=== PATIENT | female | born 1935 | race Caucasian/White ===

== ENCOUNTER → 2017-12-21 13:47 | Outpatient (CLI) | payer MEDICARE, OTHER, SELFPAY ==
--- NOTE | 2017-12-21 | DI.ECHO.S_ITS ---
[facility] +---------+ : : [address] : [place] [address] : : : : [id number] : : : : Phone: [phone] Echocardiogram Report + + :Name: CHRIS CRAWFORD Study Date: 12/21/2017 Height: 63 in : :[facility] Weight: 197 lb : : Gender: Female BSA: 1.9 m2 : :: 1935 Age: 82 yrs BP: 100/64 mmHg: :Reason For Study: SOB : :Ordering Physician: : :Dylan Loja Performed By: Symone Chambers : :Referring: GREGORY DIAZ : + + Interpretation Summary 1) Normal left ventricular thickness, size, and systolic function (EF 60-65%). 2) Flattened septum is consistent with RV pressure/volume overload. 3) Moderately enlarged right ventricle with mildly reduced function. 4) Severe biatrial enlargement. 5) There is severe tricuspid regurgitation. 6) The right ventricular systolic pressure is estimated at 68 mmHg assuming a right atrial pressure of 15 mm Hg. 7) The IVC is dilated (diameter is greater than 2.1 cm) and it collapses less than 50% with a sniff. This suggests a high right atrial pressure of 15 mm Hg. 8) No prior Echo available for comparison. I spoke with Dr. Dylan Loja on 12/21/2017 at 1550 to discuss the findings on this echo. Procedure: A two-dimensional transthoracic echocardiogram with color flow and Doppler was performed. The study quality was technically good. Comparison is made with the echocardiogram of 07-24-12. The patient was in atrial fibrillation with heart rates between 76-85 bpm during the exam. Left Ventricle: The left ventricle is normal in size. There is normal left ventricular wall thickness. The ejection fraction is estimated to be 60-65%. Left ventricular systolic function is normal. Flattened septum is consistent with RV pressure/volume overload. Right Ventricle: The right ventricle is moderately dilated. Right ventricular systolic function is mildly reduced. Atria: The left atrium is severely dilated. The right atrium is severely dilated. The interatrial septum is intact with no evidence for an atrial septal defect. Mitral Valve: There is moderate to severe mitral annular calcification. The mitral valve leaflets appear mildly thickened, but open well. There is mild mitral regurgitation. Aortic Valve: The aortic valve is trileaflet. The aortic valve opens well. No aortic regurgitation is present. Tricuspid Valve: The tricuspid valve leaflets are thin and pliable. There is severe tricuspid regurgitation. The right ventricular systolic pressure is estimated at 68 mmHg assuming a right atrial pressure of 15 mm Hg. Pulmonic Valve: The pulmonic valve is normal in structure and function. There is trace pulmonic regurgitation. Great Vessels: The aortic root is normal size. The dimensions of the ascending aorta are normal. The IVC is dilated (diameter is greater than 2.1 cm) and it collapses less than 50% with a sniff. This suggests a high right atrial pressure of 15 mm Hg. Pericardium/ Pleura There is no pericardial effusion. There is no pleural effusion. MMode/2D Measurements & Calculations LVIDd: 4.3 cm Ao root diam: 3.1 cm LVIDs: 2.8 cm Aortic Jxn: 2.6 cm FS: 34.3 % asc Aorta Diam: 3.2 cm EPSS: 0.57 cm Ao Arch Diam (Prox Trans): 3.0 cm IVSd: 1.0 cm LVPWd: 0.98 cm LV andres. diameter/BSA (cm/m^2): 2.2 LV sys. diameter/BSA (cm/m^2): 1.5 LA dimension: 5.3 cm RA long axis: 6.5 cm LA A2 area: 28.3 cm2 RA area: 28.6 cm2 LA A4 area: 32.8 cm2 RA vol: 107.4 ml LA length (vol): 7.5 cm RA : 55.9 ml/m2 LA vol: 105.1 ml IVC diam: 2.8 cm LA vol index: 54.7 ml/m2 RVDd major: 6.0 cm RVD1 (basal): 4.7 cm RVD2 (mid): 4.2 cm Doppler Measurements & Calculations Ao V2 max: 114.1 cm/sec Med Peak E' Tavo: 6.3 cm/sec Ao V2 mean: 72.6 cm/sec Lat Peak E' Tavo: 8.6 cm/sec Ao max P.2 mmHg MV P1/2t: 66.6 msec Ao mean P.6 mmHg MR ERO: 0.19 cm2 Ao V2 VTI: 20.5 cm TR max tavo: 364.1 cm/sec MV V2 mean: 42.5 cm/sec TR max P.0 mmHg MV mean P.1 mmHg PA Accel Time: 0.10 sec MV V2 VTI: 21.4 cm MV P1/2t max tavo: 99.6 cm/sec MR flow rate: 84.6 cm3/sec MVA(P1/2t): 3.3 cm2 MR PISA radius: 0.55 cm Reading Physician:03:55 PM
== END ==
PROVIDERS: PCP Internal Medicine; Visit Provider Physician Assistant
DX: R06.02 Shortness of breath (principal)
CPT/HCPCS: 93306

== ENCOUNTER 2018-01-17 15:19 | Observation (INO) | payer MEDICARE, OTHER, SELFPAY ==
[2018-01-17] VITALS (14 sets, daily range): BP systolic 99–128; BP diastolic 52–99; PULSE 75–101; RESP 12–20; TEMP 36.4–36.9; O2SAT 93–100; BMI 30.9
--- NOTE | 2018-01-17 15:32 | ED_ITS ---
HPI - General Adult General Chief complaint: Chest Pain Stated complaint: POSSIBLE PULM EMBOLISM Time Seen by Provider: 01/17/18 15:31 Source: patient Mode of arrival: ambulatory Limitations: no limitations History of Present Illness HPI narrative: 82-year-old female currently on Eliquis for atrial fibrillation also with a diagnosis of diastolic heart failure currently on Lasix here for evaluation of chest pain. Patient states that it started approximately 3 hr prior to arrival to the emergency department but has been consistent for the past 2 hr. States that it does radiate to the left side of her neck and also to her back. Has no history of coronary artery disease. Does get somewhat worse with taking a deep breath. Not worse with movement or palpation. Patient is not diabetic. Does have a history of hypertension. Patient's daughter is an orthopedic surgeon and told her to come to the emergency department for evaluation for possible pulmonary embolism. Related Data Home Medications Medication Instructions Recorded Confirmed atenolol 12.5 mg PO QDAY #0 07/22/12 01/17/18 furosemide 40 mg PO BID #0 07/22/12 01/17/18 magnesium oxide 500 mg PO DIRECTED #0 07/22/12 01/17/18 Probiotic 2 cap PO DAILY 01/17/18 01/17/18 apixaban [Eliquis] 5 mg PO BID 01/17/18 01/17/18 cholecalciferol (vitamin D3) 5,000 unit PO DAILY 01/17/18 01/17/18 [Vitamin D3] levothyroxine 100 mcg PO DAILY 01/17/18 01/17/18 potassium chloride [Klor-Con 10 meq PO BID 01/17/18 01/17/18 Sprinkle] Allergies Allergy/AdvReac Type Severity Reaction Status Date / Time No Known Allergies Allergy Uncoded 01/17/18 15:32 Review of Systems Constitutional Denies chills, Denies fever(s), Denies lethargy and Denies weakness ENT Ears, Nose, Mouth, and Throat: Denies vertigo and Denies dizziness Cardiovascular Reports chest pain, Denies diaphoresis, Denies syncope, Denies rapid heart rate , Reports irregular heart rhythm (Patient has known atrial fibrillation), Reports leg edema (Not new, not worse than baseline), Denies lightheadedness, Denies palpitations and Reports dyspnea (Secondary to the chest pain) Respiratory Denies chest congestion, Denies cough, Reports dyspnea (Secondary to the chest pain) and Denies wheezing Gastrointestinal Gastrointestinal: Denies diarrhea, Denies nausea and Denies vomiting Genitourinary Denies dysuria Musculoskeletal Denies abnormal gait, Denies myalgias and Denies arthralgias Integumentary/Breasts Denies lesions, Denies rash and Denies wounds Neurologic Denies abnormal gait, Denies behavioral changes, Denies confusion, Denies vertigo, Denies dizziness, Denies syncope and Denies weakness Psychiatric Denies behavioral changes and Denies confusion Endocrine Denies palpitations Hematologic/Lymphatic Denies easy bleeding and Denies easy bruising Comments: Currently anticoagulated on Eliquis has been on for 3 weeks Allergic/Immunologic Denies wheezing FOR[facility], [facility] Social History Smoking Status: Never smoker Exam Initial Vital Signs Initial Vital Signs: Vital Signs Temperature 97.5 F L 01/17/18 15:32 Pulse Rate 78 01/17/18 15:32 Respiratory Rate 18 01/17/18 15:32 Blood Pressure 128/64 H 01/17/18 15:32 Pulse Oximetry 97 01/17/18 15:32 Const General: cooperative, healthy appearing, comfortable and well developed Orientation: alert, awake and oriented x3 HENMT Head: normal to inspection, normocephalic and atraumatic Ears: hearing grossly normal bilaterally Nose: external nose normal Face and sinus: normal facial exam Mouth: oral mucosae normal Chest Chest: normal inspection of the chest and normal palpation of entire chest wall Resp Effort & Inspection: normal respiratory effort Auscultation: clear to auscultation bilaterally Cardio Rate: regular rate Rhythm: abnormal rhythm Heart Sounds: murmur systolic III/ GI Inspection: normal to inspection and non-distended Palpation: soft, No firm and No guarding Back/Spine/Pelvis Back: No CVA tenderness Skin Lesions: no lesions Rashes: no rashes Wounds: no wounds Neuro General: alert, awake and oriented x3 Cognition: normal cognition Speech: speech normal Motor: muscle tone normal throughout Sensory Exam: no sensory deficits noted Extrem Other: 2+ pitting edema bilateral lower extremities from the feet to the knees right greater than left Course Orders Ordered: ED Orders 01/17/18 15:33 EKG-12 Lead Stat 01/17/18 16:03 CT angio chest abdomen pelvis Stat 01/17/18 16:04 B Type Natriuretic Peptide Stat Basic Metabolic Panel Stat Complete Blood Count AUTO DIFF Stat Partial Thromboplastin Time Stat Prothrombin Time INR Stat Troponin I Stat Sodium Chloride (Normal Saline 0.9%) 1,000 mls @ 250 mls/hr IV BOLUS ONE Stop: 01/17/18 20:50 Last Admin: 01/17/18 17:13 Dose: 250 mls/hr Discontinued Medications Aspirin (Aspirin) 325 mg PO NOW ONE Stop: 01/17/18 18:04 Last Admin: 01/17/18 18:05 Dose: 325 mg Sodium Chloride (Normal Saline 0.9%) 1,000 mls @ 500 mls/hr IV BOLUS ONE Stop: 01/17/18 18:02 Last Admin: 01/17/18 16:26 Dose: Not Given Morphine Sulfate (Morphine) 4 mg IV NOW ONE Stop: 01/17/18 18:04 Last Admin: 01/17/18 18:05 Dose: 4 mg Vital Signs - 8 hr 01/17/18 15:32 01/17/18 16:04 01/17/18 16:30 Temperature 97.5 F L Pulse Rate 78 80 75 Respiratory Rate 18 17 12 Blood Pressure 128/64 H Blood Pressure [Left Arm] 106/66 101/63 Pulse Oximetry 97 97 100 01/17/18 17:05 01/17/18 17:30 01/17/18 18:06 Temperature Pulse Rate 86 82 81 Respiratory Rate 17 18 19 Blood Pressure Blood Pressure [Left Arm] 128/99 H 110/52 L 112/60 Pulse Oximetry 93 Medical Decision Making [facility] Narrative Medical decision making narrative: CT scan negative for pulmonary embolism and thoracic aortic dissection. Patient is in atrial fibrillation was currently on Eliquis. Her presenting symptoms have moved to her upper back and seem to be pleuritic in nature. Has nonspecific ST T wave changes on the EKG. Was given an aspirin and morphine here in the ER. Initial troponin negative this was drawn 3 hr after consistent pain had a long discussion with the patient and family regarding options to include going home now versus staying here in the emergency department for repeat troponin versus being admitted to the hospital for further provocative testing. I advised her that being admitted to the hospital is in her best interest given her risk factors and symptoms. We had discussion regarding her options of being admitted here to this hospital and I advised her that we were able to perform stress testing however we do not have a laboratory administrative director if that was needed verses being transferred to another hospital. Patient opted to be admitted here to this hospital. Discussed the case with Dr. Lucero with Internal Medicine who accepted admission. Patient and family expressed understanding and agreement with plan Lab Data Result diagrams: 01/17/18 16:04 01/17/18 16:04 Lab Results 01/17/18 01/17/18 01/17/18 Range/Units 16:04 16:04 16:04 WBC 10.3 (4.5-11.0) X10^3/uL RBC 5.34 H (4.0-5.2) X10^6/uL Hgb 15.3 (12.0-16.0) g/dL Hct 46.4 H (36-46) % MCV 87.0 (80-100) fL MCH 28.6 (26-34) PG MCHC 32.9 (30-36) % RDW 17.0 H (11.6-14.8) % Plt Count 209 (150-400) X10^3/uL Neut % (Auto) 83.2 H (50-75) % Lymph % (Auto) 6.7 L (25-40) % [place] % (Auto) 8.5 (3-14) % Eos % (Auto) 1.2 L (2-4) % Baso % (Auto) 0.4 (0-2) % Neut # (Auto) 8600 H (3812-5706) /uL PT 19.0 H (10.1-12.7) SECONDS INR 1.8 H (0.9-1.3) APTT 34 (26.4-36.2) SECONDS Sodium 142 (137-145) mmol/L Potassium 4.1 (3.4-5.1) mmol/L Chloride 97 L (98-107) mmol/L Carbon Dioxide 31 (22-32) mmol/L BUN 28 H (7-17) mg/dL Creatinine 1.00 (0.52-1.04) mg/dL Estimated GFR 53.1 L (>60) mL/min BUN/Creatinine Ratio 28.0 H (6-22) Glucose 99 (80-110) mg/dL Calcium 9.7 (8.4-10.2) mg/dL Troponin I < 0.012 (0.01-0.034) ng/mL B-Natriuretic Peptide 682.0 H (<100) Imaging Data CT chest abdomen pelvis: Radiologist's impression: PROCEDURE: CT ANGIO CHEST ABDOMEN PELVIS INDICATIONS: Chest and back pain concern for PE and aortic dissection TECHNIQUE: Precontrast 5 mm thick sections acquired from the lung apices to the iliac crests. After the administration of intravenous contrast, 2.5 mm thick sections again acquired from the lung apices to the iliac crests. Maximum intensity projection (MIP) oblique sagittal and coronal reformats were then acquired. For radiation dose reduction, the following was used: automated exposure control. COMPARISON: [facility], ECHO DOPPLER COMPLETE, 12/21/2017, 14:07. [facility], ECHOCARDIOGRAM COMPLETE, 07/24/2012, 11:59. FINDINGS: Image quality: Excellent. AORTA: Intramural hematoma: Absent Maximum hematoma thickness: Not applicable. Focal contrast enhancement: Intramural blood pool (< 2 mm neck or imperceptible communication with aortic lumen): Absent. Ulcer-like projection (broad communication with aortic lumen > 3 mm): Absent. Dissection: Not applicable [place] classification: Not applicable Maximum aortic diameter: 3.5 cm. [If [place] A dissection, > 5.0 cm has a poorer prognosis. If [place] B dissection, > 4.0 cm has a poorer prognosis.] Periaortic hematoma: Absent. CHEST: Lungs and pleura: No acute airspace opacities. Chronic interstitial changes noted in the lung bases bilaterally. No pleural effusions or pneumothorax. Central and peripheral airways are patent and normal in caliber. Mediastinum: Heart is enlarged. There is left atrial, right atrial and right ventricular dilatation. A left ventricular hypertrophy is noted. There is flattening of the interventricular septum and reflux of contrast material into the hepatic veins compatible with right heart strain. Atherosclerotic calcifications are noted in the aorta, great vessels and the coronary vasculature. No pericardial effusion. No mediastinal or hilar adenopathy by size criteria. Central pulmonary arteries are normal in size. No large central pulmonary embolus identified. Small pulmonary emboli involving the subsegmental pulmonary arteries cannot be excluded. Esophagus is normal in caliber. No hiatal hernias. Bones and chest wall: No axillary adenopathy by size criteria. Thyroid gland is within normal limits. No suspicious bony lesions. No vertebral body compression fractures. ABDOMEN: Vasculature: Celiac trunk and mesenteric arteries are patent. Renal arteries are also patent. Solid organs: Liver is normal in size and enhancement. Gallbladder is within normal limits. Biliary system is non dilated. Pancreas enhances normally. Spleen is normal in size and enhancement. No adrenal nodules. Both kidneys are normal in size and enhancement, without hydronephrosis. Peritoneum and bowel: No free fluid or air. Bowel loops are normal in caliber and wall thickness. Scattered colonic diverticuli without evidence of diverticulitis. Nodes and vessels: No retroperitoneal or mesenteric adenopathy by size criteria. Inferior vena cava is normal in morphology. Scattered atherosclerotic calcifications involving the abdominal and pelvic vasculature. Miscellaneous: No ventral hernias. PELVIS: Genitourinary: Bladder wall thickness is normal. Miscellaneous: No inguinal hernias or adenopathy. No ventral hernias. Bones: No suspicious bony lesions. No vertebral body compression fractures. Spine degenerative disc disease and facet arthropathy. Bilateral hip prostheses noted. IMPRESSION: 1. No evidence of aortic dissection. 2. No large central pulmonary embolus. Please note study was optimized for evaluation of the aorta and there is suboptimal contrast opacification of subsegmental pulmonary arteries. Small pulmonary emboli cannot be excluded by this study. 3. Cardiomegaly with right heart strain. Recommend cardiac echocardiogram for further evaluation. 4. Atherosclerosis including the coronary vasculature. Dictated by: Yumiko Wild MD, PhD on 01/17/2018 at 17:16 ECG Data Attestation: I personally reviewed and interpreted this ECG as follows: Prior ECG tracings: not available for review Interpretation: Atrial fibrillation Ventricular rate is 79 Incomplete right bundle branch block Normal QRS Nonspecific ST T wave changes Discharge Plan Departure Patient Disposition: Admitted as Observation Clinical Impression: Chest pain, A-fib
--- NOTE | 2018-01-17 16:03 | DI.CT.S_ITS ---
PROCEDURE: CT ANGIO CHEST ABDOMEN PELVIS INDICATIONS: Chest and back pain concern for PE and aortic dissection TECHNIQUE: Precontrast 5 mm thick sections acquired from the lung apices to the iliac crests. After the administration of intravenous contrast, 2.5 mm thick sections again acquired from the lung apices to the iliac crests. Maximum intensity projection (MIP) oblique sagittal and coronal reformats were then acquired. For radiation dose reduction, the following was used: automated exposure control. [facility], 12[facility]2017, 14[facility]07[facility]TE, 07/24/2012, 11:59. FINDINGS: Image quality: Excellent. AORTA: Intramural hematoma: Absent Maximum hematoma thickness: Not applicable. Focal contrast enhancement: Intramural blood pool (< 2 mm neck or imperceptible communication with aortic lumen): Absent. Ulcer-like projection (broad communication with aortic lumen > 3 mm): Absent. Dissection: Not applicable [place] classification: Not applicable Maximum aortic diameter: 3.5 cm. [If [place] A dissection, > 5.0 cm has a poorer prognosis. If [place] B dissection, > 4.0 cm has a poorer prognosis.] Periaortic hematoma: Absent. CHEST: Lungs and pleura: No acute airspace opacities. Chronic interstitial changes noted in the lung bases bilaterally. No pleural effusions or pneumothorax. Central and peripheral airways are patent and normal in caliber. Mediastinum: Heart is enlarged. There is left atrial, right atrial and right ventricular dilatation. A left ventricular hypertrophy is noted. There is flattening of the interventricular septum and reflux of contrast material into the hepatic veins compatible with right heart strain. Atherosclerotic calcifications are noted in the aorta, great vessels and the coronary vasculature. No pericardial effusion. No mediastinal or hilar adenopathy by size criteria. Central pulmonary arteries are normal in size. No large central pulmonary embolus identified. Small pulmonary emboli involving the subsegmental pulmonary arteries cannot be excluded. Esophagus is normal in caliber. No hiatal hernias. Bones and chest wall: No axillary adenopathy by size criteria. Thyroid gland is within normal limits. No suspicious bony lesions. No vertebral body compression fractures. ABDOMEN: Vasculature: Celiac trunk and mesenteric arteries are patent. Renal arteries are also patent. Solid organs: Liver is normal in size and enhancement. Gallbladder is within normal limits. Biliary system is non dilated. Pancreas enhances normally. Spleen is normal in size and enhancement. No adrenal nodules. Both kidneys are normal in size and enhancement, without hydronephrosis. Peritoneum and bowel: No free fluid or air. Bowel loops are normal in caliber and wall thickness. Scattered colonic diverticuli without evidence of diverticulitis. Nodes and vessels: No retroperitoneal or mesenteric adenopathy by size criteria. Inferior vena cava is normal in morphology. Scattered atherosclerotic calcifications involving the abdominal and pelvic vasculature. Miscellaneous: No ventral hernias. PELVIS: Genitourinary: Bladder wall thickness is normal. Miscellaneous: No inguinal hernias or adenopathy. No ventral hernias. Bones: No suspicious bony lesions. No vertebral body compression fractures. Spine degenerative disc disease and facet arthropathy. Bilateral hip prostheses noted. IMPRESSION: 1. No evidence of aortic dissection. 2. No large central pulmonary embolus. Please note study was optimized for evaluation of the aorta and there is suboptimal contrast opacification of subsegmental pulmonary arteries. Small pulmonary emboli cannot be excluded by this study. 3. Cardiomegaly with right heart strain. Recommend cardiac echocardiogram for further evaluation. 4. Atherosclerosis including the coronary vasculature. Dictated by: Yumiko Wild MD, PhD on 01/17/2018 at 17:16 Approved by: Yumiko Wild MD, PhD on 01/17/2018 at 17:36
[2018-01-17 16:10] LABS: Add Manual Diff / Slide Review NO; Basophils Percent Auto 0.4 % (0-2); Eosinophils Percent Auto 1.2 % (2-4); Hematocrit 46.4 % (36-46); Hemoglobin 15.3 g/dL (12.0-16.0); Lymphocytes Percent Auto 6.7 % (25-40); Mean Corpuscular HGB Conc 32.9 % (30-36); Mean Corpuscular Hemoglobin 28.6 PG (26-34); Monocytes Percent Auto 8.5 % (3-14); Neutrophils Absolute Auto 8600 /uL (3000-5900); Neutrophils Percent Auto 83.2 % (50-75); Platelet Count 209 X10^3/uL (150-400); Red Blood Cell Count 5.34 X10^6/uL (4.0-5.2); White Blood Cell Count 10.3 X10^3/uL (4.5-11.0)
[2018-01-17 16:17] LABS: INR 1.8 (0.9-1.3)
[2018-01-17 16:19] LABS: PTT Partial Thromboplastin Tim 34 SECONDS (26.4-36.2)
[2018-01-17 16:22] LABS: Blood Urea Nitrogen 28 mg/dL (7-17); Calcium 9.7 mg/dL (8.4-10.2); Carbon Dioxide 31 mmol/L (22-32); Chloride 97 mmol/L (98-107); Estimated Glomerular Filt Rate 53.1 mL/min (>60); Glucose 99 mg/dL (80-110); HEMOLYSIS < 15 (0-50); Potassium 4.1 mmol/L (3.4-5.1); Sodium 142 mmol/L (137-145)
--- NOTE | 2018-01-17 16:33 | PC.NURSE ---
Pt reports chest pain radating to back and bilateral shoulder blades which worse with breathing in. Pt has hx of afib, rate controlled in 70's and HF. Pt has been taking Eloquis for anticoagulant. Pt currently on cont cardiac/o2 monitor and declines IVF hydration at this time due to her hx of HF and aggressive diuretic therapy. Pt informed will wait for BNP results.
[2018-01-17 16:37] LABS: Troponin I < 0.012 ng/mL (0.01-0.034)
[2018-01-17] MEDS: SODIUM CHLORIDE 0.9% 1,000 ML 250 ML IV (17:13)
[2018-01-17] MEDS: MORPHINE 4 MG/ML INJ IV ×2 (18:05→21:31)
[2018-01-17] MEDS: ASPIRIN 325 MG TABLET PO (18:05)
--- NOTE | 2018-01-17 20:24 | PC.NURSE ---
patient up to room by 1945. patient is a&ox4 and has been oriented to room and call light. shun verbalizes understanding with use of call light and states she will not get up by herself. dr. lloyd in to see patient for assessment. patient describes pain in upper shoulders/upper back and states it radiates up both sides of neck. iv in lac is intact and patent. vss. 97% on ra. patient denies nausea, sob, or dizziness. patient successfully voided in br. patient has baseline edema 2+ non-pitting to ble. pain is rated 6/10. patient requests to have morphine ordered for pain management, dr. lloyd aware. skin is intact. patient denies tingling or numbness to ble. compression stockings are in place. bowel tones present, patient's last bm was this morning. lung sounds are clear throughout. heart rate is irregular at baseline, patient has chronic afib. telemetry unit is in place. ba is on. will continue to monitor.
--- NOTE | 2018-01-17 20:45 | P.HP_ITS ---
History of Present Illness Date Patient Seen: 01/17/18 Time Patient Seen: 20:00 Chief complaint: POSSIBLE PULM EMBOLISM Narrative: 82-year-old, patient of Dr. Dylan Loja'shelia who presented to the [facility] Emergency Room for chest pain. She has chronic atrial fibrillation. She was recently diagnosed with congestive heart failure with preserved ejection fraction. Her furosemide dose was increased to 40 mg twice a day. She has lost about 22 lb of body weight in the past 4 weeks. She just saw Dr. Loja yesterday at the clinic for follow-up visit. She was doing well until this morning when she started having pain on her anterior chest and radiating to her upper back. She described the pain as sharp in nature. Currently the anterior chest pain has resolved. She has mild sharp pain in upper back when she takes a breath. She has mild chronic cough. She has not noticed any worsening of cough. She denies fevers or chills. She received 4 mg of IV morphine at the emergency room which helped with alleviating the pain. Patient History Comment: Chronic atrial fibrillation Hypothyroidism Thyroid nodule, on suppressive levothyroxine since 1974 Chronic peripheral edema due to venous insufficiency Pulmonary hypertension Bladder cancer, status post BCG treatment [id number], followed by Dr. Swartz , negative cystoscopy and biopsy since then Perforated diverticulitis, status post partial colectomy in February of 2011 Obstructive sleep apnea, 2011 Appendectomy, 1951 Left total hip arthroplasty, December of 2009 Right total hip arthroplasty, November of 2016 Umbilical hernia repair, May of 2010 Incisional hernia repair, January 2013 Bilateral cataract surgeries, 2014 Hemorrhoid and fissure repair, 1970 Right hand lateral collateral ligament repair, 1974 Family & Social History Social History: household members children Prior Living Arrangements House Safety & Behavioral: Feels Safe in Current Yes Environment Been Physically Hurt or No Threatened By a Person Suicidal Ideation Description None Suicide Plan Description No Plan Tobacco & Substance use: Smoking Status Never smoker alcohol intake frequency 0-2 drinks per day Substance Use Type does not use Comment: She is . Her youngest daughter is living with care. She is independent with ADLs. She drinks alcohol occasionally. No cigarette smoking. Meds Home Medications Medication Instructions Recorded Confirmed Type atenolol 12.5 mg PO QDAY #0 07/22/12 01/17/18 History furosemide 40 mg PO BID #0 07/22/12 01/17/18 History magnesium oxide 500 mg PO DIRECTED #0 07/22/12 01/17/18 History Probiotic 2 cap PO DAILY 01/17/18 01/17/18 History apixaban [Eliquis] 5 mg PO BID 01/17/18 01/17/18 History cholecalciferol (vitamin D3) 5,000 unit PO DAILY 01/17/18 01/17/18 History [Vitamin D3] levothyroxine 100 mcg PO DAILY 01/17/18 01/17/18 History potassium chloride [Klor-Con 10 meq PO BID 01/17/18 01/17/18 History Sprinkle] Allergies Allergy/AdvReac Type Severity Reaction Status Date / Time No Known Allergies Allergy Uncoded 01/17/18 15:32 Review of Systems Constitutional Comments: No fever chills or sweats Cardiovascular Cardiovascular: Reports as per HPI Respiratory Comments: Mild chronic cough Gastrointestinal Comments: No abdominal pain Genitourinary Comments: No dysuria Neurologic Comments: No headache or confusion Exam Vital Signs (past 8 hours): Vital Signs - 8 hr 3 01/17/18 15:32 01/17/18 16:04 01/17/18 16:30 Temperature 97.5 F L Pulse Rate 78 80 75 Respiratory Rate 18 17 12 Blood Pressure 128/64 H Blood Pressure [Left Arm] 106/66 101/63 Pulse Oximetry 97 97 100 3 01/17/18 17:05 01/17/18 17:30 01/17/18 18:06 Temperature Pulse Rate 86 82 81 Respiratory Rate 17 18 19 Blood Pressure Blood Pressure [Left Arm] 128/99 H 110/52 L 112/60 Pulse Oximetry 93 3 01/17/18 18:30 01/17/18 19:00 01/17/18 19:32 Temperature Pulse Rate 81 82 86 Respiratory Rate 20 16 18 Blood Pressure Blood Pressure [Left Arm] 99/70 104/57 L 110/63 Pulse Oximetry 95 95 3 01/17/18 19:58 Temperature Pulse Rate 83 Respiratory Rate 20 Blood Pressure 110/63 Blood Pressure [Left Arm] Pulse Oximetry 95 Pulse Oximetry 95 Oxygen Delivery Method Room Air Narrative Exam Narrative: GENERAL: Well-appearing, well-nourished and in no acute distress. HEENT: Head normocephalic, atraumatic. Eyes pupils equal round NECK: Supple, no JVD, CHEST: Breath sounds equal bilaterally, no wheezes rales or rhonchi. CARDIAC: Irregularly irregular rhythm without murmurs, rubs or gallops. ABDOMEN: Soft, nontender. Normoactive bowel sounds all 4 quadrants. No guarding or rebound. EXTREMITIES: Normal range of motion, 2 to 3+ edema on bilateral lower leg and feet, bilateral lower leg and feet were in compression stockings NEUROLOGICAL: Alert and oriented; Normal muscle strength. SKIN: Warm, dry, no petechiae, no rashes or lesions. Objective Imaging CT scan - chest: Radiologist's impression: 1. No evidence of aortic dissection. 2. No large central pulmonary embolus. Please note study was optimized for evaluation of the aorta and there is suboptimal contrast opacification of subsegmental pulmonary arteries. Small pulmonary emboli cannot be excluded by this study. 3. Cardiomegaly with right heart strain. Recommend cardiac echocardiogram for further evaluation. 4. Atherosclerosis including the coronary vasculature. echocardiogram: Radiologist's impression: Interpretation Summary 1) Normal left ventricular thickness, size, and systolic function (EF 60-65%). 2) Flattened septum is consistent with RV pressure/volume overload. 3) Moderately enlarged right ventricle with mildly reduced function. 4) Severe biatrial enlargement. 5) There is severe tricuspid regurgitation. 6) The right ventricular systolic pressure is estimated at 68 mmHg assuming a right atrial pressure of 15 mm Hg. 7) The IVC is dilated (diameter is greater than 2.1 cm) and it collapses less than 50% with a sniff. This suggests a high right atrial pressure of 15 mm Hg. 8) No prior Echo available for comparison. Labs Result Diagrams: 01/17/18 16:04 01/17/18 16:04 Labs: Laboratory Results - last 24 hr 01/17/18 01/17/18 01/17/18 16:04 16:04 16:04 WBC 10.3 RBC 5.34 H Hgb 15.3 Hct 46.4 H MCV 87.0 MCH 28.6 MCHC 32.9 RDW 17.0 H Plt Count 209 Neut % (Auto) 83.2 H Lymph % (Auto) 6.7 L [place] % (Auto) 8.5 Eos % (Auto) 1.2 L Baso % (Auto) 0.4 Neut # (Auto) 8600 H PT 19.0 H INR 1.8 H APTT 34 Sodium 142 Potassium 4.1 Chloride 97 L Carbon Dioxide 31 BUN 28 H Creatinine 1.00 Estimated GFR 53.1 L BUN/Creatinine Ratio 28.0 H Glucose 99 Calcium 9.7 Troponin I < 0.012 B-Natriuretic Peptide 682.0 H Assessment & Plan Plan: Assessment/Plan Narrative: 1. Chest pain: Her chest pain seemed to be pleuritic in nature. CT pulmonary angiogram did not reveal large pulmonary embolism. She is on Eliquis for anticoagulation. We will check serial troponin to rule out myocardial infarction. We will schedule her for Lexiscan tomorrow to rule out coronary artery disease. 2. Chronic atrial fibrillation: Her ventricular rate is adequately controlled. We will continue telemetry monitoring. Continue Eliquis for anticoagulation 3. Congestive heart failure with preserved ejection fraction: She does not seem to have signs of acute exacerbation. We will continue outpatient medications including furosemide 40 mg twice a day and atenolol 4. Hypothyroidism: Recheck TSH. Continue levothyroxine 100 mcg daily. 5. Chronic bilateral lower extremity edema, secondary to venous insufficiency: Continue compression stockings during the day. Elevate her bilateral legs.
[2018-01-17] MEDS: POTASSIUM CHLORIDE 10 MEQ TAB PO (21:02)
[2018-01-17] MEDS: FUROSEMIDE 20 MG TABLET 40 MG PO (21:02)
[2018-01-17] MEDS: APIXABAN 5 MG TABLET PO (21:02)
[2018-01-17 21:50] LABS: TSH w/ Reflex to FT4 1.72 uIU/mL (0.47-4.68)
[2018-01-17] MEDS: ACETAMINOPHEN 325 MG TABLET 650 MG PO (23:47)
--- NOTE | 2018-01-18 | DI.NM.S_ITS ---
PROCEDURE: NM EMMANUEL PERF SPECT SINGLE STUDY Exercise myocardial perfusion SPECT with gated imaging and ejection fraction RADIOPHARMACEUTICAL: 20.7 mCi Tc-99m sestamibi IV with lexiscan stress. INDICATIONS: chest pain TECHNIQUE: Radiopharmaceutical was injected at peak stress test. SPECT images were obtained, with perfusion images in short axis, horizontal long axis, and vertical long axis views. Gated images were reviewed using Desti software. COMPARISON: None. CARDIAC STRESS: A lexiscan 0.4mg IV X1 was used to stress portion of the study. Rest images were not obtained. Hemodynamic data: There is normal blood pressure and heart response to exercise. Symptoms: Patient denied anginal chest pain during exercise. EKG: No diagnostic changes of ischemia; no ectopy. FINDINGS: Raw data: There is good labeling of myocardium by radiotracer. No significant motion artifacts. Left ventricular function: Gated images demonstrate normal left ventricle wall thickening. No segmental wall motion abnormalities. Left ventricle end diastolic volume is 52 mL. Left ventricle stress ejection fraction is 77%; normal values are above 45%. Myocardial perfusion: There is normal distribution of activity in the left and right ventricular myocardium, without focal perfusion defects. IMPRESSION: Low risk, normal pharmaceutical stress only study 1) Normal stress only perfusion images, consistent with no ischemia and no infarction. 2) Normal left ventricular size, wall motion, and systolic function (EF 77%). 3) No ECG evidence of ischemia on lexiscan. 4) No angina during the pharmaceutical stress test. 5) No prior nuclear stress test available for comparison. Dictated by: Roxanne Gonzalez MD on 01/18/2018 at 13:21 Approved by: Roxanne Gonzalez MD on 01/18/2018 at 13:25
[2018-01-18 00:11] LABS: Troponin I < 0.012 ng/mL (0.01-0.034)
--- NOTE | 2018-01-18 00:12 | PC.NURSE ---
Addendum entered by Monika Barrett R.N. 01/18/18 06:45: Provided Wowo printed information regarding chemical stress test. States chest pain has been relieved and upper back pain is still at 3/10 Original Note: Addendum entered by Monika Barrett R.N. 01/18/18 05:42: Medicated with Morphine for anterior chest pain and upper back pain. States pain with deeper breaths is 6/10 and 4/10 at rest but constant. Continues to express anxiety over upcoming stress test. Original Note: Addendum entered by Monika Barrett R.N. 01/18/18 04:30: Patient assisted out of bed and to bathroom. Having increased pain with any movement and is very slow in walking but seems steady on feet; is using walker. States she was able to sleep some. Made NPO at this time as patient is having cardiolite stress test today but uncertain as to time. Original Note: Addendum entered by Monika Barrett R.N. 01/18/18 01:35: Medicated as requested with Morphine 4mg; states pain is now down to 4/10 and much more tolerable. Original Note: Patient is alert and oriented but very anxious pending stress test in the morning. Breath sounds with inspiratory crackles in bilateral bases; RA sat 95%. Respirations are shallow because she has increased pain related to taking deep breaths; I.S. provided and instructed in use. HR irregular with hx of afib and telemetry is being monitored and was afib CVR at start of shift. Denies nausea. BT hypoactive but states she is passing flatus. Denies dysuria or urgency but has frequency related to diuretic use and some stress incontinence. Having upper back/neck pain with severity of 7-8/10 with deep breaths/movement. States pain is dull at rest, but knocks me for a loop with deep breaths. Assisted to bathroom with 1 assist and walker. Has 1+ edema in bilateral LE and is wearing compression stockings she came in with from home. Is [place] but did not bring her hearing aids with her to the hospital. Fall risk score is high and bed alarm is activated.
[2018-01-18] MEDS: MORPHINE 4 MG/ML INJ IV ×2 (01:32→05:28)
[2018-01-18] MEDS: SODIUM CHLORIDE 0.9% FLUSH 10 ML IV ×3 (01:32→09:02)
[2018-01-18 04:30] VITALS: BP 130/77; PULSE 82; RESP 18; TEMP 37.1; O2SAT 95
[2018-01-18] MEDS: ACETAMINOPHEN 325 MG TABLET 650 MG PO ×2 (06:38→12:56)
[2018-01-18] MEDS: LEVOTHYROXINE 100 MCG TABLET PO (06:38)
[2018-01-18 08:00] VITALS: BP 98/54; PULSE 90; RESP 16; TEMP 37.1; O2SAT 93
[2018-01-18] MEDS: APIXABAN 5 MG TABLET PO (09:01)
[2018-01-18] MEDS: MAGNESIUM OXIDE 400 MG TABLET PO (09:01)
[2018-01-18] MEDS: CHOLECALCIFEROL (VITAMIN D3) 5,000 UNIT TABLET 5000 UNIT PO (09:01)
[2018-01-18 09:31] VITALS: O2SAT 96
--- NOTE | 2018-01-18 09:38 | PC.NURSE ---
Addendum entered by Elo Omalley R.N. 01/18/18 14:39: dc - in and pt will dc home, discussed medications and aware held atenolol and lasix today, pt can resume regular schedule at home, given dc instructions, chf info, script for percocet, reviewed with pt and her dtr, belongings gathered, including bag, clothing, cell phone and print washer, tele dc'd, assisted to wc and escorted to dtr's car by clinical education specialist. Original Note: Addendum entered by Elo Omalley R.N. 01/18/18 13:09: VITALS/PAIN - returned from jayla test to chair, states chest discomfort is present but improved, would like to continue with the morphine and tylenol for pain management 3 on scale 0/10, worsens with deep breath, discussed bp 98/53 and hr 90 with and will hold for now. Original Note: Addendum entered by Elo Omalley R.N. 01/18/18 10:56: JAYLA - DI nurse arrived, pt moderately anxious, Keiry explained procedure process and pt taken via wc for test. Original Note: AM NOTE - pt has been npo throughout night and yesseniaiscan ordered this am, held atenolol and lasix for now and per [facility], test for later am, does continue to have the same chest discomfort 2 on scale 0/10, up to 5-6 when taking deep breathes, coarse crackles jim lower lobes, ra 96%, hr 90, states earlier tylenol and morphine providing adequate relief, 2+ pedal edema, wearing her own compression hose, standby assist to br and voided 250ml concentrated urine this am, using IS to 1200.
[2018-01-18 12:00] VITALS: BP 98/53; PULSE 93; RESP 18; TEMP 36.2; O2SAT 96
--- NOTE | 2018-01-18 13:46 | PM.DS.1 ---
History of Present Illness Chief complaint: POSSIBLE PULM EMBOLISM Narrative: 82-year-old, patient of Dr. Dylan Loja's who presented to the [facility] Emergency Room for chest pain. She has chronic atrial fibrillation. She was recently diagnosed with congestive heart failure with preserved ejection fraction. Her furosemide dose was increased to 40 mg twice a day. She has lost about 22 lb of body weight in the past 4 weeks. She just saw Dr. Loja yesterday at the clinic for follow-up visit. She was doing well until this morning when she started having pain on her anterior chest and radiating to her upper back. She described the pain as sharp in nature. Currently the anterior chest pain has resolved. She has mild sharp pain in upper back when she takes a breath. She has mild chronic cough. She has not noticed any worsening of cough. She denies fevers or chills. She received 4 mg of IV morphine at the emergency room which helped with alleviating the pain. Discharge Providers Date of admission: 01/17/18 18:47 Primary care physician: Dylan Loja MD Consults: 01/17/18 20:14 Consult to Dietitian, Adult Routine Comment: trying to lose weight in healthy ways. Reason For Exam: recent weight loss, patient trying to lose weight Consult to Pastoral Services Routine Comment: would not turn away visitors Discharge provider: Cherie Lucero MD Discharge Date: 01/18/18 Summary Discharge Diagnosis: 1. Chest pain 2. Chronic atrial fibrillation 3. Chronic congestive heart failure with preserved ejection fraction 4. Hypothyroidism Five. Chronic bilateral lower extremity edema secondary to venous insufficiency Hospital Course: Patient was ruled out for [place] with 2-troponins. CT pulmonary angiogram did not reveal large PE. There was no signs of pleural effusion or pneumothorax either. Lexiscan was done on January 18, 2018 which did not reveal perfusion defect. Patient's chest pain seemed to be pleuritic in nature. It is possible that she could have pleurisy. She is not able to take anti-inflammatories medication due to her being on anticoagulation with Eliquis. We will use Tylenol as needed for pain. She will also be given a prescription of Percocet for as needed pain control. Status at Discharge Cognitive/behavioral status at discharge: Alert and oriented x3 Functional status at discharge: independent ambulation Overall status at discharge: patient is progressing back to baseline Time Spent with Patient Greater than 30 minutes Exam Vital Signs (past 8 hours): Vital Signs - 8 hr 01/18/18 08:00 01/18/18 09:31 01/18/18 12:00 Temperature 98.8 F 97.2 F L Pulse Rate 90 93 H Respiratory Rate 16 18 Blood Pressure 98/54 L 98/53 L Pulse Oximetry 93 96 96 Pulse Oximetry 96 Oxygen Delivery Method Room Air Oxygen Flow Rate [address] scan - chest: Radiologist's impression: 1. No evidence of aortic dissection. 2. No large central pulmonary embolus. Please note study was optimized for evaluation of the aorta and there is suboptimal contrast opacification of subsegmental pulmonary arteries. Small pulmonary emboli cannot be excluded by this study. 3. Cardiomegaly with right heart strain. Recommend cardiac echocardiogram for further evaluation. 4. Atherosclerosis including the coronary vasculature. Vanita scan: Radiologist's impression: 1) Normal stress only perfusion images, consistent with no ischemia and no infarction. 2) Normal left ventricular size, wall motion, and systolic function (EF 77%). 3) No ECG evidence of ischemia on lexiscan. 4) No angina during the pharmaceutical stress test. 5) No prior nuclear stress test available for comparison. ECG: Atrial fibrillation Labs Result Diagrams: 01/17/18 16:04 01/17/18 16:04 Labs: Laboratory Results - last 24 hr 01/17/18 01/17/18 01/17/18 16:00 16:04 16:04 WBC 10.3 RBC 5.34 H Hgb 15.3 Hct 46.4 H MCV 87.0 MCH 28.6 MCHC 32.9 RDW 17.0 H Plt Count 209 Neut % (Auto) 83.2 H Lymph % (Auto) 6.7 L [place] % (Auto) 8.5 Eos % (Auto) 1.2 L Baso % (Auto) 0.4 Neut # (Auto) 8600 H PT 19.0 H INR 1.8 H APTT 34 Sodium Potassium Chloride Carbon Dioxide BUN Creatinine Estimated GFR BUN/Creatinine Ratio Glucose Calcium Troponin I B-Natriuretic Peptide 682.0 H TSH 1.72 01/17/18 01/17/18 16:04 23:39 WBC RBC Hgb Hct MCV MCH MCHC RDW Plt Count Neut % (Auto) Lymph % (Auto) [place] % (Auto) Eos % (Auto) Baso % (Auto) Neut # (Auto) PT INR APTT Sodium 142 Potassium 4.1 Chloride 97 L Carbon Dioxide 31 BUN 28 H Creatinine 1.00 Estimated GFR 53.1 L BUN/Creatinine Ratio 28.0 H Glucose 99 Calcium 9.7 Troponin I < 0.012 < 0.012 B-Natriuretic Peptide TSH Discharge Plan Discharge Plan Discharge Problem: Chest pain, A-fib Patient Disposition: Home, Self-Care Provider Discharge Instructions Diet: Low-cholesterol Activity: as tolerated Discharge Data Primary Care Provider: Dylan Loja V Attending Provider: Cherie Lucero Admit Date/Time: 01/17/18 18:47
--- NOTE | 2018-01-18 13:49 | P.DS_ITS ---
History of Present Illness Chief complaint: POSSIBLE PULM EMBOLISM Narrative: 82-year-old, patient of Dr. Dylan Loja's who presented to the [facility] Emergency Room for chest pain. She has chronic atrial fibrillation. She was recently diagnosed with congestive heart failure with preserved ejection fraction. Her furosemide dose was increased to 40 mg twice a day. She has lost about 22 lb of body weight in the past 4 weeks. She just saw Dr. Loja yesterday at the clinic for follow-up visit. She was doing well until this morning when she started having pain on her anterior chest and radiating to her upper back. She described the pain as sharp in nature. Currently the anterior chest pain has resolved. She has mild sharp pain in upper back when she takes a breath. She has mild chronic cough. She has not noticed any worsening of cough. She denies fevers or chills. She received 4 mg of IV morphine at the emergency room which helped with alleviating the pain. Discharge Providers Date of admission: 01/17/18 18:47 Primary care physician: Dylan Loja MD Consults: 01/17/18 20:14 Consult to Dietitian, Adult Routine Comment: trying to lose weight in healthy ways. Reason For Exam: recent weight loss, patient trying to lose weight Consult to Pastoral Services Routine Comment: would not turn away visitors Discharge provider: Cherie Lucero MD Discharge Date: 01/18/18 Summary Discharge Diagnosis: 1. Chest pain 2. Chronic atrial fibrillation 3. Chronic congestive heart failure with preserved ejection fraction 4. Hypothyroidism Five. Chronic bilateral lower extremity edema secondary to venous insufficiency Hospital Course: Patient was ruled out for [place] with 2-troponins. CT pulmonary angiogram did not reveal large PE. There was no signs of pleural effusion or pneumothorax either. Lexiscan was done on January 18, 2018 which did not reveal perfusion defect. Patient's chest pain seemed to be pleuritic in nature. It is possible that she could have pleurisy. She is not able to take anti- inflammatories medication due to her being on anticoagulation with Eliquis. We will use Tylenol as needed for pain. She will also be given a prescription of Percocet for as needed pain control. Status at Discharge Cognitive/behavioral status at discharge: Alert and oriented x3 Functional status at discharge: independent ambulation Overall status at discharge: patient is progressing back to baseline Time Spent with Patient Greater than 30 minutes Exam Vital Signs (past 8 hours): Vital Signs - 8 hr 3 01/18/18 08:00 01/18/18 09:31 01/18/18 12:00 Temperature 98.8 F 97.2 F L Pulse Rate 90 93 H Respiratory Rate 16 18 Blood Pressure 98/54 L 98/53 L Pulse Oximetry 93 96 96 Pulse Oximetry 96 Oxygen Delivery Method Room Air Oxygen Flow Rate [address] scan - chest: Radiologist's impression: 1. No evidence of aortic dissection. 2. No large central pulmonary embolus. Please note study was optimized for evaluation of the aorta and there is suboptimal contrast opacification of subsegmental pulmonary arteries. Small pulmonary emboli cannot be excluded by this study. 3. Cardiomegaly with right heart strain. Recommend cardiac echocardiogram for further evaluation. 4. Atherosclerosis including the coronary vasculature. Vanita scan: Radiologist's impression: 1) Normal stress only perfusion images, consistent with no ischemia and no infarction. 2) Normal left ventricular size, wall motion, and systolic function (EF 77%). 3) No ECG evidence of ischemia on lexiscan. 4) No angina during the pharmaceutical stress test. 5) No prior nuclear stress test available for comparison. ECG: Atrial fibrillation Labs Result Diagrams: 01/17/18 16:04 01/17/18 16:04 Labs: Laboratory Results - last 24 hr 01/17/18 01/17/18 01/17/18 16:00 16:04 16:04 WBC 10.3 RBC 5.34 H Hgb 15.3 Hct 46.4 H MCV 87.0 MCH 28.6 MCHC 32.9 RDW 17.0 H Plt Count 209 Neut % (Auto) 83.2 H Lymph % (Auto) 6.7 L [place] % (Auto) 8.5 Eos % (Auto) 1.2 L Baso % (Auto) 0.4 Neut # (Auto) 8600 H PT 19.0 H INR 1.8 H APTT 34 Sodium Potassium Chloride Carbon Dioxide BUN Creatinine Estimated GFR BUN/Creatinine Ratio Glucose Calcium Troponin I B-Natriuretic Peptide 682.0 H TSH 1.72 01/17/18 01/17/18 16:04 23:39 WBC RBC Hgb Hct MCV MCH MCHC RDW Plt Count Neut % (Auto) Lymph % (Auto) [place] % (Auto) Eos % (Auto) Baso % (Auto) Neut # (Auto) PT INR APTT Sodium 142 Potassium 4.1 Chloride 97 L Carbon Dioxide 31 BUN 28 H Creatinine 1.00 Estimated GFR 53.1 L BUN/Creatinine Ratio 28.0 H Glucose 99 Calcium 9.7 Troponin I < 0.012 < 0.012 B-Natriuretic Peptide TSH Discharge Plan Discharge Plan Discharge Problem: Chest pain, A-fib Patient Disposition: Home, Self-Care Provider Discharge Instructions Diet: Low-cholesterol Activity: as tolerated Discharge Data Primary Care Provider: Dylan Loja V Attending Provider: Cherie Lucero Admit Date/Time: 01/17/18 18:47
--- NOTE | 2018-01-18 14:57 | CM.DPNOTE ---
Discharge Planning: Patient came in as OBS patient on 01/17 and discharged prior to being interviewed by DCP on 01/18. According to nursing notes and Discharge Summary, patient was discharged home under self-care, and daughter was with her at d/c to hear all discharge instructions and to see patient safely home. Jami Freitas RN
== END 2018-01-18 14:45 | disposition home or self-care (01) ==
LOC: ED 18:12 → AC 18:48
PROVIDERS: Admitting Provider Internal Medicine; Emergency Provider Emergency Medicine; Family Provider Internal Medicine; PCP Internal Medicine; Visit Provider Internal Medicine
DX: R07.9 Chest pain, unspecified (principal); I51.7 Cardiomegaly; I48.2 Chronic atrial fibrillation; E03.9 Hypothyroidism, unspecified; R60.0 Localized edema; I50.30 Unspecified diastolic (congestive) heart failure; I10 Essential (primary) hypertension; I25.10 Atherosclerotic heart disease of native coronary artery without angina pectoris
CPT/HCPCS: 36415; 36591; 71275; 74174; 78451; 80048; 83880; 84443; 84484; 85025; 85610; 85730; 93005; 93010; 93016; 93017; 93018; 93041; 96361; 96374; 99285; G0378; A9502; J2270; J2785; Q9967

== ENCOUNTER → 2018-02-15 18:44 | Outpatient (REF) | payer MEDICARE, OTHER, SELFPAY ==
[2018-01-17 19:23] VITALS: BMI 30.9
[2018-02-15 19:20] LABS: Blood Urea Nitrogen 27 mg/dL (7-17); Calcium 9.5 mg/dL (8.4-10.2); Carbon Dioxide 39 mmol/L (22-32); Chloride 92 mmol/L (98-107); Estimated Glomerular Filt Rate 53.1 mL/min (>60); Glucose 108 mg/dL (80-110); HEMOLYSIS < 15 (0-50); Magnesium 2.2 mg/dL (1.6-2.3); Potassium 3.5 mmol/L (3.4-5.1); Sodium 139 mmol/L (137-145)
== END ==
LOC: LAB 18:44
PROVIDERS: Family Provider Internal Medicine; PCP Internal Medicine; Visit Provider Student in an Organized Health Care Education/Training Program
DX: E83.42 Hypomagnesemia (principal); I50.9 Heart failure, unspecified
CPT/HCPCS: 80048; 83735; 83880

== ENCOUNTER 2018-03-01 18:34 | Emergency (ER) | payer MEDICARE, OTHER, SELFPAY ==
[2018-01-17 19:23] VITALS: BMI 30.9
--- NOTE | 2018-03-01 18:44 | DI.CT.S_ITS ---
PROCEDURE: CT HEAD/BRAIN WO CON INDICATIONS: fall on eliquis TECHNIQUE: Noncontrast 4.5 mm thick angled axial sections acquired from the foramen magnum to the vertex, with coronal and sagittal reformats. For radiation dose reduction, the following was used: automated exposure control, adjustment of mA and/or kV according to patient size. COMPARISON: [facility], CT, BRAIN W/O CONTRAST, 01/06/2014, 13:59. FINDINGS: Image quality: Excellent. CSF spaces: Basal cisterns are patent. No extra-axial fluid collections. The ventricles are symmetric in size and shape. Brain: No intracranial bleeds or masses. There is cerebral volume loss for age, with resultant ventricular and sulcal prominence. There are periventricular and deep white matter chronic small vessel ischemic changes. There is intracranial internal carotid artery atherosclerosis. Skull and face: Calvarium and visualized facial bones appear intact, without suspicious lesions. Sinuses: Visualized sinuses and mastoids are clear. IMPRESSION: No trauma found. Moderate brain parenchymal atrophy. Dictated by: Timothy Zamarripa M.D. on 03/01/2018 at 19:31 Approved by: Timothy Zamarripa M.D. on 03/01/2018 at 19:31
--- NOTE | 2018-03-01 18:45 | DI.CT.S_ITS ---
PROCEDURE: CT CERVICAL SPINE WO CON INDICATIONS: fall backwards neck pain TECHNIQUE: Noncontrast 3 mm thick sections acquired from the skull base to the T4 level. Sagittal and coronal reformats were then constructed. For radiation dose reduction, the following was used: automated exposure control, adjustment of mA and/or kV according to patient size. COMPARISON: None. FINDINGS: Image quality: Excellent. Bones: No fractures or dislocations. Visualized superior ribs are intact. Chronic appearing moderately severe degenerative disc disease and facet osteoarthritis, with mild anterolisthesis of C4 on C5 and C5 on C6. Soft tissues: Prevertebral soft tissues are normal in thickness. No paravertebral hematomas. No apical pneumothoraces. IMPRESSION: No acute trauma found. Moderately severe degenerative disc disease and facet osteoarthritis with mild subluxation is noted. Dictated by: Timothy Zamarripa M.D. on 03/01/2018 at 19:29 Approved by: Timothy Zamarripa M.D. on 03/01/2018 at 19:30
--- NOTE | 2018-03-01 18:51 | DI.CT.S_ITS ---
PROCEDURE: CT THORACIC SPINE WO CON INDICATIONS: fall backwards TECHNIQUE: Noncontrast 3 mm thick sections acquired through the region of interest in the thoracic spine. Sagittal and coronal reformats were then constructed. For radiation dose reduction, the following was used: automated exposure control. COMPARISON: None. FINDINGS: Image quality: Excellent. Bones: There is normal overall bony alignment. No acute vertebral body compression fractures. No suspicious sclerotic or lytic bony lesions. Central spinal canal is of normal overall caliber. Soft tissues: No paravertebral masses or hematomas. Visualized posteromedial lungs appear clear. IMPRESSION: No trauma found. Moderate degenerative disc disease along the thoracic spine and at the cervical thoracic junction. Dictated by: Timothy Zamarripa M.D. on 03/01/2018 at 19:31 Approved by: Timothy Zamarripa M.D. on 03/01/2018 at 19:32
--- NOTE | 2018-03-01 18:58 | ED.FALL ---
HPI - Fall General Chief Complaint: Fall Stated Complaint: FALL HIT HEAD Time Seen by Provider: 03/01/18 18:43 Source: patient Mode of arrival: ambulatory Limitations: no limitations History of Present Illness HPI Narrative: Patient is a 82-year-old female who presents after ground level fall. She fell backwards hitting her head on the floor. She did not lose consciousness. She had difficulty getting up because she felt like her legs did not have strength. No nausea or vomiting. No hip pain. Has no numbness or tingling. She is on Eliquis for atrial fibrillation. He is having some mild neck pain as well but no arm weakness. MD complaint: fall Related Data Home Medications Medication Instructions Recorded Confirmed atenolol 12.5 mg PO QDAY #0 07/22/12 01/17/18 furosemide 40 mg PO BID #0 07/22/12 01/17/18 magnesium oxide 500 mg PO DIRECTED #0 07/22/12 01/17/18 Probiotic 2 cap PO DAILY 01/17/18 01/17/18 apixaban 5 mg PO BID 01/17/18 01/17/18 cholecalciferol (vitamin D3) 5,000 unit PO DAILY 01/17/18 01/17/18 [Vitamin D3] levothyroxine 100 mcg PO DAILY 01/17/18 01/17/18 potassium chloride 10 meq PO BID 01/17/18 01/17/18 Previous Rx's Medication Instructions Recorded acetaminophen 650 mg PO Q6HR #30 tab 01/18/18 oxycodone-acetaminophen [Percocet] 2 tab PO Q4-6H PRN #20 tab 01/18/18 Allergies Allergy/AdvReac Type Severity Reaction Status Date / Time No Known Allergies Allergy Uncoded 01/17/18 15:32 Review of Systems Review of Systems All systems reviewed & are unremarkable except as noted in HPI and below Constitutional Denies chills, Denies fever(s), Denies lethargy and Denies weakness Eyes Denies change in vision, Denies eye discharge, Denies irritation and Denies loss of vision ENT Ears, Nose, Mouth, and Throat: Denies change in voice, Denies vertigo, Denies dizziness, Denies neck pain and Denies sore throat Cardiovascular Denies chest pain, Denies syncope, Denies irregular heart rhythm, Denies lightheadedness, Denies palpitations and Denies orthopnea Gastrointestinal Gastrointestinal: Denies abdominal pain, Denies change in bowel habits, Denies diarrhea, Denies nausea and Denies vomiting Musculoskeletal Reports as per HPI and Denies neck pain Neurologic Denies confusion, Denies vertigo, Denies dizziness, Denies syncope, Denies loss of vision and Denies weakness Psychiatric Denies confusion Endocrine Denies palpitations Exam Initial Vital Signs Initial Vital Signs: Vital Signs Temperature 97.8 F 03/01/18 19:16 Pulse Rate 87 03/01/18 19:16 Respiratory Rate 16 03/01/18 19:16 Blood Pressure 111/57 L 03/01/18 19:16 Pulse Oximetry 93 03/01/18 19:16 Const General: cooperative and healthy appearing Nutritional Appearance: average body habitus Orientation: alert, awake and oriented x3 HENMT Head: normal to inspection, normocephalic and atraumatic Nose: external nose normal Face and sinus: normal facial exam Eyes Pupils: PERRL EOM: EOM intact bilaterally Neck Neck: normal visual inspection, full ROM, trachea midline and No midline deformity Chest Chest: normal inspection of the chest Resp Effort & Inspection: normal respiratory effort Auscultation: clear to auscultation bilaterally, no rales and no rhonchi Cardio Rate: regular rate Rhythm: abnormal rhythm irregularly irregular Heart Sounds: S1 normal and S2 normal GI Palpation: soft, No firm and No tender Back/Spine/Pelvis Cervical Spine: collar present and cervical spinal tenderness (C7-T1, no step-off deformities appreciated) Thoracic/Lumbar Spine: thoracic and lumbar spine normal to inspection and thoracic spinal tenderness (Upper thoracic tender no step-off deformities is) Skin General: no rashes or lesions noted, No ecchymosis and No erythema Neuro General: alert, awake and oriented x3 Cranial Nerves: CN's II-XI intact bilaterally Cognition: normal cognition Speech: speech normal Gait: normal gait Motor: muscle tone normal throughout Sensory Exam: no sensory deficits noted Extrem General: normal to inspection Right upper extremity: normal to inspection Left upper extremity: normal to inspection Right lower extremity: normal to inspection Left lower extremity: normal to inspection [facility] [place] Social History household members: children Smoking Status: Never smoker Scores [facility] [place] coma scale eye opening: Spontaneous Melanie coma scale verbal response: Orientated Melanie coma scale motor response: Obey commands Melanie coma scale total score: 15 Course Orders Ordered: ED Orders 03/01/18 19:57 CT head/brain wo con Stat Discontinued Medications Acetaminophen (Tylenol) 650 mg PO NOW ONE Stop: 03/01/18 19:58 Last Admin: 03/01/18 20:24 Dose: 650 mg Vital Signs - 8 hr 03/01/18 20:53 03/01/18 22:09 03/01/18 23:27 Temperature 98.0 F 98.0 F Pulse Rate 84 101 H 92 H Respiratory Rate 16 16 18 Blood Pressure [Left Arm] 97/62 100/60 104/59 L Pulse Oximetry 94 96 94 03/02/18 00:18 Temperature Pulse Rate 110 H Respiratory Rate 20 Blood Pressure [Left Arm] Pulse Oximetry 96 MDM - Fall Lab Data Attestation: I reviewed the patient's lab results. Imaging Data CT scan - head: Radiologist's impression: PROCEDURE: CT HEAD/BRAIN WO CON INDICATIONS: fall on eliquis TECHNIQUE: Noncontrast 4.5 mm thick angled axial sections acquired from the foramen magnum to the vertex, with coronal and sagittal reformats. For radiation dose reduction, the following was used: automated exposure control, adjustment of mA and/or kV according to patient size. COMPARISON: [facility], CT, BRAIN W/O CONTRAST, 01/06/2014, 13:59. FINDINGS: Image quality: Excellent. CSF spaces: Basal cisterns are patent. No extra-axial fluid collections. The ventricles are symmetric in size and shape. Brain: No intracranial bleeds or masses. There is cerebral volume loss for age, with resultant ventricular and sulcal prominence. There are periventricular and deep white matter chronic small vessel ischemic changes. There is intracranial internal carotid artery atherosclerosis. Skull and face: Calvarium and visualized facial bones appear intact, without suspicious lesions. Sinuses: Visualized sinuses and mastoids are clear. IMPRESSION: No trauma found. Moderate brain parenchymal atrophy. Dictated by: Timothy Zamarripa M.D. on 03/01/2018 at 19:31 ct c spine: Radiologist's impression: PROCEDURE: CT CERVICAL SPINE WO CON INDICATIONS: fall backwards neck pain TECHNIQUE: Noncontrast 3 mm thick sections acquired from the skull base to the T4 level. Sagittal and coronal reformats were then constructed. For radiation dose reduction, the following was used: automated exposure control, adjustment of mA and/or kV according to patient size. COMPARISON: None. FINDINGS: Image quality: Excellent. Bones: No fractures or dislocations. Visualized superior ribs are intact. Chronic appearing moderately severe degenerative disc disease and facet osteoarthritis, with mild anterolisthesis of C4 on C5 and C5 on C6. Soft tissues: Prevertebral soft tissues are normal in thickness. No paravertebral hematomas. No apical pneumothoraces. IMPRESSION: No acute trauma found. Moderately severe degenerative disc disease and facet osteoarthritis with mild subluxation is noted. Dictated by: Timothy Zamarripa M.D. on 03/01/2018 at 19:29 ct t spine: Radiologist's impression: PROCEDURE: CT THORACIC SPINE WO CON INDICATIONS: fall backwards TECHNIQUE: Noncontrast 3 mm thick sections acquired through the region of interest in the thoracic spine. Sagittal and coronal reformats were then constructed. For radiation dose reduction, the following was used: automated exposure control. COMPARISON: None. FINDINGS: Image quality: Excellent. Bones: There is normal overall bony alignment. No acute vertebral body compression fractures. No suspicious sclerotic or lytic bony lesions. Central spinal canal is of normal overall caliber. Soft tissues: No paravertebral masses or hematomas. Visualized posteromedial lungs appear clear. IMPRESSION: No trauma found. Moderate degenerative disc disease along the thoracic spine and at the cervical thoracic junction. Dictated by: Timothy Zamarripa M.D. 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 She is slightly tender at her cervical and thoracic spine. The CTs are negative. Patient is on Eliquis. Daughter and patient both concern for delayed bleeding. Repeat head CT done at 4hrs a.m. later is again negative. Patient remains hemodynamically stable and neurologically intact. At time of discharge patient was stating that she was short of breath. Ambulation trial tested. The heart rate did go up into the 110s but oxygen level was 95% or above. It is time for her to take her nightly medications. I discussed all findings with the patient and daughter, Education has been performed regarding treatment plan, diagnosis, warning signs and symptoms and all concerns have been addressed. Verbally agree with and understood all of the above. Discharge Plan Departure Patient Disposition: Home, Self-Care Clinical Impression: Closed head injury, Cervical muscle strain Discharge Date/Time: 03/02/18 00:45 Interventions: ED Discharge Assessment Last Done: 03/02/18 00:45 Instructions: Closed Head Injury Activity Restrictions/Additional Instructions: *You have been diagnosed with closed head injury, cervical strain *What to do: Increase activity as tolerated *Continue to take medications as directed *Follow up with your primary care provider in 2-3 days *Return to ER if you should have persistent vomiting, worsening headache, weakness, speech difficulty or any new, worsening or concerning symptoms Prescriptions: No Action magnesium oxide 400 mg Capsule 500 mg PO DIRECTED Qty: 0 RF: 0 atenolol 25 MG tablet 12.5 mg PO QDAY Qty: 0 RF: 0 furosemide 20 MG tablet 40 mg PO BID Qty: 0 RF: 0 potassium chloride 10 mEq capsule, extended release 10 meq PO BID RF: 0 cholecalciferol (vitamin D3) [Vitamin D3] 5,000 unit Tablet 5,000 unit PO DAILY RF: 0 apixaban 5 mg tablet 5 mg PO BID RF: 0 Probiotic 2 cap PO DAILY RF: 0 levothyroxine 100 mcg tablet 100 mcg PO DAILY RF: 0 acetaminophen 325 mg Tablet 650 mg PO Q6HR Qty: 30 RF: 0 oxycodone-acetaminophen [Percocet] 5-325 mg tablet 2 tab PO Q4-6H PRN (Reason: pain) Qty: 20 RF: 0 Referrals: Dylan Loja MD [Primary Care Provider] -
[2018-03-01 19:16] VITALS: BP 111/57; PULSE 87; RESP 16; TEMP 36.6; O2SAT 93
--- NOTE | 2018-03-01 19:57 | DI.CT.S_ITS ---
PROCEDURE: CT HEAD/BRAIN WO CON INDICATIONS: repeat head ct- fall on eliquis TECHNIQUE: Noncontrast 4.5 mm thick angled axial sections acquired from the foramen magnum to the vertex, with coronal and sagittal reformats. For radiation dose reduction, the following was used: automated exposure control, adjustment of mA and/or kV according to patient size. COMPARISON: [facility], CT, BRAIN W/O CONTRAST, 01/06/2014, 13:59. [facility], CT, CT HEAD/BRAIN WO CON, 03/01/2018, 18:43. FINDINGS: Image quality: Excellent. CSF spaces: Basal cisterns are patent. No extra-axial fluid collections. The ventricles are symmetric in size and shape. Brain: No intracranial bleeds or masses. There is mild cerebral volume loss for age, with resultant ventricular and sulcal prominence. There are mild periventricular and deep white matter chronic small vessel ischemic changes. There is intracranial internal carotid artery atherosclerosis. Skull and face: Calvarium and visualized facial bones appear intact, without suspicious lesions. Sinuses: Visualized sinuses and mastoids are clear. IMPRESSION: 1. No acute intracranial abnormalities. 2. Cerebral volume loss and chronic microvascular ischemic changes. 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 Dictated by: Luann Gonzales M.D. on 03/02/2018 at 7:20 Approved by: Luann Gonzales M.D. on 03/02/2018 at 7:22
[2018-03-01] MEDS: ACETAMINOPHEN 325 MG TABLET 650 MG PO (20:24)
[2018-03-01 20:53] VITALS: BP 97/62; PULSE 84; RESP 16; TEMP 36.7; O2SAT 94
[2018-03-01 22:09] VITALS: BP 100/60; PULSE 101; RESP 16; TEMP 36.7; O2SAT 96
[2018-03-01 23:27] VITALS: BP 104/59; PULSE 92; RESP 18; O2SAT 94
[2018-03-02 00:18] VITALS: PULSE 110; RESP 20; O2SAT 96
== END 2018-03-02 00:45 | disposition home or self-care (01) ==
PROVIDERS: Emergency Provider Emergency Medicine; Family Provider Internal Medicine; PCP Internal Medicine
DX: S09.90XA Unspecified injury of head, initial encounter (principal); S16.1XXA Strain of muscle, fascia and tendon at neck level, initial encounter; W19.XXXA Unspecified fall, initial encounter
CPT/HCPCS: 70450; 72125; 72128; 99283; 99284

== ENCOUNTER → 2019-07-11 13:53 | Outpatient (ROUT) | payer MEDICARE, OTHER, SELFPAY ==
[2018-01-17 19:23] VITALS: BMI 30.9
[2019-07-11 14:04] LABS: Add Manual Diff / Slide Review NO; Basophils Absolute Auto 100 /uL (0-100); Basophils Percent Auto 0.9 % (0-2); Eosinophils Absolute Auto 100 /uL (0-450); Eosinophils Percent Auto 1.6 % (2-4); Hematocrit 43.5 % (36-46); Hemoglobin 14.8 g/dL (12.0-16.0); Lymphocytes Absolute Auto 600 /uL (1100-4500); Lymphocytes Percent Auto 9.6 % (25-40); Mean Corpuscular HGB Conc 33.9 % (30-36); Mean Corpuscular Volume 91.3 fL (80-100); Monocytes Absolute Auto 600 /uL (0-900); Monocytes Percent Auto 10.3 % (3-14); Neutrophils Absolute Auto 4900 /uL (1500-7000); Neutrophils Percent Auto 77.6 % (50-75); Platelet Count 192 X10^3/uL (150-400); Red Blood Cell Count 4.77 X10^6/uL (4.0-5.2); Red Cell Distribution Width 16.1 % (11.6-14.8); White Blood Cell Count 6.3 X10^3/uL (4.5-11.0)
[2019-07-11 14:08] LABS: Alanine Aminotransferase 16 IU/L (<35); Albumin 4.5 g/dL (3.5-5.0); Albumin Globulin Ratio 1.7 (1.0-2.8); Alkaline Phosphatase 75 U/L (38-126); Aspartate Aminotransferase 30 IU/L (14-36); BUN Creatinine Ratio 37.5 (6-22); Bilirubin Total 0.8 mg/dL (0.2-1.3); Blood Urea Nitrogen 75 mg/dL (7-17); Calcium 10.3 mg/dL (8.4-10.2); Carbon Dioxide 29 mmol/L (22-32); Chloride 97 mmol/L (98-107); Estimated Glomerular Filt Rate 23.8 mL/min (>60); Globulin 2.7 g/dL (1.7-4.1); Glucose 105 mg/dL (80-110); HEMOLYSIS < 15 (0-50); Potassium 4.9 mmol/L (3.4-5.1); Sodium 139 mmol/L (137-145); Total Protein 7.2 g/dL (6.3-8.2)
[2019-07-11 17:29] LABS: INR 1.9 (0.9-1.3); Prothrombin Time 21.6 SECONDS (10.1-12.7)
[2019-07-11 17:31] LABS: PTT Partial Thromboplastin Tim 37 SECONDS (26.4-36.2)
== END ==
PROVIDERS: Family Provider Internal Medicine; PCP Internal Medicine; Visit Provider Internal Medicine
DX: Z01.818 Encounter for other preprocedural examination (principal)
CPT/HCPCS: 80053; 85025; 85610; 85730

== ENCOUNTER → 2019-10-03 12:41 | Outpatient (ROUT) | payer MEDICARE, OTHER, SELFPAY ==
[2018-01-17 19:23] VITALS: BMI 30.9
[2019-10-03 12:49] LABS: Basophils Absolute Auto 100 /uL (0-100); Basophils Percent Auto 0.8 % (0-2); Eosinophils Absolute Auto 100 /uL (0-450); Eosinophils Percent Auto 1.3 % (2-4); Hematocrit 29.6 % (36-46); Hemoglobin 9.6 g/dL (12.0-16.0); Lymphocytes Absolute Auto 500 /uL (1100-4500); Lymphocytes Percent Auto 5.4 % (25-40); Mean Corpuscular HGB Conc 32.5 % (30-36); Mean Corpuscular Hemoglobin 30.6 PG (26-34); Mean Corpuscular Volume 94.4 fL (80-100); Monocytes Absolute Auto 1000 /uL (0-900); Neutrophils Absolute Auto 7800 /uL (1500-7000); Neutrophils Percent Auto 82.5 % (50-75); Platelet Count 281 X10^3/uL (150-400); Red Blood Cell Count 3.14 X10^6/uL (4.0-5.2); Red Cell Distribution Width 18.7 % (11.6-14.8); White Blood Cell Count 9.5 X10^3/uL (4.5-11.0)
[2019-10-03 12:54] LABS: BUN Creatinine Ratio 42.9 (6-22); Blood Urea Nitrogen 60 mg/dL (7-17); Calcium 9.3 mg/dL (8.4-10.2); Carbon Dioxide 22 mmol/L (22-32); Chloride 107 mmol/L (98-107); Estimated Glomerular Filt Rate 35.9 mL/min (>60); Glucose 145 mg/dL (80-110); HEMOLYSIS < 15 (0-50); Potassium 5.1 mmol/L (3.4-5.1); Sodium 136 mmol/L (137-145)
[2019-10-03 12:59] LABS: Add Manual Diff / Slide Review SLIDE REVIEW
[2019-10-03 13:40] LABS: Neutrophils Absolute Manual 7885 /uL (3000-5900); Nucleated Red Blood Cells 4 #/Diff; Total Cells Counted 100
[2019-10-03 13:41] LABS: Anisocytosis 2+; Poikilocytosis 1+; Polychromasia 2+; Schistocytes 1+
== END ==
PROVIDERS: Family Provider Internal Medicine; PCP Internal Medicine; Visit Provider Internal Medicine
DX: D64.9 Anemia, unspecified (principal); I49.9 Cardiac arrhythmia, unspecified; K62.5 Hemorrhage of anus and rectum
CPT/HCPCS: 80048; 85025

== ENCOUNTER 2019-10-03 17:52 | Inpatient (IN) | payer MEDICARE, OTHER, SELFPAY ==
[2018-01-17 19:23] VITALS: BMI 30.9
[2019-10-03 18:38] VITALS: BP 92/51; PULSE 81; RESP 16; O2SAT 99; BMI 30.7
--- NOTE | 2019-10-03 19:25 | ED_ITS ---
HPI - SOB/Dyspnea General Chief Complaint: Shortness of Breath/Dyspnea Stated Complaint: states CHF and Anemia sent by her doctor Time Seen by Provider: 10/03/19 19:10 Source: patient and family Mode of arrival: Ambulatory Limitations: no limitations History of Present Illness HPI Narrative: 83-year-old female nonsmoker with history of AFib on Eliquis as well as breast cancer (on anti hormone therapy) presents because of profound weakness and shortness of breath with any exertion for the past 2 weeks. She states her symptoms started soon after starting her new medication. Additionally she states she has had dark and tarry stools which her doctors know about, have tested and confirmed blood, and started her on Protonix which seems to be helping. She claims to be profoundly short of breath with any exertion whatsoever. She denies any fever chills, runny nose, sore throat or cough. She was sent here by her PCP for admission (per patient and family) Related Data Home Medications Medication Instructions Recorded Confirmed atenolol 12.5 mg PO DAILY #0 07/22/12 10/04/19 magnesium oxide 400 mg PO DIRECTED #0 07/22/12 10/04/19 Probiotic 2 cap PO DAILY 01/17/18 10/04/19 apixaban 5 mg PO BID 01/17/18 10/04/19 cholecalciferol (vitamin D3) 5,000 unit PO DAILY 01/17/18 10/04/19 [Vitamin D3] levothyroxine 100 mcg PO DAILY 01/17/18 10/04/19 potassium chloride 10 meq PO BID 01/17/18 10/04/19 spironolactone 50 mg tablet 50 mg PO DAILY 05/30/19 10/04/19 torsemide 20 mg tablet 20 mg PO DAILY 05/30/19 10/04/19 letrozole 2.5 mg PO DAILY 10/03/19 10/04/19 omeprazole 20 mg PO BID 10/03/19 10/04/19 acetaminophen 1,350 mg PO BID 10/04/19 10/04/19 letrozole [Femara] 2.5 mg PO DAILY 10/04/19 10/04/19 Allergies Allergy/AdvReac Type Severity Reaction Status Date / Time amoxicillin [From Augmentin] Allergy Verified 10/03/19 20:57 clavulanic acid Allergy Verified 03/06/20 20:57 [From Augmentin] diltiazem Allergy Verified 10/03/19 20:57 Review of Systems Constitutional Constitutional: Denies chills, Reports fatigue, Denies fever(s), Denies frequent falls, Denies lethargy and Reports weakness Eyes Eyes: Denies change in vision, Denies eye discharge, Denies irritation and Denies loss of vision ENT Ears, Nose, Mouth, and Throat: Denies change in voice, Denies dizziness, Denies neck pain, Denies sore throat and Denies throat swelling Cardiovascular Cardiovascular: Denies chest pain, Denies irregular heart rhythm, Denies lightheadedness, Denies palpitations, Reports dyspnea, Reports dyspnea on exertion and Denies orthopnea Respiratory Respiratory: Denies cough, Reports dyspnea, Reports dyspnea on exertion and Denies wheezing Gastrointestinal Gastrointestinal: Denies abdominal pain, Reports melena, Denies change in bowel habits, Denies diarrhea, Denies nausea and Denies vomiting Genitourinary Genitourinary: Denies hematuria, Denies flank pain, Denies urinary incontinence and Denies urinary urgency Musculoskeletal Musculoskeletal: Denies back pain, Denies muscle weakness, Denies neck pain, Denies numbness and Denies tingling Integumentary/Breasts Skin/Breast: Denies pruritus, Denies erythema, Denies rash and Denies wounds Neurologic Neurologic: Denies behavioral changes, Denies confusion, Denies dizziness, Denies frequent falls, Denies loss of vision, Denies numbness, Denies tingling and Reports weakness Psychiatric Psychiatric: Denies anxiety, Denies behavioral changes, Denies confusion, Denies depression, Denies homicidal ideation and Denies suicidal ideation Endocrine Endocrine: Reports fatigue, Denies flushing and Denies palpitations Hematologic/Lymphatic Hematologic/Lymphatic: Denies easy bruising Allergic/Immunologic Allergic/Immunologic: Denies urticaria, Denies throat swelling and Denies wheezing Patient History Social History household members: children Smoking Status: Never smoker alcohol intake: current Smoking Status: Never smoker alcohol intake frequency: 0-2 drinks per day Substance Use Type: does not use Exam Narrative Exam Narrative: GENERAL: [83] year old patient appears stated age. Well- nourished, well-developed patient, in mild distress. ANxious, weak HEAD: Atraumatic. Normocephalic. EYES: Pupils equal round and reactive. Extraocular motions intact. No scleral icterus. No injection or drainage. ENT: Nose without bleeding, purulent drainage. Throat without erythema, tonsillar hypertrophy or exudate. Airway patent. NECK: Trachea midline. Non tender CARDIOVASCULAR: Regular rate and rhythm without murmurs, gallops, or rubs. RESPIRATORY: Clear to auscultation. Breath sounds equal bilaterally. No wheezes, rales, or rhonchi. GASTROINTESTINAL: Abdomen soft, non-tender, nondistended. EXTREMITIES: No edema or joint tenderness. BACK: Nontender without deformity or crepitance. No flank tenderness. NEURO: AOx3. SKIN: No rash or erythema of visible areas Initial Vital Signs Initial Vital Signs: Vital Signs Pulse Rate 81 10/03/19 18:38 Respiratory Rate 16 10/03/19 18:38 Blood Pressure 92/51 L 10/03/19 18:38 Pulse Oximetry 99 10/03/19 18:38 Course Orders Ordered: Acetaminophen (Tylenol) 650 mg PO Q6HR PRN PRN Reason: Fever/Mild Pain (1-3) Al Hydrox/Mg Hydrox/Simethicone (Maalox Plus) 30 ml PO Q6HR PRN PRN Reason: Dyspepsia Bisacodyl (Dulcolax) 10 mg [place] DAILY PRN PRN Reason: Constipation Calcium Carbonate (Tums) 1,000 mg PO Q4HR PRN PRN Reason: Dyspepsia Docusate Sodium (Colace) 100 mg PO BID PRN PRN Reason: Constipation Morphine Sulfate (Morphine) 2 mg IV Q4HR PRN PRN Reason: Pain, Moderate (4-6) Naloxone HCl (Narcan) 0.2 mg IV Q2MIN PRN PRN Reason: Opiate Reversal Ondansetron HCl (Zofran) 4 mg IV Q8HR PRN PRN Reason: Nausea And Vomiting Discontinued Medications Furosemide (Lasix) 40 mg IV NOW ONE Stop: 10/03/19 22:26 Last Admin: 10/04/19 03:35 Dose: Not Given Documented by: KATH Vital Signs Vital signs: Vital Signs - 8 hr 10/03/19 23:55 Pulse Rate [Orthostatic Lying] 78 Pulse Rate [Orthostatic Sitting] 81 Pulse Rate [Orthostatic Standing] 78 Blood Pressure [Orthostatic Lying] 91/50 L Blood Pressure [Orthostatic Sitting] 86/48 L Blood Pressure [Orthostatic Standing] 83/51 L MDM - SOB/Dyspnea Lab Data Result diagrams: 10/03/19 19:30 10/03/19 19:30 Labs: Lab Results 10/03/19 10/03/19 10/03/19 Range/Units 19:30 19:30 19:30 WBC 10.3 (4.5-11.0) X10^3/uL RBC 3.31 L (4.0-5.2) X10^6/uL Hgb 10.1 L (12.0-16.0) g/dL Hct 30.7 L (36-46) % MCV 92.9 (80-100) fL MCH 30.5 (26-34) PG MCHC 32.8 (30-36) % RDW 18.5 H (11.6-14.8) % Plt Count 310 (150-400) X10^3/uL Neut % (Auto) 78.0 H (50-75) % Lymph % (Auto) 8.1 L (25-40) % Bee % (Auto) 12.1 (3-14) % Eos % (Auto) 0.9 L (2-4) % Baso % (Auto) 0.9 (0-2) % Neut # (Auto) 8000 H (4083-9536) /uL Lymph # (Auto) 800 L (5314-5837) /uL Bee # (Auto) 1200 H (0-900) /uL Eos # (Auto) 100 (0-450) /uL Baso # (Auto) 100 (0-100) /uL PT 26.9 H (10.1-12.7) SECONDS INR 2.4 H (0.9-1.3) APTT 31 D (26.4-36.2) SECONDS D-Dimer 718 H (<230) ng/mL Sodium 137 (137-145) mmol/L Potassium 4.8 (3.4-5.1) mmol/L Chloride 105 (98-107) mmol/L Carbon Dioxide 21 L (22-32) mmol/L BUN 60 H (7-17) mg/dL Creatinine 1.50 H (0.52-1.04) mg/dL Estimated GFR 33.2 L (>60) mL/min BUN/Creatinine Ratio 40.0 H (6-22) Glucose 105 (80-110) mg/dL Lactate (0.7-2.1) mmol/L Calcium 9.6 (8.4-10.2) mg/dL Magnesium 2.3 (1.6-2.3) mg/dL Total Creatine Kinase 30 (30-135) U/L CK-MB (CK-2) TNP CK-MB (CK-2) Rel Index TNP Troponin I 0.020 (0.01-0.034) ng/mL NT-Pro-B Natriuret Pep 9040 H (<450) pg/mL Procalcitonin (<0.5) ng/mL Blood Type Antibody Screen 10/03/19 10/03/19 10/03/19 Range/Units 19:30 19:30 20:08 WBC (4.5-11.0) X10^3/uL RBC (4.0-5.2) X10^6/uL Hgb (12.0-16.0) g/dL Hct (36-46) % MCV (80-100) fL MCH (26-34) PG MCHC (30-36) % RDW (11.6-14.8) % Plt Count (150-400) X10^3/uL Neut % (Auto) (50-75) % Lymph % (Auto) (25-40) % Bee % (Auto) (3-14) % Eos % (Auto) (2-4) % Baso % (Auto) (0-2) % Neut # (Auto) (4694-6219) /uL Lymph # (Auto) (8783-7653) /uL Bee # (Auto) (0-900) /uL Eos # (Auto) (0-450) /uL Baso # (Auto) (0-100) /uL PT (10.1-12.7) SECONDS INR (0.9-1.3) APTT (26.4-36.2) SECONDS D-Dimer (<230) ng/mL Sodium (137-145) mmol/L Potassium (3.4-5.1) mmol/L Chloride (98-107) mmol/L Carbon Dioxide (22-32) mmol/L BUN (7-17) mg/dL Creatinine (0.52-1.04) mg/dL Estimated GFR (>60) mL/min BUN/Creatinine Ratio (6-22) Glucose (80-110) mg/dL Lactate 3.7 H (0.7-2.1) mmol/L Calcium (8.4-10.2) mg/dL Magnesium (1.6-2.3) mg/dL Total Creatine Kinase (30-135) U/L CK-MB (CK-2) CK-MB (CK-2) Rel Index Troponin I (0.01-0.034) ng/mL NT-Pro-B Natriuret Pep (<450) pg/mL Procalcitonin 0.05 (<0.5) ng/mL Blood Type A Positive Antibody Screen Negative 10/03/19 Range/Units 22:30 WBC (4.5-11.0) X10^3/uL RBC (4.0-5.2) X10^6/uL Hgb (12.0-16.0) g/dL Hct (36-46) % MCV (80-100) fL MCH (26-34) PG MCHC (30-36) % RDW (11.6-14.8) % Plt Count (150-400) X10^3/uL Neut % (Auto) (50-75) % Lymph % (Auto) (25-40) % Bee % (Auto) (3-14) % Eos % (Auto) (2-4) % Baso % (Auto) (0-2) % Neut # (Auto) (4743-3277) /uL Lymph # (Auto) (8224-5378) /uL Bee # (Auto) (0-900) /uL Eos # (Auto) (0-450) /uL Baso # (Auto) (0-100) /uL PT (10.1-12.7) SECONDS INR (0.9-1.3) APTT (26.4-36.2) SECONDS D-Dimer (<230) ng/mL Sodium (137-145) mmol/L Potassium (3.4-5.1) mmol/L Chloride (98-107) mmol/L Carbon Dioxide (22-32) mmol/L BUN (7-17) mg/dL Creatinine (0.52-1.04) mg/dL Estimated GFR (>60) mL/min BUN/Creatinine Ratio (6-22) Glucose (80-110) mg/dL Lactate 3.1 H (0.7-2.1) mmol/L Calcium (8.4-10.2) mg/dL Magnesium (1.6-2.3) mg/dL Total Creatine Kinase (30-135) U/L CK-MB (CK-2) CK-MB (CK-2) Rel Index Troponin I (0.01-0.034) ng/mL NT-Pro-B Natriuret Pep (<450) pg/mL Procalcitonin (<0.5) ng/mL Blood Type Antibody Screen Urine Dip Bedside Urine Glucose Negative Bedside Urine Bilirubin - Negative Bedside Urine Ketone - Negative Urine Specific [place] 1.015 Bedside Urine Occult Blood - Negative Bedside Urine pH 5.0 Bedside Urine Protein - Negative Bedside Urine Urobilinogen - Negative Bedside Urine Nitrite - Negative Bedside Urine Leukocytes - Negative Esterase Imaging Data Chest x-ray: Radiologist's Impression: Margie Walker 83 F 1935 [place] [address] XRay Report Signed Patient: Margie Walker MMR#: [id number] : [id number]:[id number] Age/Sex: 83 / FDate of Service: 10/03/19 Loc: ED Accession Number: [id number] Procedure: XR chest 2V Ordering Provider: Shawn Raines D.O. PROCEDURE: XR CHEST 2V INDICATIONS: SHORTNESS BREATH, CHF TECHNIQUE: 2 views of the chest were acquired. COMPARISON: [facility], , CHEST 2 VIEW, 08/05/2016, 16:42. FINDINGS: Surgical changes and devices: Right chest catheter is present, tip of which is in the mid SVC. Right chest wall surgical clips are present. Lungs and pleura: Lungs are clear. No pleural effusions or pneumothorax. Mediastinum: Mediastinal contours are normal. Heart size is normal. Bones and chest wall: No suspicious bony abnormalities. Soft tissues appear unremarkable. IMPRESSION: No acute process. Dictated by: Tammy Gonzalez M.D. on 10/03/2019 at 20:00 Approved by: Tammy Gonzalez M.D. on 10/03/2019 at 20:01 [facility] Narrative Medical decision making narrative: 83-year-old female with a complex medical history is had a few weeks of gradually worsening weakness to the point of requi ring significant assistance for any exertion including getting from her recliner to the toilet. Given her gradual decline she was encouraged to come to the emergency department by her PCP for evaluation and likely admission as she has become unsafe at home Discharge Plan Departure Admit Date/Time: 10/04/19 03:26 Admit Provider: Artemio Aguirre
[2019-10-03 19:54] LABS: INR 2.4 (0.9-1.3); Prothrombin Time 26.9 SECONDS (10.1-12.7)
[2019-10-03 19:57] LABS: D Dimer 718 ng/mL (<230); PTT Partial Thromboplastin Tim 31 SECONDS (26.4-36.2)
[2019-10-03 19:58] LABS: Blood Urea Nitrogen 60 mg/dL (7-17); Calcium 9.6 mg/dL (8.4-10.2); Carbon Dioxide 21 mmol/L (22-32); Chloride 105 mmol/L (98-107); Creatine Kinase 30 U/L (30-135); Estimated Glomerular Filt Rate 33.2 mL/min (>60); Glucose 105 mg/dL (80-110); HEMOLYSIS < 15 (0-50); Magnesium 2.3 mg/dL (1.6-2.3); Potassium 4.8 mmol/L (3.4-5.1); Sodium 137 mmol/L (137-145)
[2019-10-03 20:00] LABS: Add Manual Diff / Slide Review NO; Basophils Absolute Auto 100 /uL (0-100); Basophils Percent Auto 0.9 % (0-2); Eosinophils Absolute Auto 100 /uL (0-450); Eosinophils Percent Auto 0.9 % (2-4); Hematocrit 30.7 % (36-46); Hemoglobin 10.1 g/dL (12.0-16.0); Lymphocytes Absolute Auto 800 /uL (1100-4500); Lymphocytes Percent Auto 8.1 % (25-40); Mean Corpuscular HGB Conc 32.8 % (30-36); Mean Corpuscular Hemoglobin 30.5 PG (26-34); Mean Corpuscular Volume 92.9 fL (80-100); Monocytes Absolute Auto 1200 /uL (0-900); Monocytes Percent Auto 12.1 % (3-14); Neutrophils Absolute Auto 8000 /uL (1500-7000); Platelet Count 310 X10^3/uL (150-400); Red Blood Cell Count 3.31 X10^6/uL (4.0-5.2); Red Cell Distribution Width 18.5 % (11.6-14.8); White Blood Cell Count 10.3 X10^3/uL (4.5-11.0)
[2019-10-03 20:10] LABS: NT-proBNP (BNP-Adult 18+) 9040 pg/mL (<450)
[2019-10-03 20:15] VITALS: BP 98/57; PULSE 81; RESP 28; O2SAT 100
[2019-10-03 20:16] LABS: Procalcitonin 0.05 ng/mL (<0.5)
[2019-10-03 20:36] LABS: Lactate (Lactic Acid) 3.7 mmol/L (0.7-2.1)
[2019-10-03 21:11] VITALS: BP 94/50; PULSE 76; RESP 14; O2SAT 100
[2019-10-03 22:00] VITALS: BP 84/54; PULSE 82; RESP 23; O2SAT 100
[2019-10-03 22:12] LABS: Reflexed Lactate in 2 Hours Y
[2019-10-03 22:49] LABS: Lactate 2HR (Lactic Acid Rflx) 3.1 mmol/L (0.7-2.1)
[2019-10-03 23:55] VITALS: BP 83/51; BP 86/48; BP 91/50; PULSE 78; PULSE 81
[2019-10-04] VITALS (7 sets, daily range): BP systolic 90–116; BP diastolic 53–65; PULSE 78–87; RESP 17–26; TEMP 36.2–37.2; O2SAT 97–100; BMI 30.7
--- NOTE | 2019-10-04 04:41 | DI.ECHO.S_ITS ---
[facility] +---------+ : : [address] : : : : [id number] : : : : Phone: [phone] Echocardiogram Report + + :Name: CHRIS CRAWFORD Study Date: 10/04/2019 Height: 62 in : :[employer] [facility] Weight: 168 lb : : Gender: Female BSA: 1.8 m2 : :: 1935 Age: 83 yrs BP: 109/53 mmHg: :Reason For Study: CHF, Pulmonary Hypertension : :Ordering Physician: Luis : :Hospitalist Performed By: Claudia Ramsey : :Referring: MERCEDEZ NEVAREZ : + + Interpretation Summary The left ventricular cavity is small. The left ventricle is mildly hyperdynamic. The ejection fraction is estimated to be 70-75%. The interventricular septum is flattened, consistent with a right ventricular pressure/volume condition. There are no obvious focal wall motion abnormalities noted but poor endocardial definition reduces the sensitivity for the detection of such. The right ventricle is moderate to severely dilated. The right ventricular systolic function is normal. The right ventricular systolic pressure is estimated to be at least 67 mmHg based on an estimated right atrial pressure of 15 mm Hg. Both atria are severely dilated. There is mild mitral regurgitation. There is severe tricuspid regurgitation. The aortic root is normal size. No significant changes since prior study on 12/21/2017. Procedure: A two-dimensional transthoracic echocardiogram with color flow and Doppler was performed. The study quality was technically difficult. A contrast injection of Definity was performed to improve assessment of LV function. Comparison is made with the echocardiogram of 12/21/2017. Definity contrast was administered after patient education and consent. Patient stated they did not have any symptoms after administration of Definity. Left Ventricle: The left ventricular cavity is small. Left ventricular wall thickness is mild-moderately increased. The left ventricle is mildly hyperdynamic. The ejection fraction is estimated to be 70-75%. The interventricular septum is flattened, consistent with a right ventricular pressure/volume condition. There are no obvious focal wall motion abnormalities noted but poor endocardial definition reduces the sensitivity for the detection of such. Right Ventricle: The right ventricle is moderate to severely dilated. The right ventricular systolic function is normal. Atria: Both atria are severely dilated. There is no Doppler evidence for an interatrial shunt. Mitral Valve: There is moderate mitral annular calcification. The mitral valve leaflets are mildly calcified. There is mild mitral regurgitation. Aortic Valve: The aortic valve is trileaflet. The aortic valve opens well. There is no aortic valve stenosis. No aortic regurgitation is present. Tricuspid Valve: The tricuspid annulus is dilated. There is severe tricuspid regurgitation. The right ventricular systolic pressure is estimated to be at least 67 mmHg based on an estimated right atrial pressure of 15 mm Hg. Hepatic vein flow reversal. Pulmonic Valve: The pulmonic valve is not well visualized. There is trace pulmonic regurgitation. Great Vessels: The aortic root is normal size. The ascending aorta is normal in size. The IVC is dilated (diameter is greater than 2.1 cm) and it collapses less than 50% with a sniff. This suggests a high right atrial pressure of 15 mm Hg. Pericardium/ Pleura There is no pericardial effusion. There is no pleural effusion. MMode/2D Measurements & Calculations LVIDd: 3.2 cm LVOT diam: 1.8 cm LVIDs: 2.1 cm Ao root diam: 2.6 cm FS: 33.4 % asc Aorta Diam: 3.2 cm EPSS: 0.74 cm Ao Arch Diam (Prox Trans): 3.1 cm IVSd: 1.2 cm LVPWd: 1.3 cm LV andres. diameter/BSA (cm/m^2): 1.8 LV sys. diameter/BSA (cm/m^2): 1.2 LA A2 area: 37.1 cm2 RA long axis: 6.7 cm LA A4 area: 28.8 cm2 RA area: 29.3 cm2 LA length (vol): 7.2 cm RA vol: 108.7 ml LA vol: 125.2 ml RA : 61.2 ml/m2 LA vol index: 70.5 ml/m2 IVC diam: 2.5 cm RVD1 (basal): 4.8 cm TAPSE: 2.2 cm Doppler Measurements & Calculations Ao V2 max: 117.5 cm/sec LVOT Max Tavo: 81.8 cm/sec Ao V2 mean: 75.1 cm/sec LV V1 max P.7 mmHg Ao max P.5 mmHg LV V1 VTI: 12.5 cm Ao mean P.6 mmHg BEL(I,D): 1.8 cm2 Ao V2 VTI: 18.2 cm BEL(V,D): 1.8 cm2 sev ratio: 0.69 BEL indexed to BSA (cm^2/m^2): 0.99 Med Peak E' Tavo: 7.1 cm/sec TR max tavo: 359.3 cm/sec Lat Peak E' Tavo: 11.1 cm/sec TR max P.0 mmHg PA V2 max: 60.8 cm/sec PA V2 mean: 40.4 cm/sec PA mean P.74 mmHg PA pr(Accel): 56.1 mmHg SV(LVOT): 31.9 ml Reading Physician:03:33 PM
--- NOTE | 2019-10-04 05:19 | PC.ADMIT ---
[email or web address] [facility] Admission Note: The patient,Chris Walker,83 y/o, was given written information regarding hospital policies, unit procedures and contact persons. Patient's smoking status: Never smoker. Vital Signs - 8 hr 10/03/19 22:00 10/03/19 23:55 10/04/19 03:59 Temperature Pulse Rate 82 84 Pulse Rate [Orthostatic Lying] 78 Pulse Rate [Orthostatic Sitting] 81 Pulse Rate [Orthostatic Standing] 78 Respiratory Rate 23 20 Blood Pressure Blood Pressure [Left Arm] 84/54 L 91/54 L Blood Pressure [Orthostatic Lying] 91/50 L Blood Pressure [Orthostatic Sitting] 86/48 L Blood Pressure [Orthostatic Standing] 83/51 L Pulse Oximetry 100 99 10/04/19 04:49 Temperature 97.2 F L Pulse Rate 80 Pulse Rate [Orthostatic Lying] Pulse Rate [Orthostatic Sitting] Pulse Rate [Orthostatic Standing] Respiratory Rate 20 Blood Pressure 90/60 Blood Pressure [Left Arm] Blood Pressure [Orthostatic Lying] Blood Pressure [Orthostatic Sitting] Blood Pressure [Orthostatic Standing] Pulse Oximetry 99 Patient arrived from ED via stretcher. Transferred with 2PA from stretcher, to [facility] to bed. Patient visibly SOB with exertion with intermittent audible wheezing. Continues to refuse lasix. BP 90/60 MAP 70. Tele AFIB CVR, BBB. Denies CP. Sp02 95-99% RA. Anxiety about any and all patient care. Reassured frequently. Dressing to left [place]a upon arrival. Patient reports laceration from a fall with subsequent infection being treated by wound care at [place]. Refusing visualization reporting the dressing is to be changed Sunday and no sooner. Oriented to room, plan of care and call light.
--- NOTE | 2019-10-04 07:13 | P.HP_ITS ---
History of Present Illness History of Present Illness Date Patient Seen: 10/04/19 Time Patient Seen: 04:30 Chief complaint: states CHF and Anemia sent by her doctor Narrative: Ms. Margie Walker is an 83-year-old female with a history significant for chronic atrial fibrillation anticoagulated on Eliquis, congestive heart failure with preserved ejection fraction, hypothyroidism, breast cancer status post mastectomy 07/21/2019 who presents [facility] Loja with progressive weakness dizziness and shortness of breath consistent with side effects of anti hormonal neoplastic therapy for treatment breast cancer. She has been unable to start chemotherapy related to a chronic wound with cellulitis left leg for which she has completed antibiotic therapy. The patient is also complaining of shortness of breath and has a history of CHF and was recently taken off her torsemide due to raising creatinine and the patient restart the medication yesterday with the development of shortness of breath. She reports no complaints of symptoms of flu or illness and has no fevers or chills. She denies complaints of chest pain and has exertional dyspnea but denies shortness of breath at rest. She denies complaints of abdominal pain, nausea or vomiting. She does have a history of heartburn for which she takes omeprazole. She reports lack of appetite and has received a medical marijuana card from her primary care as an appetite stimulan t. She reports no complaints of diarrhea or constipation and denies urinary symptoms. Upon arrival to the ER the patient had heart rate of 81, blood pressure 92/51, respirations 16 saturating 99% on room air. Orthostatics were taken which were negative. A chest x-ray is obtained which finds no acute cardiopulmonary processes, notes presence of right chest catheter terminating in the superior v krystle cava. On laboratory analysis she has a white count of 10.3, hemoglobin of 10.1, hematocrit of 30.7 and platelets of 310. Her electrolytes are all within normal limits with potassium of 4.8 and magnesium 2.3. Her nonfasting glucose is 105. On coagulation she has a PT of 26.9, PTT of 2.4 and a PTT of 31. She has lactic acid 3.1 and procalcitonin of 0.05.. She has a total CK of 30, troponin of 0.030 and a pro BNP of 9040. The patient was to receive Lasix 40 mg in the emergency department however patient adamantly refuses change in her medications and is very concrete in following her current regimen. The patient failed ambulation trial in the emergency room related to dizziness and weakness. The patient is admitted to the medicine service for congestive heart failure and complications of antineoplastic therapy. Patient History Medical History (Updated 10/04/19 @ 08:01 by Keeley Yancey MD) (HFpEF) heart failure with preserved ejection fraction (Acute) Bilateral lower extremity edema (Inactive) Breast mass, right (Inactive) Chronic atrial fibrillation (Acute) Hypothyroidism (Acute) Osteoarthritis (Acute) Surgical History (Updated 10/04/19 @ 07:30 by WILL Lucas) History of appendectomy (Acute) History of tonsillectomy (Acute) Family & Social History Social History: household members children Prior Living Arrangements House Safety & Behavioral: Feels Safe in Current Yes Environment Been Physically Hurt or No Threatened By a Person Suicidal Ideation Description None Tobacco & Substance use: Smoking Status Never smoker alcohol intake current alcohol intake frequency a few times a month Substance Use Type does not use Comment: Advanced directive: The patient states her desire to be FULL CODE. She designates her daughter to be her surrogate decision maker. Meds Home Medications and Allergies Home Medications Medication Instructions Recorded Confirmed Type atenolol 12.5 mg PO DAILY #0 07/22/12 10/04/19 History magnesium oxide 400 mg PO DIRECTED #0 07/22/12 10/04/19 History Probiotic 2 cap PO DAILY 01/17/18 10/04/19 History apixaban 5 mg PO BID 01/17/18 10/04/19 History cholecalciferol (vitamin D3) 5,000 unit PO DAILY 01/17/18 10/04/19 History [Vitamin D3] levothyroxine 100 mcg PO DAILY 01/17/18 10/04/19 History potassium chloride 10 meq PO BID 01/17/18 10/04/19 History spironolactone 50 mg tablet 50 mg PO DAILY 05/30/19 10/04/19 History torsemide 20 mg tablet 20 mg PO DAILY 05/30/19 10/04/19 History letrozole 2.5 mg PO DAILY 10/03/19 10/04/19 History omeprazole 20 mg PO BID 10/03/19 10/04/19 History acetaminophen 1,350 mg PO BID 03/07/20 03/07/20 History letrozole [Femara] 2.5 mg PO DAILY 10/04/19 10/04/19 History Allergies Allergy/AdvReac Type Severity Reaction Status Date / Time amoxicillin [From Augmentin] Allergy Verified 10/03/19 20:57 clavulanic acid Allergy Verified 10/03/19 20:57 [From Augmentin] diltiazem Allergy Verified 10/03/19 20:57 Exam Vital Signs (past 8 hours): - 10/03/19 23:55 10/04/19 03:59 10/04/19 04:49 Temperature 97.2 F L Pulse Rate 84 80 Pulse Rate [Orthostatic Lying] 78 Pulse Rate [Orthostatic Sitting] 81 Pulse Rate [Orthostatic Standing] 78 Respiratory Rate 20 20 Blood Pressure 90/60 Blood Pressure [Left Arm] 91/54 L Blood Pressure [Orthostatic Lying] 91/50 L Blood Pressure [Orthostatic Sitting] 86/48 L Blood Pressure [Orthostatic Standing] 83/51 L Pulse Oximetry 99 99 Oxygen Delivery Method Room Air Oxygen Flow Rate 0 Narrative Exam Narrative: GENERAL APPEARANCE: well developed, well kempt, well nourished, laying semi recumbent in bed in no acute distress. HEENT: Normocephalic, PERRLA, conjunctiva clear, sclerae anicteric, EOMs intact without nystagmus, no rhinorrhea, mucous membranes are moist and pink without lesions or exudate. NECK/THYROID: neck supple, no JVD, no carotid bruit, no thyromegaly, trachea midline. LYMPH NODES: no cervical or supraclavicular lymphadenopathy. SKIN: [place], warm and dry, no visible lesions, rashes, ulcerations or petechiae. HEART: regular rhythm, S1-S2, 3/6 murmur, no rubs or gallops, brisk capillary refill, no edema LUNGS: Breath sounds diminished no coarseness or crackles are appreciated, wheezy cough present on deep inspiration. CHEST: Symmetrical movement, no accessory muscle use, good tidal volume, speaking in full sentences. ABDOMEN: Soft, no distention, no abdominal tenderness, no guarding or peritoneal signs, no organomegaly, active bowel tones. EXTREMITIES: Intact dressing left lower leg, nontender to palpation Intact Dorsi/plantar flexion, strength is 4/5 and symmetrical, no deformities or joint effusions. NEUROLOGIC: AAO x4, no focal neurologic deficits, cranial nerves II-XII grossly intact, decreased sensation bilateral feet. PSYCH: Anxious, concrete thought processes, stable behavior Objective Labs Result Diagrams: 10/03/19 19:30 10/03/19 19:30 Labs: Laboratory Results - last 24 hr 10/03/19 10/03/19 10/03/19 19:30 19:30 19:30 WBC 10.3 RBC 3.31 L Hgb 10.1 L Hct 30.7 L MCV 92.9 MCH 30.5 MCHC 32.8 RDW 18.5 H Plt Count 310 Neut % (Auto) 78.0 H Lymph % (Auto) 8.1 L [place] % (Auto) 12.1 Eos % (Auto) 0.9 L Baso % (Auto) 0.9 Neut # (Auto) 8000 H Lymph # (Auto) 800 L [place] # (Auto) 1200 H Eos # (Auto) 100 Baso # (Auto) 100 PT 26.9 H INR 2.4 H APTT 31 D D-Dimer 718 H Sodium 137 Potassium 4.8 Chloride 105 Carbon Dioxide 21 L BUN 60 H Creatinine 1.50 H Estimated GFR 33.2 L BUN/Creatinine Ratio 40.0 H Glucose 105 Lactate Calcium 9.6 Magnesium 2.3 Total Creatine Kinase 30 CK-MB (CK-2) TNP CK-MB (CK-2) Rel Index TNP Troponin I 0.020 NT-Pro-B Natriuret Pep 9040 H Procalcitonin Nasal Screen MRSA (PCR) Blood Type Antibody Screen 10/03/19 10/03/19 10/03/19 19:30 19:30 20:08 WBC RBC Hgb Hct MCV MCH MCHC RDW Plt Count Neut % (Auto) Lymph % (Auto) [place] % (Auto) Eos % (Auto) Baso % (Auto) Neut # (Auto) Lymph # (Auto) [place] # (Auto) Eos # (Auto) Baso # (Auto) PT INR APTT D-Dimer Sodium Potassium Chloride Carbon Dioxide BUN Creatinine Estimated GFR BUN/Creatinine Ratio Glucose Lactate 3.7 H Calcium Magnesium Total Creatine Kinase CK-MB (CK-2) CK-MB (CK-2) Rel Index Troponin I NT-Pro-B Natriuret Pep Procalcitonin 0.05 Nasal Screen MRSA (PCR) Blood Type A Positive Antibody Screen Negative 10/03/19 10/04/19 22:30 04:20 WBC RBC Hgb Hct MCV MCH MCHC RDW Plt Count Neut % (Auto) Lymph % (Auto) [place] % (Auto) Eos % (Auto) Baso % (Auto) Neut # (Auto) Lymph # (Auto) [place] # (Auto) Eos # (Auto) Baso # (Auto) PT INR APTT D-Dimer Sodium Potassium Chloride Carbon Dioxide BUN Creatinine Estimated GFR BUN/Creatinine Ratio Glucose Lactate 3.1 H Calcium Magnesium Total Creatine Kinase CK-MB (CK-2) CK-MB (CK-2) Rel Index Troponin I NT-Pro-B Natriuret Pep Procalcitonin Nasal Screen MRSA (PCR) Negative for mrsa Blood Type Antibody Screen Assessment & Plan Assessment & Plan narrative: This is an 83-year-old female patient who presents to the hospital at the request of her primary care with progressive weakness dizziness related to anti neoplastic treatment and shortness of breath. 1. Exacerbation of chronic heart failure with preserved EF, present on admission, active -Patient previously diagnosed with C CHF with preserved EF but no recent echocardiogram is available for review. -Patient was taken off torsemide due to increasing creatinine several days ago. She complains of exertional dyspnea but has no SOB at rest and speaks in full sentences on room air. -the patient's states her blood pressure always runs low and is 96/60. -Chest x-ray finds no acute cardiopulmonary processes, troponin is 0.030 and BNP is 9040. -Furosemide is ordered in the ER which the patient adamantly refused. -will proceed cautiously with diuresis reviewing plan changes in medications with the patient's for compliance. Ordered torsemide 10 mg daily and will hold spirolactone. -will follow renal function with chemistries. 2. Chronic kidney disease stage 3, present on admission, active -Patient had torsemide discontinued related to elevated creatinine Creatinine in June 2019 was 2.0. -Patient's creatinine on admission is 1.5. -Will restart torsemide at 10 mg daily and hold spirolactone to gently diurese. -Will monitor renal function. -Will avoid renal toxic agents and renally dose medications as needed. 3. Breast cancer, present on admission, active -patient is undergoing anti hormonal cancer treatment and has not started chemotherapy related to wound and treatment for cellulitis which is now completed left lower leg. -since starting anti anti hormonal therapy, the patient has had progressive weakness and dizziness and is now unable to care for self living alone. -the patient is adamant about not stopping current treatment. -consult with Oncology, will obtain patient's recent medical records from [facility]. -PT and OT to consult, evaluate and treat weakness. 4. Chronic atrial fibrillation, present on admission, active -12 lead EKG identifies atrial fibrillation with ventricular rate of 93, unchanged from previous tracing. -will continue patient's rate control medication with atenolol 12.5 mg daily. -will continue anticoagulation with apixaban 5 mg twice daily. 5. Acute anemia, present on admission, active -Hemoglobin in June of 2019 was 14.8. Hemoglobin on admission is 10.1. -Drop in hemoglobin may represent hemoconcentration while on torsemide therapy and following discontinuation hemodilution. -may also be related to breast cancer and antineoplastic treatment. -Will follow blood count. 6 left leg ulcer, present on admission, stable. -patient with intact pressure dressing left leg, nontender to palpation. -wound is just been re-dressed by wound care -will evaluate the need for wound care to follow pending patient's response to treatment in length of hospitalization. VTE prophylaxis: SCD right leg, patient anticoagulated on Eliquis IV fluid: Saline lock Diet: Heart healthy The patient is admitted to the hospital due to exacerbation of congestive heart failure and the severity of her weakness and inability to function independently living alone. The patient is admitted as an inpatient with expected length stay to be greater than 2 midnights. Scores GCS Melanie coma scale eye opening: Spontaneous Melanie coma scale verbal response: Orientated [place] coma scale motor response: Obey commands Melanie coma scale total score: 15 Quality VTE Deep Vein Thrombosis/Pulmonary Embolism Present on Admission: No
[2019-10-04] MEDS: atenoloL 25 MG TABLET 12.5 MG PO (08:09)
[2019-10-04] MEDS: LEVOTHYROXINE 100 MCG TABLET PO (08:09)
[2019-10-04] MEDS: PANTOPRAZOLE 20 MG TABLET PO ×2 (08:09→21:11)
[2019-10-04] MEDS: ACETAMINOPHEN 325 MG TABLET 650 MG PO ×3 (08:10→21:10)
[2019-10-04] MEDS: TORSEMIDE 10 MG TABLET PO (08:10)
[2019-10-04] MEDS: MAGNESIUM OXIDE 400 MG TABLET PO (10:27)
--- NOTE | 2019-10-04 11:10 | PT.IIE ---
Current Diagnoses Acute on chronic diastolic (congestive) heart failure (10/04/19) Surgical History (Last Updated 10/04/19 @ 07:30 by WILL Lucas) History of appendectomy (Acute) History of tonsillectomy (Acute) Medical History (Last Updated 10/04/19 @ 07:30 by WILL Lucas) (HFpEF) heart failure with preserved ejection fraction (Acute) Bilateral lower extremity edema (Inactive) Breast mass, right (Inactive) Chronic atrial fibrillation (Acute) Hypothyroidism (Acute) Osteoarthritis (Acute) Physical Therapy Inpatient Evaluation/Re-Eval M1 PT/OT-IP Prior Functional Status Start: 10/04/19 13:52 Freq: NEEDED Status: Active Protocol: Document 10/04/19 11:10 AB (Rec: 10/04/19 14:29 AB [id number]) Medical Review Prior Functional Status Medical History Reviewed Yes Communication able to make needs known Mobility and Gait pt stated that her daughter assists her with mbolity and ambulation without AD and uses manual w/c for outdoor mobility Social History Household Members children Living Arrangements House Number of Floors (Floors) One Floor Number of Stairs To Enter/Railing? 2 steps with L rail ascending Home Environment Standard Height Toilet,Walk in Shower Home Equipment Four Wheel Walker,Manual Wheelchair,Raised Toilet Seat Without Armrests,Shower Seat without Backrest,Hand Held Shower,Grab Bars Near Toilet, Grab Bars In Shower M2 PT-IP Current Condition Start: 10/04/19 13:52 Freq: NEEDED Status: Active Protocol: Document 10/04/19 11:10 AB (Rec: 10/04/19 14:29 AB [id number]) Physical Therapy Current Condition Current Condition Evaluation Date 10/04/19 Treatment Diagnosis CHF exacerbation; difficulty in walking Onset Date 10/04/2019 M3 PT-IP Subjective Start: 10/04/19 13:52 Freq: NEEDED Status: Active Protocol: Document 10/04/19 11:10 AB (Rec: 10/04/19 14:29 AB [id number]) Subjective Physical Therapy Visit Type Type Initial Evaluation Visit Start Time 11:10 Visit Stop Time 11:44 Total Visit Minutes 34 Number of DISTRICT ATTORNEY Visits 0 Physical Therapy Visit Comments Patient Comments pt agreeable to do PT; requesting to have a shower. M4 PT-IP Mobility and Gait Start: 10/04/19 13:52 Freq: NEEDED Status: Active Protocol: Document 10/04/19 11:10 AB (Rec: 10/04/19 14:29 AB [id number]) PT-Bed Mobility Assessment Supine to Sit Supine to Sit Maximum Assistance,1 Person Assistance Scooting Scooting to Edge of Bed Maximum Assistance PT-Transfer Assessment Sit to and From Stand Sit to and from Stand Minimal Assistance,Moderate Assistance,1 Person Assistance ,Use of Upper Extremities Equipment Transfer Assistive Device Gait Belt,Front Wheeled Walker Orthotic/Prosthetic Devices or Brace: No Transfers Transfer Destination Toilet Transfer Technique ambulated using FWW Transfer Ability Level of Assist Minimal Assistance,Moderate Assistance,1 Person Assistance ,Use of Upper Extremities Comments Mobility Comments pt completed supine to sit with HOB elevated max A and max cues. pt required max A for scooting to the EOB. completed sit to stand min to mod A and cues and pt was able to ambulated using FWW to the toilet ~ 12 ft min to mod A and cues. required increase time to complete task. pt required mod A for controlled descent to the toilet. pt wants to sit on the the for awhile. call light placed within reach and instructed pt to ask for assistance when ready. informed nurse that pt is using the toilet. Gait Assessment Gait Gait Assistance Required: Minimum Assistance,Moderate Assistance Distance (Feet) 12 Able to Maintain Weight Bearing Status Yes During Gait Assistive Devices Assistive Device Gait Belt,Front Wheeled Walker Orthotic/Prosthetic Devices or Brace: No Gait Deviations General Gait Pattern Antalgic,Decreased Stride Length,Decreased Feet Clearance,Narrow Based Gait, Step-to Gait Factors Limiting Gait Function Factors Limiting Gait Function Decreased Activity Tolerance, Decreased Strength,Difficulty Following Directions,Pain,Poor Balance,Poor Safety Awareness ,Respiratory Distress Comments Gait Comments ambulated ~ 12 ft using FWW miin to mod A and cues. presents with slow stephen and decrease LE elevation during ambulation. PT-Balance Assessment Sitting Balance and Reactions Static Sitting Balance Ability Good Dynamic Sitting Balance Ability Fair Standing Balance and Reactions Static Standing Balance Ability Fair Dynamic Standing Balance Ability Poor Device Used FWW M5 PT-IP Objective Assessments Start: 10/04/19 13:52 Freq: NEEDED Status: Active Protocol: Document 10/04/19 11:10 AB (Rec: 10/04/19 14:29 AB [id number]) Orientation Orientation/Cognition Level of Alertness Alert Orientation Name Language Function Ability Hard of Hearing Safety Awareness Decreased Safety Awareness Gross Range of Motion Lower Extremity ROM Assessment Within Functional Limits Strength Lower Extremity Strength Hip 3+/5 Knee 3+/5 Coordination Assessment Gross Coordination Gross Coordination WNL Sensation Assessment Sensation Gross Sensation WNL Muscle Tone Muscle Tone WNL Yes M6 PT-IP Treatment Start: 10/04/19 13:52 Freq: NEEDED Status: Active Protocol: Document 10/04/19 11:10 AB (Rec: 10/04/19 14:29 AB [id number]) Physical Therapy Treatment Education Education Provided Safety M7 PT-IP Assessment and Plan Start: 10/04/19 13:52 Freq: NEEDED Status: Active Protocol: Document 10/04/19 11:10 AB (Rec: 10/04/19 14:29 AB [id number]) PT Summary Assessment and Plan Potential Rehabilitation Potential Good Summary Impairments Pain,ROM,Strength,Balance,Bed Mobility,Transfers,Gait, Activity Tolerance Assessment Summary pt requiring min to mod A with ambulation using FWW. pt stated that her daughter can assist her. d/c plan depending if daughter will be able to provide necessary assistance and caregiver training will be conducted as well as stair climbing training. will continue to assess progress. Goals Bed Mobility Goal Standby Assistance Transfer Goal Standby Assistance,Front Wheeled Walker Gait Goal Standby Assistance,Front Wheel Walker Gait Distance 50 Other Goals up/down 2 steps L rail ascending CGA Days to Meet Goals 10 Frequency of Treatment Frequency Of Treatment Once a Day Treatment Plan Physical Therapy Treatment Plan Bed Mobility Training,Transfer Training,Gait Training, Therapeutic Exercise,Balance Retraining,Discharge Planning, Hot or Cold Pack,Neuromuscular Re-ed,Coordination Retraining ,Manual Therapy Recommendations To Nursing Amount of Assist Needed 1 Person Assist Discharge Recommendations PT Discharge Recommendations Home with 24/7 Assist,Home Health,SNF Rehab Other Discharge Recommendations home with 24/7 and HHPT vs SNF rehab Transportation Needs at Discharge Private Vehicle,Wheelchair/ Cabulance
--- NOTE | 2019-10-04 12:28 | PM.EVENT ---
Event Note Date Patient Seen: 10/04/19 Event Note: Patient seen and examined, chart reviewed, she continues to be markedly short of breath. Patient does not want to take Lasix. However she is agreeable to Bumex. Given her markedly elevated BNP in known history of heart failure with preserved ejection fraction the patient will be diuresed, will continue to monitor her closely.
--- NOTE | 2019-10-04 12:29 | CM.DANOTE ---
Addendum entered by Althea Yan LPN 10/04/19 12:51: YUE Farrell confirms: admission status: INPT: 10/04/19 Addendum entered by Althea Yan LPN 10/04/19 12:48: P: follow up tomorrow as more is known to assist with d/c issues and options. Will confirm admission status Look to OT/PT for their recommendations. Consider HH Services if appropriate SNF discussion may be appropriate but will await more info re above issues. Addendum entered by Althea Yan LPN 10/04/19 12:35: Will check on location of these clinics when pt is available. Currently getting ECHO. Pt is currently admitted s/s likely related to her current breast cancer treatment and exacerbation of CHF. She has chronic LL ulcer which has impeded some of her cancer treatment options. Pt says since use of the new chemo medications he has been unable to safely mobilize of do for herself. She had her daughters, Enedina (who lives with her. See Template below.) and Naveen Walker, an orthopedic physician have an appt new Sunday with [facility] to look at some options including JARRET with Enedina as JARRET caregiver. P: Dr. Carlin noted to pt that she would come back later today to see her for a more indepth discussion of her case and POC. OT and PT are ordered. Admission status: currently in review: per YUE Farrell. Original Note: Discharge Planning/Care Management DCP: assessment: case received, EMR reviewed and met with pt during and after Bedside Team Rounds. Introduced self and role. Pt is an 83 year old female who admitted early this morning to care of hospitalist team. PCP: Dr. Loja Payer: Medicare and [facility] Pt is also under oncology care as well as wound clinic. Advanced directive, confirm from FAMILY Start: 10/04/19 04:43 Freq: Q24H Status: Active Protocol: Document 10/04/19 04:43 HNB (Rec: 10/04/19 05:11 HNB [id number]) Advance Directive, confirm on record Time 05:10 Person contacted Enedina (daughter) Copy received No CM Discharge Assessment Start: 10/04/19 12:27 Freq: Status: Active Protocol: Document 10/04/19 12:27 ITV (Rec: 10/04/19 12:29 ITV [id number]) Discharge Planning Assessment Advance Directives? Yes Advance Directives on File No History Provided By Patient,Medical Record Has Patient been admitted in last 30 No days? Prior Living Arrangements House Household Members children Comment daughter Enedina Walker: cell: [phone] is currently living with her. Independent with ADL's No Is patient alert and oriented? Yes Whiteboard Updated in Patient Room with Yes name and ext. # of Irrigationist Review Status In Process
[2019-10-04] MEDS: BUMETANIDE 1 MG/4 ML VIAL IV (13:33)
[2019-10-04] MEDS: LETROZOLE 2.5 MG TABLET PO (13:33)
--- NOTE | 2019-10-04 16:33 | OT.IP.EVAL ---
Current Diagnoses Acute on chronic diastolic (congestive) heart failure (10/04/19) Past Medical History (Last Updated 10/04/19 @ 07:30 by WILL Lucas) (HFpEF) heart failure with preserved ejection fraction (Acute) Bilateral lower extremity edema (Inactive) Breast mass, right (Inactive) Chronic atrial fibrillation (Acute) Hypothyroidism (Acute) Osteoarthritis (Acute) Surgical History (Last Updated 10/04/19 @ 07:30 by WILL Lucas) History of appendectomy (Acute) History of tonsillectomy (Acute) Occupational Therapy Inpatient Evaluation/Re-Eval M1 PT/OT-IP Prior Functional Status Start: 10/04/19 13:52 Freq: NEEDED Status: Active Protocol: Document 10/04/19 16:36 CGR (Rec: 10/04/19 16:51 CGR [email or web address]) Medical Review Prior Functional Status Medical History Reviewed Yes Communication able to make needs known Mobility and Gait pt stated that her daughter assists her with mbolity and ambulation without AD and uses manual w/c for outdoor mobility Activities of Daily Living and IADL's Pt states that prior to the last 3 weeks, she was IND in all ADLs. She currently needs assist with all ADLs and IADLs . Social History Household Members children,none Living Arrangements House Number of Floors (Floors) One Floor Number of Stairs To Enter/Railing? 2 steps with L rail Home Environment High Toilet,Walk in Shower Home Equipment Four Wheel Walker,Straight Cane,Manual Wheelchair,Raised Toilet Seat w/Armrests,Hand Held Shower,Grab Bars Near Toilet,Grab Bars In Shower Employment Status Retired Additional Social History Comment Pt states that her daughter has been staying with her for the last few days and can continue to stay with her but she is a recovering alcoholic and needs to attend her AA meetings and is looking for a job. Pt's sister and brother in law are able to stay and assist for the next week. M2 OT-IP Current Condition Start: 10/04/19 16:36 Freq: Status: Active Protocol: Document 10/04/19 16:36 CGR (Rec: 10/04/19 16:51 CGR [email or web address]) Occupational Therapy Current Condition Current Condition Evaluation Date 10/04/19 Treatment Diagnosis CHF, Anemia, Current creastca, LLE wound/cellulitis Diagnosis Onset Date 10/03/19 M3 OT- IP Subjective and Pain Start: 10/04/19 16:36 Freq: Status: Active Protocol: Document 10/04/19 16:36 CGR (Rec: 10/04/19 16:51 CGR [email or web address]) OT- Subjective Occupational Therapy Visit Type Type Initial Evaluation Visit Start Time 15:23 Visit Stop Time 16:33 Total Visit Minutes 70 Notes Pt requesting shower. Occupational Therapy Visit Comments Patient Comments Oh, I would love to take a shower OT Pain Assessment Pain When Pain Assessed At Rest Pain Present Pain Present Denied Pain M4 OT- IP ADL's Start: 10/04/19 16:36 Freq: Status: Active Protocol: Document 10/04/19 16:36 CGR (Rec: 10/04/19 16:51 CGR [email or web address]) OT [id number] Comments OT Self-Feeding Comments Not meal time OT ADL-Grooming General Evaluation Grooming Ability Standby Assistance Areas Needing Assistance Retrieving/Set-up of Grooming Items,Combing/Brushing Hair, Face Washing Comments OT Grooming Comments seated OT ADL-Oral Care Comments Oral Care Comments Not performed in this session. OT ADL-Dressing General Eval Upper Body Dressing Ability Minimal Assistance Lower Body Dressing Ability Total Assistance Areas Needing Assistance Retrieving/Set-up of Clothing, Button-Up Shirt/Blouse,Socks OT ADL-Toileting General Evaluation Toileting Ability Standby Assistance Comments OT Toileting Comments Pt able to perform toileting without assist with extra time in hospital gown without brief. OT ADL-Bathing Bathing Type Bathing Type Shower General Evaluation Bathing Ability Moderate Assistance Areas Needing Assistance Retrieving/Setting Up Items, Wash/Dry Upper Body,Wash/Dry Back,Wash/Dry Lower Extremities Devices Bathing Equipment Hand Held Shower Sprayer, Shower Chair with Arms,Grab Bars Comments OT Bathing Comments Pt needed significant assist with bathing throughout shower . M5 OT- IP IADL's Start: 10/04/19 16:36 Freq: Status: Active Protocol: Document 10/04/19 16:36 CGR (Rec: 10/04/19 16:51 CGR [email or web address]) OT-Instrumental Activities of Daily Living Deficits IADL Deficits Identified Deficits Home Safety Awareness Awareness of Need for Assistance at Home Decreased Awareness Ability to Problem Solve Emergency Able to Problem Solve Situations M6 OT- IP Functional Cognition Start: 10/04/19 16:36 Freq: Status: Active Protocol: Document 10/04/19 16:36 CGR (Rec: 10/04/19 16:51 CGR [email or web address]) Cognitive Factors Limiting Selfcare Function Cognitive Ability Level of Alertness Alert Patient Orientation Name,Age,Birthday,Month,Date, Year,Day of Week,Place, Situation Attention Span Ability Capable of Focused Attention Ability to Follow Commands Able to Follow One Step Commands with Increased Time, Able to Follow One Step Commands with Repetition Cognitive Comments Cognitive Assessment Comments Pt would benefit from a formal cog assessment. OT- Vision and Hearing OT- Hearing Assessment OT- Hearing Assessment Use of Hearing Aids OT- Vision Assessment Visual Acuity Glasses All The Time Visual Attentiveness WFL Occular Pursuits WFL Visual Convergence WFL Visual Rodriguez WFL Vision Assessment Comments Pt wears prism glasses to assist with double vision. M7 OT- IP Mobility and Balance Start: 10/04/19 16:36 Freq: Status: Active Protocol: Document 10/04/19 16:36 CGR (Rec: 10/04/19 16:51 CGR [email or web address]) OT- Bed Mobility Assessment Sit to Supine Sit to Supine Assist Moderate Assistance Scooting Scooting to Edge of Bed Maximum Assistance OT-Transfer Assessment Sit to and From Stand Sit to and from Stand Minimal Assistance Transfers Transfer Ability Minimal Assistance Technique Transfer Destination Bed,Chair,Shower Stall,Toilet Transfer Technique Stand Step Pivot Devices Transfer Assistive Devices Gait Belt,Front Wheeled Walker Comments Mobility Comments Mobility is slow but appears steady. Pt needs VC for use of GB when appropriate. OT- Balance Assessment Sitting Balance and Reactions Static Sitting Balance Ability Good Dynamic Sitting Balance Ability Fair M8 OT- IP Objective Assessments Start: 10/04/19 16:36 Freq: Status: Active Protocol: Document 10/04/19 16:36 CGR (Rec: 10/04/19 16:51 CGR [email or web address]) OT Gross Range of Motion Upper Extremity Range of Motion Assessment Within Functional Limits OT Strength Upper Extremity Strength Assessment Within Functional Limits Comments Strength Comments Grossly 4/5 OT- Coordination Assessment Upper Extremity Finger to Nose Test Within Functional Limits Finger Tapping Test Within Functional Limits OT-Muscle Tone Assessment Muscle Tone WNL Yes OT Sensation Assessment Edema Edema Absent M9 OT- IP Assessment and Plan Start: 10/04/19 16:36 Freq: Status: Active Protocol: Document 10/04/19 16:36 CGR (Rec: 10/04/19 16:51 CGR [email or web address]) OT Summary Assessment and Plan Potential Rehabilitation Potential Good Analytic Complexity at Evaluation Low Summary OT Impairments Balance,Functional Cognition, Functional Mobility,Grooming, Dressing,Toileting,Bathing, Toilet Transfers,Shower Transfers,Activity Tolerance Progress Towards Goals Slow Progress due to Activity Tolerance Assessment Summary Pt presents as a low complexity evaluation after admission for CHF exacerbation and anemia. Pt is currently battling breast CA and being treated with anti hormonal treatment which appears to be impacting her endurance and strength. Pt is hoping to discharge home with assist from her daughter. Given daughters current situation of looking for a job, this may not be a safe discharge plan. Pt will likely benefit from SNF upon discharge. Goals Self-Feeding Goal Independent Grooming Goal Independent Dressing Goal Independent Toileting Goal Independent Bathing Goal Independent Toilet Transfer Goal Independent Shower Transfer Goal Independent Days to Meet Goals 5 Frequency of Treatment Frequency Of Treatment Once a Day Treatment Plan OT Treatment Plan ADL Training,Functional Cognition Training,Functional Mobility,Patient/Family Education,Discharge Planning Other Treatment Recommendations and Next Cog assessment and LB dressing Treatment Focus Discharge Recommendations OT Discharge Recommendations SNF Rehab Other Discharge Recommendations If daughter can be home 19/02 and physically assist pt, a home discharge may be possible . D/C recommendations may change depending on pt's choice for her CA treatment options. Home Equipment Needs TBD Transportation Needs at Discharge Private Vehicle
[2019-10-04 17:49] LABS: Alanine Aminotransferase 24 IU/L (<35); Albumin 4.8 g/dL (3.5-5.0); Albumin Globulin Ratio 1.5 (1.0-2.8); Alkaline Phosphatase 112 U/L (38-126); Aspartate Aminotransferase 41 IU/L (14-36); Bilirubin Total 0.7 mg/dL (0.2-1.3); Blood Urea Nitrogen 63 mg/dL (7-17); Calcium 9.7 mg/dL (8.4-10.2); Carbon Dioxide 23 mmol/L (22-32); Chloride 103 mmol/L (98-107); Estimated Glomerular Filt Rate 35.9 mL/min (>60); Globulin 3.1 g/dL (1.7-4.1); Glucose 92 mg/dL (80-110); HEMOLYSIS < 15 (0-50); Potassium 4.4 mmol/L (3.4-5.1); Sodium 139 mmol/L (137-145); Total Protein 7.9 g/dL (6.3-8.2)
[2019-10-04 18:16] LABS: Add Manual Diff / Slide Review SLIDE REVIEW; Basophils Absolute Auto 100 /uL (0-100); Basophils Percent Auto 0.9 % (0-2); Eosinophils Absolute Auto 200 /uL (0-450); Eosinophils Percent Auto 1.4 % (2-4); Hematocrit 35.9 % (36-46); Hemoglobin 11.3 g/dL (12.0-16.0); Lymphocytes Absolute Auto 500 /uL (1100-4500); Lymphocytes Percent Auto 4.2 % (25-40); Mean Corpuscular HGB Conc 31.6 % (30-36); Mean Corpuscular Hemoglobin 29.9 PG (26-34); Mean Corpuscular Volume 94.8 fL (80-100); Monocytes Absolute Auto 1300 /uL (0-900); Monocytes Percent Auto 11.3 % (3-14); Neutrophils Absolute Auto 9400 /uL (1500-7000); Neutrophils Percent Auto 82.2 % (50-75); Platelet Count 273 X10^3/uL (150-400); Red Blood Cell Count 3.79 X10^6/uL (4.0-5.2); Red Cell Distribution Width 19.2 % (11.6-14.8); White Blood Cell Count 11.4 X10^3/uL (4.5-11.0)
[2019-10-04 18:42] LABS: Polychromasia 2+
[2019-10-04 18:43] LABS: Anisocytosis 1+
[2019-10-04 18:44] LABS: Schistocytes 1+
[2019-10-05] VITALS (9 sets, daily range): BP systolic 78–99; BP diastolic 48–65; PULSE 69–91; RESP 16–26; TEMP 36.1–37.2; O2SAT 94–99
[2019-10-05] MEDS: LEVOTHYROXINE 100 MCG TABLET PO (05:41)
[2019-10-05 06:11] LABS: BUN Creatinine Ratio 41.4 (6-22); Blood Urea Nitrogen 58 mg/dL (7-17); Calcium 9.4 mg/dL (8.4-10.2); Carbon Dioxide 21 mmol/L (22-32); Chloride 105 mmol/L (98-107); Estimated Glomerular Filt Rate 35.9 mL/min (>60); Glucose 115 mg/dL (80-110); HEMOLYSIS < 15 (0-50); Potassium 4.6 mmol/L (3.4-5.1); Sodium 136 mmol/L (137-145)
[2019-10-05 06:29] LABS: Hematocrit 31.3 % (36-46); Hemoglobin 10.1 g/dL (12.0-16.0); Mean Corpuscular HGB Conc 32.3 % (30-36); Mean Corpuscular Hemoglobin 30.1 PG (26-34); Platelet Count 280 X10^3/uL (150-400); Red Blood Cell Count 3.36 X10^6/uL (4.0-5.2); White Blood Cell Count 14.9 X10^3/uL (4.5-11.0)
[2019-10-05 06:48] LABS: Add Manual Diff / Slide Review YES
[2019-10-05 06:52] LABS: Neutrophils Absolute Manual 11622 /uL (3000-5900); Nucleated Red Blood Cells 1 #/Diff; Total Cells Counted 100
[2019-10-05 06:53] LABS: Anisocytosis 2+; Polychromasia 2+
[2019-10-05 06:54] LABS: Schistocytes 1+
[2019-10-05 06:55] LABS: Poikilocytosis 1+
[2019-10-05] MEDS: ACETAMINOPHEN 325 MG TABLET 650 MG PO ×2 (08:28→21:02)
[2019-10-05] MEDS: PANTOPRAZOLE 20 MG TABLET PO ×2 (08:28→20:58)
[2019-10-05] MEDS: atenoloL 25 MG TABLET 12.5 MG PO (08:28)
[2019-10-05] MEDS: MAGNESIUM OXIDE 400 MG TABLET PO (08:28)
[2019-10-05 09:16] LABS: NT-proBNP (BNP-Adult 18+) 9610 pg/mL (<450)
[2019-10-05] MEDS: BUMETANIDE 1 MG/4 ML VIAL 0.5 MG IV (10:46)
--- NOTE | 2019-10-05 10:56 | PT.IPTN ---
Current Diagnoses Acute on chronic diastolic (congestive) heart failure (10/04/19) Physical Therapy Treatment Note M2 PT-IP Current Condition Start: 10/04/19 13:52 Freq: NEEDED Status: Active Protocol: Document 10/04/19 11:10 AB (Rec: 10/04/19 14:29 AB [id number]) Physical Therapy Current Condition Current Condition Evaluation Date 10/04/19 Treatment Diagnosis CHF exacerbation; difficulty in walking Onset Date 10/04/2019 M3 PT-IP Subjective Start: 10/04/19 13:52 Freq: NEEDED Status: Active Protocol: Document 10/05/19 10:38 AW (Rec: 10/05/19 10:56 AW [id number]) Subjective Physical Therapy Visit Type Type Treatment Note Visit Start Time 10:15 Visit Stop Time 10:33 Total Visit Minutes 18 Number of EMERGENCY SERVICE WORKER Visits 0 Physical Therapy Visit Comments Patient Comments Pt willing to participate with PT Patient Goals Pt hopes to discharge home with her daughter's assistance . M4 PT-IP Mobility and Gait Start: 10/04/19 13:52 Freq: NEEDED Status: Active Protocol: Document 10/05/19 10:38 AW (Rec: 10/05/19 10:56 AW [id number]) PT-Transfer Assessment Sit to and From Stand Sit to and from Stand Contact Guard Assistance,1 Person Assistance,Use of Upper Extremities Equipment Transfer Assistive Device Gait Belt,Front Wheeled Walker Orthotic/Prosthetic Devices or Brace: No Transfers Transfer Destination Chair Transfer Technique Stand Step Pivot Transfer Ability Level of Assist Contact Guard Assistance,1 Person Assistance,Use of Upper Extremities Comments Mobility Comments Pt sitting up in chair upon PT arrival. She reports she sleeps in a recliner at home. She stood using a FWW CGA and ambulated around the room with FWW CGA, requiring min verbal cues and assist for line management. Pt demonstrated safety with FWW including in tight turns. She did report increased SOB with ambulation and was observed to have increased labor of breathing. SpO2 remained 99% throughout. BP was 101/52 before activity and 102/55 after activity. HR could not be assessed due to artifact. Gait Assessment Gait Gait Assistance Required: Contact Guard Assist,1 Person Assist Distance (Feet) 20 Able to Maintain Weight Bearing Status Yes During Gait Assistive Devices Assistive Device Gait Belt,Front Wheeled Walker Orthotic/Prosthetic Devices or Brace: No Gait Deviations General Gait Pattern Decreased Stride Length, Decreased Feet Clearance, Narrow Based Gait,Step-to Gait Factors Limiting Gait Function Factors Limiting Gait Function Decreased Activity Tolerance, Decreased Strength,Difficulty Following Directions,Pain,Poor Balance,Poor Safety Awareness ,Respiratory Distress Comments Gait Comments See mobility comments. Pt walked slowly with FWW but managed with decreased level of assist this session. Stair Climbing Assessment Comments Stair Climbing Comments Pt refused stair training at this time. M5 PT-IP Objective Assessments Start: 10/04/19 13:52 Freq: NEEDED Status: Active Protocol: Document 10/04/19 11:10 AB (Rec: 10/04/19 14:29 AB [id number]) Orientation Orientation/Cognition Level of Alertness Alert Orientation Name Language Function Ability Hard of Hearing Safety Awareness Decreased Safety Awareness Gross Range of Motion Lower Extremity ROM Assessment Within Functional Limits Strength Lower Extremity Strength Hip 3+/5 Knee 3+/5 Coordination Assessment Gross Coordination Gross Coordination WNL Sensation Assessment Sensation Gross Sensation WNL Muscle Tone Muscle Tone WNL Yes M6 PT-IP Treatment Start: 10/04/19 13:52 Freq: NEEDED Status: Active Protocol: Document 10/05/19 10:38 AW (Rec: 10/05/19 10:56 AW [id number]) Physical Therapy Treatment Education Education Provided Safety M7 PT-IP Assessment and Plan Start: 10/04/19 13:52 Freq: NEEDED Status: Active Protocol: Document 10/05/19 10:38 AW (Rec: 10/05/19 10:56 AW [id number]) PT Summary Assessment and Plan Summary Progress Towards Goals Progressing Toward Goals,Slow Progress due to Activity Tolerance Assessment Summary Pt required decreased level of assist overall today. She states she sleeps in a recliner at home and struggles with bed mobility due to lack of practice but does not need to get in/out of bed at home. Will need to set up time for caregiver training including stairs on Thursday 10/05. Discharge recommendation pending family's ability to provide assist at home. Goals Bed Mobility Goal Standby Assistance Transfer Goal Standby Assistance,Front Wheeled Walker Gait Goal Standby Assistance,Front Wheel Walker Gait Distance 50 Other Goals up/down 2 steps L rail ascending CGA Days to Meet Goals 9 Frequency of Treatment Frequency Of Treatment Once a Day Treatment Plan Physical Therapy Treatment Plan Bed Mobility Training,Transfer Training,Gait Training, Therapeutic Exercise,Balance Retraining,Discharge Planning, Hot or Cold Pack,Neuromuscular Re-ed,Coordination Retraining ,Manual Therapy Other Recommendations and Next Treatment caregiver training, stairs Focus Recommendations To Nursing Amount of Assist Needed Standby Assistance Discharge Recommendations PT Discharge Recommendations Home with 24/7 Assist,Home Health,SNF Rehab Other Discharge Recommendations home with 24/7 and HHPT vs SNF rehab Transportation Needs at Discharge Private Vehicle,Wheelchair/ Cabulance
[2019-10-05] MEDS: LETROZOLE 2.5 MG TABLET PO (12:40)
--- NOTE | 2019-10-05 15:45 | P.PN_ITS ---
Subjective Subjective Date Patient Seen: 10/05/19 Interval history: Patient continues to report shortness of breath. Patient feels like her symptoms are little bit better. She has had excellent response with diuresis. Patient has had no bright red blood per rectum or dark stool. Her stool was guaiac negative yesterday. Exam Vital Signs (past 8 hours): - 10/05/19 08:29 10/05/19 09:42 10/05/19 11:56 Temperature 98.0 F 98.9 F Pulse Rate 86 91 H 82 Respiratory Rate 16 16 Blood Pressure 96/53 L 93/58 L Pulse Oximetry 97 97 99 10/05/19 15:21 Temperature 97.7 F Pulse Rate 80 Respiratory Rate 18 Blood Pressure 90/54 L Pulse Oximetry 99 Oxygen Delivery Method Room Air Oxygen Flow Rate 0 Narrative Exam Narrative: Pleasant elderly female in no obvious distress Lungs: Decreased breath sounds with end-expiratory wheezing bilaterally Cardiac exam: Irregularly irregular normal S1-S2 with a 3/6 systolic ejection murmur Abdomen: Soft nontender nondistended Extremities: 1+ edema bilateral Objective Labs Result Diagrams: 10/05/19 05:30 10/05/19 05:30 Labs: Laboratory Results - last 24 hr 10/04/19 10/04/19 10/05/19 17:30 17:30 05:30 WBC 11.4 H 14.9 H RBC 3.79 L 3.36 L Hgb 11.3 L 10.1 L Hct 35.9 L 31.3 L MCV 94.8 93.0 MCH 29.9 30.1 MCHC 31.6 32.3 RDW 19.2 H 19.0 H Plt Count 273 280 Neut % (Auto) 82.2 H Not Reportable Lymph % (Auto) 4.2 L Not Reportable [place] % (Auto) 11.3 Not Reportable Eos % (Auto) 1.4 L Not Reportable Baso % (Auto) 0.9 Not Reportable Neut # (Auto) 9400 H Lymph # (Auto) 500 L Not Reportable [place] # (Auto) 1300 H Not Reportable Eos # (Auto) 200 Baso # (Auto) 100 Not Reportable Total Counted 100 Seg Neutrophils % 78.0 H Lymphocytes % (Manual) 6.0 L D Monocytes % (Manual) 16.0 H Neutrophils # (Manual) 40998 H Nucleated RBCs 1 H RBC Morphology See below See below Polychromasia 2+ H 2+ H Poikilocytosis 1+ H Anisocytosis 1+ H 2+ H Schistocytes 1+ H 1+ H Sodium 139 Potassium 4.4 Chloride 103 Carbon Dioxide 23 BUN 63 H Creatinine 1.40 H Estimated GFR 35.9 L BUN/Creatinine Ratio 45.0 H Glucose 92 Calcium 9.7 Total Bilirubin 0.7 AST 41 H ALT 24 Alkaline Phosphatase 112 NT-Pro-B Natriuret Pep Total Protein 7.9 Albumin 4.8 Globulin 3.1 Albumin/Globulin Ratio 1.5 10/05/19 10/05/19 05:30 05:30 WBC RBC Hgb Hct MCV MCH MCHC RDW Plt Count Neut % (Auto) Lymph % (Auto) [place] % (Auto) Eos % (Auto) Baso % (Auto) Neut # (Auto) Lymph # (Auto) [place] # (Auto) Eos # (Auto) Baso # (Auto) Total Counted Seg Neutrophils % Lymphocytes % (Manual) Monocytes % (Manual) Neutrophils # (Manual) Nucleated RBCs RBC Morphology Polychromasia Poikilocytosis Anisocytosis Schistocytes Sodium 136 L Potassium 4.6 Chloride 105 Carbon Dioxide 21 L BUN 58 H Creatinine 1.40 H Estimated GFR 35.9 L BUN/Creatinine Ratio 41.4 H Glucose 115 H Calcium 9.4 Total Bilirubin AST ALT Alkaline Phosphatase NT-Pro-B Natriuret Pep 9610 H Total Protein Albumin Globulin Albumin/Globulin Ratio Assessment & Plan Assessment & Plan narrative: Assessment & Plan narrative: This is an 83-year-old female patient who presents to the hospital at the request of her primary care with progressive weakness dizziness related to anti neoplastic treatment and shortness of breath. 1. Exacerbation of chronic heart failure with preserved EF, present on admissi on, active -echo reveals LV function of 70-75%, no wall motion abnormalities, left ventricular cavity small, severely dilated bilateral atria, right ventricular enlargement, mild mitral regurgitation, severe tricuspid regurgitation -patient to continue on Bumex 0.5 mg daily 2. Chronic kidney disease stage 3, present on admission, active -Patient had torsemide discontinued related to elevated creatinine Creatinine in June 2019 was 2.0. -Patient's creatinine on admission is 1.5. -will continue Bumex and resume torsemide at discharge 3. Breast cancer, present on admission, active -patient is undergoing anti hormonal cancer treatment and has not started chemotherapy related to wound and treatment for cellulitis which is now completed left lower leg. -since starting anti anti hormonal therapy, the patient has had progressive weakness and dizziness and is now unable to care for self living alone. -the patient is adamant about not stopping current treatment. -consult with Oncology, will obtain patient's recent medical records from [facility]. -PT and OT to consult, evaluate and treat weakness. 4. Chronic atrial fibrillation, present on admission, active -12 lead EKG identifies atrial fibrillation with ventricular rate of 93, unchanged from previous tracing. -will continue patient's rate control medication with atenolol 12.5 mg daily. -will continue anticoagulation with apixaban 5 mg twice daily. 5. Acute anemia, present on admission, active -Hemoglobin in June of 2019 was 14.8. Hemoglobin on admission is 10.1. -despite dark stool, patient is guaiac negative here. Will continue apixaban at this time. No indication or need for transfusion 6 left leg ulcer, present on admission, stable. -patient with intact pressure dressing left leg, nontender to palpation. -will resume usual outpatient wound care regimen Anticipate discharge home with the patient's own longer short of breath. Quality VTE Deep Vein Thrombosis/Pulmonary Embolism Present on Admission: No
[2019-10-05] MEDS: APIXABAN 5 MG TABLET PO (20:58)
[2019-10-05] MEDS: SODIUM CHLORIDE 0.9% FLUSH 10 ML IV (20:59)
--- NOTE | 2019-10-05 22:33 | PC.NURSE ---
Assumed care of pt at 1500. Pt sitting up in chair during bedside hand-off. BP running low but denies dizziness, sob or chest pain. Ambulating to bathroom 1 pa, w/o fww this shift. Tolerating meal. At approx 2100 requests tylenol for pain to left [place]. Reports tylenol effective. Calling appropriately for needs.
[2019-10-06] VITALS (8 sets, daily range): BP systolic 85–106; BP diastolic 49–69; PULSE 74–82; RESP 15–18; TEMP 36.1–37.1; O2SAT 97–100
[2019-10-06 05:18] LABS: BUN Creatinine Ratio 47.3 (6-22); Blood Urea Nitrogen 52 mg/dL (7-17); Calcium 8.9 mg/dL (8.4-10.2); Carbon Dioxide 23 mmol/L (22-32); Chloride 106 mmol/L (98-107); Estimated Glomerular Filt Rate 47.4 mL/min (>60); Glucose 109 mg/dL (80-110); HEMOLYSIS < 15 (0-50); Potassium 4.2 mmol/L (3.4-5.1); Sodium 136 mmol/L (137-145)
[2019-10-06 05:23] LABS: Hematocrit 29.2 % (36-46); Hemoglobin 9.5 g/dL (12.0-16.0); Mean Corpuscular HGB Conc 32.7 % (30-36); Mean Corpuscular Hemoglobin 30.2 PG (26-34); Mean Corpuscular Volume 92.4 fL (80-100); Platelet Count 247 X10^3/uL (150-400); Red Blood Cell Count 3.16 X10^6/uL (4.0-5.2); Red Cell Distribution Width 19.4 % (11.6-14.8); White Blood Cell Count 9.1 X10^3/uL (4.5-11.0)
[2019-10-06 05:24] LABS: Add Manual Diff / Slide Review YES
[2019-10-06] MEDS: LEVOTHYROXINE 100 MCG TABLET PO (05:36)
[2019-10-06] MEDS: ACETAMINOPHEN 325 MG TABLET 650 MG PO (05:39)
[2019-10-06 05:48] LABS: Neutrophils Absolute Manual 7553 /uL (3000-5900); Nucleated Red Blood Cells 1 #/Diff; Total Cells Counted 100
[2019-10-06 05:49] LABS: Anisocytosis 2+; Poikilocytosis 1+; Polychromasia 2+
[2019-10-06] MEDS: atenoloL 25 MG TABLET 12.5 MG PO (08:45)
[2019-10-06] MEDS: APIXABAN 5 MG TABLET PO ×2 (08:45→20:26)
[2019-10-06] MEDS: PANTOPRAZOLE 20 MG TABLET PO ×2 (08:46→20:26)
[2019-10-06] MEDS: SODIUM CHLORIDE 0.9% FLUSH 10 ML IV ×2 (08:46→20:26)
[2019-10-06] MEDS: MAGNESIUM OXIDE 400 MG TABLET PO (09:33)
--- NOTE | 2019-10-06 13:14 | CM.DPC ---
DCP Cont: Met briefly with patient during team rounds, and introduced self. Patient continues to complain about some pounding of her heart beat in her ear. Patient had not yet worked with P.T/O.T, but does have orders. Confirmed with patient that she does have supportive daughter at home. Can also discuss home health if needed, as was recommended by P.T. P: DCP to continue to follow closely, and will be available for any resources that may be needed. Irene Cordoba RN/Landscape Architect
[2019-10-06] MEDS: LETROZOLE 2.5 MG TABLET PO (13:39)
--- NOTE | 2019-10-06 14:17 | PT.IPTN ---
Current Diagnoses Acute on chronic diastolic (congestive) heart failure (10/04/19) Physical Therapy Treatment Note M2 PT-IP Current Condition Start: 10/04/19 13:52 Freq: NEEDED Status: Active Protocol: Document 10/04/19 11:10 AB (Rec: 10/04/19 14:29 AB [id number]) Physical Therapy Current Condition Current Condition Evaluation Date 10/04/19 Treatment Diagnosis CHF exacerbation; difficulty in walking Onset Date 10/04/2019 M3 PT-IP Subjective Start: 10/04/19 13:52 Freq: NEEDED Status: Active Protocol: Document 10/06/19 14:06 AW (Rec: 10/06/19 14:17 AW [id number]) Subjective Physical Therapy Visit Type Type Treatment Note Visit Start Time 12:50 Visit Stop Time 13:16 Total Visit Minutes 26 Notes Daughter, Enedina, present and participating in caregiver training Number of PADDED PRODUCTS FINISHER Visits 0 Physical Therapy Visit Comments Patient Comments Pt willing to participate with PT M4 PT-IP Mobility and Gait Start: 10/04/19 13:52 Freq: NEEDED Status: Active Protocol: Document 10/06/19 14:06 AW (Rec: 10/06/19 14:17 AW [id number]) PT-Bed Mobility Assessment Supine to Sit Supine to Sit Moderate Assistance,1 Person Assistance Scooting Scooting to Edge of Bed Moderate Assistance PT-Transfer Assessment Sit to and From Stand Sit to and from Stand Contact Guard Assistance,1 Person Assistance,Use of Upper Extremities Equipment Transfer Assistive Device Gait Belt,Front Wheeled Walker Orthotic/Prosthetic Devices or Brace: No Transfers Transfer Destination Chair Transfer Technique Stand Step Pivot Transfer Ability Level of Assist Contact Guard Assistance,1 Person Assistance,Use of Upper Extremities Comments Mobility Comments Pt sitting up in bed upon PT arrival. Her daughter assisted her with bed mobility, demonstrating good body mechanics and appropriate level of assist. Pt then stood with FWW CGA but complained of dizziness and shortness of breath. She sat EOB for a resting break and then stood again CGA. She ambulated ~20 feet into the hallway before needing to sit due to weakness and dizziness. Pt transferred to a wheelchair and was pushed down to the stairs. She was able to stand from the w/ c CGA and her daughter assisted her on the stairs using gait belt and bilateral rails. Enedina provided appropriate cues and guarding. Pt then transferred back to the wheelchair to return to her room where she step pivot transferred w/c to [facility]. Gait Assessment Gait Gait Assistance Required: Contact Guard Assist,1 Person Assist Distance (Feet) 20 Able to Maintain Weight Bearing Status Yes During Gait Assistive Devices Assistive Device Gait Belt,Front Wheeled Walker Orthotic/Prosthetic Devices or Brace: No Gait Deviations General Gait Pattern Decreased Stride Length, Decreased Feet Clearance, Narrow Based Gait,Step-to Gait Factors Limiting Gait Function Factors Limiting Gait Function Decreased Activity Tolerance, Decreased Strength,Difficulty Following Directions,Pain,Poor Balance,Poor Safety Awareness ,Respiratory Distress Comments Gait Comments See mobility comments. Pt has severely limited activity tolerance Stair Climbing Assessment Evaluation Level of Assist On Stairs Standby Assistance,1 Person Assistance Devices Stair Climbing Assistive Devices Left Railing,Right Railing Technique/Endurance Stair Climbing Direction Ascend and Descend Stair Climbing Technique Step to Step Number of Steps Climbed 3 Stair Climbing Set # Repetitions (reps) 1 Comments Stair Climbing Comments Pt's daughter provided appropriate cues and guarding. M5 PT-IP Objective Assessments Start: 10/04/19 13:52 Freq: NEEDED Status: Active Protocol: Document 10/04/19 11:10 AB (Rec: 10/04/19 14:29 AB [id number]) Orientation Orientation/Cognition Level of Alertness Alert Orientation Name Language Function Ability Hard of Hearing Safety Awareness Decreased Safety Awareness Gross Range of Motion Lower Extremity ROM Assessment Within Functional Limits Strength Lower Extremity Strength Hip 3+/5 Knee 3+/5 Coordination Assessment Gross Coordination Gross Coordination WNL Sensation Assessment Sensation Gross Sensation WNL Muscle Tone Muscle Tone WNL Yes M6 PT-IP Treatment Start: 10/04/19 13:52 Freq: NEEDED Status: Active Protocol: Document 10/06/19 14:06 AW (Rec: 10/06/19 14:17 AW [id number]) Physical Therapy Treatment Education Education Provided Safety M7 PT-IP Assessment and Plan Start: 10/04/19 13:52 Freq: NEEDED Status: Active Protocol: Document 10/06/19 14:06 AW (Rec: 10/06/19 14:17 AW [id number]) PT Summary Assessment and Plan Summary Impairments Pain,ROM,Strength,Balance,Bed Mobility,Transfers,Gait, Activity Tolerance Progress Towards Goals Progressing Toward Goals,Slow Progress due to Activity Tolerance Assessment Summary Pt's daughter demonstrated ability to provide quality assist with good attention to her own body mechanics as well as appropriately asking pt to complete specific tasks and/ or to participate as much as she was able. Daughter Enedina states she and her sister Nichol are meeting with [place] tomorrow to discuss potential [facility] caregiving which Enedina would provide as well as other available resources. Enedina states she has concern that the pt may be experiencing TIA-like episodes with periods of speech and memory disturbance. No focal deficits have been noted on exam. Pt continues to be limited by dizziness and shortness of breath, but family is able to provide appropriate support at home. Goals Bed Mobility Goal Standby Assistance Transfer Goal Standby Assistance,Front Wheeled Walker Gait Goal Standby Assistance,Front Wheel Walker Gait Distance 50 Other Goals up/down 2 steps L rail ascending CGA Days to Meet Goals 5 Frequency of Treatment Frequency Of Treatment Once a Day Treatment Plan Physical Therapy Treatment Plan Bed Mobility Training,Transfer Training,Gait Training, Therapeutic Exercise,Balance Retraining,Discharge Planning, Hot or Cold Pack,Neuromuscular Re-ed,Coordination Retraining ,Manual Therapy Other Recommendations and Next Treatment progress mobility as tolerated Focus Recommendations To Nursing Amount of Assist Needed 1 Person Assist Discharge Recommendations PT Discharge Recommendations Home with 24/7 Assist,Home Health,SNF Rehab Other Discharge Recommendations home with 24/7 and HHPT vs SNF rehab Transportation Needs at Discharge Private Vehicle
--- NOTE | 2019-10-06 15:25 | DIET.PN ---
Dietary Progress Note Assessment: Ms. Margie Walker is an 83-year-old female with a history of chronic atrial fibrillation anticoagulated on Eliquis, congestive heart failure, hypothyroidism, breast cancer status post mastectomy 07/21/2019 who presents to the ER with progressive weakness dizziness and shortness of breath consistent with side effects of anti hormonal neoplastic therapy for treatment breast cancer. She has been unable to start chemotherapy related to a chronic wound with cellulitis left leg. She reports decreased PO intake and appetite. She report drinking boost daily for high protein/iron supplementation. She reports difficulty tasting food and asks if she can have salt since her BP is low. HT: 157.48cm WT: 76.2kg IBW: 50.1kg BMI: 30.7 Labs: INR: 2.4 D-Dimer: 718 BUN: 63, 52 Cr: 1.4, 1.0 eGFR: 35.9, 47.4 AST: 41 MNA: 10 Robert: 19 Nutrition Diagnosis: Inadequate oral intake r/t physiological causes increasing nutrient needs due to prolonged illness aeb reported weight loss, changes in appetite and taste, reports substituting nutrition supplements for whole food. Interventions: 1. Discussed iron deficiency anemia. Provided handouts on iron and vitamin C rich foods. 2. Recommended Bartolome BID for wound healing. Pt agreeable to trying. Diet Order: heart healthy/cardiac EER: 1600 kcal; 60g pro @ 1g/kg adj weight Monitoring/Evaluations: weight, PO's, ONS acceptance, associated labs
--- NOTE | 2019-10-06 16:09 | OT.IPNOTE ---
Pt just finished using the toilet with nursing aid and states too tired to participate in OT treatment at this time. Therefore check on pt tomorrow for OT therapy.
[2019-10-06] MEDS: BUMETANIDE IV (20:26)
[2019-10-06] MEDS: SODIUM CHLORIDE 0.9% IV (20:26)
--- NOTE | 2019-10-06 21:06 | PC.NURSE ---
Patient resting in chair part of the shift. SOB w/activity, patients been on RA w/sats high 90s. Bumex infusion started. Patient concerned about a change in routine. Spoke w/ Gunnar SOLIS about patients concern, no new orders and wants the infusion to start this evening. Patient has been A&O, and cooperative.
[2019-10-07] VITALS (8 sets, daily range): BP systolic 73–111; BP diastolic 40–66; PULSE 76–80; RESP 15–20; TEMP 36.1–36.6; O2SAT 96–99
--- NOTE | 2019-10-07 04:10 | PC.NURSE ---
Shift note: Patient AxOx3, can make needs known via call light, is quite anxious and is convinced that diuretic isn't working because she has no urgency to urinate. Attempted to educate patient to no avail. Patient does not seem to realize that the same people are entering her room to perform cares and education. Lung sounds with fine crackles in LRL, diminished throughout, on RA. C/o SOB with exertion and dizziness with ambulation, reports recent fall. Vital signs stable for patient. +BT +flatus, having BMs LLE wrapped with compression dressing, RLL with SCD, 1+ pitting edema and positive pedal pulse. High fall risk, bed alarm on and functioning, call light in reach.
[2019-10-07 05:30] LABS: Mean Corpuscular HGB Conc 32.3 % (30-36); Mean Corpuscular Hemoglobin 30.2 PG (26-34); Mean Corpuscular Volume 93.5 fL (80-100); Platelet Count 275 X10^3/uL (150-400); Red Blood Cell Count 3.32 X10^6/uL (4.0-5.2); Red Cell Distribution Width 19.4 % (11.6-14.8); White Blood Cell Count 8.2 X10^3/uL (4.5-11.0)
[2019-10-07 05:33] LABS: Add Manual Diff / Slide Review YES; BUN Creatinine Ratio 37.6 (6-22); Blood Urea Nitrogen 44 mg/dL (7-17); Calcium 8.9 mg/dL (8.4-10.2); Carbon Dioxide 24 mmol/L (22-32); Chloride 104 mmol/L (98-107); Estimated Glomerular Filt Rate 44.2 mL/min (>60); Glucose 109 mg/dL (80-110); HEMOLYSIS < 15 (0-50); Potassium 4.3 mmol/L (3.4-5.1); Sodium 135 mmol/L (137-145)
[2019-10-07 05:43] LABS: NT-proBNP (BNP-Adult 18+) 6900 pg/mL (<450)
[2019-10-07 05:46] LABS: Neutrophils Absolute Manual 6314 /uL (3000-5900); Total Cells Counted 100
[2019-10-07 05:47] LABS: Anisocytosis 2+; Nucleated Red Blood Cells 1 #/Diff; Polychromasia 2+
[2019-10-07 05:48] LABS: Poikilocytosis 1+; Schistocytes 1+
[2019-10-07] MEDS: LEVOTHYROXINE 100 MCG TABLET PO (05:55)
[2019-10-07] MEDS: ACETAMINOPHEN 325 MG TABLET 650 MG PO ×2 (05:57→16:10)
[2019-10-07] MEDS: PANTOPRAZOLE 20 MG TABLET PO ×2 (08:40→20:52)
[2019-10-07] MEDS: APIXABAN 5 MG TABLET PO ×2 (08:40→20:52)
[2019-10-07] MEDS: atenoloL 25 MG TABLET 12.5 MG PO (08:40)
[2019-10-07] MEDS: SODIUM CHLORIDE 0.9% FLUSH 10 ML IV ×2 (08:42→20:52)
[2019-10-07] MEDS: MAGNESIUM OXIDE 400 MG TABLET PO (08:44)
[2019-10-07] MEDS: BUMETANIDE 1 MG/4 ML VIAL IV (09:23)
--- NOTE | 2019-10-07 09:45 | PT.IPTN ---
Current Diagnoses Acute on chronic diastolic (congestive) heart failure (10/04/19) Physical Therapy Treatment Note M2 PT-IP Current Condition Start: 10/04/19 13:52 Freq: NEEDED Status: Active Protocol: Document 10/04/19 11:10 AB (Rec: 10/04/19 14:29 AB [id number]) Physical Therapy Current Condition Current Condition Evaluation Date 10/04/19 Treatment Diagnosis CHF exacerbation; difficulty in walking Onset Date 10/04/2019 M3 PT-IP Subjective Start: 10/04/19 13:52 Freq: NEEDED Status: Active Protocol: Document 10/07/19 09:45 AB (Rec: 10/07/19 11:58 AB [id number]) Subjective Physical Therapy Visit Type Type Treatment Note Visit Start Time 09:45 Visit Stop Time 09:58 Total Visit Minutes 13 Number of DIRECTOR PRODUCT Visits 0 Physical Therapy Visit Comments Patient Comments pt agreeable to do PT M4 PT-IP Mobility and Gait Start: 10/04/19 13:52 Freq: NEEDED Status: Active Protocol: Document 10/07/19 09:45 AB (Rec: 10/07/19 11:58 AB [id number]) PT-Bed Mobility Assessment Supine to Sit Supine to Sit Moderate Assistance,1 Person Assistance,Head of Bed Elevated,Bedrails Scooting Scooting to Edge of Bed Minimal Assistance PT-Transfer Assessment Sit to and From Stand Sit to and from Stand Minimal Assistance,1 Person Assistance Equipment Transfer Assistive Device Gait Belt,Front Wheeled Walker Orthotic/Prosthetic Devices or Brace: No Transfers Transfer Destination Toilet Transfer Technique ambulated using FWW Transfer Ability Level of Assist Minimal Assistance,1 Person Assistance,Use of Upper Extremities Comments Mobility Comments pt stated that she will take a shower but agreed to do some PT first. completed supine to sit mod A and cues with HOB elevated and pt used bed rail. requires increase and frequest rest breaks. pt completed sit to stand min A and cues and ambulated in room ~ 25 ft min A using FWW and requested to use the toilet and ambulated towards the toilet using FWW min A and cues. pt wanted to sit on the toilet for awhile, call light within reach. Gait Assessment Gait Gait Assistance Required: Minimum Assistance,1 Person Assist Distance (Feet) 25 Able to Maintain Weight Bearing Status Yes During Gait Assistive Devices Assistive Device Gait Belt,Front Wheeled Walker Orthotic/Prosthetic Devices or Brace: No Gait Deviations General Gait Pattern Decreased Stride Length, Decreased Feet Clearance Factors Limiting Gait Function Factors Limiting Gait Function Decreased Activity Tolerance, Decreased Strength,Poor Safety Awareness,Respiratory Distress Comments Gait Comments pls refer to mobility section for details M5 PT-IP Objective Assessments Start: 10/04/19 13:52 Freq: NEEDED Status: Active Protocol: Document 10/04/19 11:10 AB (Rec: 10/04/19 14:29 AB [id number]) Orientation Orientation/Cognition Level of Alertness Alert Orientation Name Language Function Ability Hard of Hearing Safety Awareness Decreased Safety Awareness Gross Range of Motion Lower Extremity ROM Assessment Within Functional Limits Strength Lower Extremity Strength Hip 3+/5 Knee 3+/5 Coordination Assessment Gross Coordination Gross Coordination WNL Sensation Assessment Sensation Gross Sensation WNL Muscle Tone Muscle Tone WNL Yes M6 PT-IP Treatment Start: 10/04/19 13:52 Freq: NEEDED Status: Active Protocol: Document 10/07/19 09:45 AB (Rec: 10/07/19 11:58 AB [id number]) Physical Therapy Treatment Education Education Provided Safety M7 PT-IP Assessment and Plan Start: 10/04/19 13:52 Freq: NEEDED Status: Active Protocol: Document 10/07/19 09:45 AB (Rec: 10/07/19 11:58 AB [id number]) PT Summary Assessment and Plan Potential Rehabilitation Potential Good Summary Impairments Pain,ROM,Strength,Balance,Bed Mobility,Transfers,Gait, Activity Tolerance Progress Towards Goals Slow Progress due to Activity Tolerance Assessment Summary pt requiring min A with mobility. caregiver training was conducted yesterday and daughter is able to assist pt safely. pt plans to go home and daughter to assist her. Goals Bed Mobility Goal Standby Assistance Transfer Goal Standby Assistance,Front Wheeled Walker Gait Goal Standby Assistance,Front Wheel Walker Gait Distance 50 Other Goals up/down 2 steps L rail ascending CGA Days to Meet Goals 5 Frequency of Treatment Frequency Of Treatment Once a Day Treatment Plan Physical Therapy Treatment Plan Bed Mobility Training,Transfer Training,Gait Training, Therapeutic Exercise,Balance Retraining,Discharge Planning, Hot or Cold Pack,Neuromuscular Re-ed,Coordination Retraining ,Manual Therapy Recommendations To Nursing Amount of Assist Needed 1 Person Assist Discharge Recommendations PT Discharge Recommendations Home with 19/02 Assist,Home Health Transportation Needs at Discharge Private Vehicle
--- NOTE | 2019-10-07 11:20 | OT.IP.TRT ---
Current Diagnoses Acute on chronic diastolic (congestive) heart failure (10/04/19) Occupational Therapy Treatment Note M2 OT-IP Current Condition Start: 10/04/19 16:36 Freq: Status: Active Protocol: Document 10/04/19 16:36 CGR (Rec: 10/04/19 16:51 CGR [id number]) Occupational Therapy Current Condition Current Condition Evaluation Date 10/04/19 Treatment Diagnosis CHF, Anemia, Current breast ca, LLE wound/cellulitis Diagnosis Onset Date 10/03/19 M3 OT- IP Subjective and Pain Start: 10/04/19 16:36 Freq: Status: Active Protocol: Document 10/07/19 11:20 PJM (Rec: 10/07/19 11:44 PJM [id number]) OT- Subjective Occupational Therapy Visit Type Type Treatment Note Visit Start Time 10:34 Visit Stop Time 11:20 Total Visit Minutes 26 Notes Pt just finishing shower with PAPER FEEDER when therapist arrived Occupational Therapy Visit Comments Patient Comments I want to get my hair dry before we do anything else. Patient/Caregiver Goals to go home later today as she has an appointment with oncologist in [place] in tomorrow OT Pain Assessment Pain When Pain Assessed After Treatment Pain Present Pain Present Denied Pain M4 OT- IP ADL's Start: 10/04/19 16:36 Freq: Status: Active Protocol: Document 10/07/19 11:20 PJM (Rec: 10/07/19 11:44 PJM [id number]) OT ADL-Grooming General Evaluation Grooming Ability Independent Areas Needing Assistance Retrieving/Set-up of Grooming Items,Combing/Brushing Hair Comments OT Grooming Comments seated in chair, pt putting making up on OT ADL-Dressing General Eval Lower Body Dressing Ability Minimal Assistance,Total Assistance Areas Needing Assistance Underpants/Brief,Socks Comments OT Dressing Comments min assist to don brief with clothing supervisor and total assist with socks; pt resistant to using equipment. She states she has a clothing supervisor at home but does not like it. She states she uses 2 dowels at home to assist with dressing giving confused description about how she does this. OT ADL-Bathing General Evaluation Bathing Ability Moderate Assistance Areas Needing Assistance Wash/Dry Upper Body,Wash/Dry Back,Wash/Dry Lower Extremities Devices Bathing Equipment Hand Held Shower Sprayer, Shower Chair with Arms Comments OT Bathing Comments per PAPER FEEDER M5 OT- IP IADL's Start: 10/04/19 16:36 Freq: Status: Active Protocol: Document 10/04/19 16:36 CGR (Rec: 10/04/19 16:51 CGR [id number]) OT-Instrumental Activities of Daily Living Deficits IADL Deficits Identified Deficits Home Safety Awareness Awareness of Need for Assistance at Home Decreased Awareness Ability to Problem Solve Emergency Able to Problem Solve Situations M6 OT- IP Functional Cognition Start: 10/04/19 16:36 Freq: Status: Active Protocol: Document 10/07/19 11:20 PJM (Rec: 10/07/19 11:44 PJ [id number]) Cognitive Factors Limiting Selfcare Function Cognitive Ability Level of Alertness Alert Patient Orientation Name,Age,Birthday,Month,Year, Day of Week,Place,Situation Attention Span Ability Capable of Focused Attention, Capable of Sustained Attention Ability to Follow Commands Able to Follow One Step Commands Memory Description Working Impaired Problem Solving Ability Needs Assist to Identify Solutions Executive Function Ability Unable to Integrate Past Experience With Present Action Abstract Thinking Ability Unable to Draw Logical Conclusions Cognitive Tests SLUMS Pt's score 24/30 indicating mild neurocognitive deficit. Norm is 27/30. Pt has difficulty with working memory, mildly slowed word generation in a category, inability to place hands and mild difficulty spacing numbers on clock drawing. Pt recalls 3/4 facts about short paragraph read to her Cognitive Comments Cognitive Assessment Comments pt's conversation mildly confused/illogical at times M7 OT- IP Mobility and Balance Start: 10/04/19 16:36 Freq: Status: Active Protocol: Document 10/07/19 11:20 PJM (Rec: 10/07/19 11:44 [facility] [id number]) OT-Transfer Assessment Sit to and From Stand Sit to and from Stand Contact Guard Assistance Transfers Transfer Ability Contact Guard Assistance Technique Transfer Destination Chair,Shower Stall Transfer Technique Stand Step Pivot Devices Transfer Assistive Devices Gait Belt,Front Wheeled Walker OT- Gait Assessment Gait Distance (Feet) 10 Assistive Devices Assistive Device Gait Belt,Front Wheeled Walker Comments Gait Ability Comments pt walked out of bathroom after shower on shower seat OT- Balance Assessment Sitting Balance and Reactions Static Sitting Balance Ability Good Standing Balance and Reactions Static Standing Balance Ability Good Dynamic Standing Balance Ability Fair Comments Other Balance Tests/Deviations/Treatment with FWW during lower body : clothing management; pt reports dizziness when attempting to bend over to reach feet. M8 OT- IP Objective Assessments Start: 10/04/19 16:36 Freq: Status: Active Protocol: Document 10/04/19 16:36 CGR (Rec: 10/04/19 16:51 CGR [id number]) OT Gross Range of Motion Upper Extremity Range of Motion Assessment Within Functional Limits OT Strength Upper Extremity Strength Assessment Within Functional Limits Comments Strength Comments Grossly 4/5 OT- Coordination Assessment Upper Extremity Finger to Nose Test Within Functional Limits Finger Tapping Test Within Functional Limits OT-Muscle Tone Assessment Muscle Tone WNL Yes OT Sensation Assessment Edema Edema Absent M9 OT- IP Assessment and Plan Start: 10/04/19 16:36 Freq: Status: Active Protocol: Document 10/07/19 11:20 PJM (Rec: 10/07/19 11:44 PJM [id number]) OT Summary Assessment and Plan Potential Rehabilitation Potential Good Summary OT Impairments Balance Assessment Summary Pt participating in shower with assist by PAPER FEEDER , but reluctant to try lower body dressing equipment which could increase independence in this area. Pt does not appear to understand how equipment would be beneficial to her with concrete thinking noted. Pt scored 24/30 on SLUMS, with details described above, indicating mild neurocognitive deficit. Pt has discharge orders and will d/c home today with 24 hr assist from her daughter. Recommend OT services to increase pt's independence, endurance and safety in ADLS at home with progression to light IADLS as medical status permits. Frequency of Treatment Frequency Of Treatment Discharge Discharge Recommendations OT Discharge Recommendations Home with 24/7 Assist,Home Health Transportation Needs at Discharge Private Vehicle
[2019-10-07] MEDS: LETROZOLE 2.5 MG TABLET PO (12:01)
--- NOTE | 2019-10-07 12:39 | PC.NURSE ---
Addendum entered by Vijaya Yousif R.N. 10/07/19 15:33: Patient assisted to BR gait steady, upon return to chair patient reports dizziness. BP while sitting 86/40 HR92. Original Note: Patient SBA to bathroom, while walking back to chair, patient c/o dizziness, once back to chair BP 73/58 HR 79, reclined patient in chair, BP recheck 100/[address] Carlin aware, will hold discharge and monitor blood pressure.
--- NOTE | 2019-10-07 13:16 | CM.DPC ---
DCP Cont: P.T. is recommending home health P.T, O.T. Spoke to patient, and let her know that this is covered under her insurance. She is ok with this. Had Dr. Carlin sign face to face. Patient has no preference of agencies. Went ahead and faxed referral to [facility], jennifer Posada. Sent H&P, face sheet, P.t. notes, face to face, and orders. Pending discharge summary, will have Massiel fax when complete. P: Patient is being discharged home today with [facility]. Irene Cordoba RN/Jack Machine Operator
--- NOTE | 2019-10-07 17:54 | PM.PN.1 ---
Subjective Subjective Date Patient Seen: 10/06/19 Interval history: Late entry for progress note from yesterday Patient reports she continues to feel short of breath with activity. She also feels that her heart races when moving. She is convinced that her chemotherapeutic agent is causing her shortness of breath as well as palpitations. She is concerned about discontinuation of her hormonal treatment but feels that she does not tolerated. Patient also reports being short of breath with eating. Exam Vital Signs (past 8 hours): - 10/07/19 12:25 10/07/19 12:35 10/07/19 13:59 Temperature Pulse Rate 79 76 80 Respiratory Rate Blood Pressure 73/58 L 100/63 95/56 L Pulse Oximetry 10/07/19 15:33 10/07/19 16:52 Temperature 96.9 F L Pulse Rate 79 Respiratory Rate 19 Blood Pressure 86/40 L 100/60 Pulse Oximetry 99 96 Oxygen Delivery Method Room Air Oxygen Flow Rate 0 Narrative Exam Narrative: Elderly female lying in bed in no acute distress Lungs: Decreased breath sounds with scattered rhonchi and crackles bilaterally Cardiac exam: Irregularly irregular normal S1-S2 with a 3/6 systolic ejection murmur Abdomen: Soft nontender nondistended Extremities: Left leg with dressing in place Right leg with 1+ edema Objective Labs Result Diagrams: 10/07/19 05:02 10/07/19 05:02 Labs: Laboratory Results - last 24 hr 10/07/19 10/07/19 05:02 05:02 WBC 8.2 RBC 3.32 L Hgb 10.0 L Hct 31.0 L MCV 93.5 MCH 30.2 MCHC 32.3 RDW 19.4 H Plt Count 275 Neut % (Auto) Not Reportable Lymph % (Auto) Not Reportable Grayson % (Auto) Not Reportable Eos % (Auto) Not Reportable Baso % (Auto) Not Reportable Lymph # (Auto) Not Reportable Grayson # (Auto) Not Reportable Baso # (Auto) Not Reportable Total Counted 100 Seg Neutrophils % 77.0 H Lymphocytes % (Manual) 10.0 L Monocytes % (Manual) 11.0 Eosinophils % (Manual) 1.0 L Basophils % (Manual) 1.0 Neutrophils # (Manual) 6314 H Nucleated RBCs 1 H RBC Morphology See below Polychromasia 2+ H Poikilocytosis 1+ H Anisocytosis 2+ H Schistocytes 1+ H Sodium 135 L Potassium 4.3 Chloride 104 Carbon Dioxide 24 BUN 44 H Creatinine 1.17 H Estimated GFR 44.2 L BUN/Creatinine Ratio 37.6 H Glucose 109 Calcium 8.9 NT-Pro-B Natriuret Pep 6900 H Assessment & Plan Assessment & Plan narrative: This is an 83-year-old female patient who presents to the hospital at the request of her primary care with progressive weakness dizziness related to anti neoplastic treatment and shortness of breath. 1. Exacerbation of chronic heart failure with preserved EF, present on admission, active -echo reveals LV function of 70-75%, no wall motion abnormalities, left ventricular cavity small, severely dilated bilateral atria, right ventricular enlargement, mild mitral regurgitation, severe tricuspid regurgitation -patient to continue on Bumex 0.5 mg increased to twice daily 2. Chronic kidney disease stage 3, present on admission, active -Patient had torsemide discontinued related to elevated creatinine Creatinine in June 2019 was 2.0. -Patient's creatinine on admission is 1.5. -will continue Bumex and resume torsemide at discharge 3. Breast cancer, present on admission, active -patient is undergoing anti hormonal cancer treatment and has not started chemotherapy related to wound and treatment for cellulitis which is now completed left lower leg. -since starting anti anti hormonal therapy, the patient has had progressive weakness and dizziness and is now unable to care for self living alone. -the patient is adamant about not stopping current treatment. -consult with Oncology, will obtain patient's recent medical records from [facility]. -PT and OT to consult, evaluate and treat weakness. 4. Chronic atrial fibrillation, present on admission, active -12 lead EKG identifies atrial fibrillation with ventricular rate of 93, unchanged from previous tracing. -will continue patient's rate control medication with atenolol 12.5 mg daily. -will continue anticoagulation with apixaban 5 mg twice daily. 5. Acute anemia, present on admission, active -Hemoglobin in June of 2019 was 14.8. Hemoglobin on admission is 10.1. -despite dark stool, patient is guaiac negative here. Will continue apixaban at this time. No indication or need for transfusion 6 left leg ulcer, present on admission, stable. -patient with intact pressure dressing left leg, nontender to palpation. -will resume usual outpatient wound care regimen The patient be discharged home when she is no longer short of breath Quality VTE Deep Vein Thrombosis/Pulmonary Embolism Present on Admission: No
--- NOTE | 2019-10-07 17:57 | PM.PN.1 ---
Subjective Subjective Date Patient Seen: 10/07/19 Interval history: Patient is an 83-year-old female who is currently undergoing hormonal treatment for breast cancer. She reports she continues to be short of breath both at rest and with activity. She feels that this is related to her chemotherapeutic agent. She describes fatigue. And is somewhat anxious regarding discontinuation of her hormonal treatment. The patient is anxious to return home. She was able to ambulate with improved oxygenation. The patient received 2 doses of Bumex today. When she attempted to get up her blood pressure dropped to 73 systolic. The patient's discharge was canceled in Bumex was discontinued. The patient reports she often gets dizzy at home. She typically will to stand still and wait for to past. Exam Vital Signs (past 8 hours): - 10/07/19 12:25 10/07/19 12:35 10/07/19 13:59 Temperature Pulse Rate 79 76 80 Respiratory Rate Blood Pressure 73/58 L 100/63 95/56 L Pulse Oximetry 10/07/19 15:33 10/07/19 16:52 Temperature 96.9 F L Pulse Rate 79 Respiratory Rate 19 Blood Pressure 86/40 L 100/60 Pulse Oximetry 99 96 Oxygen Delivery Method Room Air Oxygen Flow Rate 0 Narrative Exam Narrative: Pleasant female resting comfortably in no obvious distress Lungs: Decreased breath sounds bilaterally Cardiac exam: Irregularly irregular normal S1-S2 with a 3/6 systolic ejection murmur Abdomen: Soft nontender nondistended Extremities: Left lower extremity with dressing in place, Objective Labs Result Diagrams: 10/07/19 05:02 10/07/19 05:02 Labs: Laboratory Results - last 24 hr 10/07/19 10/07/19 05:02 05:02 WBC 8.2 RBC 3.32 L Hgb 10.0 L Hct 31.0 L MCV 93.5 MCH 30.2 MCHC 32.3 RDW 19.4 H Plt Count 275 Neut % (Auto) Not Reportable Lymph % (Auto) Not Reportable Stevens % (Auto) Not Reportable Eos % (Auto) Not Reportable Baso % (Auto) Not Reportable Lymph # (Auto) Not Reportable Stevens # (Auto) Not Reportable Baso # (Auto) Not Reportable Total Counted 100 Seg Neutrophils % 77.0 H Lymphocytes % (Manual) 10.0 L Monocytes % (Manual) 11.0 Eosinophils % (Manual) 1.0 L Basophils % (Manual) 1.0 Neutrophils # (Manual) 6314 H Nucleated RBCs 1 H RBC Morphology See below Polychromasia 2+ H Poikilocytosis 1+ H Anisocytosis 2+ H Schistocytes 1+ H Sodium 135 L Potassium 4.3 Chloride 104 Carbon Dioxide 24 BUN 44 H Creatinine 1.17 H Estimated GFR 44.2 L BUN/Creatinine Ratio 37.6 H Glucose 109 Calcium 8.9 NT-Pro-B Natriuret Pep 6900 H Assessment & Plan Assessment & Plan narrative: This is an 83-year-old female patient who presents to the hospital at the request of her primary care with progressive weakness dizziness related to anti neoplastic treatment and shortness of breath. 1. Exacerbation of chronic heart failure with preserved EF, present on admission, active -echo reveals LV function of 70-75%, no wall motion abnormalities, left ventricular cavity small, severely dilated bilateral atria, right ventricular enlargement, mild mitral regurgitation, severe tricuspid regurgitation -patient became markedly hypotensive today, Bumex will be discontinued, will allow her to rest and have her blood pressure rise independently. Will give IV fluids if needed but will attempt to avoid. -patient will be discharged home once her blood pressure stabilizes. 2. Chronic kidney disease stage 3, present on admission, active -Patient had torsemide discontinued related to elevated creatinine Creatinine in June 2019 was 2.0. -Patient's creatinine on admission is 1.5., creatinine improved to 1.1 today -Bumex discontinued given hypotension, will hold furosemide at discharge in asked the patient to follow-up with Dr. Parker to resume subsequently 3. Breast cancer, present on admission, active -patient is undergoing anti hormonal cancer treatment and has not started chemotherapy related to wound and treatment for cellulitis which is now completed left lower leg. -since starting anti anti hormonal therapy, the patient has had progressive weakness and dizziness and is now unable to care for self living alone. -the patient is adamant about not stopping current treatment. -patient will follow-up with oncology as an outpatient regarding her hormonal treatment 4. Chronic atrial fibrillation, present on admission, active -12 lead EKG identifies atrial fibrillation with ventricular rate of 93, unchanged from previous tracing. -will hold atenolol given hypotension, resume at discharge -will continue anticoagulation with apixaban 5 mg twice daily. 5. Acute anemia, present on admission, active -Hemoglobin in June of 2019 was 14.8. Hemoglobin on admission is 10.1. -despite dark stool, patient is guaiac negative here. Will continue apixaban at this time. No indication or need for transfusion 6 left leg ulcer, present on admission, stable. -patient with intact pressure dressing left leg, nontender to palpation. -patient will follow-up as an outpatient with the wound care center for dressing change on Will observe the patient overnight, once her blood pressure stabilizes anticipate discharge home tomorrow. Quality VTE Deep Vein Thrombosis/Pulmonary Embolism Present on Admission: No
[2019-10-08 00:20] VITALS: BP 101/64; PULSE 76; RESP 18; TEMP 36.5; O2SAT 98
[2019-10-08 03:50] VITALS: BP 106/67; PULSE 84; RESP 14; TEMP 36.1; O2SAT 98
[2019-10-08 05:46] LABS: Add Manual Diff / Slide Review YES; Hemoglobin 9.8 g/dL (12.0-16.0); Mean Corpuscular HGB Conc 32.7 % (30-36); Mean Corpuscular Volume 91.7 fL (80-100); Platelet Count 320 X10^3/uL (150-400); Red Blood Cell Count 3.28 X10^6/uL (4.0-5.2); Red Cell Distribution Width 19.7 % (11.6-14.8); White Blood Cell Count 7.8 X10^3/uL (4.5-11.0)
[2019-10-08 05:49] LABS: Neutrophils Absolute Manual 6006 /uL (3000-5900); Nucleated Red Blood Cells 1 #/Diff; Polychromasia 2+; Total Cells Counted 100
[2019-10-08 05:50] LABS: Anisocytosis 2+; Poikilocytosis 1+
[2019-10-08] MEDS: LEVOTHYROXINE 100 MCG TABLET PO (05:57)
[2019-10-08] MEDS: ACETAMINOPHEN 325 MG TABLET 650 MG PO (05:57)
[2019-10-08 08:10] VITALS: BP 89/62; PULSE 82; RESP 17; TEMP 36.2; O2SAT 96
[2019-10-08] MEDS: MAGNESIUM OXIDE 400 MG TABLET PO (08:38)
[2019-10-08] MEDS: PANTOPRAZOLE 20 MG TABLET PO (08:38)
[2019-10-08] MEDS: SODIUM CHLORIDE 0.9% FLUSH 10 ML IV (08:38)
[2019-10-08] MEDS: APIXABAN 5 MG TABLET PO (08:38)
[2019-10-08 09:09] VITALS: BP 103/65; BP 114/60; BP 95/62; PULSE 80; PULSE 83; PULSE 87
--- NOTE | 2019-10-08 10:07 | PC.NURSE ---
Addendum entered by Vijaya Yousif R.N. 10/08/19 14:29: Went over dc meds and instructions with patient, questions answered. Patient will call pcp tomorrow and schedule follow up appt. Patient taken via wc to vehicle driven by family. Patient had all her belongings. Original Note: Patient alert, oriented denies pain at this time, orthostatic BP's done, results given to Dr Carlin. Pt denied dizziness with ambulation, a little short of breath after transfer. LS CTA sats 99% RA. Patient planning to discharge later this afternoon.
--- NOTE | 2019-10-08 10:18 | PT-IP ANOTE ---
Pt refused PT. stated that she is going home later today and does not want to do any PT. stated that she feels comfortable with her mobility and the assistance she is going to get at home. pt refused PT for today and does not want PT to check on her later today.
--- NOTE | 2019-10-08 10:50 | OT.IP.TRT ---
Current Diagnoses Acute on chronic diastolic (congestive) heart failure (10/04/19) Occupational Therapy Treatment Note M2 OT-IP Current Condition Start: 10/04/19 16:36 Freq: Status: Active Protocol: Document 10/04/19 16:36 CGR (Rec: 10/04/19 16:51 CGR [id number]) Occupational Therapy Current Condition Current Condition Evaluation Date 10/04/19 Treatment Diagnosis CHF, Anemia, Current creastca, LLE wound/cellulitis Diagnosis Onset Date 10/03/19 M3 OT- IP Subjective and Pain Start: 10/04/19 16:36 Freq: Status: Active Protocol: Document 10/08/19 10:50 PJM (Rec: 10/08/19 11:12 PJM [id number]) OT- Subjective Occupational Therapy Visit Type Type Patient Refusal Visit Start Time 10:50 Notes Pt refused as she has d/c orders and working on discharge plan with case management for possible d/c to SNF as pt's daughter Enedina is no longer available to assist her at home. Adrián
--- NOTE | 2019-10-08 11:49 | CM.DPC ---
Addendum entered by SHERRIE Moscoso 10/08/19 14:22: ADD: Per [place] at [facility], they can accept the pt today but have a couple questions about her hormone therapy meds. [facility]I met bedside with pt and updated on [facility] acceptance and pt states that she recently got off the phone with her son and Dtr and has decided that it would be best to go home with family support and Sig HH and now declines SNF. Pt states her family is helping to set up caregivers in the home after her family leaves in a few days to go back to work. PT working with pt on discussing 2 steps to enter the home safely. Pt confirms that she has family to come provide transport home for her today. SW updated RN and called [facility] to cancel pt acceptance today. SHERRIE Moscoso Original Note: DCP Discharge Per MD, pt's d/c was cancelled yesterday due to bp issues and pt now medically stable to discharge. Pt initially was agreeable with plan of home with Dtr 19/02 and new Sig HH. Per RN, pt now inquiring about SNF. SW met bedside with pt and provided the [facility] Choice List and pt states that her Dtr has relapsed on alcohol and at [facility] and not available for assist like planned. SW discussed the Medicare coverage of SNF and that [facility] is currently full and pt reviewed list and states preference at this time would be for SW to make referral to [facility] and [facility] to determine if they can accept today. Pt aware that a plan need to be developed for discharge today as she is medically stable. Pt states she does have supportive family/friends that can stay with her for at least a couple days if she ends up going home and she has considered Private Pay caregiver if needed beyond that in combination with HH. NHI faxed clinicals to [facility] and [facility] and called both admissions with update on pt d/c today and they will both review. Plan: SW to follow closely for [facility] and [facility] review to see if either can accept today. SHERRIE Moscoso
--- NOTE | 2019-10-08 13:07 | PT.IPTN ---
Current Diagnoses Acute on chronic diastolic (congestive) heart failure (10/04/19) Physical Therapy Treatment Note M2 PT-IP Current Condition Start: 10/04/19 13:52 Freq: NEEDED Status: Active Protocol: Document 10/04/19 11:10 AB (Rec: 10/04/19 14:29 AB [id number]) Physical Therapy Current Condition Current Condition Evaluation Date 10/04/19 Treatment Diagnosis CHF exacerbation; difficulty in walking Onset Date 10/04/2019 M3 PT-IP Subjective Start: 10/04/19 13:52 Freq: NEEDED Status: Active Protocol: Document 10/08/19 13:06 LJ (Rec: 10/08/19 13:07 LJ [id number]) Subjective Physical Therapy Visit Type Notes pt has decided to go home. She refused PT and/or caregiver training M4 PT-IP Mobility and Gait Start: 10/04/19 13:52 Freq: NEEDED Status: Active Protocol: Document 10/07/19 09:45 AB (Rec: 10/07/19 11:58 AB [id number]) PT-Bed Mobility Assessment Supine to Sit Supine to Sit Moderate Assistance,1 Person Assistance,Head of Bed Elevated,Bedrails Scooting Scooting to Edge of Bed Minimal Assistance PT-Transfer Assessment Sit to and From Stand Sit to and from Stand Minimal Assistance,1 Person Assistance Equipment Transfer Assistive Device Gait Belt,Front Wheeled Walker Orthotic/Prosthetic Devices or Brace: No Transfers Transfer Destination Toilet Transfer Technique ambulated using FWW Transfer Ability Level of Assist Minimal Assistance,1 Person Assistance,Use of Upper Extremities Comments Mobility Comments pt stated that she will take a shower but agreed to do some PT first. completed supine to sit mod A and cues with HOB elevated and pt used bed rail. requires increase and frequest rest breaks. pt completed sit to stand min A and cues and ambulated in room ~ 25 ft min A using FWW and requested to use the toilet and ambulated towards the toilet using FWW min A and cues. pt wanted to sit on the toilet for awhile, call light within reach. Gait Assessment Gait Gait Assistance Required: Minimum Assistance,1 Person Assist Distance (Feet) 25 Able to Maintain Weight Bearing Status Yes During Gait Assistive Devices Assistive Device Gait Belt,Front Wheeled Walker Orthotic/Prosthetic Devices or Brace: No Gait Deviations General Gait Pattern Decreased Stride Length, Decreased Feet Clearance Factors Limiting Gait Function Factors Limiting Gait Function Decreased Activity Tolerance, Decreased Strength,Poor Safety Awareness,Respiratory Distress Comments Gait Comments pls refer to mobility section for details M5 PT-IP Objective Assessments Start: 10/04/19 13:52 Freq: NEEDED Status: Active Protocol: Document 10/04/19 11:10 AB (Rec: 10/04/19 14:29 AB [id number]) Orientation Orientation/Cognition Level of Alertness Alert Orientation Name Language Function Ability Hard of Hearing Safety Awareness Decreased Safety Awareness Gross Range of Motion Lower Extremity ROM Assessment Within Functional Limits Strength Lower Extremity Strength Hip 3+/5 Knee 3+/5 Coordination Assessment Gross Coordination Gross Coordination WNL Sensation Assessment Sensation Gross Sensation WNL Muscle Tone Muscle Tone WNL Yes M6 PT-IP Treatment Start: 10/04/19 13:52 Freq: NEEDED Status: Active Protocol: Document 10/07/19 09:45 AB (Rec: 10/07/19 11:58 AB [id number]) Physical Therapy Treatment Education Education Provided Safety M7 PT-IP Assessment and Plan Start: 10/04/19 13:52 Freq: NEEDED Status: Active Protocol: Document 10/07/19 09:45 AB (Rec: 10/07/19 11:58 AB [id number]) PT Summary Assessment and Plan Potential Rehabilitation Potential Good Summary Impairments Pain,ROM,Strength,Balance,Bed Mobility,Transfers,Gait, Activity Tolerance Progress Towards Goals Slow Progress due to Activity Tolerance Assessment Summary pt requiring min A with mobility. caregiver training was conducted yesterday and daughter is able to assist pt safely. pt plans to go home and daughter to assist her. Goals Bed Mobility Goal Standby Assistance Transfer Goal Standby Assistance,Front Wheeled Walker Gait Goal Standby Assistance,Front Wheel Walker Gait Distance 50 Other Goals up/down 2 steps L rail ascending CGA Days to Meet Goals 5 Frequency of Treatment Frequency Of Treatment Once a Day Treatment Plan Physical Therapy Treatment Plan Bed Mobility Training,Transfer Training,Gait Training, Therapeutic Exercise,Balance Retraining,Discharge Planning, Hot or Cold Pack,Neuromuscular Re-ed,Coordination Retraining ,Manual Therapy Recommendations To Nursing Amount of Assist Needed 1 Person Assist Discharge Recommendations PT Discharge Recommendations Home with 24/ Assist,Home Health Transportation Needs at Discharge Private Vehicle
[2019-10-08] MEDS: LETROZOLE 2.5 MG TABLET PO (13:11)
--- NOTE | 2019-10-08 16:44 | P.DS_ITS ---
History of Present Illness History of Present Illness Date Patient Seen: 10/08/19 Chief complaint: states CHF and Anemia sent by her doctor Narrative: Ms. Margie Walker is an 83-year-old female with a history significant for chronic atrial fibrillation anticoagulated on Eliquis, con gestive heart failure with preserved ejection fraction, hypothyroidism, breast cancer status post mastectomy 07/21/2019 who presents to the ER at the direction of Dr. Loja with progressive weakness dizziness and shortness of breath consistent with side effects of anti hormonal neoplastic therapy for treatment breast cancer. She has been unable to start chemotherapy related to a chronic wound with cellulitis left leg for which she has completed antibiotic therapy. The patient is also complaining of shortness of breath and has a history of CHF and was recently taken off her torsemide due to raising creatinine and the patient restart the medication yesterday with the development of shortness of breath. She reports no complaints of symptoms of flu or illness and has no fevers or chills. She denies complaints of chest pain and has exertional dyspnea but denies shortness of breath at rest. She denies complaints of abdominal pain, nausea or vomiting. She does have a history of heartburn for which she takes omeprazole. She reports lack of appetite and has received a medical marijuana card from her primary care as an appetite stimulant. She reports no complaints of diarrhea or constipation and denies urinary symptoms. Upon arrival to the ER the patient had heart rate of 81, blood pressure 92/51, respirations 16 saturating 99% on room air. Orthostatics were taken which were negative. A chest x-ray is obtained which finds no acute cardiopulmonary processes, notes presence of right chest catheter terminating in the superior vena cava. On laboratory analysis she has a white count of 10.3, hemoglobin of 10.1, hematocrit of 30.7 and platelets of 310. Her electrolytes are all within normal limits with potassium of 4.8 and magnesium 2.3. Her nonfasting glucose is 105. On coagulation she has a PT of 26.9, PTT of 2.4 and a PTT of 31. She has lactic acid 3.1 and procalcitonin of 0.05.. She has a total CK of 30, troponin of 0.030 and a pro BNP of 9040. The patient was to receive Lasix 40 mg in the emergency department however patient adamantly refuses change in her me dications and is very concrete in following her current regimen. The patient failed ambulation trial in the emergency room related to dizziness and weakness. The patient is admitted to the medicine service for congestive heart failure and complications of antineoplastic therapy. Discharge Providers Provider Date of admission: 10/04/19 03:26 Discharge Date: 10/08/19 Primary care physician: Dylan Loja MD Consults: 10/04/19 04:39 Consult to Dietitian, Adult Routine Comment: Reason For Exam: CHF, cellulitis, anemia, breast cancer 10/04/19 04:40 Consult to Discharge Planning Routine Comment: Consult to Occupational Therapy Evaluate & Treat Comment: Progressive weakness, breast cancer Physician Instructions: Evaluate and treat Consult to Physical Therapy Evaluate & Treat Comment: Progressive weakness, breast cancer Physician Instructions: Evaluate and Treat 10/07/19 12:56 Consult to Home Health Routine Comment: Reason For Exam: Home Health P.T, O.T. Discharge provider: Sherri Carlin MD Summary Hospital Course Discharge Diagnosis: 1. Congestive heart failure preserved ejection fraction 2. Chronic atrial fibrillation 3. Breast cancer currently under treatment with hormonal therapy 4. Hypothyroidism 5. Left lower extremity ulcer 6. Weakness/dizziness 7. Normocytic anemia 8. Chronic kidney disease stage III Hospital Course: Patient was admitted to the hospital for treatment of congestive heart failure. She received IV Bumex with excellent response. Echocardiogram showed preserved LV function. The patient did have a drop in her blood pressure such that when she stood up she became somewhat dizzy and dropped her systolic blood pressure to 73. Her diuretics were held. The patient slowly improved in terms of her blood pressure the following day. She continues to feel somewhat weak and dizzy which she related to her hormonal therapy for breast cancer. The patient was advised to continue her hormonal treatment until she follows up with her oncologist. She made gradual and steady improvement. She diuresed quite nicely. Patient was deemed appropriate for discharge and arrangements were made for her to discharge home. She will follow-up with home health in her home regarding her mobility. Patient is followed by Dr. christianson tell will follow-up in clinic with him. Her toresemide has been held until her outpatient appointment. Exam Vital Signs (past 8 hours): - 10/08/19 09:09 Pulse Rate [Orthostatic Lying] 80 Pulse Rate [Orthostatic Sitting] 83 Pulse Rate [Orthostatic Standing] 87 Blood Pressure [Orthostatic Lying] 114/60 Blood Pressure [Orthostatic Sitting] 95/62 Blood Pressure [Orthostatic Standing] 103/65 Oxygen Delivery Method Room Air Oxygen Flow Rate 0 Narrative Exam Narrative: Pleasant female resting comfortably Lungs: Clear to auscultation Cardiac exam: Irregularly irregular normal S1-S2 with a 3/6 systolic ejection murmur Abdomen: Soft nontender nondistended Extremities: Left lower extremity with dressing in place right lower extremity with trace edema Objective Labs Result Diagrams: 10/08/19 05:22 10/07/19 05:02 Labs: Laboratory Results - last 24 hr 10/08/19 05:22 WBC 7.8 RBC 3.28 L Hgb 9.8 L Hct 30.0 L MCV 91.7 MCH 30.0 MCHC 32.7 RDW 19.7 H Plt Count 320 Neut % (Auto) Not Reportable Lymph % (Auto) Not Reportable Fallon % (Auto) Not Reportable Eos % (Auto) Not Reportable Baso % (Auto) Not Reportable Lymph # (Auto) Not Reportable Fallon # (Auto) Not Reportable Baso # (Auto) Not Reportable Total Counted 100 Seg Neutrophils % 77.0 H Lymphocytes % (Manual) 7.0 L Monocytes % (Manual) 12.0 H Eosinophils % (Manual) 2.0 Basophils % (Manual) 2.0 H Neutrophils # (Manual) 6006 H Nucleated RBCs 1 H RBC Morphology See below Polychromasia 2+ H Poikilocytosis 1+ H Anisocytosis 2+ H Discharge Plan Discharge Plan Patient Disposition: Home Discharge orders & Medications Prescriptions: Continued magnesium oxide 400 mg Capsule 400 mg PO DIRECTED Qty: 0 RF: 0 atenolol 25 MG tablet 12.5 mg PO DAILY Qty: 0 RF: 0 spironolactone 50 mg tablet 50 mg PO DAILY RF: 0 potassium chloride 10 mEq capsule, extended release 10 meq PO BID RF: 0 cholecalciferol (vitamin D3) [Vitamin D3] 5,000 unit Tablet 5,000 unit PO DAILY RF: 0 apixaban 5 mg tablet 5 mg PO BID RF: 0 Probiotic 2 cap PO DAILY RF: 0 levothyroxine 100 mcg tablet 100 mcg PO DAILY RF: 0 omeprazole 20 mg capsule,delayed release(DR/EC) 20 mg PO BID RF: 0 letrozole 2.5 mg tablet 2.5 mg PO DAILY RF: 0 letrozole [Femara] 2.5 mg Tablet 2.5 mg PO DAILY RF: 0 acetaminophen 325 mg tablet 1,350 mg PO BID RF: 0 Discontinued torsemide 20 mg tablet 20 mg PO DAILY RF: 0 Follow up/Referrals: Dylan Loja MD [Primary Care Provider] - Diet/Activity/Treatments Diet: Low-sodium and Low-cholesterol Activity: as tolerated Skin/Wound/Dressing Care Skin care: per wound care Visit Report/Discharge Packet Instructions: DI for Heart Failure Visit Report Forms: Patient Portal/API, Stroke Signs & Symptoms Discharge Data Primary Care Provider: Dylan Loja V Discharges patient from system. Discharge Date/Time: 10/08/19 14:30 Quality VTE Deep Vein Thrombosis/Pulmonary Embolism Present on Admission: No
--- NOTE | 2019-10-09 10:24 | CM.DPC ---
DCP Cont: Faxed discharge summary to [facility] at fax # [phone]. Fax confirmation scanned in. Massiel Moncada, Care Crew Car Driver
== END 2019-10-08 14:30 | disposition home health service (06) | DRG 292 ==
LOC: ED 19:21 → ICU 10-04 08:01 → AC 10-05 07:58
PROVIDERS: Internal Medicine; Admitting Provider Nurse Practitioner Adult Health; Emergency Provider Emergency Medicine; Family Provider Internal Medicine; PCP Internal Medicine; Visit Provider Nurse Practitioner Adult Health
DX: I50.33 Acute on chronic diastolic (congestive) heart failure (principal); I48.20 Chronic atrial fibrillation, unspecified; L97.929 Non-pressure chronic ulcer of unspecified part of left lower leg with unspecified severity; K62.5 Hemorrhage of anus and rectum; N18.3 Chronic kidney disease, stage 3 (moderate); R42 Dizziness and giddiness; R53.1 Weakness; T45.1X5A Adverse effect of antineoplastic and immunosuppressive drugs, initial encounter; C50.911 Malignant neoplasm of unspecified site of right female breast; Z79.01 Long term (current) use of anticoagulants; I95.9 Hypotension, unspecified; E03.9 Hypothyroidism, unspecified; D64.9 Anemia, unspecified; I49.9 Cardiac arrhythmia, unspecified
CPT/HCPCS: 36415; 71046; 80048; 80053; 81003; 82550; 83605; 83735; 83880; 84145; 84484; 85025; 85379; 85610; 85730; 86850; 86900; 86901; 87040; 87797; 93005; 93010; 93306; 94760; 94762; 97116; 97129; 97130; 97162; 97165; 97530; 97535; 99284; Q9957

== ENCOUNTER → 2020-02-24 14:50 | Oncology outpatient (ONC) | payer MEDICARE, OTHER, SELFPAY ==
[2019-10-04 03:29] VITALS: BMI 30.7
--- NOTE | 2020-02-24 16:13 | ONC.CONS ---
History of Present Illness - Data of Consult Primary Care Provider: Dylan Loja MD - Consult Narrative Narrative: Margie Walker is a 84 year old female with a history of breast cancer who presents today for oncology consultation. She originally noted thickening of the right breast in 2018. By March of 2019 this had developed mass like quality and seemed to grow quickly. 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 She was seen at the [facility] July 04, 2019. Staging PET CT scan July 09 showed increased uptake in the skin, breast and lymph nodes but no evidence of distant metastatic disease. Skin biopsy was negative. On July 21, 2019 she had a right mastectomy that showed extensive involvement of the right breast with all 4 quadrants involved. There was extensive lymphovascular invasion. The largest contiguous mass measured 6 cm. It proved to be a grade 3 invasive carcinoma, no special type, not otherwise specified. There was invasion of the dermal lymphatics, a 6.4 cm focus of ductal carcinoma in Situ with clear margins. The 19 of 19 lymph nodes were involved. She was seen for follow-up at the [facility] and counseled about chemotherapy. At the time of her presentation locally in July of 2019 she had an at risk geriatric status due to poor mobility. She was trying to exercise to improve her functional situation but had a fall off a treadmill leading to skin ulcers and cellulitis. She was deemed not to be a chemotherapy candidate and started on letrozole which she tolerated very poorly and discontinued after about a month of treatment. She was hospitalized with cellulitis in August of 2019. She had multiple subsequent hospitalizations including 1 from December 12 to December 18 at [facility] with altered mental status. Extensive workup with a spinal tap, EEG, extensive laboratory testing, neurology and psychiatry led to a diagnosis of moderate dementia. She was transferred to [facility] where she was given steroids for possible neoplastic syndrome without improvement. She had AA 21 hour EEG monitor and additional brain imaging. She was transferred back to [facility] where she was hospitalized from January 01 to January 25 for continued acute encephalopathy of unclear etiology. She was discharged to home place and is looking forward to transferring to [facility]. She comes today for oncology consultation. She has not noticed any new lumps or bumps, pain at her mastectomy site, change in her breathing, nausea or vomiting. She denies any recent bleeding, pain, localized weakness, fever, chills, or cough. She remains generally weak and can walk a few steps with a walker. It any longer distance requires a wheelchair. She still has her Port-A-Cath in place and is worried about this and would like to have it removed. She has ongoing pedal edema. All other systems are negative. Past medical history 1. Atrial fibrillation for which she has been on anticoagulation in the past 2. DJD 3. Pneumonia in the past 4. She had radiation therapy to her feet as a child 5. History of urinary tract infections 6. Hypothyroidism, on replacement 7. Diverticulitis which she has had partial colon resection in the past 8. 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 History of gout 10. Chronic renal insufficiency 11. Hyperlipidemia 12. Previous surgeries include tonsillectomy, appendectomy, cataract extractions, hemorrhoidectomy, partial colectomy for perforated diverticulitis, bilateral total hip replacements, herniorrhaphy, trigger finger release, her bladder cystoscopies and 2 D&Cs. 13. History of muscle contracture complicating hip replacement surgery with consequent significant limitation of mobility 14. Maternal grandmother had stomach cancer. Paternal grandfather had bone cancer. Her daughter had uterine cancer at age 45, lung cancer at age 49 with no known recurrence and negative testing for Abbasi syndrome 15. 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 She is accompanied in the office today by her daughter who is an orthopedic surgeon. She is single. She is in an occasional drinker but not recently. She is a never smoker. 16. History of diastolic congestive heart failure for which she has been treated with diuretics 17. History of chronic venous insufficiency 18. History of gastrointestinal hemorrhage for which she was hospitalized in October of 2019 19. Current medications include memantine 5 mg twice a day, as needed Imodium, Synthroid 0.1 mg daily, as needed Dulcolax, as needed antacids, as needed Tylenol, pantoprazole 40 mg daily, torsemide 10 mg daily, vitamin D and as needed milk of magnesia. 20. She does not tolerate amoxicillin/clavulanic acid, letrozole or diltiazem. CC: Cj Brower MD Home Medications and Allergies Home Medications Medication Instructions Recorded Confirmed Type atenolol 12.5 mg PO DAILY #0 07/22/12 10/04/19 History magnesium oxide 400 mg PO DIRECTED #0 07/22/12 02/24/20 History Probiotic 2 cap PO DAILY 01/17/18 10/04/19 History apixaban 5 mg PO BID 01/17/18 10/04/19 History cholecalciferol (vitamin D3) 5,000 unit PO DAILY 01/17/18 02/24/20 History [Vitamin D3] levothyroxine 100 mcg PO DAILY 01/17/18 02/24/20 History potassium chloride 10 meq PO BID 01/17/18 10/04/19 History spironolactone 50 mg tablet 50 mg PO DAILY 05/30/19 02/24/20 History letrozole 2.5 mg PO DAILY 10/03/19 10/04/19 History omeprazole 20 mg PO BID 10/03/19 02/24/20 History acetaminophen 1,350 mg PO BID 10/04/19 10/04/19 History letrozole [Femara] 2.5 mg PO DAILY 10/04/19 10/04/19 History loperamide 2 mg PO QID 02/24/20 02/24/20 History memantine [Namenda] 5 mg PO BID 02/24/20 02/24/20 History torsemide 10 mg PO DAILY 02/24/20 02/24/20 History Allergies Allergy/AdvReac Type Severity Reaction Status Date / Time amoxicillin [From Augmentin] Allergy Verified 10/03/19 20:57 clavulanic acid Allergy Verified 10/03/19 20:57 [From Augmentin] diltiazem Allergy Verified 10/03/19 20:57 Medical History - Medical, Surgical, Family History Medical History: Medical History (Last Updated 10/04/19 @ 07:30 by WILL Lucas) (HFpEF) heart failure with preserved ejection fraction Bilateral lower extremity edema Breast mass, right Chronic atrial fibrillation Hypothyroidism Osteoarthritis Surgical History: Surgical History (Last Updated 10/04/19 @ 07:30 by WILL Lucas) History of appendectomy History of tonsillectomy - Social History Smoking Status: Never smoker Exam Narrative: She was in no acute distress. She perseverated on her Port-A-Cath and its possible removal but otherwise answered questions appropriately. She was in no acute distress. She was in a wheelchair. There was no lymphadenopathy in the cervical, supraclavicular or axillary regions. Lungs were clear with breath sounds equal throughout both lung valverde. Heart showed 2/6 systolic ejection murmur with an irregularly irregular rhythm. Abdomen was soft and nontender with normal bowel tones. The left breast was without masses. The right chest wall and axilla showed her incisions to be intact with no evidence of local recurrence on examination. Results - Imaging Additional studies: Procedures Other electric countershock of heart (12/22/11) Other nonoperative respiratory measurements (07/16/12) Assessment and Plan (1) Breast cancer metastasized to axillary lymph node Status: Acute Ms. Walker does not have any findings on her assessment today that would indicate local recurrence of her breast cancer. She also does not have any findings that would clinically suggest metastatic disease distantly. In addition, she has had extensive evaluation at multiple hospital admissions that have not shown any evidence of metastatic disease. Accordingly, I do not think there her current problems are related to her breast cancer history. We discussed the fact that we could consider resumption of adjuvant therapy for breast cancer. She has a high risk of disease recurrence with 19 positive lymph nodes. However, I do not think it would make her feel better right now since I do not think she is sick from breast cancer. She previously took letrozole. This agent is generally well tolerated but she did quite poorly with it. My concern if we were to put her back on adjuvant endocrine therapy is that we would run a potentially significant risk of hurting her with no expectation we would help her feel better in the short run since she is not symptomatic from breast cancer. She and her daughter understood this option but the patient was very clear that she does not want to initiate any additional anticancer therapy at any time. Her main focus is on her quality of life and good symptom control. She had a relative who had significant bed dyspnea and I reassured Ms. Walker that we would be as aggressive as necessary to control her symptoms. She also initially stated that she wanted to get her Port-A-Cath out. She was worried that it has not been flushed for several months. She also was very clear that she does not intend to take any intravenous treatment for cancer or any other condition. Accordingly, we have no plans to use the catheter. I reassured her that since we are not going to use the catheter, we do not need to worry about flushing it. Removing it would be an outpatient surgical procedure that could be done with a local anesthetic. However, there is still be some risk of a surgical procedure in her situation and her family is not in a position where they can realistically bring her back and forth for this in near future. I think it would be fine to leave the catheter for the time being and we can come back to this later if she wishes to do so. We also discussed follow-up in this office. I would be happy to see her again at any time in the future. However, we will not schedule a specific appointment unless an oncologic issue arises with which we could be of assistance. The patient and her daughter had multiple questions that were answered in detail and I personally spent 46 minutes in today's [id number] visit with greater than 50% of the time spent in counseling regarding the issues outlined above. Impression: 1. Right mastectomy July 21, 2019 for a multicentric grade 3 invasive carcinoma involving the entire right breast metastatic to 19 axillary lymph nodes, hormone receptor positive HER2 negative 2. Patient was not a chemotherapy candidate due to her geriatric status 3. She took letrozole for about a month but tolerated it very poorly and has been off systemic therapy since 4. No clinical findings to suggest local recurrence, and no clinical, laboratory, or radiographic findings to suggest systemic recurrence 5. Multiple other medical issues including cognitive problems for which she has had an extensive workup as outlined above 6. Her Port-A-Cath is still in place Recommendations: 1. Patient made clear that she does not desire any additional anticancer therapy. Her family including her physician daughter who is accompanying her in the office today support this. 2. We will defer Port-A-Cath removal for the time being given the challenging logistics and the patient was reassured that not flushing a catheter that we do not intend to use would be okay. 3. Although no specific return appointment has been scheduled to this office, I would be happy to see her again any time in the future if I could be of assistance in her care
== END ==
PROVIDERS: Family Provider Internal Medicine; PCP Internal Medicine; Referring Provider Internal Medicine; Visit Provider Internal Medicine
DX: C50.811 Malignant neoplasm of overlapping sites of right female breast (principal); C77.3 Secondary and unspecified malignant neoplasm of axilla and upper limb lymph nodes; Z17.0 Estrogen receptor positive status [ER+]; E03.9 Hypothyroidism, unspecified; E78.5 Hyperlipidemia, unspecified; N18.9 Chronic kidney disease, unspecified; Z90.11 Acquired absence of right breast and nipple; Z95.828 Presence of other vascular implants and grafts
CPT/HCPCS: 99204; 99214

== ENCOUNTER 2020-04-23 12:45 | Inpatient (IN) | payer MEDICARE, OTHER, SELFPAY ==
[2019-10-04 03:29] VITALS: BMI 30.7
[2020-04-23] VITALS (25 sets, daily range): BP systolic 85–120; BP diastolic 51–73; PULSE 72–82; RESP 13–20; TEMP 36.5–37; O2SAT 92–100; BMI 34.7
[2020-04-23 13:41] LABS: COVID19 -Nasal RAPID Negative (Negative)
[2020-04-23] MEDS: FUROSEMIDE 100 MG/10 ML VIAL 60 MG IV (13:56)
[2020-04-23 13:59] LABS: Add Manual Diff / Slide Review YES; Hematocrit 29.3 % (36-46); Mean Corpuscular HGB Conc 30.8 % (30-36); Mean Corpuscular Hemoglobin 21.2 PG (26-34); Mean Corpuscular Volume 68.8 fL (80-100); Platelet Count 227 X10^3/uL (150-400); Red Blood Cell Count 4.25 X10^6/uL (4.0-5.2); Red Cell Distribution Width 22.3 % (11.6-14.8); White Blood Cell Count 4.8 X10^3/uL (4.5-11.0)
--- NOTE | 2020-04-23 14:07 | ED.SOB ---
HPI - SOB/Dyspnea General Chief Complaint: Shortness of Breath/Dyspnea Stated Complaint: weakness, swelling in extremities Time Seen by Provider: 04/23/20 12:55 Source: patient and family Mode of arrival: Wheelchair History of Present Illness HPI Narrative: 84-year-old woman with a history of congestive heart failure, breast cancer, atrial fibrillation (not anticoagulated due to fall risk), chronic renal disease and hypothyroidism currently living in an assisted living facility was seen by her primary care physician today with concerns for worsening congestive heart failure. There is a note that she has gained 50 lb over the last 3 months. Patient is currently a resident at [facility] and due to Covid restrictions has not had physical visitors for an extended period of time. She is noted to have significant anasarca, increased dyspnea, orthopnea,. Additional history is significant for a right mastectomy last May. She had a subsequent fall with the tibial fracture and decision was made to not proceed with chemotherapy for her breast cancer. She was placed on a hormone rose and symptoms worsened. 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 Over the last 6 weeks she has had notably more swelling and is currently on 20 mg of torsemide daily. She notes an intertriginous rash developing under her left breast and over her labia as her swelling has gotten more pronounced. She is currently DNR, near not treating her breast cancer and if symptoms continue to dramatically worsen, then a discussion of hospice may be appropriate Related Data Home Medications Medication Instructions Recorded Confirmed atenolol 12.5 mg PO DAILY #0 07/22/12 10/04/19 magnesium oxide 400 mg PO DIRECTED #0 07/22/12 02/24/20 Probiotic 2 cap PO DAILY 01/17/18 10/04/19 apixaban 5 mg PO BID 01/17/18 10/04/19 cholecalciferol (vitamin D3) 5,000 unit PO DAILY 01/17/18 02/24/20 [Vitamin D3] levothyroxine 100 mcg PO DAILY 01/17/18 02/24/20 potassium chloride 10 meq PO BID 01/17/18 10/04/19 spironolactone 50 mg tablet 50 mg PO DAILY 05/30/19 02/24/20 letrozole 2.5 mg PO DAILY 10/03/19 10/04/19 omeprazole 20 mg PO BID 10/03/19 02/24/20 acetaminophen 1,350 mg PO BID 10/04/19 10/04/19 letrozole [Femara] 2.5 mg PO DAILY 10/04/19 10/04/19 loperamide 2 mg PO QID 02/24/20 02/24/20 memantine [Namenda] 5 mg PO BID 02/24/20 02/24/20 torsemide 10 mg PO DAILY 02/24/20 02/24/20 Allergies Allergy/AdvReac Type Severity Reaction Status Date / Time amoxicillin [From Augmentin] Allergy Verified 04/23/20 13:01 clavulanic acid Allergy Verified 04/23/20 13:01 [From Augmentin] diltiazem Allergy Verified 04/23/20 13:01 Review of Systems Review of Systems Narrative: Pertinent positive and negative findings as per HPI Remainder of review of systems is otherwise unremarkable for Constitutional: Fevers, chills, ENT: No sore throat, neck pain, ear pain CV: Chest pain, palpitations, Respiratory: Cough, GI: Nausea, vomiting, diarrhea, change in bowel habits, black or bloody stools : Dysuria, hematuria, flank pain Patient History Medical History (HFpEF) heart failure with preserved ejection fraction (Acute) Bilateral lower extremity edema (Inactive) Breast cancer metastasized to axillary lymph node (Acute) Chronic atrial fibrillation (Acute) Hypothyroidism (Acute) Osteoarthritis (Acute) Surgical History History of appendectomy (Acute) History of tonsillectomy (Acute) Social History household members: children and none Smoking Status: Never smoker alcohol intake: current Smoking Status: Never smoker alcohol intake frequency: a few times a month Substance Use Type: does not use Exam Narrative Exam Narrative: General: Healthy appearing, in no acute distress. Hard of hearing but able to speak in full sentences HEENT: Moist mucous membranes, normal sclera with reactive pupils, Neck: Dramatic JVD, supple, no cervical adenopathy Respiratory: Lungs with crackles to mid lung vavlerde, no rhonchi. Full and symmetrical air movement Chest: Status post right mastectomy surgical site is nicely healed. Moist erythematous rash under the full dip her left breast Cardiac: iregular rate and rhythm, 3/6 murmur, positive S3, no bruits Abdomen: Soft nontender good bowel tones, no flank pain Skin: draumatic anasarca to almost the nipple line. Minor skin breakdown under her left breast and a long outer labia. Neurologic: Grossly neurologically intact with no obvious asymmetries or abnormalities Extremities: No trauma, well perfused, significant edema both legs both arms Psych: Cooperative, no evidence of hallucination Initial Vital Signs Initial Vital Signs: Vital Signs Temperature 98.6 F 04/23/20 13:01 Pulse Rate 79 04/23/20 13:01 Respiratory Rate 20 04/23/20 13:01 Blood Pressure 105/59 L 04/23/20 13:01 Pulse Oximetry 94 04/23/20 13:01 Course Orders Ordered: ED Orders 04/23/20 12:56 EKG-12 Lead Stat 04/23/20 13:05 COVID19 -ED/INPAT/OR/L&D Stat 04/23/20 13:40 Complete Blood Count AUTO DIFF Stat Comprehensive Metabolic Panel Stat NT-proBNP (BNP-Adult 18+) Stat Troponin I Stat Type and Screen Stat 04/23/20 14:08 XR chest 1V Stat 04/23/20 15:05 Urinalysis and Microscopic Stat Urine Culture Stat Discontinued Medications Furosemide (Lasix) 60 mg IV NOW ONE Stop: 04/23/20 12:56 Last Admin: 04/23/20 13:56 Dose: 60 mg Documented by: PAULETTE Vital Signs Vital signs: Vital Signs - 8 hr 04/23/20 13:01 04/23/20 13:09 04/23/20 13:30 Temperature 98.6 F Pulse Rate 79 81 82 Respiratory Rate 20 19 18 Blood Pressure 105/59 L Pulse Oximetry 94 04/23/20 13:46 04/23/20 13:47 04/23/20 14:00 Temperature Pulse Rate 80 81 80 Respiratory Rate 18 18 19 Blood Pressure 85/59 L 97/54 L 106/53 L Pulse Oximetry 04/23/20 14:30 04/23/20 15:02 04/23/20 15:03 Temperature Pulse Rate 79 81 81 Respiratory Rate 16 18 Blood Pressure 99/55 L 102/59 L Pulse Oximetry MDM - SOB/Dyspnea Medical Records Attestation: I reviewed the patient's medical records. Lab Data Attestation: I reviewed the patient's lab results. Result diagrams: 04/23/20 13:40 04/23/20 13:40 Labs: Lab Results 04/23/20 04/23/20 04/23/20 Range/Units 13:05 13:40 13:40 WBC 4.8 (4.5-11.0) X10^3/uL RBC 4.25 (4.0-5.2) X10^6/uL Hgb 9.0 L (12.0-16.0) g/dL Hct 29.3 L (36-46) % MCV 68.8 L (80-100) fL MCH 21.2 L (26-34) PG MCHC 30.8 (30-36) % RDW 22.3 H (11.6-14.8) % Plt Count 227 (150-400) X10^3/uL Neut % (Auto) Not Reportable Lymph % (Auto) Not Reportable Crenshaw % (Auto) Not Reportable Eos % (Auto) Not Reportable Baso % (Auto) Not Reportable Lymph # (Auto) Not Reportable Crenshaw # (Auto) Not Reportable Baso # (Auto) Not Reportable Total Counted 100 Seg Neutrophils % 78.0 H (38-70) % Lymphocytes % (Manual) 8.0 L (25-45) % Monocytes % (Manual) 14.0 H (2-11) % Neutrophils # (Manual) 3744 (8040-9720) /uL RBC Morphology Not Reportable Hypochromasia 2+ H Poikilocytosis 2+ H Anisocytosis 2+ H Target Cells 2+ H Sodium 136 L (137-145) mmol/L Potassium 3.8 (3.4-5.1) mmol/L Chloride 98 (98-107) mmol/L Carbon Dioxide 27 (22-32) mmol/L BUN 41 H (7-17) mg/dL Creatinine 2.01 H (0.52-1.04) mg/dL Estimated GFR 23.6 L (>60) mL/min BUN/Creatinine Ratio 20.4 (6-22) Glucose 143 H (80-110) mg/dL Calcium 9.9 (8.4-10.2) mg/dL Total Bilirubin 1.0 (0.2-1.3) mg/dL AST 20 (14-36) IU/L ALT 11 (<35) IU/L Alkaline Phosphatase 80 (38-126) U/L Troponin I 0.041 H (0.01-0.034) ng/mL NT-Pro-B Natriuret Pep (<450) pg/mL Total Protein 6.1 L (6.3-8.2) g/dL Albumin 3.5 (3.5-5.0) g/dL Globulin 2.6 (1.7-4.1) g/dL Albumin/Globulin Ratio 1.3 (1.0-2.8) Urine Color Urine Appearance Urine pH (4.5-8.0) Ur Specific Keeling (1.000-1.035) Urine Protein (Negative) Urine Glucose (UA) (Negative) g/dL Urine Ketones (NEGATIVE) Urine Occult Blood (Negative) Urine Nitrate (Negative) Urine Bilirubin (NEGATIVE) Urine Urobilinogen (0.2) E.U./dL Ur Leukocyte Esterase (NEGATIVE) Urine RBC (0-5/HPF) Urine WBC (0-5/HPF) Ur Squamous Epith Cells (0-5/HPF) Ur Renal Epithelial Cell (0-1/HPF) Amorphous Sediment Urine Bacteria (None) Urine Mucus (Negative) Ur Culture Indicated? COVID-19 PCR Negative (Negative) Blood Type Antibody Screen 04/23/20 04/23/20 04/23/20 Range/Units 13:40 13:40 15:05 WBC (4.5-11.0) X10^3/uL RBC (4.0-5.2) X10^6/uL Hgb (12.0-16.0) g/dL Hct (36-46) % MCV (80-100) fL MCH (26-34) PG MCHC (30-36) % RDW (11.6-14.8) % Plt Count (150-400) X10^3/uL Neut % (Auto) Lymph % (Auto) Crenshaw % (Auto) Eos % (Auto) Baso % (Auto) Lymph # (Auto) Crenshaw # (Auto) Baso # (Auto) Total Counted Seg Neutrophils % (38-70) % Lymphocytes % (Manual) (25-45) % Monocytes % (Manual) (2-11) % Neutrophils # (Manual) (9069-5245) /uL RBC Morphology Hypochromasia Poikilocytosis Anisocytosis Target Cells Sodium (137-145) mmol/L Potassium (3.4-5.1) mmol/L Chloride (98-107) mmol/L Carbon Dioxide (22-32) mmol/L BUN (7-17) mg/dL Creatinine (0.52-1.04) mg/dL Estimated GFR (>60) mL/min BUN/Creatinine Ratio (6-22) Glucose (80-110) mg/dL Calcium (8.4-10.2) mg/dL Total Bilirubin (0.2-1.3) mg/dL AST (14-36) IU/L ALT (<35) IU/L Alkaline Phosphatase (38-126) U/L Troponin I (0.01-0.034) ng/mL NT-Pro-B Natriuret Pep 97412 H (<450) pg/mL Total Protein (6.3-8.2) g/dL Albumin (3.5-5.0) g/dL Globulin (1.7-4.1) g/dL Albumin/Globulin Ratio (1.0-2.8) Urine Color Yellow Urine Appearance Clear Urine pH 5.0 (4.5-8.0) Ur Specific Keeling 1.015 (1.000-1.035) Urine Protein Negative (Negative) Urine Glucose (UA) Negative (Negative) g/dL Urine Ketones Negative (NEGATIVE) Urine Occult Blood Negative (Negative) Urine Nitrate Negative (Negative) Urine Bilirubin Negative (NEGATIVE) Urine Urobilinogen 0.2 (0.2) E.U./dL Ur Leukocyte Esterase 1+ H (NEGATIVE) Urine RBC None seen (0-5/HPF) Urine WBC 10-30/hpf H (0-5/HPF) Ur Squamous Epith Cells 1-5 /hpf (0-5/HPF) Ur Renal Epithelial Cell 1-5/hpf H (0-1/HPF) Amorphous Sediment 1+ Urine Bacteria Occasional (0-1) (None) Urine Mucus 1+ H (Negative) Ur Culture Indicated? Specimen cultured COVID-19 PCR (Negative) Blood Type A Positive Antibody Screen Negative ECG Data Attestation: I personally reviewed and interpreted this ECG as follows: Interpretation: Atrial fibrillation at a rate of 79 Her overall low voltage Right bundle branch block No ST T wave changes MDM Narrative Medical decision making narrative: Woman with anasarca secondary to decompensated congestive heart failure, renal insufficiency with slight elevation in troponin. Does have a relatively low H&H at 9.0 and 29.3 however, given her significant volume overload this likely is her baseline Findings are shared with patient and her daughter. Congestive heart failure with increased creatinine and slightly elevated troponin. No evidence of STEMI. Initial 60 mg of IV Lasix has just been given. She is feeling subjectively more dyspneic despite normal saturations, oxygen placed for comfort. Care is reviewed with hospitalist service and she will be admitted as an inpatient for continued treatment of her congestive heart failure Discharge Plan Departure Patient Disposition: Admitted As Inpatient Clinical Impression: Elevated troponin, Acute kidney injury Congestive heart failure Qualifiers: Heart failure type: diastolic Heart failure chronicity: acute on chronic Qualified Code(s): I50.33 - Acute on chronic diastolic (congestive) heart failure Referrals: Dylan Loja MD [Primary Care Provider] -
[2020-04-23 14:08] LABS: Alanine Aminotransferase 11 IU/L (<35); Albumin 3.5 g/dL (3.5-5.0); Albumin Globulin Ratio 1.3 (1.0-2.8); Alkaline Phosphatase 80 U/L (38-126); Aspartate Aminotransferase 20 IU/L (14-36); BUN Creatinine Ratio 20.4 (6-22); Blood Urea Nitrogen 41 mg/dL (7-17); Calcium 9.9 mg/dL (8.4-10.2); Carbon Dioxide 27 mmol/L (22-32); Chloride 98 mmol/L (98-107); Estimated Glomerular Filt Rate 23.6 mL/min (>60); Globulin 2.6 g/dL (1.7-4.1); Glucose 143 mg/dL (80-110); HEMOLYSIS < 15 (0-50); Potassium 3.8 mmol/L (3.4-5.1); Sodium 136 mmol/L (137-145); Total Protein 6.1 g/dL (6.3-8.2)
--- NOTE | 2020-04-23 14:08 | DI.RAD.S_ITS ---
PROCEDURE: XR CHEST 1V INDICATIONS: CHF TECHNIQUE: One view of the chest was acquired. COMPARISON: [facility], CR, XR CHEST 2V, 10/03/2019, 19:31. [facility], CR, XR CHEST 1 VIEW, 12/13/2019, 1:22. FINDINGS: Surgical changes and devices: Left chest wall Port-A-Cath is stable. Right axillary surgical clips are stable. Lungs and pleura: Lungs are clear. Trace left-sided pleural effusion. No pneumothorax. Mediastinum: Mediastinal contours appear normal. Heart is enlarged Bones and chest wall: No suspicious bony lesions. Overlying soft tissues appear unremarkable. IMPRESSION: Trace right-sided pleural effusion. Dictated by: Yumiko Wild MD, PhD on 04/23/2020 at 14:30 Approved by: Yumiko Wild MD, PhD on 04/23/2020 at 14:32
[2020-04-23 14:19] LABS: Troponin I 0.041 ng/mL (0.01-0.034)
[2020-04-23 14:23] LABS: Anisocytosis 2+; Neutrophils Absolute Manual 3744 /uL (3000-5900); Total Cells Counted 100
[2020-04-23 14:24] LABS: Hypochromasia 2+; Poikilocytosis 2+; Target Cells 2+
[2020-04-23 14:29] LABS: NT-proBNP (BNP-Adult 18+) 16000 pg/mL (<450)
[2020-04-23 15:14] LABS: RBC Urine None Seen (0-5/HPF)
[2020-04-23 15:15] LABS: Appearance Urine UA CLEAR; Bilirubin Urine UA NEGATIVE (NEGATIVE); Color Urine UA YELLOW; Glucose Urine UA NEGATIVE (Negative); Ketones Urine UA NEGATIVE (NEGATIVE); Leukocyte Esterase Urine UA 1+ (NEGATIVE); Nitrite Urine UA NEGATIVE (Negative); Occult Blood Urine UA NEGATIVE (Negative); Protein Urine UA NEGATIVE (Negative); Specific Gravity Urine UA 1.015 (1.000-1.035); Urobilinogen Urine UA 0.2 E.U./dL (0.2)
[2020-04-23 15:25] LABS: Amorphous Sediment Urine 1+; Bacteria Urine Occasional (0-1); Culture Indicated Urine Specimen Cultured; Mucus Urine 1+ (Negative); Renal Epithelial Cells Urine 1-5/HPF (0-1/HPF); Squamous Epithelial Cell Urine 1-5 /HPF (0-5/HPF); WBC Urine 10-30/HPF (0-5/HPF)
--- NOTE | 2020-04-23 21:37 | PC.NURSE ---
Pt arrived on unit from ER at 1855. She is A and O x 4, but SYCUAN without STANFORD and dtr present to answer most questions. She is +4 pitting generalized edema, with difficulty walking. She is afebrile but very cold. Hypotensive at high 90's over 50's. RR = 18 at rest and 24 with movement. HR WNL. LS are course with exp wheezes in R LL.
[2020-04-23 22:05] LABS: Magnesium 2.1 mg/dL (1.6-2.3)
--- NOTE | 2020-04-23 22:23 | P.HP_ITS ---
History of Present Illness History of Present Illness Date Patient Seen: 04/23/20 Time Patient Seen: 20:15 Chief complaint: weakness, swelling in extremities Narrative: Ms. Margie Walker is an 84-year-old female a history significant for heart failure with preserved ejection fraction and diastolic dysfunction, bilateral lower extremity edema, right breast cancer with metastases into the right axilla (s/p mastectomy 05/2019), chronic atrial fibrillation (not anticoagulated due to multiple falls), hypothyroidism, osteoarthritis and acute onset dementia who presents to the emergency room sent in by her primary care physician Dr. Loja related to worsening congestive heart failure. The patient resides at [facility] since . Due to COVID-19 restrictions family has not been able to visit and on 2 days appointment the patient was found to have marked anasarca with associated shortness of breath and weakness. The patient has sustained a 50 lb weight gain over the last 3 months and per family 30 lb in the last month. The patient has had a difficult medical course since her mastectomy. She had multiple falls sustaining a a left lower leg wound and could not progress to chemotherapy. Estrogen inhibitor therapy was not tolerated by the patient. Patient developed acute altered mental status initially believed to be metabolic encephalopathy secondary to UTI however patient underwent extensive evaluation with 2 weeks at [facility], 2 weeks [facility] in 2 weeks back at [facility] with final diagnosis of acute onset of dementia. Patient has baseline disorientation, short-term memory loss and perseveration per the patient's daughter Dr. Walker at bedside. The patient has not reported any complaints of fevers or chills. Headaches or visual changes. She denies chest pain or palpitations and appears unaware of her chronic atrial fibrillation. She she endorses shortness of breath and feels difficulty taking a deep breath. Patient complains of an intertriginous rash under left breast which is painful. She denies heartburn and describes abdominal wall tenderness she relates to her fluid retention. Patient has marked edema the perineum as well as perineal rash including the labia. The patient describes progressive weakness and has been unable to get up out of the chair or off the commode without assistance due to fluid weight gain. Patient has anasarca of onto the left breast and right chest wall. The patient can weakly lift her heels off the foot of the bed but cannot raise her leg. Previously the patient has been able ambulate with a walker. The patient is under further reports that the patient has a chronic low blood pressure between 70s and 90 systolic which is her norm. Upon arrival to the ER the patient is afebrile with temperature 97.9?, heart rate of 72, blood pressure 94/58, respirations of 18, saturation 98% on room air. A chest x-ray is obtained which finds trace right pleural effusion. On laboratory analysis the patient has white count of 4.8, hemoglobin 9.0, hematocrit of 29.3 and platelets of 227. She has an MCV of 60.8 and MCH of 21.2. Her RDW is 22.3. On 10 for chills she has elevated segs at 78% and monocytes at 14.0%. She has a slightly low sodium of 136, potassium is 3.8, magnesium is added on and found to be 2.1. Her BUN is 41 and creatinine is 2.01 her estimated GFR is 23.6 her nonfasting glucose is 143. Her liver functions are all within normal limits. She has some mildly elevated troponin at 0.041 with a troponin of 160,000. Her albumin is 3.5. On urinalysis is specific gravity of 1.015, pH 5.0 with 1+ leukocyte esterase, urine wbc's of 10-30 and renal epithelials cells 1-5 and 1+ mucus the samples reflex to culture. Per the patient's daughter who holds POA indicates the patient is DNR but still would like treatment but no aggressive interventions. The patient is given 60 mg of Lasix IV in the emergency department with modest diuresis. The patient is admitted to the hospital service for treatment of decompensated heart failure, anemia, acute on chronic renal failure and anasarca. PCP: Dr. Loja Patient History Medical History (Updated 04/23/20 @ 15:32 by Keeley Yancey MD) (HFpEF) heart failure with preserved ejection fraction (Acute) Bilateral lower extremity edema (Inactive) Breast cancer metastasized to axillary lymph node (Acute) Chronic atrial fibrillation (Acute) Hypothyroidism (Acute) Osteoarthritis (Acute) Surgical History (Updated 04/24/20 @ 03:22 by WILL Lucas) History of appendectomy (Acute) History of right mastectomy (Acute) History of tonsillectomy (Acute) History of vascular access device (Acute) Family & Social History Family History (Updated 04/24/20 @ 02:30 by WILL Lucas) Father Trauma due to motor vehicle collision Mother Dementia Hyperlipidemia Sister Alcoholic Social History: household members children,none Prior Living Arrangements Snf Facility Safety & Behavioral: Feels Safe in Current Yes Environment Been Physically Hurt or No Threatened By a Person Suicidal Ideation Description None Suicide Plan Description No Plan Tobacco & Substance use: Smoking Status Never smoker alcohol intake current alcohol intake frequency holiday/special occasion Substance Use Type does not use Meds Home Medications and Allergies Home Medications Medication Instructions Recorded Confirmed Type magnesium oxide 400 mg PO DIRECTED #0 07/22/12 04/23/20 History cholecalciferol (vitamin D3) 10,000 unit PO DAILY 01/17/18 04/23/20 History [Vitamin D3] levothyroxine 100 mcg PO DAILY 01/17/18 04/23/20 History acetaminophen 1,350 mg PO BID 10/04/19 04/23/20 History memantine [Namenda] 5 mg PO BID 02/24/20 04/23/20 History docusate sodium 100 mg PO DAILY 04/23/20 04/23/20 History nystatin 1 applic TOPICAL QID 04/23/20 04/23/20 History pantoprazole 40 mg PO DAILY 04/23/20 04/23/20 History torsemide 20 mg PO DAILY 04/23/20 04/23/20 History Allergies Allergy/AdvReac Type Severity Reaction Status Date / Time amoxicillin [From Augmentin] Allergy Verified 04/23/20 13:01 clavulanic acid Allergy Verified 04/23/20 13:01 [From Augmentin] diltiazem Allergy Verified 04/23/20 13:01 Review of Systems Review of Systems ROS: Yes All systems reviewed with the patient and are negative except as otherwise documented (Obtained from pt & daughter) Exam Vital Signs (past 8 hours): - 04/23/20 18:00 04/23/20 18:01 04/23/20 18:30 Temperature Pulse Rate 80 80 80 Respiratory Rate 16 15 13 Blood Pressure 103/51 L 97/52 L Pulse Oximetry 04/23/20 18:55 04/23/20 20:20 04/23/20 21:55 Temperature 97.9 F 98.5 F Pulse Rate 80 72 80 Respiratory Rate 18 18 Blood Pressure 106/69 94/58 L 120/59 L Pulse Oximetry 100 04/23/20 23:15 04/24/20 00:00 04/24/20 00:30 Temperature 97.7 F Pulse Rate 80 78 80 Respiratory Rate 18 18 18 Blood Pressure 85/59 L 82/58 L 70/51 L Pulse Oximetry 98 96 93 04/24/20 01:00 04/24/20 01:30 Temperature Pulse Rate 86 80 Respiratory Rate 18 18 Blood Pressure 97/59 L 108/67 Pulse Oximetry 93 94 Oxygen Delivery Method Room Air Oxygen Flow Rate 0 Narrative Exam Narrative: GENERAL APPEARANCE: well developed, well nourished, uncomfortable appearing and anxious. HEENT: Atraumatic, Normocephalic, PERRLA, conjunctiva clear, EOMs intact withou t nystagmus, no rhinorrhea, mucous membranes are moist and pink without lesions or exudate. NECK/THYROID: neck supple, marked JVD, no carotid bruit, no thyromegaly, trachea midline. LYMPH NODES: no cervical or supraclavicular or axillary lymphadenopathy. SKIN: [place], warm and dry, anasarca from mid arm distal and breast fold distal, intertriginous rash under left breast with mild excoriation and perineum, large healed scar left anterior tibia HEART: Irregularly irregular rhythm, S1-S2, 2/6 systolic murmur, no rubs or gallops, brisk capillary refill, generalized anasarca up to nipple line and upper extremities. LUNGS: Diminished breath sounds bibasilar with bibasilar fine crackles without coarseness, slight upper airway wheezing, weak nonproductive cough present CHEST: Symmetrical movement, no accessory muscle use, fair tidal volume, infusion port left upper chest. ABDOMEN: Soft, mildly protuberant, tympanitic to percussion, abdominal wall tenderness on palpation, no guarding or peritoneal signs, no flank or suprapubic tenderness, active bowel tones. BACK: Stage II pressure sacral pressure ulcer, spine is nontender to palpation. EXTREMITIES: moves all extremities, able left heel off bed not the leg against gravity, no deformities. NEUROLOGIC: AAO to person and place, short-term memory deficits, cranial nerves II-XII grossly intact, sensation intact to light touch, impaired hearing. PSYCH: Anxious, hyper alert, cooperative, stable behavior. Objective Labs Result Diagrams: 04/23/20 13:40 04/23/20 13:40 Labs: Laboratory Results - last 24 hr 04/23/20 04/23/20 04/23/20 13:05 13:40 13:40 WBC 4.8 RBC 4.25 Hgb 9.0 L Hct 29.3 L MCV 68.8 L MCH 21.2 L MCHC 30.8 RDW 22.3 H Plt Count 227 Neut % (Auto) Not Reportable Lymph % (Auto) Not Reportable [place] % (Auto) Not Reportable Eos % (Auto) Not Reportable Baso % (Auto) Not Reportable Lymph # (Auto) Not Reportable [place] # (Auto) Not Reportable Baso # (Auto) Not Reportable Total Counted 100 Seg Neutrophils % 78.0 H Lymphocytes % (Manual) 8.0 L Monocytes % (Manual) 14.0 H Neutrophils # (Manual) 3744 RBC Morphology Not Reportable Hypochromasia 2+ H Poikilocytosis 2+ H Anisocytosis 2+ H Target Cells 2+ H Sodium 136 L Potassium 3.8 Chloride 98 Carbon Dioxide 27 BUN 41 H Creatinine 2.01 H Estimated GFR 23.6 L BUN/Creatinine Ratio 20.4 Glucose 143 H Calcium 9.9 Magnesium Total Bilirubin 1.0 AST 20 ALT 11 Alkaline Phosphatase 80 Troponin I 0.041 H NT-Pro-B Natriuret Pep Total Protein 6.1 L Albumin 3.5 Globulin 2.6 Albumin/Globulin Ratio 1.3 Urine Color Urine Appearance Urine pH Ur Specific [place] Urine Protein Urine Glucose (UA) Urine Ketones Urine Occult Blood Urine Nitrate Urine Bilirubin Urine Urobilinogen Ur Leukocyte Esterase Urine RBC Urine WBC Ur Squamous Epith Cells Ur Renal Epithelial Cell Amorphous Sediment Urine Bacteria Urine Mucus Ur Culture Indicated? COVID-19 PCR Negative Blood Type Antibody Screen 04/23/20 04/23/20 04/23/20 13:40 13:40 13:40 WBC RBC Hgb Hct MCV MCH MCHC RDW Plt Count Neut % (Auto) Lymph % (Auto) Murray % (Auto) Eos % (Auto) Baso % (Auto) Lymph # (Auto) Murray # (Auto) Baso # (Auto) Total Counted Seg Neutrophils % Lymphocytes % (Manual) Monocytes % (Manual) Neutrophils # (Manual) RBC Morphology Hypochromasia Poikilocytosis Anisocytosis Target Cells Sodium Potassium Chloride Carbon Dioxide BUN Creatinine Estimated GFR BUN/Creatinine Ratio Glucose Calcium Magnesium 2.1 Total Bilirubin AST ALT Alkaline Phosphatase Troponin I NT-Pro-B Natriuret Pep 60678 H Total Protein Albumin Globulin Albumin/Globulin Ratio Urine Color Urine Appearance Urine pH Ur Specific [place] Urine Protein Urine Glucose (UA) Urine Ketones Urine Occult Blood Urine Nitrate Urine Bilirubin Urine Urobilinogen Ur Leukocyte Esterase Urine RBC Urine WBC Ur Squamous Epith Cells Ur Renal Epithelial Cell Amorphous Sediment Urine Bacteria Urine Mucus Ur Culture Indicated? COVID-19 PCR Blood Type A Positive Antibody Screen Negative 04/23/20 15:05 WBC RBC Hgb Hct MCV MCH MCHC RDW Plt Count Neut % (Auto) Lymph % (Auto) Murray % (Auto) Eos % (Auto) Baso % (Auto) Lymph # (Auto) Murray # (Auto) Baso # (Auto) Total Counted Seg Neutrophils % Lymphocytes % (Manual) Monocytes % (Manual) Neutrophils # (Manual) RBC Morphology Hypochromasia Poikilocytosis Anisocytosis Target Cells Sodium Potassium Chloride Carbon Dioxide BUN Creatinine Estimated GFR BUN/Creatinine Ratio Glucose Calcium Magnesium Total Bilirubin AST ALT Alkaline Phosphatase Troponin I NT-Pro-B Natriuret Pep Total Protein Albumin Globulin Albumin/Globulin Ratio Urine Color Yellow Urine Appearance Clear Urine pH 5.0 Ur Specific [place] 1.015 Urine Protein Negative Urine Glucose (UA) Negative Urine Ketones Negative Urine Occult Blood Negative Urine Nitrate Negative Urine Bilirubin Negative Urine Urobilinogen 0.2 Ur Leukocyte Esterase 1+ H Urine RBC None seen Urine WBC 10-30/hpf H Ur Squamous Epith Cells 1-5 /hpf Ur Renal Epithelial Cell 1-5/hpf H Amorphous Sediment 1+ Urine Bacteria Occasional (0-1) Urine Mucus 1+ H Ur Culture Indicated? Specimen cultured COVID-19 PCR Blood Type Antibody Screen Assessment & Plan Assessment & Plan narrative: This is an 84-year-old female patient who presents to the ER sent in by Dr. Loja, her PCP for worsening heart failure with severe weight gain of 50 lb of water weight with the anasarca up to the chest with associated dyspnea and orthopnea. 1. Chronic diastolic heart failure with cor pulmonale, present on admission, active -patient with history heart failure with preserved ejection fraction identified on echocardiogram dated 11/24/2019. EF at that time was 60-65% with severely dilated right ventricle with normal right ventricular systolic function. Moder ately dilated left atrium severely dilated right atrium with mild mitral regurgitation and severe tricuspid regurgitation. Right ventricular systolic pressure is estimated be 56 mm of mercury based on estimated right atrial pressure of 15 mm of mercury. -patient has been on torsemide 20 mg daily but has sustained progressive weight gain, 50 lb in the last 6 months of which 30 within the last 1 month. Patient with associated symptoms of dyspnea and orthopnea. -patient received Lasix 60 mg IV in the emergency department with modest diuresis with no significant change in subjective complaints of dyspnea. -spoke with Dr. Cook, cardiology regarding management of anasarca in the setting of the above mentioned echocardiogram reflective of cor pulmonale. Noted the patient has chronically low blood pressures and wish to avoid intermittent bolusing, suggested Lasix infusion with which he concurred with the addition of low-dose dopamine or dobutamine if diuresis is ineffective. -ordered Lasix infusion at 8 mg per hour continuous dose. Closer follow-up put 4-5 hours and and assess need for at on infusion. 2. Anasarca, acute, present on admission, active. -patient has previous the had bilateral lower extremity edema secondary to heart failure. Today she presents stents with anasarca to mid chest. -patient has been taking torsemide 20 mg daily and received 60 mg of Lasix IV in the emergency department with modest results. -initiate Lasix infusion 8 milligrams/hour continuous dose, may add on dopamine or dobutamine if diuresis is insufficient. 3. Acute kidney injury superimposed on chronic kidney disease stage 3, present on admission, active -patient has a creatinine 2.01 on admission labs. Most recent previous creatinine was 1.17 on 10/07/2019 with an EGFR of 44.2. -the patient has been taking torsemide 20 mg daily -will follow renal function as the patient has diuresed on Lasix infusion. If kidney function should further deteriorate will need to re-evaluate plan of care versus consult Nephrology. -avoid renal toxic agents and renally dose medications as indicated. 4. Microcytic hypochromic anemia, probable acute, present on admission, active. -hemoglobin on admission is 9.0 with hematocrit of 29.3. Patient with chronic anemia since June of 2019. Likely multifactorial related to diagnosis of cancer and chronic renal disease. -MCV is 68.8 and MCH is 21.2. MCV was 91.7 and MCH was 30 on 10/08/2019. -due to significance of drop will obtain iron panel. 5. Elevated troponin, present on admission, active -no complaints of chest pain or nausea -troponin is found to be elevated at 0.041 which may be related to impaired renal clearance in the setting of NADINE and likely related to exacerbation of CHF. -previous EKG in September finds atrial fibrillation ventricular rate of 93, without ectopy, incomplete right bundle branch block, inverted T-waves in lead II, V5 and V6. -patient presently on telemetry without evidence of ischemia, will obtain 12 lead EKG. -will recheck cardiac panel in the morning. 6. Chronic atrial fibrillation, present on admission, stable. -patient was stable heart rate in the 70s to 80s. -telemetry reveals atrial fibrillation without ectopy. -patient was previously on Eliquis which was discontinued due to frequency of falls. -will obtain 12 lead EKG. 7. Right breast cancer with metastases to the right axillary lymph nodes, c hronic, stable -patient underwent mastectomy in May of 2019. -the patient sustained injury with cellulitis to her left lower limb preventing initiation of chemotherapy. -since starting anti anti hormonal therapy, the patient has had progressive weakness and dizziness and treatment discontinue. -the patient was under the care of in [place] and transitioned to [facility]. 8. Dementia, chronic, stable. -patient is undergone extensive evaluation and found to have acute onset dementia. The patient is oriented to person and place with impaired short-term memory and perseveration. -the patient has been residing at [facility] since . -continue home regimen of Namenda 5 mg twice daily 9. Acquired hypothyroidism, chronic, stable -continue the patient's home regimen of levothyroxine 100 mcg daily. -will obtain a TSH with reflex to T4. VTE prophylaxis: Heparin IV fluid: Saline lock, Lasix infusion Diet: Heart healthy, low-sodium, fluid restriction Code status: DNR, patient's daughter Dr. Enedina Walker is her POA and surrogate decision maker. Pending response to above therapies a goals of care review would be in order in regards to breast cancer prognosis, renal failure congestive heart failure and tolerance diuresis, a discussion regarding hospice care may be warranted. The patient is admitted to the hospital due to the severity of her symptoms and the need for ongoing treatment and evaluation and risk for complications and adverse events. The patient is admitted as an inpatient with expected length of stay to be greater than 2 midnights. Scores GCS Melanie coma scale eye opening: Spontaneous Melanie coma scale verbal response: Confused Melanie coma scale motor response: Obey commands Melanie coma scale total score: 14
--- NOTE | 2020-04-23 22:38 | PC.NURSE ---
Pt is A and O x 4, VSS. Pt has + BT, passing gas and had a large formed BM this shift. Denies pain and N. Midline incision is c/d/i and drsg on R flank is c/d/i. Small change in H/H this shift to 9.3/26.9. Pt eating drinking and able to sleep.
[2020-04-24] VITALS (16 sets, daily range): BP systolic 70–112; BP diastolic 50–67; PULSE 78–91; RESP 16–24; TEMP 36.4–37.1; O2SAT 88–98
[2020-04-24] MEDS: FUROSEMIDE 100 MG in SODIUM CHLORIDE 0.9% 50 ML IV ×2 (00:06→10:26)
[2020-04-24] MEDS: NYSTATIN POWDER 15GM 1 APPLIC TOP (02:32)
[2020-04-24 05:20] LABS: BUN Creatinine Ratio 21.9 (6-22); Blood Urea Nitrogen 41 mg/dL (7-17); Calcium 9.7 mg/dL (8.4-10.2); Carbon Dioxide 29 mmol/L (22-32); Chloride 98 mmol/L (98-107); Creatine Kinase < 20 U/L (30-135); Estimated Glomerular Filt Rate 25.7 mL/min (>60); Glucose 87 mg/dL (80-110); HEMOLYSIS < 15 (0-50); Potassium 3.8 mmol/L (3.4-5.1); Sodium 136 mmol/L (137-145)
[2020-04-24 05:32] LABS: Troponin I 0.034 ng/mL (0.01-0.034)
[2020-04-24 05:33] LABS: Hematocrit 27.7 % (36-46); Hemoglobin 8.6 g/dL (12.0-16.0); Mean Corpuscular HGB Conc 30.9 % (30-36); Mean Corpuscular Hemoglobin 21.1 PG (26-34); Mean Corpuscular Volume 68.4 fL (80-100); Platelet Count 207 X10^3/uL (150-400); Red Blood Cell Count 4.05 X10^6/uL (4.0-5.2); Red Cell Distribution Width 22.4 % (11.6-14.8); White Blood Cell Count 4.2 X10^3/uL (4.5-11.0)
[2020-04-24 05:36] LABS: Add Manual Diff / Slide Review YES
[2020-04-24 05:47] LABS: HEMOLYSIS 18 (0-50); Iron 31 ug/dL (37-170)
[2020-04-24 05:58] LABS: Percent Iron Saturation 8 % (15-50); Total Iron Binding Capacity 381 ug/dL (265-497); Transferrin 288 mg/dL (206-381)
--- NOTE | 2020-04-24 06:15 | PC.NURSE ---
Quality Supervisor Note-Patient is alert and oriented x3, mildly anxious at times, asks appropriate questions and needs frequent reassurance. Lasix infusion of 4ml/hr started at midnight, total UOP in Bui 400ml for shift, Lasix rate increased to 5ml/hr at 0600, BP remains low but stable, see vital trends, patient denies lightheadedness. C/O irritation and burning to perinium, nystatin powder applied, turned Q2h.
[2020-04-24 06:22] LABS: TSH w/ Reflex to FT4 7.46 uIU/mL (0.47-4.68)
[2020-04-24 06:51] LABS: Free T4, Direct Thyroxine 1.53 ng/dL (0.78-2.19)
[2020-04-24 07:00] LABS: Neutrophils Absolute Manual 3318 /uL (3000-5900); Total Cells Counted 100
[2020-04-24 07:01] LABS: Hypochromasia 2+; Nucleated Red Blood Cells 3 #/Diff
[2020-04-24 07:02] LABS: Anisocytosis 3+; Microcytosis 1+
--- NOTE | 2020-04-24 09:24 | P.PN_ITS ---
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 Patient is on furosemide drip at 10 milligram/hour. She had 400 cc negative fluid balance overnight and cumulative 800 cc negative fluid balance. She is on 1200 cc fluid restriction. Her blood pressures run chronically low and remained stable. She endorses mild shortness of breath. Exam Vital Signs (past 8 hours): - 04/24/20 01:30 04/24/20 02:00 04/24/20 03:00 Temperature Pulse Rate 80 84 81 Respiratory Rate 18 18 18 Blood Pressure 108/67 97/59 L 105/59 L Pulse Oximetry 94 93 94 04/24/20 04:00 04/24/20 05:00 04/24/20 06:00 Temperature 97.6 F Pulse Rate 80 91 H 81 Respiratory Rate 18 18 18 Blood Pressure 94/58 L 89/54 L 82/53 L Pulse Oximetry 88 L 95 94 04/24/20 07:00 04/24/20 08:00 04/24/20 09:10 Temperature 98.7 F Pulse Rate 81 84 84 Respiratory Rate 18 20 16 Blood Pressure 81/50 L 112/65 Pulse Oximetry 93 95 95 Oxygen Delivery Method Room Air Oxygen Flow Rate 0 Narrative Exam Narrative: General: Alert, inquisitive and pleasant female with a slight cough Lungs: Mild expiratory wheeze Heart: Irregularly irregular Abdomen: Soft Extremities: Severe edema extending up to the chest and also involving the arms Neurological: Alert, speech unimpaired, oriented to person and place Objective Labs Result Diagrams: 04/24/20 04:45 04/24/20 04:45 Labs: Laboratory Results - last 24 hr 04/23/20 04/23/20 04/23/20 13:05 13:40 13:40 WBC 4.8 RBC 4.25 Hgb 9.0 L Hct 29.3 L MCV 68.8 L MCH 21.2 L MCHC 30.8 RDW 22.3 H Plt Count 227 Neut % (Auto) Not Reportable Lymph % (Auto) Not Reportable [place] % (Auto) Not Reportable Eos % (Auto) Not Reportable Baso % (Auto) Not Reportable Lymph # (Auto) Not Reportable [place] # (Auto) Not Reportable Baso # (Auto) Not Reportable Total Counted 100 Seg Neutrophils % 78.0 H Lymphocytes % (Manual) 8.0 L Monocytes % (Manual) 14.0 H Eosinophils % (Manual) Basophils % (Manual) Neutrophils # (Manual) 3744 Nucleated RBCs RBC Morphology Not Reportable Hypochromasia 2+ H Poikilocytosis 2+ H Anisocytosis 2+ H Microcytosis Target Cells 2+ H Sodium 136 L Potassium 3.8 Chloride 98 Carbon Dioxide 27 BUN 41 H Creatinine 2.01 H Estimated GFR 23.6 L BUN/Creatinine Ratio 20.4 Glucose 143 H Calcium 9.9 Magnesium Iron TIBC % Saturation Transferrin Total Bilirubin 1.0 AST 20 ALT 11 Alkaline Phosphatase 80 Total Creatine Kinase CK-MB (CK-2) CK-MB (CK-2) Rel Index Troponin I 0.041 H NT-Pro-B Natriuret Pep Total Protein 6.1 L Albumin 3.5 Globulin 2.6 Albumin/Globulin Ratio 1.3 TSH Free T4 Urine Color Urine Appearance Urine pH Ur Specific [place] Urine Protein Urine Glucose (UA) Urine Ketones Urine Occult Blood Urine Nitrate Urine Bilirubin Urine Urobilinogen Ur Leukocyte Esterase Urine RBC Urine WBC Ur Squamous Epith Cells Ur Renal Epithelial Cell Amorphous Sediment Urine Bacteria Urine Mucus Ur Culture Indicated? Nasal Screen MRSA (PCR) COVID-19 PCR Negative Blood Type Antibody Screen 04/23/20 04/23/20 04/23/20 13:40 13:40 13:40 WBC RBC Hgb Hct MCV MCH MCHC RDW Plt Count Neut % (Auto) Lymph % (Auto) [place] % (Auto) Eos % (Auto) Baso % (Auto) Lymph # (Auto) [place] # (Auto) Baso # (Auto) Total Counted Seg Neutrophils % Lymphocytes % (Manual) Monocytes % (Manual) Eosinophils % (Manual) Basophils % (Manual) Neutrophils # (Manual) Nucleated RBCs RBC Morphology Hypochromasia Poikilocytosis Anisocytosis Microcytosis Target Cells Sodium Potassium Chloride Carbon Dioxide BUN Creatinine Estimated GFR BUN/Creatinine Ratio Glucose Calcium Magnesium 2.1 Iron TIBC % Saturation Transferrin Total Bilirubin AST ALT Alkaline Phosphatase Total Creatine Kinase CK-MB (CK-2) CK-MB (CK-2) Rel Index Troponin I NT-Pro-B Natriuret Pep 46276 H Total Protein Albumin Globulin Albumin/Globulin Ratio TSH Free T4 Urine Color Urine Appearance Urine pH Ur Specific [place] Urine Protein Urine Glucose (UA) Urine Ketones Urine Occult Blood Urine Nitrate Urine Bilirubin Urine Urobilinogen Ur Leukocyte Esterase Urine RBC Urine WBC Ur Squamous Epith Cells Ur Renal Epithelial Cell Amorphous Sediment Urine Bacteria Urine Mucus Ur Culture Indicated? Nasal Screen MRSA (PCR) COVID-19 PCR Blood Type A Positive Antibody Screen Negative 04/23/20 04/24/20 04/24/20 15:05 04:45 04:45 WBC 4.2 L RBC 4.05 Hgb 8.6 L Hct 27.7 L MCV 68.4 L MCH 21.1 L MCHC 30.9 RDW 22.4 H Plt Count 207 Neut % (Auto) Not Reportable Lymph % (Auto) Not Reportable [place] % (Auto) Not Reportable Eos % (Auto) Not Reportable Baso % (Auto) Not Reportable Lymph # (Auto) Not Reportable [place] # (Auto) Not Reportable Baso # (Auto) Not Reportable Total Counted 100 Seg Neutrophils % 79.0 H Lymphocytes % (Manual) 9.0 L Monocytes % (Manual) 5.0 Eosinophils % (Manual) 5.0 H Basophils % (Manual) 2.0 H Neutrophils # (Manual) 3318 Nucleated RBCs 3 H RBC Morphology See below Hypochromasia 2+ H Poikilocytosis Anisocytosis 3+ H Microcytosis 1+ H Target Cells Sodium 136 L Potassium 3.8 Chloride 98 Carbon Dioxide 29 BUN 41 H Creatinine 1.87 H Estimated GFR 25.7 L BUN/Creatinine Ratio 21.9 Glucose 87 Calcium 9.7 Magnesium Iron TIBC % Saturation Transferrin Total Bilirubin AST ALT Alkaline Phosphatase Total Creatine Kinase CK-MB (CK-2) CK-MB (CK-2) Rel Index Troponin I NT-Pro-B Natriuret Pep Total Protein Albumin Globulin Albumin/Globulin Ratio TSH Free T4 Urine Color Yellow Urine Appearance Clear Urine pH 5.0 Ur Specific [place] 1.015 Urine Protein Negative Urine Glucose (UA) Negative Urine Ketones Negative Urine Occult Blood Negative Urine Nitrate Negative Urine Bilirubin Negative Urine Urobilinogen 0.2 Ur Leukocyte Esterase 1+ H Urine RBC None seen Urine WBC 10-30/hpf H Ur Squamous Epith Cells 1-5 /hpf Ur Renal Epithelial Cell 1-5/hpf H Amorphous Sediment 1+ Urine Bacteria Occasional (0-1) Urine Mucus 1+ H Ur Culture Indicated? Specimen cultured Nasal Screen MRSA (PCR) COVID-19 PCR Blood Type Antibody Screen 04/24/20 04/24/20 04/24/20 04:45 04:45 04:45 WBC RBC Hgb Hct MCV MCH MCHC RDW Plt Count Neut % (Auto) Lymph % (Auto) [place] % (Auto) Eos % (Auto) Baso % (Auto) Lymph # (Auto) [place] # (Auto) Baso # (Auto) Total Counted Seg Neutrophils % Lymphocytes % (Manual) Monocytes % (Manual) Eosinophils % (Manual) Basophils % (Manual) Neutrophils # (Manual) Nucleated RBCs RBC Morphology Hypochromasia Poikilocytosis Anisocytosis Microcytosis Target Cells Sodium Potassium Chloride Carbon Dioxide BUN Creatinine Estimated GFR BUN/Creatinine Ratio Glucose Calcium Magnesium Iron 31 L TIBC 381 % Saturation 8 L Transferrin 288 Total Bilirubin AST ALT Alkaline Phosphatase Total Creatine Kinase < 20 L CK-MB (CK-2) TNP CK-MB (CK-2) Rel Index TNP Troponin I 0.034 NT-Pro-B Natriuret Pep Total Protein Albumin Globulin Albumin/Globulin Ratio TSH 7.46 H Free T4 1.53 Urine Color Urine Appearance Urine pH Ur Specific [place] Urine Protein Urine Glucose (UA) Urine Ketones Urine Occult Blood Urine Nitrate Urine Bilirubin Urine Urobilinogen Ur Leukocyte Esterase Urine RBC Urine WBC Ur Squamous Epith Cells Ur Renal Epithelial Cell Amorphous Sediment Urine Bacteria Urine Mucus Ur Culture Indicated? Nasal Screen MRSA (PCR) COVID-19 PCR Blood Type Antibody Screen 04/24/20 06:17 WBC RBC Hgb Hct MCV MCH MCHC RDW Plt Count Neut % (Auto) Lymph % (Auto) [place] % (Auto) Eos % (Auto) Baso % (Auto) Lymph # (Auto) [place] # (Auto) Baso # (Auto) Total Counted Seg Neutrophils % Lymphocytes % (Manual) Monocytes % (Manual) Eosinophils % (Manual) Basophils % (Manual) Neutrophils # (Manual) Nucleated RBCs RBC Morphology Hypochromasia Poikilocytosis Anisocytosis Microcytosis Target Cells Sodium Potassium Chloride Carbon Dioxide BUN Creatinine Estimated GFR BUN/Creatinine Ratio Glucose Calcium Magnesium Iron TIBC % Saturation Transferrin Total Bilirubin AST ALT Alkaline Phosphatase Total Creatine Kinase CK-MB (CK-2) CK-MB (CK-2) Rel Index Troponin I NT-Pro-B Natriuret Pep Total Protein Albumin Globulin Albumin/Globulin Ratio TSH Free T4 Urine Color Urine Appearance Urine pH Ur Specific [place] Urine Protein Urine Glucose (UA) Urine Ketones Urine Occult Blood Urine Nitrate Urine Bilirubin Urine Urobilinogen Ur Leukocyte Esterase Urine RBC Urine WBC Ur Squamous Epith Cells Ur Renal Epithelial Cell Amorphous Sediment Urine Bacteria Urine Mucus Ur Culture Indicated? 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 1. Chronic heart failure with preserved EF, with cor pulmonale, present on admission, active -patient presents with anasarca -patient with history heart failure with preserved ejection fraction identified on echocardiogram dated 11/24/2019. EF at that time was 60-65% with severely dilated right ventricle with normal right ventricular systolic function. Moderately dilated left atrium severely dilated right atrium with mild mitral regurgitation and severe tricuspid regurgitation. Right ventricular systolic pressure is estimated be 56 mm of mercury based on estimated right atrial pressure of 15 mm of mercury. -patient has been on torsemide 20 mg daily but has sustained progressive weight gain, 50 lb in the last 6 months of which 30 within the last 1 month. Patient with associated symptoms of dyspnea and orthopnea. -patient received Lasix 60 mg IV in the emergency department with modest diuresis with no significant change in subjective complaints of dyspnea. -case discussed with Dr. Cook, cardiology regarding management of anasarca in the setting of the above mentioned echocardiogram reflective of cor pulmonale. Noted the patient has chronically low blood pressures and wish to avoid int ermittent bolusing, suggested Lasix infusion with which he concurred with the addition of low-dose dopamine or dobutamine if diuresis is ineffective. -continue Lasix 10 mg per hour continuous infusion. Consider increase dose if needed. -ordered repeat echo 2. Acute kidney injury superimposed on chronic kidney disease stage 3, present on admission, active -patient has a creatinine 2.01 on admission labs. Most recent previous creatinine was 1.17 on 10/07/2019 with an EGFR of 44.2. -the patient has been taking torsemide 20 mg daily -renal function improving with diuresis -avoid renal toxic agents and renally dose medications as indicated. 3. Chronic iron deficiency anemia, present on admission, active. -hemoglobin on admission is 9.0 with hematocrit of 29.3. Patient with chronic anemia since June of 2019. -MCV is 68.8 and MCH is 21.2. MCV was 91.7 and MCH was 30 on 10/08/2019. -iron profile consistent with iron deficiency with transferrin saturation 8% -patient is not on any blood thinners -continue monitoring as needed -continue patient's pantoprazole 40 mg daily 4. Troponin leak, present on admission, resolved -no complaints of chest pain or nausea -initial troponin 0.041, repeat troponin 0.034 -elevated troponin does not represent acute ischemia 5. Chronic atrial fibrillation, present on admission, stable. -patient with stable heart rate in the 70s to 80s. -telemetry reveals atrial fibrillation without ectopy. -patient was previously on Eliquis which was discontinued due to frequency of falls. 6. Right breast cancer with metastases to the right axillary lymph nodes, chronic, stable -patient underwent mastectomy in May of 2019. -the patient sustained injury with cellulitis to her left lower limb preventing initiation of chemotherapy. -since starting anti anti hormonal therapy, the patient has had progressive weakness and dizziness and treatment discontinued. -the patient was under the care of in [place] and transitioned to [facility]. 7. Dementia, chronic, stable. -patient has undergone extensive evaluation and found to have acute onset dementia. The patient is oriented to person and place with impaired short-term memory and perseveration. -the patient has been residing at [facility] since . -continue home regimen of Namenda 5 mg twice daily 8. Acquired hypothyroidism, chronic, stable -continue the patient's home regimen of levothyroxine 100 mcg daily. -TSH 7.46 with free T4 1.53, mildly elevated TSH likely due to poor absorption secondary to bowel wall edema, no change in dose indicated VTE prophylaxis: Heparin SQ IV fluid: Saline lock, Lasix infusion Diet: Heart healthy, low-sodium, fluid restriction Code status: DNR, patient's daughter Dr. Nichol Walker is her POA and surrogate decision maker.
[2020-04-24] MEDS: LEVOTHYROXINE 100 MCG TABLET PO (09:26)
[2020-04-24] MEDS: HEPARIN 5,000 UNIT/ML VIAL 5000 UNIT SUBCUT ×2 (09:26→20:41)
[2020-04-24] MEDS: DOCUSATE 100 MG CAPSULE PO (09:26)
[2020-04-24] MEDS: MEMANTINE HCL 5 MG TABLET PO ×2 (09:27→20:42)
[2020-04-24] MEDS: PANTOPRAZOLE 40 MG TABLET PO (09:27)
--- NOTE | 2020-04-24 10:22 | OT.IP.EVAL ---
Past Medical History (Last Reviewed 04/23/20 @ 14:15 by Keeley Yancey MD) (HFpEF) heart failure with preserved ejection fraction (Acute) Bilateral lower extremity edema (Inactive) Breast cancer metastasized to axillary lymph node (Acute) Chronic atrial fibrillation (Acute) Hypothyroidism (Acute) Osteoarthritis (Acute) Surgical History (Last Updated 04/24/20 @ 03:22 by WILL Lucas) History of appendectomy (Acute) History of right mastectomy (Acute) History of tonsillectomy (Acute) History of vascular access device (Acute) Occupational Therapy Inpatient Evaluation/Re-Eval M1 PT/OT-IP Prior Functional Status Start: 04/24/20 12:39 Freq: NEEDED Status: Active Protocol: Document 04/24/20 16:22 CGR (Rec: 04/24/20 16:37 CGR [email or web address]) Medical Review Prior Functional Status Medical History Reviewed Yes Communication able to make needs known but with is JENA Mobility and Gait pt stated that she is modified independent with all mobilities and ambualtion using 4WW Activities of Daily Living and IADL's needs assistance with medication management Social History Household Members none Living Arrangements Jail Facility Number of Floors (Floors) One Floor Number of Stairs To Enter/Railing? Lives at [facility] Home Environment Standard Height Toilet,Walk in Shower,Built-In Shower Seat Home Equipment Four Wheel Walker,Hand Held Shower,Lift Recliner,Hospital Bed,Grab Bars Near Toilet,Grab Bars In Shower Additional Social History Comment has a hospital bed with bilateral rails but stated that she has been sleeping on her lift recliner M2 OT-IP Current Condition Start: 04/24/20 16:22 Freq: Status: Active Protocol: Document 04/24/20 16:22 CGR (Rec: 04/24/20 16:37 CGR [email or web address]) Occupational Therapy Current Condition Current Condition Evaluation Date 04/24/20 Treatment Diagnosis CHF exacerbation Diagnosis Onset Date 04/23/20 M3 OT- IP Subjective and Pain Start: 04/24/20 16:22 Freq: Status: Active Protocol: Document 04/24/20 16:22 CGR (Rec: 04/24/20 16:37 CGR [email or web address]) OT- Subjective Occupational Therapy Visit Type Type Initial Evaluation Visit Start Time 09:56 Visit Stop Time 10:22 Total Visit Minutes 26 Notes BP: Supine 99/58 Sitting 57/28 return to supine 103/64 Occupational Therapy Visit Comments Patient Comments I think I can't do anything. OT Pain Assessment Pain When Pain Assessed At Rest Pain Present Pain Present Denied Pain M4 OT- IP ADL's Start: 04/24/20 16:22 Freq: Status: Active Protocol: Document 04/24/20 16:22 CGR (Rec: 04/24/20 16:37 CGR [email or web address]) OT [id number] Comments OT Self-Feeding Comments not meal time OT ADL-Grooming Comments OT Grooming Comments not performed OT ADL-Oral Care Comments Oral Care Comments not performed OT ADL-Dressing Comments OT Dressing Comments not performed OT ADL-Toileting General Evaluation Toileting Ability Total Assistance Comments OT Toileting Comments pt with pulido OT ADL-Bathing Comments OT Bathing Comments not performed M5 OT- IP IADL's Start: 04/24/20 16:22 Freq: Status: Active Protocol: Document 04/24/20 16:22 CGR (Rec: 04/24/20 16:37 CGR [email or web address]) OT-Instrumental Activities of Daily Living Deficits IADL Deficits Identified Deficits Home Safety Awareness Awareness of Need for Assistance at Home Decreased Awareness Ability to Problem Solve Emergency Unable to Problem Solve Situations Medication Management Medication Management Caregiver Administers Money Management Money Management Caregiver Provides Assistance Meal Preparation Meal Preparation Caregiver Provides Assist Airline Pilot/First Officer Airline Pilot/First Officer Caregiver Provides Assist Driving Driving Comments pt does not drive M6 OT- IP Functional Cognition Start: 04/24/20 16:22 Freq: Status: Active Protocol: Document 04/24/20 16:22 CGR (Rec: 04/24/20 16:37 CGR [email or web address]) Cognitive Factors Limiting Selfcare Function Cognitive Ability Level of Alertness Alert,Confusional State Patient Orientation Name,Year,Place,Situation Attention Span Ability Capable of Focused Attention, Unable to Sustain Attention Ability to Follow Commands Able to Follow One Step Commands with Increased Time, Able to Follow One Step Commands with Repetition Memory Description Immediate Impaired,Short Term Impaired,Weight Tester Intact, Working Impaired Cognitive Comments Cognitive Assessment Comments Pt appears slightly more confused than at last session with this life insurance underwriter. OT- Vision and Hearing OT- Hearing Assessment OT- Hearing Assessment Hearing Impaired OT- Vision Assessment Visual Acuity Glasses All The Time Visual Attentiveness WFL Occular Pursuits WFL Visual Convergence WFL M7 OT- IP Mobility and Balance Start: 04/24/20 16:22 Freq: Status: Active Protocol: Document 04/24/20 16:22 CGR (Rec: 04/24/20 16:37 CGR [email or web address]) OT- Bed Mobility Assessment Rolling Type of Rolling Roll to Left Level of Assistance Maximum Assistance,1 Person Assistance Supine to Sit Supine to Sit Assist Maximum Assistance,1 Person Assistance,Head of Bed Elevated,Bedrails Sit to Supine Sit to Supine Assist Maximum Assistance,2 Person Assistance Scooting Scooting to Edge of Bed Maximum Assistance,1 Person Assistance Scooting Up and Down in Bed Maximum Assistance,2 Person Assistance OT-Transfer Assessment Comments Mobility Comments Unable to attempt mobility d/t low bp OT- Balance Assessment Sitting Balance and Reactions Static Sitting Balance Ability Fair Dynamic Sitting Balance Ability Poor M8 OT- IP Objective Assessments Start: 04/24/20 16:22 Freq: Status: Active Protocol: Document 04/24/20 16:22 CGR (Rec: 04/24/20 16:37 CGR [email or web address]) OT Gross Range of Motion Upper Extremity Range of Motion ROM Impairments Pt with significant swelling and discomfort OT Strength Comments Strength Comments Not tested at eval d/t fatigue and pt's low bp OT- Coordination Assessment Upper Extremity Finger to Nose Test Within Functional Limits Finger Tapping Test Within Functional Limits OT Sensation Assessment Edema Edema Present Edema Comments BUE are signifcantly swollen with 4+ pitting edema M9 OT- IP Assessment and Plan Start: 04/24/20 16:22 Freq: Status: Active Protocol: Document 04/24/20 16:22 CGR (Rec: 04/24/20 16:37 CGR [email or web address]) OT Summary Assessment and Plan Potential Rehabilitation Potential Fair Analytic Complexity at Evaluation Moderate Summary OT Impairments Range of Motion,Strength, Balance,Functional Cognition, Functional Mobility,Grooming, Dressing,Toileting,Bathing, Toilet Transfers,Shower Transfers,Activity Tolerance Progress Towards Goals Slow Progress due to Medical Issues Assessment Summary Pt presents as a moderate complexity evaluation s/p admission with CHF exacerbation. Pt is significantly debilitated at this time and limited by her blood pressure. Pt will benefit from further OT services. Recommend d/c to SNF at this time. Goals Grooming Goal Independent Dressing Goal Independent Toileting Goal Independent Bathing Goal Independent Toilet Transfer Goal Independent Shower Transfer Goal Independent Days to Meet Goals 5 Frequency of Treatment Frequency Of Treatment Once a Day Treatment Plan OT Treatment Plan ADL Training,Functional Cognition Training,Functional Mobility,Patient/Family Education,Discharge Planning Other Treatment Recommendations and Next if pt is able to tolerate Treatment Focus sitting then ADLs seated. Discharge Recommendations OT Discharge Recommendations SNF Rehab Transportation Needs at Discharge Wheelchair/Cabulance
--- NOTE | 2020-04-24 11:05 | PT.IPTN ---
Physical Therapy Treatment Note M3 PT-IP Subjective Start: 04/24/20 12:39 Freq: NEEDED Status: Active Protocol: Document 04/24/20 11:05 AB (Rec: 04/24/20 12:43 AB [id number]) Subjective Physical Therapy Visit Type Type Administrative Note Notes Nurse stated that they sat the pt on EOB and BP decreased to 50s systolic. nurse checked pt's BP again prior to PT and is 82/55. hold PT this morning. Obtained PLOF and home set up from pt and daughter. will f/u later this afternoon.
--- NOTE | 2020-04-24 11:07 | CM.DANOTE ---
Addendum entered by SHERRIE Moscoso 04/24/20 15:06: ADD: SW missed Dtr who was bedside earlier. Per PT, attempted to eval pt twice today but due to pt's bp and then refusal due to feeling too fatigued, PT was unable to eval pt today. OT was able to get pt up to bedside to get bp reading. Per PT, pt resides at [facility] in [place]. SW called [facility] ([phone]) and confirmed pt is a resident on their Assisted side but confirmed pt only gets med assist and is otherwise independent. No RN available on the weekends to assess if pt can return or SNF needed and SW updated pt likely not ready for d/c for a few days. [facility] declines any clinicals faxed yet at this time until closer to d/c. Plan: SW to follow Sunday with RN from [facility] after pt able to work with PT/OT towards determining returning to [facility] vs SNF at d/c. SHERRIE Moscoso Original Note: Patient is an 84 year old female who was admitted on 04/23/20 for Weakness and Swelling. Pt has M[place] and [place] for insurance and her PCP is Dr. Dylan Loja. EMR was reviewed. Per MD, pt with hx of dementia, breast cancer, mastectomy, CHF and here for dieuresis and likely here a few days. Echo ordered and pending. PT/OT ordered and pending. SW met bedside with pt briefly and pt somewhat [place] and explained role and pt aware that she will likely be in the hospital for a few days before being stable for discharge. Pt was last admitted to [facility] in September 2019 and was living at home with adult Dtr who relapsed and almost went to SNF at d/c but was able to safely d/c home with family assist and [facility]. Pt's other adult Dtr is an Ortho MD locally and has been involved in pt's care. Pt confirms that she has become increasingly weak and needing more assistance with ambulation and ADL's due to her heart failure and fluid weight gain. Per MD, pt may now reside at [facility] but unclear at this time. SW to contact family and speak further with pt regarding living situation and possible need for increased care/SNF at d/c pending PT/OT eval. Plan: SW to follow closely after PT/OT eval and further discussion with pt and family regarding d/c planning needs. SHERRIE Moscoso Discharge Planning/Care Management CM Discharge Assessment Start: 04/24/20 11:03 Freq: Status: Active Protocol: Document 04/24/20 11:03 BF (Rec: 04/24/20 11:07 BF [id number]) Discharge Planning Assessment Assigned Portable Irrigation Operator SHERRIE Johnson Advance Directives? Yes Advance Directives on File No History Provided By Patient,Medical Record Has Patient been admitted in last 30 No days? Prior Living Arrangements Alf Facility Household Members none Type of transporation used prior to Relies on Others admit Willing to Return to Facility? Yes Independent with ADL's No Is patient alert and oriented? Yes: somewhat Needs Assistance With Meal Prep,Managing Medications ,Home Chores / Shopping Caregiver for Another No Patient/Family Preference [facility] Facility Comment Pending PT/OT eval and recommendations Discharge Plan [facility] Facility Transportation Arrangement If SNF, then facility van Additional Comment Waiting for PT/OT eval and recommendations Whiteboard Updated in Patient Room with Yes name and ext. # of Portable Irrigation Operator Review Status In Process Please Provide Date Initial DC 04/24/20 Assessment Was Performed Next Review Type Continued Stay Review
--- NOTE | 2020-04-24 12:08 | PC.NURSE ---
Dayshift Note: Pt remains on lasix gtts, running at 10 mg/hr. Pt with pulido in place, urine clear and yellow, moderate volume. Pt remains on RA, SPO2 97%. Intermittent wheezing with exertion, pt is unable to lay flat comfortably, complains of SOB. SOB with exertion. Pt remains with SBP high 70s-110. One episode of SBP 50s after sitting on edge of bed with OT, resolved to SBP 100s after laying flat for less than a minute. Pt tolerating heart healthy diet, on po fluid restriction. Will continue to monitor, notify MD with changes.
[2020-04-24] MEDS: DEXTROSE 5% WATER 500 ML 21 ML IV (12:37)
--- NOTE | 2020-04-24 13:04 | DI.ECHO.S_ITS ---
Echocardiogram Report + + :Name: CHRIS CRAWFORD Study Date: 04/24/2020 Height: 62 in : :[facility] Exam Location: [facility] Weight: 190 lb: : Gender: Female BSA: 1.9 m2 : :: 1935 Age: 84 yrs BP: 93/64 mmHg: :Reason For Study: Chronic heart failure/ Cor pulmonale/ : :isis : :Ordering Physician: Luis : :Hospitalist Performed By: Kayce Page : :Referring: MERCEDEZ NEVAREZ : + + Interpretation Summary 1. Normal LV systolic function and wall motion. The LV cavity is small. (LVEF 60%) 2. RV is severely dilated with bowing of the interventricular septum to the left consistent with right ventricular pressure/volume overload. 3. Severe biatrial enlargement. 4. Moderate to severe mitral annular calcification with associated trivial regurgitation. 5. The aortic valve is trileaflet and mildly sclerotic. No evidence of significant regurgitation/stenosis. 6. Severe tricuspid regurgitation due to tricuspid annular dilated Tatian and mall coaptation. 7. Elevated right heart pressures with an estimated right atrial pressure of 15 mmHg (IVC is dilated and does not collapse with sniff. 8. No evidence of a pericardial effusion. 9. Evidence of small to moderate bilateral pleural effusions Procedure: A two-dimensional transthoracic echocardiogram with color flow and Doppler was performed. The study quality was technically adequate. Comparison is made with the echocardiogram of 11/24/2019. The heart rate ranged between 77-90 bpm during the study. Left Ventricle: The left ventricular cavity is small. There is normal left ventricular wall thickness. The ejection fraction is estimated to be 60-65%. The interventricular septum is flattened, consistent with a right ventricular pressure/volume condition. There are no focal wall motion abnormalities. Right Ventricle: The right ventricle is severely dilated. Atria: Both atria are severely dilated. The left atrium has significantly increased in size since the prior echo exam. The right atrium has markedly increased in size since the prior echo exam. There is no Doppler evidence for an interatrial shunt. Mitral Valve: The mitral valve leaflets appear mildly thickened, but open well. There is moderate to severe mitral annular calcification. There is trace mitral regurgitation. Aortic Valve: The aortic valve is trileaflet. The aortic valve opens well. The aortic valve is slightly calcified. No aortic regurgitation is present. Tricuspid Valve: The tricuspid valve leaflets are thin and pliable. Severe tricuspid regurgitation, due to dilate tricuspid annulas and malcoaptation of tricuspid valve leaflets. The right ventricular systolic pressure is estimated to be at least 46 mmHg based on an estimated right atrial pressure of 15 mm Hg. The RVSP can not be accurately assessed do to the severely of the TR. Pulmonic Valve: The pulmonic valve is not well visualized. There is trace pulmonic regurgitation. Great Vessels: The aortic root is normal size. The ascending aorta is normal in size. The pulmonary artery is not well visualized, but is probably normal size. The IVC is dilated (diameter is greater than 2.1 cm) and it collapses less than 50% with a sniff. This suggests a high right atrial pressure of 15 mm Hg. Pericardium/ Pleura There is no pericardial effusion. There is a moderate left-sided pleural effusion. There is a small right-sided pleural effusion. MMode/2D Measurements & Calculations LVIDd: 3.2 cm LVOT diam: 1.8 cm LVIDs: 2.1 cm Ao root diam: 3.1 cm FS: 34.1 % asc Aorta Diam: 3.3 cm IVSd: 0.78 cm LVPWd: 0.65 cm LV andres. diameter/BSA (cm/m^2): 1.7 LV sys. diameter/BSA (cm/m^2): 1.1 LA A2 area: 35.7 cm2 RA long axis: 7.2 cm LA A4 area: 30.1 cm2 RA area: 42.6 cm2 LA length (vol): 7.3 cm RA vol: 214.3 ml LA vol: 124.5 ml RA : 114.6 ml/m2 LA vol index: 66.6 ml/m2 IVC diam: 2.6 cm RVD1 (basal): 5.4 cm TAPSE: 1.0 cm Doppler Measurements & Calculations Ao V2 max: 86.4 cm/sec LVOT Max Tavo: 60.9 cm/sec Ao V2 mean: 58.9 cm/sec LV V1 max P.5 mmHg Ao max P.0 mmHg LV V1 VTI: 9.8 cm Ao mean P.6 mmHg BEL(I,D): 1.9 cm2 Ao V2 VTI: 12.7 cm BEL(V,D): 1.7 cm2 sev ratio: 0.78 BEL indexed to BSA (cm^2/m^2): 1.0 MV E max tavo: 96.7 cm/sec TR max tavo: 278.3 cm/sec MV A max tavo: 27.1 cm/sec TR max P.0 mmHg MV E/A: 3.6 PA V2 max: 56.7 cm/sec Med Peak E' Tavo: 6.2 cm/sec PA V2 mean: 33.9 cm/sec E/E' med: 15.6 PA mean P.55 mmHg Lat Peak E' Tvao: 8.4 cm/sec PA Accel Time: 0.07 sec E/E' lat: 11.5 E/e' average: 13.5 MV P1/2t: 47.5 msec MV P1/2t max tavo: 96.7 cm/sec SV(LVOT): 23.8 ml MVA(P1/2t): 4.6 cm2 Reading Physician:03:44 PM
--- NOTE | 2020-04-24 14:29 | PT-IP ANOTE ---
checked on pt and pt refused PT. stated that she is just tired but will do PT tomorrow. attempted to get BP reading but nurse has to get another BP cuff. last BP reading on monitor: 93/64.
[2020-04-24] MEDS: SODIUM CHLORIDE 0.9% IV ×2 (14:45→19:48)
[2020-04-24] MEDS: FUROSEMIDE IV ×2 (14:45→19:48)
[2020-04-24 22:48] LABS: BUN Creatinine Ratio 23.7 (6-22); Blood Urea Nitrogen 41 mg/dL (7-17); Calcium 9.5 mg/dL (8.4-10.2); Carbon Dioxide 30 mmol/L (22-32); Chloride 97 mmol/L (98-107); Estimated Glomerular Filt Rate 28.1 mL/min (>60); Glucose 128 mg/dL (80-110); HEMOLYSIS < 15 (0-50); Potassium 3.6 mmol/L (3.4-5.1); Sodium 135 mmol/L (137-145)
[2020-04-25] VITALS (8 sets, daily range): BP systolic 83–107; BP diastolic 53–80; PULSE 81–89; RESP 14–20; TEMP 36.4–37.5; O2SAT 95–98
[2020-04-25] MEDS: SODIUM CHLORIDE 0.9% IV ×5 (01:05→21:52)
[2020-04-25] MEDS: FUROSEMIDE IV ×5 (01:05→21:52)
[2020-04-25 04:46] LABS: BUN Creatinine Ratio 21.5 (6-22); Blood Urea Nitrogen 38 mg/dL (7-17); Calcium 9.5 mg/dL (8.4-10.2); Carbon Dioxide 33 mmol/L (22-32); Chloride 96 mmol/L (98-107); Estimated Glomerular Filt Rate 27.3 mL/min (>60); Glucose 109 mg/dL (80-110); HEMOLYSIS < 15 (0-50); Potassium 3.4 mmol/L (3.4-5.1); Sodium 135 mmol/L (137-145)
[2020-04-25] MEDS: NYSTATIN POWDER 15GM 1 APPLIC TOP (05:10)
[2020-04-25] MEDS: LEVOTHYROXINE 100 MCG TABLET PO (08:00)
[2020-04-25] MEDS: MEMANTINE HCL 5 MG TABLET PO ×2 (08:00→20:49)
[2020-04-25] MEDS: HEPARIN 5,000 UNIT/ML VIAL 5000 UNIT SUBCUT ×2 (08:40→20:49)
[2020-04-25] MEDS: PANTOPRAZOLE 40 MG TABLET PO (08:41)
[2020-04-25] MEDS: DOCUSATE 100 MG CAPSULE PO (08:41)
[2020-04-25] MEDS: POTASSIUM CHLORIDE 20 MEQ TAB 40 MEQ PO (08:43)
[2020-04-25] MEDS: BENZOCAINE/MENTHOL 1 LOZ PKT 1 EACH PO (08:52)
--- NOTE | 2020-04-25 10:33 | CM.DPC ---
DCP Cont: Per MD, pt continues to have some fluid off-loading and will likely take many days due to pt's Heart Failure and BP. Per PT, will attempt again today to complete initial eval and recommendations. SW met bedside with pt and adult Dtr Dr. Nichol Walker and explained role and discussed the process that ALFs typically follow when a patient has been admitted to the hospital and is close to discharge to confirm that they can meet pt's needs for pt to safely return to [facility] vs possible need for SNF before return. Pt and Dtr confirm that pt has only resided at [facility] for about 6 weeks and therefore are new to the process of discharging from the hospital back to an POP. Dtr strongly encouraged pt to work with PT/OT even if you don't feel like you want to otherwise she may need SNF at d/c. Pt is agreeable to work with PT/OT during the course of her admission. Dtr has secured a bedside commode for the pt in her [facility] apt now and has ordered a lightweight w/c to use after discharge. Dtr Dr. Walker is headed out on a prescheduled fishing trip starting tomorrow 04/26/20-Sun04/30/20 but can receive phone messages if needed and her sister/pt's other adult Dtr Calvinjulio ([phone]) will be local and able to be available for coordination if needed (although Tolu has long ETOH hx with relapses as well). Plan: SW to follow closely for pt's progress with PT/OT this week towards coordination with [facility] to determine if pt can return at d/c vs SNF. [facility] will need to do assessment prior to pt return. SHERRIE Moscoso
--- NOTE | 2020-04-25 10:46 | PT.IIE ---
Current Diagnoses Chronic diastolic (congestive) heart failure (04/23/20) Surgical History (Last Updated 04/24/20 @ 03:22 by WILL Lucas) History of appendectomy (Acute) History of right mastectomy (Acute) History of tonsillectomy (Acute) History of vascular access device (Acute) Medical History (Last Reviewed 04/23/20 @ 14:15 by Keeley Yancey MD) (HFpEF) heart failure with preserved ejection fraction (Acute) Bilateral lower extremity edema (Inactive) Breast cancer metastasized to axillary lymph node (Acute) Chronic atrial fibrillation (Acute) Hypothyroidism (Acute) Osteoarthritis (Acute) Physical Therapy Inpatient Evaluation/Re-Eval M1 PT/OT-IP Prior Functional Status Start: 04/24/20 12:39 Freq: NEEDED Status: Active Protocol: Document 04/25/20 10:46 AW (Rec: 04/25/20 13:04 AW [id number]) Medical Review Prior Functional Status Medical History Reviewed Yes Communication Able to make needs known but with is [place]. EMR mentions history of acute onset dementia. Mobility and Gait Pt stated that she is modified independent with all mobilities and ambulation using 4WW Activities of Daily Living and IADL's Needs assistance with medication management Social History Household Members none Living Arrangements Assisted Living Number of Floors (Floors) One Floor Number of Stairs To Enter/Railing? Lives in the memory care unit at [facility] Home Environment Standard Height Toilet,Walk in Shower,Built-In Shower Seat Home Equipment Four Wheel Walker,Hand Held Shower,Lift Recliner,Hospital Bed,Grab Bars Near Toilet,Grab Bars In Shower Additional Social History Comment Pt has two supportive daughters, Enedina and Nichol. She has a hospital bed with bilateral rails but stated that she has been sleeping on her lift recliner. M2 PT-IP Current Condition Start: 04/24/20 12:39 Freq: NEEDED Status: Active Protocol: Document 04/25/20 10:46 AW (Rec: 04/25/20 13:04 AW [id number]) Physical Therapy Current Condition Current Condition Evaluation Date 04/25/20 Treatment Diagnosis decompensated HF, anasarca, difficulty in walking Onset Date 04/23/20 Precautions Other Precautions R BRCA with mets to axilla; No BP right side M3 PT-IP Subjective Start: 04/24/20 12:39 Freq: NEEDED Status: Active Protocol: Document 04/25/20 10:46 AW (Rec: 04/25/20 13:04 AW [id number]) Subjective Physical Therapy Visit Type Type Initial Evaluation Visit Start Time 10:24 Visit Stop Time 10:46 Total Visit Minutes 22 Physical Therapy Visit Comments Patient Comments Pt is willing to participate with PT Patient Goals To return to POP Therapy Pain Assessment Pain When Pain Assessed During Mobility Pain Present Pain Present Denied Pain M4 PT-IP Mobility and Gait Start: 04/24/20 12:39 Freq: NEEDED Status: Active Protocol: Document 04/25/20 10:46 AW (Rec: 04/25/20 13:04 AW [id number]) PT-Bed Mobility Assessment Supine to Sit Supine to Sit Maximum Assistance,1 Person Assistance,Head of Bed Elevated,Bedrails Scooting Scooting to Edge of Bed Dependent Scooting Up and Down in Bed Dependent PT-Transfer Assessment Sit to and From Stand Sit to and from Stand Minimal Assistance,1 Person Assistance,Use of Upper Extremities Equipment Transfer Assistive Device Gait Belt,Front Wheeled Walker Transfers Transfer Destination Chair Transfer Technique pt ambulated with FWW Transfer Ability Level of Assist Minimal Assistance,1 Person Assistance,Use of Upper Extremities Comments Mobility Comments Pt agreed to mobilize with PT. She notes she sleeps in a lift recliner at home so has not needed to perform bed mobility in a long time. With HOB elevated ~75 degrees, pt required max A x 1 to move her legs toward the left side of the bed and and to turn her hips toward EOB using draw sheet. Sitting balance was poor with pt requiring use of bed rail on her left and bed cane on her right to maintain upright position. DESULPHURIZER OPERATOR arrived to assist with OOB mobility but pt required only min A x 1 to stand from the bed and to ambulate 10 feet to the chair with FWW. Gait was slow but steady with bilateral feet barely passing one another. Pt sat on the chair with poor control of descent requiring min A x 1. She was dependent for positioning and required assist to scoot herself back in the chair. Pt was happy to be up in the chair and asked Can I stay here until lunch time? She was positioned with legs elevated, heels floated, and warm blanket provided. BP was low but consistent with pt baseline SBP 90's/DBP high 50's. Pt was left with DESULPHURIZER OPERATOR attending. Gait Assessment Gait Gait Assistance Required: Minimum Assistance,1 Person Assist Distance (Feet) 10 Assistive Devices Assistive Device Gait Belt,Front Wheeled Walker Gait Deviations General Gait Pattern Decreased Stride Length, Decreased Feet Clearance, Flexed Trunk Factors Limiting Gait Function Factors Limiting Gait Function Decreased Activity Tolerance, Decreased Sensation,Decreased Strength,Difficulty Following Directions,Poor Balance,Poor Safety Awareness,Respiratory Distress Comments Gait Comments Transfer only. See mobility comments for details. Stair Climbing Assessment Comments Stair Climbing Comments Not assessed. No stairs at [facility] . PT-Balance Assessment Sitting Balance and Reactions Static Sitting Balance Ability Fair Dynamic Sitting Balance Ability Fair Standing Balance and Reactions Static Standing Balance Ability Fair Dynamic Standing Balance Ability Fair Device Used FWW M5 PT-IP Objective Assessments Start: 04/24/20 12:39 Freq: NEEDED Status: Active Protocol: Document 04/25/20 10:46 AW (Rec: 04/25/20 13:04 AW [id number]) Orientation Orientation/Cognition Level of Alertness Confusional State Orientation Name,Situation Safety Awareness Decreased Safety Awareness Memory Description Short Term Impaired Comments Pt has acute onset dementia and tends to repeat herself. She is aware of her situation and is able to participate in her care. Gross Range of Motion Lower Extremity ROM Impairments Limited ankle AROM due to BLE swelling Strength Lower Extremity Strength Assessment Bilaterally Impaired Hip 4-/5 Knee 4/5 Ankle 4-/5 Sensation Assessment Sensation Gross Sensation Right LE Impaired,Left LE Impaired Light Touch Impaired Proprioception (Position) Impaired Muscle Tone Muscle Tone WNL Yes M6 PT-IP Treatment Start: 04/24/20 12:39 Freq: NEEDED Status: Active Protocol: Document 04/25/20 10:46 AW (Rec: 04/25/20 13:04 AW [id number]) Physical Therapy Treatment Education Education Provided Precautions,Safety Other Treatments Other Treatment Performed Provided education on role of PT, plan of care, importance of continued mobility, and energy conservation techniques . M7 PT-IP Assessment and Plan Start: 04/24/20 12:39 Freq: NEEDED Status: Active Protocol: Document 04/25/20 10:46 AW (Rec: 04/25/20 13:04 AW [id number]) PT Summary Assessment and Plan Potential Rehabilitation Potential Fair Status of Condition at Evaluation Stable Summary Impairments ROM,Strength,Balance,Sensation ,Cognition,Bed Mobility, Transfers,Gait,Activity Tolerance Assessment Summary Margie is an 84 yo woman seen for PT evaluation after being admitted with decompensated heart failure, NADINE, and anasarca. She has complicated history including chronic low BP, right breast cancer ( surgery 05/2019) with metastases to right axilla, and acute onset dementia. Pt moved to a memory care unit at [facility] at the end of December 2019 where she has been modified independent with use of 4WW. On evaluation , pt required max assist for bed mobility but she sleeps in a lift recliner at baseline. Ambulation with FWW and transfers required min assist x 1. BP was low but stable. Pt was dyspneic with 10 feet ambulation with FWW. She will benefit from continued acute care PT to safely progress her mobility. PT anticipates she will be safe to return to her POP at discharge and may benefit from HH PT in that setting. If pt does not progress as anticipated, she will require SNF rehab before return to [facility] Goals Transfer Goal Standby Assistance,Four Wheeled Walker Gait Goal Standby Assistance,Four Wheel Walker Gait Distance 75 Days to Meet Goals 5 Frequency of Treatment Frequency Of Treatment Once a Day Treatment Plan Physical Therapy Treatment Plan Bed Mobility Training,Transfer Training,Gait Training, Therapeutic Exercise,Balance Retraining,Discharge Planning, Neuromuscular Re-ed Other Recommendations and Next Treatment transfers; progress gait as Focus tolerated; assess safety with 4WW as appropriate Recommendations To Nursing Amount of Assist Needed 1 Person Assist Discharge Recommendations PT Discharge Recommendations Home with Assistance,Home with 24/7 Assist,Home Health,SNF Rehab Other Discharge Recommendations POP with possible HH PT vs SNF depending on progress Transportation Needs at Discharge Wheelchair/Cabulance
--- NOTE | 2020-04-25 10:46 | PT.IIE ---
Current Diagnoses Chronic diastolic (congestive) heart failure (04/23/20) Surgical History (Last Updated 04/24/20 @ 03:22 by WILL Lucas) History of appendectomy (Acute) History of right mastectomy (Acute) History of tonsillectomy (Acute) History of vascular access device (Acute) Medical History (Last Reviewed 04/23/20 @ 14:15 by Keeley Yancey MD) (HFpEF) heart failure with preserved ejection fraction (Acute) Bilateral lower extremity edema (Inactive) Breast cancer metastasized to axillary lymph node (Acute) Chronic atrial fibrillation (Acute) Hypothyroidism (Acute) Osteoarthritis (Acute) Physical Therapy Inpatient Evaluation/Re-Eval M1 PT/OT-IP Prior Functional Status Start: 04/24/20 12:39 Freq: NEEDED Status: Active Protocol: Document 04/25/20 10:46 AW (Rec: 04/25/20 13:04 AW [id number]) Medical Review Prior Functional Status Medical History Reviewed Yes Communication Able to make needs known but with is [facility]. EMR mentions history of acute onset dementia. Mobility and Gait Pt stated that she is modified independent with all mobilities and ambulation using 4WW Activities of Daily Living and IADL's Needs assistance with medication management Social History Household Members none Living Arrangements Assisted Living Number of Floors (Floors) One Floor Number of Stairs To Enter/Railing? Lives in the memory care unit at [facility] Home Environment Standard Height Toilet,Walk in Shower,Built-In Shower Seat Home Equipment Four Wheel Walker,Hand Held Shower,Lift Recliner,Hospital Bed,Grab Bars Near Toilet,Grab Bars In Shower Additional Social History Comment Pt has two supportive daughters, Enedina and Nichol. She has a hospital bed with bilateral rails but stated that she has been sleeping on her lift recliner. M2 PT-IP Current Condition Start: 04/24/20 12:39 Freq: NEEDED Status: Active Protocol: Document 04/25/20 10:46 AW (Rec: 04/25/20 13:04 AW [id number]) Physical Therapy Current Condition Current Condition Evaluation Date 04/25/20 Treatment Diagnosis decompensated HF, anasarca, difficulty in walking Onset Date 04/23/20 Precautions Other Precautions R BRCA with mets to axilla; No BP right side M3 PT-IP Subjective Start: 04/24/20 12:39 Freq: NEEDED Status: Active Protocol: Document 04/25/20 10:46 AW (Rec: 04/25/20 13:04 AW [id number]) Subjective Physical Therapy Visit Type Type Initial Evaluation Visit Start Time 10:24 Visit Stop Time 10:46 Total Visit Minutes 22 Physical Therapy Visit Comments Patient Comments Pt is willing to participate with PT Patient Goals To return to POP Therapy Pain Assessment Pain When Pain Assessed During Mobility Pain Present Pain Present Denied Pain M4 PT-IP Mobility and Gait Start: 04/24/20 12:39 Freq: NEEDED Status: Active Protocol: Document 04/25/20 10:46 AW (Rec: 04/25/20 13:04 AW [id number]) PT-Bed Mobility Assessment Supine to Sit Supine to Sit Maximum Assistance,1 Person Assistance,Head of Bed Elevated,Bedrails Scooting Scooting to Edge of Bed Dependent Scooting Up and Down in Bed Dependent PT-Transfer Assessment Sit to and From Stand Sit to and from Stand Minimal Assistance,1 Person Assistance,Use of Upper Extremities Equipment Transfer Assistive Device Gait Belt,Front Wheeled Walker Transfers Transfer Destination Chair Transfer Technique pt ambulated with FWW Transfer Ability Level of Assist Minimal Assistance,1 Person Assistance,Use of Upper Extremities Comments Mobility Comments Pt agreed to mobilize with PT. She notes she sleeps in a lift recliner at home so has not needed to perform bed mobility in a long time. With HOB elevated ~75 degrees, pt required max A x 1 to move her legs toward the left side of the bed and and to turn her hips toward EOB using draw sheet. Sitting balance was poor with pt requiring use of bed rail on her left and bed cane on her right to maintain upright position. PROBATION MANAGER arrived to assist with OOB mobility but pt required only min A x 1 to stand from the bed and to ambulate 10 feet to the chair with FWW. Gait was slow but steady with bilateral feet barely passing one another. Pt sat on the chair with poor control of descent requiring min A x 1. She was dependent for positioning and required assist to scoot herself back in the chair. Pt was happy to be up in the chair and asked Can I stay here until lunch time? She was positioned with legs elevated, heels floated, and warm blanket provided. BP was low but consistent with pt baseline SBP 90's/DBP high 50's. Pt was left with PROBATION MANAGER attending. Gait Assessment Gait Gait Assistance Required: Minimum Assistance,1 Person Assist Distance (Feet) 10 Assistive Devices Assistive Device Gait Belt,Front Wheeled Walker Gait Deviations General Gait Pattern Decreased Stride Length, Decreased Feet Clearance, Flexed Trunk Factors Limiting Gait Function Factors Limiting Gait Function Decreased Activity Tolerance, Decreased Sensation,Decreased Strength,Difficulty Following Directions,Poor Balance,Poor Safety Awareness,Respiratory Distress Comments Gait Comments Transfer only. See mobility comments for details. Stair Climbing Assessment Comments Stair Climbing Comments Not assessed. No stairs at [facility] . PT-Balance Assessment Sitting Balance and Reactions Static Sitting Balance Ability Fair Dynamic Sitting Balance Ability Fair Standing Balance and Reactions Static Standing Balance Ability Fair Dynamic Standing Balance Ability Fair Device Used FWW M5 PT-IP Objective Assessments Start: 04/24/20 12:39 Freq: NEEDED Status: Active Protocol: Document 04/25/20 10:46 AW (Rec: 04/25/20 13:04 AW [id number]) Orientation Orientation/Cognition Level of Alertness Confusional State Orientation Name,Situation Safety Awareness Decreased Safety Awareness Memory Description Short Term Impaired Comments Pt has acute onset dementia and tends to repeat herself. She is aware of her situation and is able to participate in her care. Gross Range of Motion Lower Extremity ROM Impairments Limited ankle AROM due to BLE swelling Strength Lower Extremity Strength Assessment Bilaterally Impaired Hip 4-/5 Knee 4/5 Ankle 4-/5 Sensation Assessment Sensation Gross Sensation Right LE Impaired,Left LE Impaired Light Touch Impaired Proprioception (Position) Impaired Muscle Tone Muscle Tone WNL Yes M6 PT-IP Treatment Start: 04/24/20 12:39 Freq: NEEDED Status: Active Protocol: Document 04/25/20 10:46 AW (Rec: 04/25/20 13:04 AW [id number]) Physical Therapy Treatment Education Education Provided Precautions,Safety Other Treatments Other Treatment Performed Provided education on role of PT, plan of care, importance of continued mobility, and energy conservation techniques . M7 PT-IP Assessment and Plan Start: 04/24/20 12:39 Freq: NEEDED Status: Active Protocol: Document 04/25/20 10:46 AW (Rec: 04/25/20 13:04 AW [id number]) PT Summary Assessment and Plan Potential Rehabilitation Potential Fair Status of Condition at Evaluation Stable Summary Impairments ROM,Strength,Balance,Sensation ,Cognition,Bed Mobility, Transfers,Gait,Activity Tolerance Assessment Summary Margie is an 84 yo woman seen for PT evaluation after being admitted with decompensated heart failure, NADINE, and anasarca. She has complicated history including chronic low BP, right breast cancer ( surgery 05/2019) with metastases to right axilla, and acute onset dementia. Pt moved to a memory care unit at [facility] at the end of December 2019 where she has been modified independent with use of 4WW. On evaluation , pt required max assist for bed mobility but she sleeps in a lift recliner at baseline. Ambulation with FWW and transfers required min assist x 1. BP was low but stable. Pt was dyspneic with 10 feet ambulation with FWW. She will benefit from continued acute care PT to safely progress her mobility. PT anticipates she will be safe to return to her POP at discharge and may benefit from HH PT in that setting. Goals Transfer Goal Standby Assistance,Four Wheeled Walker Gait Goal Standby Assistance,Four Wheel Walker Gait Distance 75 Days to Meet Goals 5 Frequency of Treatment Frequency Of Treatment Once a Day Treatment Plan Physical Therapy Treatment Plan Bed Mobility Training,Transfer Training,Gait Training, Therapeutic Exercise,Balance Retraining,Discharge Planning, Neuromuscular Re-ed Other Recommendations and Next Treatment transfers; progress gait as Focus tolerated; assess safety with 4WW as appropriate Recommendations To Nursing Amount of Assist Needed 1 Person Assist Discharge Recommendations PT Discharge Recommendations Home with Assistance,Home with 24/7 Assist,Home Health Other Discharge Recommendations [facility] with possible HH PT Transportation Needs at Discharge Wheelchair/Cabulance
--- NOTE | 2020-04-25 12:09 | PM.PN.1 ---
Subjective Subjective Date Patient Seen: 04/25/20 Interval history: Patient is 84-year-old female with history of heart failure with preserved EF, right breast cancer with metastases to the axilla, chronic atrial fibrillation (not anticoagulated due to multiple falls), hypothyroidism and acute onset dementia was admitted for worsening fluid retention. Patient is now on furosemide drip at 20 milligram/hour. She had > 700 cc negative fluid balance overnight and cumulative 1400 cc negative fluid balance. She was complaining about 1200 cc fluid restriction and this was increased to 1500 cc. Her blood pressures run chronically low and remain stable. She endorses mild shortness of breath. Exam Vital Signs (past 8 hours): - 04/25/20 04:30 04/25/20 08:26 04/25/20 09:00 Temperature 97.8 F 98.5 F Pulse Rate 88 83 Respiratory Rate 18 14 Blood Pressure 99/55 L 83/54 L Pulse Oximetry 96 96 98 Oxygen Delivery Method Room Air Oxygen Flow Rate 0 Narrative Exam Narrative: General: Alert, cooperative and pleasant female in no acute distress Lungs: Mild expiratory wheeze Heart: Irregularly irregular Abdomen: Soft Extremities: Severe but improved edema extending up to the chest and also involving the arms Neurological: Alert, speech unimpaired, oriented to person and place Objective Labs Result Diagrams: 04/24/20 04:45 04/25/20 04:20 Labs: Laboratory Results - last 24 hr 04/24/20 04/25/20 22:33 04:20 Sodium 135 L 135 L Potassium 3.6 3.4 Chloride 97 L 96 L Carbon Dioxide 30 33 H BUN 41 H 38 H Creatinine 1.73 H 1.77 H Estimated GFR 28.1 L 27.3 L BUN/Creatinine Ratio 23.7 H 21.5 Glucose 128 H 109 Calcium 9.5 9.5 Assessment & Plan Assessment & Plan narrative: Patient is 84-year-old female with history of heart failure with preserved EF, right breast cancer with metastases to the axilla, chronic atrial fibrillation (not anticoagulated due to multiple falls), hypothyroidism and acute onset dementia was admitted for worsening fluid retention. 1. Chronic heart failure with preserved EF, with cor pulmonale, present on admission, active -patient presents with anasarca -echo 04/24/2020 unchanged from previous echo in October of this year. Left ventricle cavity is small with EF 60-65%. Right ventricle is severely dilated with bowing of interventricular septum consistent with volume overload. Patient has severe TR and there is small to moderate pleural effusions. -patient has been on torsemide 20 mg daily but has sustained progressive weight gain, 50 lb in the last 6 months of which 30 within the last 1 month. Patient with associated symptoms of dyspnea and orthopnea. -case discussed with Dr. Cook, cardiology regarding management of anasarca in the setting of the above mentioned echocardiogram reflective of cor pulmonale. Noted the patient has chronically low blood pressures and wish to avoid intermittent bolusing, suggested Lasix infusion with which he concurred with the addition of low-dose dopamine or dobutamine if diuresis is ineffective. -continue Lasix 20 mg per hour continuous infusion. -KCL 20 mEq b.i.d. -monitor lytes, renal function 2. Acute kidney injury superimposed on chronic kidney disease stage 3, present on admission, active -patient has a creatinine 2.01 on admission labs. Most recent previous creatinine was 1.17 on 10/07/2019 with an EGFR of 44.2. -renal function improving with diuresis -avoid renal toxic agents and renally dose medications as indicated. 3. Chronic iron deficiency anemia, present on admission, active. -hemoglobin on admission is 9.0 with hematocrit of 29.3. Patient with chronic anemia since June of 2019. -MCV is 68.8 and MCH is 21.2. MCV was 91.7 and MCH was 30 on 10/08/2019. -iron profile consistent with iron deficiency with transferrin saturation 8% -patient is not on any blood thinners -continue monitoring as needed -continue patient's pantoprazole 40 mg daily 4. Troponin leak, present on admission, resolved -no complaints of chest pain or nausea -initial troponin 0.041, repeat troponin 0.034 -elevated troponin does not represent acute ischemia 5. Chronic atrial fibrillation, present on admission, stable. -patient with stable heart rate in the 70s to 80s. -telemetry reveals atrial fibrillation without ectopy. -patient was previously on Eliquis which was discontinued due to frequency of falls. 6. Right breast cancer with metastases to the right axillary lymph nodes, chronic, stable -patient underwent mastectomy in May of 2019. -the patient sustained injury with cellulitis to her left lower limb preventing initiation of chemotherapy. -since starting anti anti hormonal therapy, the patient has had progressive weakness and dizziness and treatment discontinued. -the patient was under the care of in [place] and transitioned to [facility]. 7. Dementia, chronic, stable. -patient has undergone recent extensive evaluation and found to have acute onset dementia. The patient is oriented to person and place with impaired short-term memory and perseveration. -the patient has been residing at [facility] since . -continue home regimen of Namenda 5 mg twice daily 8. Acquired hypothyroidism, chronic, stable -continue the patient's home regimen of levothyroxine 100 mcg daily. -TSH 7.46 with free T4 1.53, mildly elevated TSH likely due to poor absorption secondary to bowel wall edema, no change in dose indicated VTE prophylaxis: Heparin SQ IV fluid: Saline lock, Lasix infusion Diet: Heart healthy, low-sodium, fluid restriction Code status: DNR, patient's daughter Dr. Nichol Walker is her POA and surrogate decision maker.
--- NOTE | 2020-04-25 13:07 | PM.CHAP ---
Staff referral. Delightful visit with Pt. who is encouraged by her progress and pleased with care here at . Pt. confirmed that daughter and son are involved in her care in [place]. Pt. requested visit from [employer]. Will pass that request on to Darin Hatfield and to her congregation. Chad Lala, [facility] [phone]
[2020-04-25] MEDS: DEXTROSE 5% WATER 500 ML 21 ML IV (13:56)
--- NOTE | 2020-04-25 14:38 | PC.NURSE ---
Pt expressing her concerns about her fluid restiction this am, reported all the staff had been giving her as much milk as she wants. Her throat bothers her and she has a tight esoph. Got order for cough drops and hard candy obtained and at bedside. Pt called her dtr to tell her about her fluid restriction and dtr came in shortly later and dtr, pt, md made a decision for her fluids, all were in agreement. Pt did get up to the chair for 3 hours, ate lunch and then back to bed. Skin was examined for potential stage 2 pressure wound. Skin is intact at this time. However pt complains of rt hip being sore even with turns so a waffle cushion was placed on the bed for comfort. Pt reported the cushion was helpful.
[2020-04-25] MEDS: POTASSIUM CHLORIDE 20 MEQ/15 ML UDC PO (18:00)
[2020-04-26] VITALS (10 sets, daily range): BP systolic 95–104; BP diastolic 55–64; PULSE 78–90; RESP 17–21; TEMP 36.1–36.7; O2SAT 2–100
[2020-04-26] MEDS: FUROSEMIDE IV ×4 (03:12→22:26)
[2020-04-26] MEDS: SODIUM CHLORIDE 0.9% IV ×4 (03:12→22:26)
[2020-04-26 05:09] LABS: BUN Creatinine Ratio 26.5 (6-22); Blood Urea Nitrogen 39 mg/dL (7-17); Calcium 9.4 mg/dL (8.4-10.2); Carbon Dioxide 35 mmol/L (22-32); Chloride 95 mmol/L (98-107); Estimated Glomerular Filt Rate 33.9 mL/min (>60); Glucose 110 mg/dL (80-110); HEMOLYSIS < 15 (0-50); Potassium 3.3 mmol/L (3.4-5.1); Sodium 136 mmol/L (137-145)
[2020-04-26] MEDS: LEVOTHYROXINE 100 MCG TABLET PO (06:22)
[2020-04-26] MEDS: DOCUSATE 100 MG CAPSULE PO ×2 (08:51→21:04)
[2020-04-26] MEDS: POTASSIUM CHLORIDE 20 MEQ TAB 40 MEQ PO ×2 (08:51→17:40)
[2020-04-26] MEDS: MEMANTINE HCL 5 MG TABLET PO ×2 (08:51→20:53)
[2020-04-26] MEDS: PANTOPRAZOLE 40 MG TABLET PO (08:51)
[2020-04-26] MEDS: HEPARIN 5,000 UNIT/ML VIAL 5000 UNIT SUBCUT ×2 (08:52→20:53)
[2020-04-26] MEDS: NYSTATIN POWDER 15GM 1 APPLIC TOP ×2 (08:58→14:42)
--- NOTE | 2020-04-26 10:02 | PC.NURSE ---
Addendum entered by Cindy Serrano R.N. 04/26/20 15:01: For lunch pt had additional 300mls of milk for a total intake of 900mls this day shift. Urinary catheter emptied for a total of 1250mls this day shift. Addendum entered by Cindy Serrano R.N. 04/26/20 12:22: At 1220. Abd U/S completed in room, U/S tech called back and stated there was a small amount of fluid in LLQ abd, no further procedure indicated, pt may eat. This information was updated to Dr. Carlin at 1222. No new orders. Addendum entered by Cindy Serrano R.N. 04/26/20 10:50: Pt aware of Fluid Restriction for 1500mls/24 hours. Pt states she has only milk with breakfast, lunch, and dinner. 600 mls for breakfast, states she vaughn not drink at night. Pt has audible expiratory wheeze and Diminished, tight AE throughout lung [place]de with inspiratory and expiratory wheezes. Weaned off 2.5L NC to RA this AM, upon recheck pt is 93% and 96% on RA. Pt has intermittent slightly moist cough with no sputum production. Pt has cough lozenges and hard candy at bedside. Pt OOB with PT and OT to BSC, no BM, (Will give additional bowel medications) then to recliner chair. Pt is 2PA OOB movement and once walking in room with PT/OT, pt is SBA/1PA using walker and gait belt. Original Note: Day Shift- At 0940, pt moved from room 226 to room 217 with all personal belongings.
--- NOTE | 2020-04-26 10:40 | PT.IPTN ---
Current Diagnoses Chronic diastolic (congestive) heart failure (04/23/20) Physical Therapy Treatment Note M2 PT-IP Current Condition Start: 04/24/20 12:39 Freq: NEEDED Status: Active Protocol: Document 04/25/20 10:46 AW (Rec: 04/25/20 13:04 AW [id number]) Physical Therapy Current Condition Current Condition Evaluation Date 04/25/20 Treatment Diagnosis decompensated HF, anasarca, difficulty in walking Onset Date 04/23/20 Precautions Other Precautions R BRCA with mets to axilla; No BP right side M3 PT-IP Subjective Start: 04/24/20 12:39 Freq: NEEDED Status: Active Protocol: Document 04/26/20 10:04 CLB (Rec: 04/26/20 13:09 CLB [id number]) Subjective Physical Therapy Visit Type Type Treatment Note Visit Start Time 10:04 Visit Stop Time 10:40 Total Visit Minutes 36 Notes Co-treat with OT Number of BASE FILLER OPERATOR Visits 1 Physical Therapy Visit Comments Patient Comments Pt is willing to participate with PT M4 PT-IP Mobility and Gait Start: 04/24/20 12:39 Freq: NEEDED Status: Active Protocol: Document 04/26/20 10:04 CLB (Rec: 04/26/20 13:09 CLB [id number]) PT-Bed Mobility Assessment Supine to Sit Supine to Sit Maximum Assistance,2 Person Assistance,Head of Bed Elevated,Bedrails Scooting Scooting to Edge of Bed Dependent PT-Transfer Assessment Sit to and From Stand Sit to and from Stand Contact Guard Assistance,1 Person Assistance,Use of Upper Extremities Equipment Transfer Assistive Device Gait Belt,Front Wheeled Walker Transfers Transfer Destination Chair,Bedside Commode Transfer Technique pt ambulated with FWW Transfer Ability Level of Assist Contact Guard Assistance,1 Person Assistance,Use of Upper Extremities Comments Mobility Comments Pt needing to use BSC and wanting to sit in chair. Pt required Max A x2 for bed mobility, pt was able to sit on EOB requiring CGA of OT, pt stood CGA and transferred to BSC CGA with increased time, assist with IV lines. Pt sat on BSC requiring tactile cues for hand placement. OT assisted pt with doffing/ donning clean brief and with pericare as BASE FILLER OPERATOR provided CGA with sit<>stand and standing balance. Pt ambulated ~10ft w/ FWW around bed requiring CGA, assist with lines and cues to stay inside walker frame. Pt required CGA and cues for hand placement before sitting in chair. Pt was left in chair with alarm on, legs elevated and pillow under legs to float heels. Call light and all other needs within reach. OT present. Gait Assessment Gait Gait Assistance Required: Contact Guard Assist,1 Person Assist Distance (Feet) 10 Assistive Devices Assistive Device Gait Belt,Front Wheeled Walker Gait Deviations General Gait Pattern Decreased Stride Length, Decreased Feet Clearance, Flexed Trunk Factors Limiting Gait Function Factors Limiting Gait Function Decreased Activity Tolerance, Decreased Sensation,Decreased Strength,Difficulty Following Directions,Poor Balance,Poor Safety Awareness,Respiratory Distress Comments Gait Comments See mobility comments for details. Stair Climbing Assessment Comments Stair Climbing Comments Not assessed. No stairs at POP . PT-Balance Assessment Sitting Balance and Reactions Static Sitting Balance Ability Fair Dynamic Sitting Balance Ability Fair Standing Balance and Reactions Static Standing Balance Ability Fair Dynamic Standing Balance Ability Fair Device Used FWW M5 PT-IP Objective Assessments Start: 04/24/20 12:39 Freq: NEEDED Status: Active Protocol: Document 04/25/20 10:46 AW (Rec: 04/25/20 13:04 AW [id number]) Orientation Orientation/Cognition Level of Alertness Confusional State Orientation Name,Situation Safety Awareness Decreased Safety Awareness Memory Description Short Term Impaired Comments Pt has acute onset dementia and tends to repeat herself. She is aware of her situation and is able to participate in her care. Gross Range of Motion Lower Extremity ROM Impairments Limited ankle AROM due to BLE swelling Strength Lower Extremity Strength Assessment Bilaterally Impaired Hip 4-/5 Knee 4/5 Ankle 4-/5 Sensation Assessment Sensation Gross Sensation Right LE Impaired,Left LE Impaired Light Touch Impaired Proprioception (Position) Impaired Muscle Tone Muscle Tone WNL Yes M6 PT-IP Treatment Start: 04/24/20 12:39 Freq: NEEDED Status: Active Protocol: Document 04/25/20 10:46 AW (Rec: 04/25/20 13:04 AW [id number]) Physical Therapy Treatment Education Education Provided Precautions,Safety Other Treatments Other Treatment Performed Provided education on role of PT, plan of care, importance of continued mobility, and energy conservation techniques . M7 PT-IP Assessment and Plan Start: 04/24/20 12:39 Freq: NEEDED Status: Active Protocol: Document 04/26/20 10:04 CLB (Rec: 04/26/20 13:09 CLB [email or web address]) PT Summary Assessment and Plan Potential Rehabilitation Potential Fair Status of Condition at Evaluation Stable Summary Impairments ROM,Strength,Balance,Sensation ,Cognition,Bed Mobility, Transfers,Gait,Activity Tolerance Assessment Summary Pt is requiring Max A x2 for bed mobility and scooting to EOB, pt requires CGA for sit<> stand and ambulation with cues to stay inside walker and hand placement for safety. Pt may require SNF rehab before returning to [facility] depending on progress to improve activity tolerance. Goals Transfer Goal Standby Assistance,Four Wheeled Walker Gait Goal Standby Assistance,Four Wheel Walker Gait Distance 75 Days to Meet Goals 5 Frequency of Treatment Frequency Of Treatment Once a Day Treatment Plan Physical Therapy Treatment Plan Bed Mobility Training,Transfer Training,Gait Training, Therapeutic Exercise,Balance Retraining,Discharge Planning, Neuromuscular Re-ed Other Recommendations and Next Treatment transfers; progress gait as Focus tolerated; assess safety with 4WW as appropriate Recommendations To Nursing Amount of Assist Needed 1 Person Assist Discharge Recommendations PT Discharge Recommendations Home with Assistance,Home with / Assist,Home Health,SNF Rehab Other Discharge Recommendations POP with possible HH PT vs SNF depending on progress Transportation Needs at Discharge Wheelchair/Cabulance
--- NOTE | 2020-04-26 10:58 | OT.IP.TRT ---
Current Diagnoses Chronic diastolic (congestive) heart failure (04/23/20) Occupational Therapy Treatment Note M2 OT-IP Current Condition Start: 04/24/20 16:22 Freq: Status: Active Protocol: Document 04/24/20 16:22 CGR (Rec: 04/24/20 16:37 CGR [id number]) Occupational Therapy Current Condition Current Condition Evaluation Date 04/24/20 Treatment Diagnosis CHF exacerbation Diagnosis Onset Date 04/23/20 M3 OT- IP Subjective and Pain Start: 04/24/20 16:22 Freq: Status: Active Protocol: Document 04/26/20 10:49 [facility] (Rec: 04/26/20 10:58 [facility] [id number]) OT- Subjective Occupational Therapy Visit Type Type Treatment Note Visit Start Time 10:04 Visit Stop Time 10:40 Total Visit Minutes 36 Occupational Therapy Visit Comments Patient Comments Pt wanting to use the BSC. OT Pain Assessment Pain When Pain Assessed At Rest Pain Present Pain Present Denied Pain M4 OT- IP ADL's Start: 04/24/20 16:22 Freq: Status: Active Protocol: Document 04/26/20 10:49 [facility] (Rec: 04/26/20 10:58 [facility] [id number]) OT ADL-Dressing General Eval Lower Body Dressing Ability Maximum Assistance Comments OT Dressing Comments MAX a to thread catheter through the brief and assist to get up over her feet and then over her hips. OT ADL-Toileting General Evaluation Toileting Ability Maximum Assistance Comments OT Toileting Comments Pt still had pulido in place. Pt attempted to have a bowel movement and then able to assist to wipe her pericare needs, pt needing completeness to wipe and place cream on her. Nursing aid came to assist to put powder on for her. OT ADL-Bathing Comments OT Bathing Comments Pt not wanting to do at this time. Pt states may try a shower tomorrow. M5 OT- IP IADL's Start: 04/24/20 16:22 Freq: Status: Active Protocol: Document 04/24/20 16:22 CGR (Rec: 04/24/20 16:37 CGR [id number]) OT-Instrumental Activities of Daily Living Deficits IADL Deficits Identified Deficits Home Safety Awareness Awareness of Need for Assistance at Home Decreased Awareness Ability to Problem Solve Emergency Unable to Problem Solve Situations Medication Management Medication Management Caregiver Administers Money Management Money Management Caregiver Provides Assistance Meal Preparation Meal Preparation Caregiver Provides Assist Pourer Off Pourer Off Caregiver Provides Assist Driving Driving Comments pt does not drive M6 OT- IP Functional Cognition Start: 04/24/20 16:22 Freq: Status: Active Protocol: Document 04/26/20 10:49 [facility] (Rec: 04/26/20 10:58 [facility] [id number]) Cognitive Factors Limiting Selfcare Function Cognitive Ability Level of Alertness Alert,Confusional State Patient Orientation Name,Year,Place,Situation Attention Span Ability Capable of Focused Attention, Unable to Sustain Attention Ability to Follow Commands Able to Follow One Step Commands with Increased Time, Able to Follow One Step Commands with Repetition Memory Description Short Term Impaired Cognitive Comments Cognitive Assessment Comments Pt able to states her needs and wants today. Pt still needing safety cues for FWW use and cues to reach back when sitting down to the recliner. M7 OT- IP Mobility and Balance Start: 04/24/20 16:22 Freq: Status: Active Protocol: Document 04/26/20 10:49 [facility] (Rec: 04/26/20 10:58 [facility] [id number]) OT- Bed Mobility Assessment Rolling Type of Rolling Roll to Left Level of Assistance Maximum Assistance,1 Person Assistance Supine to Sit Supine to Sit Assist Maximum Assistance,2 Person Assistance,Bedrails Scooting Scooting to Edge of Bed Maximum Assistance,1 Person Assistance OT-Transfer Assessment Sit to and From Stand Sit to and from Stand Minimal Assistance,1 Person Assistance Transfers Transfer Ability Contact Guard Assistance, Minimal Assistance,1 Person Assistance Technique Transfer Destination Bedside Commode,Chair Comments Mobility Comments Pending on surface standing up form needing from CGA to more assist. When up on her feet, mainly CGA and cues to keep the FWW close to her. Pt still needign MAX A X2 from sidelying to sitting upright. OT- Gait Assessment Comments Gait Ability Comments CGA to walk around the bed with FWW to the recliner. OT- Balance Assessment Sitting Balance and Reactions Static Sitting Balance Ability Normal Dynamic Sitting Balance Ability Good Standing Balance and Reactions Static Standing Balance Ability Good M8 OT- IP Objective Assessments Start: 04/24/20 16:22 Freq: Status: Active Protocol: Document 04/24/20 16:22 CGR (Rec: 04/24/20 16:37 CGR [id number]) OT Gross Range of Motion Upper Extremity Range of Motion ROM Impairments Pt with significant swelling and discomfort OT Strength Comments Strength Comments Not tested at eval d/t fatigue and pt's low bp OT- Coordination Assessment Upper Extremity Finger to Nose Test Within Functional Limits Finger Tapping Test Within Functional Limits OT Sensation Assessment Edema Edema Present Edema Comments BUE are signifcantly swollen with 4+ pitting edema M9 OT- IP Assessment and Plan Start: 04/24/20 16:22 Freq: Status: Active Protocol: Document 04/26/20 10:49 [facility] (Rec: 04/26/20 10:58 [facility] [id number]) OT Summary Assessment and Plan Potential Rehabilitation Potential Good Analytic Complexity at Evaluation Moderate Summary OT Impairments Range of Motion,Strength, Balance,Functional Cognition, Functional Mobility,Grooming, Dressing,Toileting,Bathing, Toilet Transfers,Shower Transfers,Activity Tolerance Progress Towards Goals Progressing Toward Goals Assessment Summary Pt much improved today and able to assist more for mobility and toileting needs. Pt however still needing two person asisst to help for bed mobility needs and having decreased activity tolerance and would benefit from skilled rehab prior to going home. Goals Grooming Goal Independent Dressing Goal Independent Toileting Goal Independent Bathing Goal Independent Toilet Transfer Goal Independent Shower Transfer Goal Independent Days to Meet Goals 5 Frequency of Treatment Frequency Of Treatment Once a Day Treatment Plan OT Treatment Plan ADL Training,Functional Cognition Training,Functional Mobility,Patient/Family Education,Discharge Planning Other Treatment Recommendations and Next shower Treatment Focus Discharge Recommendations OT Discharge Recommendations SNF Rehab Transportation Needs at Discharge Wheelchair/Cabulance
--- NOTE | 2020-04-26 11:09 | DI.US.S_ITS ---
PROCEDURE: US ABDOMEN LIMITED INDICATIONS: POSSIBLE ASCITES TECHNIQUE: Real-time scanning was performed of the abdominal and retroperitoneal organs, with image documentation. COMPARISON: None. FINDINGS: * Limited examination of abdomen shows trace amount of ascites fluid in left lower quadrant abdomen with the largest pocket measures 2.7 x 2.3 cm in size. IMPRESSION: Trace amount of ascites fluid noted in left lower quadrant abdomen. Dictated by: Audie Hu M.D. on 04/26/2020 at 12:41 Approved by: Audie Hu M.D. on 04/26/2020 at 12:42
--- NOTE | 2020-04-26 11:25 | CM.DPC ---
DCP Cont: Per MD, pt continues to be in need of diuresis but has been able to lose some fluid weight already but remains swollen with some pitting. Ultrasound ordered for pt's ascities from breast CA and Surgeon to likely drain the fluid to help reduce some of the abdomen swelling today. Per PT, pt has started to participate in some therapy and recommending return to [facility] with HH vs SNF pending her progress during her admission. SW met bedside with pt and MD during rounding and pt was updated on above and pt very thankful for update. Plan: SW to follow closely after further PT towards determining return to [facility] with HH vs SNF and coordination with [facility] and Dtrs Nichol and Tolu. SHERRIE Moscoso
--- NOTE | 2020-04-26 11:55 | DIET.PN ---
Dietary Progress Note Assessment: Ms. 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 Loja related to worsening congestive heart failure. The patient resides at [facility] since . The patient was found to have marked anasarca with associated shortness of breath and weakness. The patient has sustained a 50 lb weight gain over the last 3 months and per family 30 lb in the last month. She reports decreased appetite with diet primarily consisting of oral nutrition supplements. HT: 157.48 cm WT: 86.2 kg UBW: 76 kg (10/26/19) IBW:50 kg BMI: 33.1 Labs: Na: 136 L K: 33 L BUN: 39 H Cr: 1.47 H eGFR: 33.9 L MNA: 13 Robert: 19 Nutrition Diagnosis: Altered nutrition-related laboratory values r/t kidney and cardiac dysfunction aeb elevated BUN, Cr, low eGFR, edema, shortness of breath, pt report estimated intake of food high in protein. Interventions: 1. Provided information on hearth healthy, reduced-sodium nutrition therapy. Recommended pt increase intake of whole grains, fruits, and vegetables. 2. Discussed importance of limiting processed foods and pre-packaged deli meats or cheeses. 3. Recommended limiting refined carbohydrates and sugar sweetened beverages. 4. Discussed importance of whole foods for nutrition support over relying on nutritional beverages. Diet Order: HH, Low Na, Fluid Restriction (1500 ml) EER: 1500cal (30cal/kg IBW) Pro: 70g pro (0.8g/kg) Monitoring/Evaluations: weight, PO's, associated labs
[2020-04-26] MEDS: MAGNESIUM HYDROXIDE 30 ML UDC PO (12:46)
[2020-04-26] MEDS: polyethylene glycoL 3350 17 GM POWD.PACK PO (12:49)
[2020-04-26] MEDS: DEXTROSE 5% WATER 500 ML 21 ML IV (14:27)
--- NOTE | 2020-04-26 17:42 | P.PN_ITS ---
Subjective Subjective Date Patient Seen: 04/26/20 Interval history: The patient is 84-year-old female who was admitted to the hospital for decompensated congestive heart failure. She has been on a Lasix infusion. Overnight she had 900 cc of urine out. Despite that she continues to be short of breath, and noted end-expiratory wheezing. The patient has abdominal distension. She reports this is not improved since admission. However she has no BM and appears to be constipated. The patient did have an abdominal ultrasound to evaluate ascites. She had a very small pocket of fluid and was found to have distended colon filled with gas. Exam Vital Signs (past 8 hours): - 04/26/20 11:25 04/26/20 15:15 Temperature 98.0 F 97.6 F Pulse Rate 87 84 Respiratory Rate 18 17 Blood Pressure 104/64 95/56 L Pulse Oximetry 98 98 Oxygen Delivery Method Room Air Oxygen Flow Rate 0 Narrative Exam Narrative: Ill-appearing elderly female delightful somewhat short of breath Lungs: Decreased breath sounds, end-expiratory wheezing bilaterally Cardiac exam irregular rate and rhythm normal S1-S2 with a 2/6 systolic ejection murmur Abdomen: Abdomen distended mildly tense, tympanitic, no rebound tenderness no fluid wave appreciated. Mild tenderness to palpation Extremities pitting edema bilateral Objective Labs Result Diagrams: 04/24/20 04:45 04/26/20 04:56 Labs: Laboratory Results - last 24 hr 04/26/20 04:56 Sodium 136 L Potassium 3.3 L Chloride 95 L Carbon Dioxide 35 H BUN 39 H Creatinine 1.47 H Estimated GFR 33.9 L BUN/Creatinine Ratio 26.5 H Glucose 110 Calcium 9.4 Assessment & Plan Assessment & Plan narrative: Assessment & Plan narrative: Patient is 84-year-old female with history of heart failure with preserved EF, right breast cancer with metastases to the axilla, chronic atrial fibrillation (not anticoagulated due to multiple falls), hypothyroidism and acute onset dementia was admitted for worsening fluid retention. 1. Chronic heart failure with preserved EF, with cor pulmonale, present on admission, active -patient presents with anasarca -echo 04/24/2020 unchanged from previous echo in October of this year. Left ventricle cavity is small with EF 60-65%. Right ventricle is severely dilated with bowing of interventricular septum consistent with volume overload. Patient has severe TR and there is small to moderate pleural effusions. -patient has been on torsemide 20 mg daily but has sustained progressive weight gain, 50 lb in the last 6 months of which 30 within the last 1 month. Patient with associated symptoms of dyspnea and orthopnea. -case discussed with Dr. Cook, cardiology regarding management of anasarca in the setting of the above mentioned echocardiogram reflective of cor pulmonale. Noted the patient has chronically low blood pressures and wish to avoid intermittent bolusing, suggested Lasix infusion with which he concurred with the addition of low-dose dopamine or dobutamine if diuresis is ineffective. -continue Lasix 20 mg per hour continuous infusion. -KCL 20 mEq b.i.d. -monitor lytes, renal function -add metolazone 5 mg daily continue to monitor urine output and daily electrolyte 2. Acute kidney injury superimposed on chronic kidney disease stage 3, present on admission, active -patient has a creatinine 2.01 on admission labs. Most recent previous creatinine was 1.17 on 10/07/2019 with an EGFR of 44.2. -renal function improving with diuresis -avoid renal toxic agents and renally dose medications as indicated. -renal function improved, creatinine today 1.47 3. Chronic iron deficiency anemia, present on admission, active. -hemoglobin on admission is 9.0 with hematocrit of 29.3. Patient with chronic anemia since June of 2019. -MCV is 68.8 and MCH is 21.2. MCV was 91.7 and MCH was 30 on 10/08/2019. -iron profile consistent with iron deficiency with transferrin saturation 8% -patient is not on any blood thinners -continue monitoring as needed -continue patient's pantoprazole 40 mg daily -IV iron will 4. Troponin leak, present on admission, resolved -no complaints of chest pain or nausea -initial troponin 0.041, repeat troponin 0.034 -elevated troponin does not represent acute ischemia 5. Chronic atrial fibrillation, present on admission, stable. -patient with stable heart rate in the 70s to 80s. -telemetry reveals atrial fibrillation without ectopy. -patient was previously on Eliquis which was discontinued due to frequency of falls. 6. Right breast cancer with metastases to the right axillary lymph nodes, chronic, stable -patient underwent mastectomy in May of 2019. -the patient sustained injury with cellulitis to her left lower limb preventing initiation of chemotherapy. -since starting anti anti hormonal therapy, the patient has had progressive weakness and dizziness and treatment discontinued. -the patient was under the care of in [place] and transitioned to [facility]. 7. Dementia, chronic, stable. -patient has undergone recent extensive evaluation and found to have acute onset dementia. The patient is oriented to person and place with impaired short-term memory and perseveration. -the patient has been residing at [facility] since . -continue home regimen of Namenda 5 mg twice daily 8. Acquired hypothyroidism, chronic, stable -continue the patient's home regimen of levothyroxine 100 mcg daily. -TSH 7.46 with free T4 1.53, mildly elevated TSH likely due to poor absorption secondary to bowel wall edema, no change in dose indicated VTE prophylaxis: Heparin SQ IV fluid: Saline lock, Lasix infusion Diet: Heart healthy, low-sodium, fluid restriction Code status: DNR, patient's daughter Dr. Nichol Walker is her POA and surrogate decision maker.
[2020-04-26] MEDS: IRON SUCROSE 200 MG in SODIUM CHLORIDE 0.9% 100 ML 220 ML IV (18:29)
[2020-04-27] VITALS (12 sets, daily range): BP systolic 89–108; BP diastolic 50–65; PULSE 84–100; RESP 15–18; TEMP 36.4–37; O2SAT 93–100
--- NOTE | 2020-04-27 00:02 | PC.NURSE ---
Addendum entered by Monika Barrett R.N. 04/27/20 00:27: When asleep sats dropping down into mid 80's so is now on oxygen at 4L/min Original Note: Patient is alert and oriented. Breath sounds tight with expiratory wheezing throughout. Oxygen at 2L/min per NC with sat of 94%; on continuous oximeter. HR irregular; has hx of afib. Is on telemetry with last recorded reading being afib CVR. Denies nausea. BT present but abdomen is firm with fluid; has not had a BM since 04/23 but states she is passing flatus. Indwelling catheter is patent; urine is clear mckenzie. Needing assistance to reposition q2h as too weak to do on her own. Denies pain. Generalized edema; continues on Lasix drip. Maintained on 1500cc/24h fluid restriction. Wearing bilateral calf SCD's. Fall risk score is high and bed alarm is activated.
[2020-04-27] MEDS: SODIUM CHLORIDE 0.9% IV ×4 (04:02→23:45)
[2020-04-27] MEDS: FUROSEMIDE IV ×4 (04:02→23:45)
[2020-04-27 05:43] LABS: BUN Creatinine Ratio 28.8 (6-22); Blood Urea Nitrogen 38 mg/dL (7-17); Calcium 9.7 mg/dL (8.4-10.2); Chloride 94 mmol/L (98-107); Estimated Glomerular Filt Rate 38.3 mL/min (>60); Glucose 100 mg/dL (80-110); HEMOLYSIS < 15 (0-50); Potassium 3.6 mmol/L (3.4-5.1); Sodium 136 mmol/L (137-145)
[2020-04-27 05:52] LABS: NT-proBNP (BNP-Adult 18+) 13300 pg/mL (<450)
[2020-04-27 06:02] LABS: Carbon Dioxide 35 mmol/L (22-32)
[2020-04-27] MEDS: LEVOTHYROXINE 100 MCG TABLET PO (06:28)
[2020-04-27] MEDS: PANTOPRAZOLE 40 MG TABLET PO (09:13)
[2020-04-27] MEDS: polyethylene glycoL 3350 17 GM POWD.PACK PO (09:13)
[2020-04-27] MEDS: POTASSIUM CHLORIDE 20 MEQ TAB 40 MEQ PO ×2 (09:13→16:07)
[2020-04-27] MEDS: DOCUSATE 100 MG CAPSULE PO ×2 (09:13→20:31)
[2020-04-27] MEDS: metOLazone 2.5 MG TABLET 5 MG PO (09:14)
[2020-04-27] MEDS: MEMANTINE HCL 5 MG TABLET PO ×2 (09:14→21:20)
[2020-04-27] MEDS: HEPARIN 5,000 UNIT/ML VIAL 5000 UNIT SUBCUT ×2 (09:15→20:31)
--- NOTE | 2020-04-27 10:27 | PT.IPTN ---
Current Diagnoses Chronic diastolic (congestive) heart failure (04/23/20) Physical Therapy Treatment Note M2 PT-IP Current Condition Start: 04/24/20 12:39 Freq: NEEDED Status: Active Protocol: Document 04/25/20 10:46 AW (Rec: 04/25/20 13:04 AW [id number]) Physical Therapy Current Condition Current Condition Evaluation Date 04/25/20 Treatment Diagnosis decompensated HF, anasarca, difficulty in walking Onset Date 04/23/20 Precautions Other Precautions R BRCA with mets to axilla; No BP right side M3 PT-IP Subjective Start: 04/24/20 12:39 Freq: NEEDED Status: Active Protocol: Document 04/27/20 10:02 CLB (Rec: 04/27/20 13:56 [facility] [id number]) Subjective Physical Therapy Visit Type Type Treatment Note Visit Start Time 10:04 Visit Stop Time 10:27 Total Visit Minutes 23 Notes FUNERAL CAR DRIVER present during tx to assist with lines. Number of MASKING MACHINE OPERATOR Visits 2 Physical Therapy Visit Comments Patient Comments Pt is eager to participate with PT as she does not want to go to SNF rehab. Patient Goals To return to [facility] Therapy Pain Assessment Pain When Pain Assessed During Mobility Pain Present Pain Present Denied Pain M4 PT-IP Mobility and Gait Start: 04/24/20 12:39 Freq: NEEDED Status: Active Protocol: Document 04/27/20 10:02 CLB (Rec: 04/27/20 13:56 CLB [id number]) PT-Bed Mobility Assessment Supine to Sit Supine to Sit Maximum Assistance,1 Person Assistance,Head of Bed Elevated,Bedrails Scooting Scooting to Edge of Bed Dependent PT-Transfer Assessment Sit to and From Stand Sit to and from Stand Contact Guard Assistance,1 Person Assistance,Use of Upper Extremities Equipment Transfer Assistive Device Gait Belt,Front Wheeled Walker Transfers Transfer Destination Chair Transfer Technique pt ambulated with FWW Transfer Ability Level of Assist Contact Guard Assistance,1 Person Assistance,Use of Upper Extremities Comments Mobility Comments Pt continues to need Max A for bed mobility and assist scooting to EOB. Pt requiring CGA for sit<>stand with cues for hand placement for safety and assist. Pt ambulate ~10ft w/FWW/CGA and assist with lines. Pt able to improve step length and stephen but continues to require increased time for ambulation. Unable to get SpO2 reading due to pts cold fingers. Pt sat in chair CGA and performed seated therapeutic exercises. Left pt in chair with all needs within reach, warm blankets and pillow under legs to float heels. Gait Assessment Gait Gait Assistance Required: Contact Guard Assist,1 Person Assist Distance (Feet) 10 Assistive Devices Assistive Device Gait Belt,Front Wheeled Walker Gait Deviations General Gait Pattern Decreased Stride Length, Decreased Feet Clearance, Flexed Trunk Factors Limiting Gait Function Factors Limiting Gait Function Decreased Activity Tolerance, Decreased Sensation,Decreased Strength,Difficulty Following Directions,Poor Balance,Poor Safety Awareness,Respiratory Distress Comments Gait Comments See mobility comments for details. Stair Climbing Assessment Comments Stair Climbing Comments Not assessed. No stairs at [facility] . PT-Balance Assessment Sitting Balance and Reactions Static Sitting Balance Ability Fair Dynamic Sitting Balance Ability Fair Standing Balance and Reactions Static Standing Balance Ability Fair Dynamic Standing Balance Ability Fair Device Used FWW M5 PT-IP Objective Assessments Start: 04/24/20 12:39 Freq: NEEDED Status: Active Protocol: Document 04/25/20 10:46 AW (Rec: 04/25/20 13:04 AW [id number]) Orientation Orientation/Cognition Level of Alertness Confusional State Orientation Name,Situation Safety Awareness Decreased Safety Awareness Memory Description Short Term Impaired Comments Pt has acute onset dementia and tends to repeat herself. She is aware of her situation and is able to participate in her care. Gross Range of Motion Lower Extremity ROM Impairments Limited ankle AROM due to BLE swelling Strength Lower Extremity Strength Assessment Bilaterally Impaired Hip 4-/5 Knee 4/5 Ankle 4-/5 Sensation Assessment Sensation Gross Sensation Right LE Impaired,Left LE Impaired Light Touch Impaired Proprioception (Position) Impaired Muscle Tone Muscle Tone WNL Yes M6 PT-IP Treatment Start: 04/24/20 12:39 Freq: NEEDED Status: Active Protocol: Document 04/27/20 10:02 CLB (Rec: 04/27/20 13:56 CLB [id number]) Physical Therapy Treatment Exercises Exercises Ankle Pumps,Gluteal Sets,Quad Sets,Seated Knee Flexion/ Extension M7 PT-IP Assessment and Plan Start: 04/24/20 12:39 Freq: NEEDED Status: Active Protocol: Document 04/27/20 10:02 CLB (Rec: 04/27/20 13:56 CLB [id number]) PT Summary Assessment and Plan Potential Rehabilitation Potential Fair Status of Condition at Evaluation Stable Summary Impairments ROM,Strength,Balance,Sensation ,Cognition,Bed Mobility, Transfers,Gait,Activity Tolerance Assessment Summary Pt is requiring Max A for bed mobility and is dependent for scooting. Pt is able to stand CGA from bed with cues for hand placement and sequencing. Pt ambulated around bed to chair with increased time and assist with lines. Pt does not want to go to SNF rehab but would benefit from SNF to improve activity tolerance, if pt does go back to [facility] pt would need 24/7 assist at this tme. Goals Transfer Goal Standby Assistance,Four Wheeled Walker Gait Goal Standby Assistance,Four Wheel Walker Gait Distance 75 Days to Meet Goals 5 Frequency of Treatment Frequency Of Treatment Once a Day Treatment Plan Physical Therapy Treatment Plan Bed Mobility Training,Transfer Training,Gait Training, Therapeutic Exercise,Balance Retraining,Discharge Planning, Neuromuscular Re-ed Other Recommendations and Next Treatment transfers; progress gait as Focus tolerated Recommendations To Nursing Amount of Assist Needed 1 Person Assist Discharge Recommendations PT Discharge Recommendations Home with 24/7 Assist,Home Health,SNF Rehab Other Discharge Recommendations [facility] with 24/7 assist and PT vs SNF depending on progress Transportation Needs at Discharge Wheelchair/Cabulance
--- NOTE | 2020-04-27 10:43 | CM.DPC ---
Addendum entered by Althea Yan LPN 04/27/20 11:16: TEL # [facility]: corrected: [phone] Original Note: DCP: assessment: case received, EMR reviewed and met with pt during Team Bedside Rounds. See from prior CM/DCP notes that pt lives at [facility] (formerly [facility]] and moved in about 3 months ago. Pt currently received only medication and shower assist. PT/OT are currently recommending snf consideration but pt, although she does have some memory loss, is very clear that she is opposed to the idea of a snf/rehab stay. Pt's POA Dr. Nichol Walker is currently out of town until end of this week but she did talk with Dr. Carlin before she left. Dr. Carlin states to all in Rounds today that she expects pt to be her for a few more days. Pt is currently on 4 L o2, a chest xray is planned and she is continued on the IV drip for diuresis and with 1700 out overnight. Anticipate that if more assist is needed at the [facility] this can be provided but DCP team will need to followup with Dr. Walker when she returns. Have spoken now with the LN at [facility]: [place]: tel: [phone] and fax: [phone]. She stated she had not seen any clinical info yet: this is faxed now to include the dietary and most recent PT/OT and RN note as well as the hospitalists' notes. Assessment will need to be done before pt is ok'd to return. Most recent Covid negative test: 04/23.
--- NOTE | 2020-04-27 11:11 | OT.IP.TRT ---
Current Diagnoses Chronic diastolic (congestive) heart failure (04/23/20) Occupational Therapy Treatment Note M2 OT-IP Current Condition Start: 04/24/20 16:22 Freq: Status: Active Protocol: Document 04/24/20 16:22 [facility]GR (Rec: 04/24/20 16:37 CGR [id number]) Occupational Therapy Current Condition Current Condition Evaluation Date 04/24/20 Treatment Diagnosis CHF exacerbation Diagnosis Onset Date 04/23/20 M3 OT- IP Subjective and Pain Start: 04/24/20 16:22 Freq: Status: Active Protocol: Document 04/27/20 11:14 [facility] (Rec: 04/27/20 11:27 CCC [email or web address]) OT- Subjective Occupational Therapy Visit Type Type Treatment Note Visit Start Time 10:45 Visit Stop Time 11:11 Total Visit Minutes 26 Occupational Therapy Visit Comments Patient Comments Pt not wanting to get up at this time but willing to practice LB dressing equipment and talk about energy conservation for OT needs. Patient/Caregiver Goals Pt insistent to be able to go home. OT Pain Assessment Pain When Pain Assessed At Rest Pain Present Pain Present Denied Pain M4 OT- IP ADL's Start: 04/24/20 16:22 Freq: Status: Active Protocol: Document 04/27/20 11:14 [facility] (Rec: 04/27/20 11:27 [facility] [id number]) OT [id number] Comments OT Self-Feeding Comments NOt at meal time. OT ADL-Grooming Comments OT Grooming Comments Pt refused and states to do after lunch. OT ADL-Dressing General Eval Lower Body Dressing Ability Minimal Assistance Comments OT Dressing Comments Able to practice philosophy professor and sock aid and after education able to do with [facility] . Pt states her POP assists her to put on compression stocking. OT ADL-Bathing Comments OT Bathing Comments Pt states prior able to shower standing and staff at [facility] just assisted to set the water temperature. M5 OT- IP IADL's Start: 04/24/20 16:22 Freq: Status: Active Protocol: Document 04/24/20 16:22 [facility]GR (Rec: 04/24/20 16:37 CGR [email or web address]) OT-Instrumental Activities of Daily Living Deficits IADL Deficits Identified Deficits Home Safety Awareness Awareness of Need for Assistance at Home Decreased Awareness Ability to Problem Solve Emergency Unable to Problem Solve Situations Medication Management Medication Management Caregiver Administers Money Management Money Management Caregiver Provides Assistance Meal Preparation Meal Preparation Caregiver Provides Assist Almond Roaster Almond Roaster Caregiver Provides Assist Driving Driving Comments pt does not drive M6 OT- IP Functional Cognition Start: 04/24/20 16:22 Freq: Status: Active Protocol: Document 04/27/20 11:14 [facility] (Rec: 04/27/20 11:27 [facility] [id number]) Cognitive Factors Limiting Selfcare Function Cognitive Ability Level of Alertness Alert Patient Orientation Name,Year,Place,Situation Attention Span Ability Capable of Focused Attention, Unable to Sustain Attention Ability to Follow Commands Able to Follow One Step Commands with Increased Time, Able to Follow One Step Commands with Repetition Memory Description Short Term Impaired Cognitive Comments Cognitive Assessment Comments Pt not able to recall seeing therapist yesterday much able to states here needs and wants . Pt able to go over energy conservation with OT and able to point out some of the suggestions that she uses at home already. M8 OT- IP Objective Assessments Start: 04/24/20 16:22 Freq: Status: Active Protocol: Document 04/24/20 16:22 [facility] (Rec: 04/24/20 16:37 [facility] [email or web address]) OT Gross Range of Motion Upper Extremity Range of Motion ROM Impairments Pt with significant swelling and discomfort OT Strength Comments Strength Comments Not tested at eval d/t fatigue and pt's low bp OT- Coordination Assessment Upper Extremity Finger to Nose Test Within Functional Limits Finger Tapping Test Within Functional Limits OT Sensation Assessment Edema Edema Present Edema Comments BUE are signifcantly swollen with 4+ pitting edema M9 OT- IP Assessment and Plan Start: 04/24/20 16:22 Freq: Status: Active Protocol: Document 04/27/20 11:14 [facility] (Rec: 04/27/20 11:27 [facility] [email or web address]) OT Summary Assessment and Plan Potential Rehabilitation Potential Good Analytic Complexity at Evaluation Moderate Summary OT Impairments Range of Motion,Strength, Balance,Functional Cognition, Functional Mobility,Grooming, Dressing,Toileting,Bathing, Toilet Transfers,Shower Transfers,Activity Tolerance Progress Towards Goals Progressing Toward Goals Assessment Summary Per RF TEST TECHNICIAN, pt mobilizing much better. Pt also during OT session able to go from 4L to 2L and remained at 100% , nursing aware. Pt insistent that she wants to go home. However due to her decreased activity tolerance and pt still needing one person assist for ADl and mobility needs. Pt would still benefit skilled rehab prior to going home. Prior pt was mostly independent with basic ADl needs, including per pt standing for showers. Goals Grooming Goal Independent Dressing Goal Independent Toileting Goal Independent Bathing Goal Independent Toilet Transfer Goal Independent Shower Transfer Goal Independent Days to Meet Goals 5 Frequency of Treatment Frequency Of Treatment Once a Day Treatment Plan OT Treatment Plan ADL Training,Functional Cognition Training,Functional Mobility,Patient/Family Education,Discharge Planning Other Treatment Recommendations and Next shower Treatment Focus Discharge Recommendations OT Discharge Recommendations SNF Rehab Transportation Needs at Discharge Private Vehicle,Wheelchair/ Cabulance
--- NOTE | 2020-04-27 11:43 | DI.RAD.S_ITS ---
PROCEDURE: XR CHEST 1V INDICATIONS: r/o infiltrate TECHNIQUE: One view of the chest was acquired. COMPARISON: [facility], CR, XR CHEST 1V, 04/23/2020, 14:16. FINDINGS: Surgical changes and devices: Surgical clips are noted in right axilla. Left chest wall Port-A-Cath tip is seen in SVC. Lungs and pleura: Small right greater than left bilateral pleural effusion is seen with bibasilar atelectasis. No definite focal infiltrate. No gross pneumothorax. Mediastinum: Mediastinal contours appear normal. Heart size is enlarged. Bones and chest wall: No suspicious bony lesions. Overlying soft tissues appear unremarkable. IMPRESSION: Small right pleural effusion and trace left pleural effusion. Mild pulmonary vascular congestion. No definite focal infiltrate. Bibasilar atelectasis. Dictated by: Audie Hu M.D. on 04/27/2020 at 12:04 Approved by: Audie Hu M.D. on 04/27/2020 at 12:05
--- NOTE | 2020-04-27 12:18 | PC.NURSE ---
Addendum entered by Ana Maria Cespedes R.N. 04/27/20 12:28: Chest x-ray completed prior to lunch w/ patient sitting in chair. Original Note: Shift summary: Alert and oriented X3. Responses to questions have been appropriate today. Does endorse shortness of breath at rest. Lungs w/ expiratory wheezing throughout, tight-sounding. Weaned from 4L to room air, 100% at rest on room air when pulse ox reading well. Per Dr Carlin no need to maintain continuous pulse oximetry (doesn't always read well r/t Dmitry) as long as we continue to check frequently. Intermittent dry cough, nonproductive. HR irregular to auscultation, tele monitoring ongoing. Generalized edema, patient reports this is improving compared to time of admit. Bui to gravity, good UOP. IV Lasix drip infusing, port L chest WNL. BP's on the lower side, but stable- patient asymptomatic with mobilization. Sitting up in chair working on lunch. Able to make needs known and has been calling appropriately. Light and belongings within reach, chair alarm on.
--- NOTE | 2020-04-27 14:31 | PM.PN.1 ---
Subjective Subjective Date Patient Seen: 04/27/20 Interval history: Patient feels like she has had improved urine output but continues to be short of breath. She notes that swelling of her hands and lower extremities have improved. She does continue to have end-expiratory wheezing. Patient has Raynaud's syndrome, therefore oxygenation via pulse oximetry has been difficult. Exam Vital Signs (past 8 hours): - 04/27/20 07:45 04/27/20 08:00 04/27/20 09:00 Temperature 98.1 F Pulse Rate 84 84 87 Respiratory Rate 18 16 Blood Pressure 89/50 L 99/55 L Pulse Oximetry 95 97 04/27/20 11:09 04/27/20 11:40 04/27/20 11:41 Temperature 98.2 F Pulse Rate 90 Respiratory Rate 15 Blood Pressure 96/53 L Pulse Oximetry 100 100 100 04/27/20 11:43 Temperature Pulse Rate Respiratory Rate Blood Pressure Pulse Oximetry 100 Oxygen Delivery Method Room Air Oxygen Flow Rate 0 Narrative Exam Narrative: Delightful female resting comfortably in no obvious distress Lungs: Decreased breath sounds, end-expiratory wheezing, bibasilar crackles noted Cardiac exam irregularly irregular, normal S1-S2, 2/6 systolic ejection Abdomen: Soft nontender, mildly distended normal active bowel tones Extremities 1+ pitting edema bilateral to the thought Objective Labs Result Diagrams: 04/24/20 04:45 04/27/20 05:16 Labs: Laboratory Results - last 24 hr 04/27/20 05:16 Sodium 136 L Potassium 3.6 Chloride 94 L Carbon Dioxide 35 H BUN 38 H Creatinine 1.32 H Estimated GFR 38.3 L BUN/Creatinine Ratio 28.8 H Glucose 100 Calcium 9.7 NT-Pro-B Natriuret Pep 41435 H Assessment & Plan Assessment & Plan narrative: Chronic heart failure with preserved EF, with cor pulmonale, present on admission, active, right sided Heart Failure -patient presents with anasarca -echo 04/24/2020 unchanged from previous echo in October of this year. Left ventricle cavity is small with EF 60-65%. Right ventricle is severely dilated with bowing of interventricular septum consistent with volume overload. Patient has severe TR and there is small to moderate pleural effusions. -excellent urine output with metolazone and continuous Lasix infusion -patient has had over 3 L out for the past 24 hour -chest x-ray shows bilateral atelectasis is, mild pulmonary vascular congestion, small pleural effusion 2. Acute kidney injury superimposed on chronic kidney disease stage 3, present on admission, active -patient has a creatinine 2.01 on admission labs. Most recent previous creatinine was 1.17 on 10/07/2019 with an EGFR of 44.2. -renal function improving with diuresis -avoid renal toxic agents and renally dose medications as indicated. -renal function improved, creatinine today 1.32 -patient developing contraction alkalosis, should her bicarbonate increase would consider adding sodium bicarbonate to her regimen 3. Chronic iron deficiency anemia, present on admission, active. -hemoglobin on admission is 9.0 with hematocrit of 29.3. Patient with chronic anemia since June of 2019. -MCV is 68.8 and MCH is 21.2. MCV was 91.7 and MCH was 30 on 10/08/2019. -iron profile consistent with iron deficiency with transferrin saturation 8% -patient is not on any blood thinners -continue monitoring as needed -continue patient's pantoprazole 40 mg daily -IV iron will 4. Troponin leak, present on admission, resolved -no complaints of chest pain or nausea -initial troponin 0.041, repeat troponin 0.034 -elevated troponin does not represent acute ischemia 5. Chronic atrial fibrillation, present on admission, stable. -patient with stable heart rate in the 70s to 80s. -telemetry reveals atrial fibrillation without ectopy. -patient was previously on Eliquis which was discontinued due to frequency of falls. -rate controlled -will discontinue telemetry 6. Right breast cancer with metastases to the right axillary lymph nodes, chronic, stable -patient underwent mastectomy in May of 2019. -the patient sustained injury with cellulitis to her left lower limb preventing initiation of chemotherapy. -since starting anti anti hormonal therapy, the patient has had progressive weakness and dizziness and treatment discontinued. -the patient was under the care of in [place] and transitioned to [facility]. 7. Dementia, chronic, stable. -patient has undergone recent extensive evaluation and found to have acute onset dementia. The patient is oriented to person and place with impaired short-term memory and perseveration. -the patient has been residing at [facility] since . -continue home regimen of Namenda 5 mg twice daily 8. Acquired hypothyroidism, chronic, stable -continue the patient's home regimen of levothyroxine 100 mcg daily. -TSH 7.46 with free T4 1.53, mildly elevated TSH likely due to poor absorption secondary to bowel wall edema, no change in dose indicated VTE prophylaxis: Heparin SQ IV fluid: Saline lock, Lasix infusion Diet: Heart healthy, low-sodium, fluid restriction Code status: DNR, patient's daughter Dr. Nichol Walker is her POA and surrogate decision maker.
[2020-04-27] MEDS: MAGNESIUM HYDROXIDE 30 ML UDC PO (20:30)
[2020-04-28] MEDS: FUROSEMIDE IV (04:43)
[2020-04-28] MEDS: SODIUM CHLORIDE 0.9% IV (04:43)
[2020-04-28 05:00] VITALS: BP 91/60; PULSE 89; RESP 16; TEMP 36.6; O2SAT 100
[2020-04-28 06:01] LABS: BUN Creatinine Ratio 28.5 (6-22); Blood Urea Nitrogen 39 mg/dL (7-17); Calcium 9.7 mg/dL (8.4-10.2); Chloride 92 mmol/L (98-107); Estimated Glomerular Filt Rate 36.7 mL/min (>60); Glucose 102 mg/dL (80-110); HEMOLYSIS < 15 (0-50); Potassium 3.6 mmol/L (3.4-5.1); Sodium 137 mmol/L (137-145)
[2020-04-28] MEDS: LEVOTHYROXINE 100 MCG TABLET PO (06:01)
--- NOTE | 2020-04-28 06:23 | PC.NURSE ---
SPANISH PROFESSOR note: throughout shift patient wanted ice chips. Since she didn't drink all of her allotted liquids I gave her 10 more ice chips. Patient again asked for more ice chips saying I barely drank any water today, so I could have water during the night. I told her I'd talk to the nurse. We gave her 20 ml of water and 10 ice cubes.
[2020-04-28 06:32] LABS: Carbon Dioxide 40 mmol/L (22-32)
--- NOTE | 2020-04-28 06:39 | PC.NURSE ---
Lab called with critical Co2 40. Gunnar SOLIS notified and ordered a stat ABG.
[2020-04-28 07:27] LABS: HCO3 ABG 38 mmol/L (22-26); Oxygen Saturation ABG 97 % (95-100); PCO2 ABG 48.1 mmHg (35-45); PO2 ABG 83 mmHg (80-100); TCO2 ABG 40 mmol/L (21-31); pH ABG 7.51 (7.35-7.45)
[2020-04-28 07:28] LABS: Fractionated Inspired Oxygen 28
[2020-04-28] MEDS: POTASSIUM CHLORIDE 20 MEQ TAB PO (08:47)
[2020-04-28] MEDS: DOCUSATE 100 MG CAPSULE PO ×2 (08:47→21:24)
[2020-04-28] MEDS: HEPARIN 5,000 UNIT/ML VIAL 5000 UNIT SUBCUT ×2 (08:48→21:24)
[2020-04-28] MEDS: MEMANTINE HCL 5 MG TABLET PO ×2 (08:48→21:21)
[2020-04-28] MEDS: PANTOPRAZOLE 40 MG TABLET PO (08:48)
[2020-04-28 09:00] VITALS: BP 91/46; PULSE 91; RESP 16; TEMP 36.6; O2SAT 100
[2020-04-28] MEDS: POTASSIUM CHLORIDE 20 MEQ/15 ML UDC PO ×2 (09:32→17:41)
--- NOTE | 2020-04-28 09:43 | DI.RAD.S_ITS ---
PROCEDURE: XR ABDOMEN 1V INDICATIONS: r/o obstipation TECHNIQUE: One view of the abdomen acquired. COMPARISON: [facility], CT, ABDOMEN/PELVIS WITH CONTRAST, 02/02/2015, 11:49. FINDINGS: Surgical changes and devices: Bilateral hip arthroplasties are noted. Bowel: Multiple nondilated air-filled loops of bowel are seen in the abdomen, which is nonspecific. Soft tissues: No suspicious abdominal calcifications. Visualized solid organ contours appear normal in size. Bones: No suspicious bony lesions. Degenerative changes are seen in the spine. IMPRESSION: Nonspecific nonobstructive bowel gas pattern. Dictated by: Francisco Bobo M.D. on 04/28/2020 at 11:22 Approved by: Francisco Bobo M.D. on 04/28/2020 at 11:25
--- NOTE | 2020-04-28 10:30 | OT.IPNOTE ---
Attempted to see pt for OT treatment. Pt states to have an x-ray today,not feeling well and requested not to be seen today for therapy. Per chart , pt to have xray of abdomen to rule out obstipation. To check on the pt tomorrow for OT.
[2020-04-28 12:23] VITALS: BP 103/64; PULSE 83; RESP 16; TEMP 36.8; O2SAT 100
--- NOTE | 2020-04-28 13:36 | CM.DPC ---
Addendum entered by Irene Cordoba R.N. 04/28/20 15:20: Patient's daughter, Sil Walker called back. This welfare case worker also attempted to reach other daughter, DPOA, Nichol Walker, and left a message for her to call this welfare case worker back. Sil stated, she is hoping to get her mother to [facility]. She stated that she also has not been able to get in touch with her sister, Ananda, and is making an executive decision. Daughter was hoping to transport her mother to [facility], but let her know that they do not allow visitors. She was also inquiring who the primary medical provider is at [facility]. Called December in admissions and left her a message to call patient's daughter, regarding visitation and transportation. [facility] stated that they can accept, but will need new COVID. [facility] and [facility] can also accept. Patient's daughter stated, she is concerned about [facility] due to past COVID outbreak. At this point, will be [facility]. Original Note: DCP Cont: Originally called STERLING Byers at [facility]. Faxing over latest P.T. note. At this time, patient is max assist of one, but [place] stated, she is unsure that they can take her back at that level, but will review the notes. Dr. Hopkins spoke to daughter, Sil Yeager, for Nichol Walker is out of town, and she is POA. Sil stated that she plans to talk to other family members regarding discharge plan, but stated that it would be appropriate to send referrals over to care facilities. Went over Medicare Choice List, and daughter stated that [facility], [facility], and [facility] would be acceptable to send referrals. Daughter will call this welfare case worker back after she has discussion with other family members. Let daughter know that hospice at facility would not cover daily room rate, but is approximately $375.00 a day with 30 days down. Faxed referral over to [facility], [facility], and left message with December at [facility]. [facility], and stated that they are accepting admissions. Stated that if patient goes on Hospice, daily rate would be $296.00 a day with 30 days down. Spoke to Geraldine at [facility] and they have some short term availabilities. She could go over for skilled, and transition to private pay which would be $357.00 a day. She will also review. P: Patient may need snf. Faxed referrals to facilities as stated above, as well as updated notes to [facility]. Family will discuss and call this welfare case worker back. Irene Cordoba RN
--- NOTE | 2020-04-28 13:42 | PT-IP ANOTE ---
attempted to see pt at 1130am who just returned from X-ray check up. Pt stated she is very tired today and does not want participate PT today. Will check on her this PM. SW stated that her dtr is leaning towards discharging to SNF now.
--- NOTE | 2020-04-28 14:07 | PM.PN.1 ---
Subjective Subjective Date Patient Seen: 04/28/20 Interval history: Patient is 84-year-old female with history of heart failure with preserved EF, right breast cancer with metastases to the axilla, chronic atrial fibrillation (not anticoagulated due to multiple falls), hypothyroidism and acute onset dementia was admitted for anasarca. Patient has been getting diuresed with continuous Lasix drip and metolazone but has developed a significant contraction alkalosis in spite of persistent generalized edema. Her serum bicarbonate is up to 40 and her pH is 7.51 on ABG. In addition she is requiring 2 L O2 NC with PO2 of 83 on her ABG while on 2 L. chest x-ray shows small right pleural effusion, trace left pleural effusion and bibasilar atelectasis. Patient is complaining of constipation although received laxative yesterday and has had 5 bowel movements. Abdominal x-ray shows nonspecific bowel gas pattern and no evidence of severe constipation. Exam Vital Signs (past 8 hours): - 04/28/20 09:00 04/28/20 12:23 Temperature 97.9 F 98.3 F Pulse Rate 91 H 83 Respiratory Rate 16 16 Blood Pressure 91/46 L 103/64 Pulse Oximetry 100 100 Oxygen Delivery Method Nasal Cannula Oxygen Flow Rate 0 Narrative Exam Narrative: General: Alert pleasant female in no acute distress Lungs: Diminished in bases Heart: Irregularly irregular rhythm Abdomen: Soft Extremities: There is significant edema in the thighs extending to the abdomen and dependent back areas, edema in the arms is improved Objective Labs Result Diagrams: 04/24/20 04:45 04/28/20 05:35 Labs: Laboratory Results - last 24 hr 04/28/20 04/28/20 05:35 07:17 ABG pH 7.51 H ABG pCO2 48.1 H ABG pO2 83 ABG HCO3 38 H ABG Total CO2 40 H ABG O2 Saturation 97 ABG Base Excess 15.0 H FiO2 28 Sodium 137 Potassium 3.6 Chloride 92 L Carbon Dioxide 40 H* BUN 39 H Creatinine 1.37 H Estimated GFR 36.7 L BUN/Creatinine Ratio 28.5 H Glucose 102 Calcium 9.7 Assessment & Plan Assessment & Plan narrative: Patient is 84-year-old female with history of heart failure with preserved EF, right breast cancer with metastases to the axilla, chronic atrial fibrillation (not anticoagulated due to multiple falls), hypothyroidism and acute onset dementia was admitted for anasarca. 1. Chronic heart failure with preserved EF, with cor pulmonale, present on admission, active, right sided Heart Failure -patient presents with anasarca -echo 04/24/2020 unchanged from previous echo in October of this year. Left ventricle cavity is small with EF 60-65%. Right ventricle is severely dilated with bowing of interventricular septum consistent with volume overload. Patient has severe TR and there is small to moderate pleural effusions. -excellent urine output with metolazone and continuous Lasix infusion but she has developed a significant contraction alkalosis, and she will not be able to tolerate continued IV diuresis. This is all reflective of end-stage heart failure. Reviewed findings with patient's daughter Enedina,tel # [phone]. Patient and family may wish to pursue hospice services in the near future and has her edema will likely be refractory to oral therapy and we have had relatively modest success diuresing her in-hospital with high doses of IV Lasix. -patient has had over 3 L net output for the past 24 hour and cumulative 7300 mL net urine output since admission but further diuresis limited by intravascular volume contraction -discontinued Lasix drip. -torsemide 40 mg daily and continue metolazone 5 mg daily -continue oral KCL 20 mEq b.i.d. -continue fluid restriction 1500 cc per 24 hours 2. Acute kidney injury superimposed on chronic kidney disease stage 3, present on admission, active -patient has a creatinine 2.01 on admission labs. Most recent previous creatinine was 1.17 on 10/07/2019 with an EGFR of 44.2. -renal function improving with diuresis -avoid renal toxic agents and renally dose medications as indicated. -renal function improved, creatinine today 1.37 3. Chronic iron deficiency anemia, present on admission, active. -hemoglobin on admission is 9.0 with hematocrit of 29.3. Patient with chronic anemia since June of 2019. -MCV is 68.8 and MCH is 21.2. MCV was 91.7 and MCH was 30 on 10/08/2019. -iron profile consistent with iron deficiency with transferrin saturation 8% -patient is not on any blood thinners -continue monitoring as needed -continue patient's pantoprazole 40 mg daily 4. Troponin leak, present on admission, resolved -no complaints of chest pain or nausea -initial troponin 0.041, repeat troponin 0.034 -elevated troponin does not represent acute ischemia 5. Chronic atrial fibrillation, present on admission, stable. -patient with stable heart rate in the 70s to 80s. -telemetry reveals atrial fibrillation with controlled rate. -patient was previously on Eliquis which was discontinued due to frequency of falls. 6. Right breast cancer with metastases to the right axillary lymph nodes, chronic, stable -patient underwent mastectomy in May of 2019. -the patient sustained injury with cellulitis to her left lower limb preventing initiation of chemotherapy. -since starting anti anti hormonal therapy, the patient has had progressive weakness and dizziness and treatment discontinued. -the patient was under the care of in [place] and transitioned to [facility]. 7. Dementia, chronic, stable. -patient has undergone recent extensive evaluation and found to have acute onset dementia. The patient is oriented to person and place with impaired short-term memory and perseveration. -the patient has been residing at [facility] since . -continue home regimen of Namenda 5 mg twice daily 8. Acquired hypothyroidism, chronic, stable -continue the patient's home regimen of levothyroxine 100 mcg daily. -TSH 7.46 with free T4 1.53, mildly elevated TSH likely due to poor absorption secondary to bowel wall edema, no change in dose indicated 9. Acute hypoxic respiratory failure, active -this appears to have developed during her hospital stay likely due to atelectasis -continue 2 L O2 NC -incentive spirometry VTE prophylaxis: Heparin SQ IV fluid: Saline lock, Lasix infusion Diet: Heart healthy, low-sodium, fluid restriction Code status: DNR, patient's daughter Dr. Nichol Walker is her POA and surrogate decision maker. Patient's other daughter Enedina is also involved in decision making. At this time Dr. Walker is out of cellphone reach and Enedina has been our main contact. Disposition: Patient has been getting PT/OT. She is maximal assist and likely would benefit from detention facility rehab. Possibly could be ready for discharge tomorrow, 04/29.
[2020-04-28 15:35] VITALS: BP 108/63; PULSE 86; RESP 17; TEMP 37.3; O2SAT 92
[2020-04-28] MEDS: NYSTATIN POWDER 15GM 1 APPLIC TOP (21:25)
[2020-04-28 23:00] VITALS: BP 93/52; PULSE 89; RESP 16; TEMP 36.6; O2SAT 98
[2020-04-29 05:39] VITALS: BP 109/59; PULSE 85; RESP 16; TEMP 36.6; O2SAT 96
[2020-04-29] MEDS: LEVOTHYROXINE 100 MCG TABLET PO (06:02)
[2020-04-29 06:27] LABS: BUN Creatinine Ratio 30.8 (6-22); Blood Urea Nitrogen 44 mg/dL (7-17); Calcium 9.9 mg/dL (8.4-10.2); Chloride 92 mmol/L (98-107); Glucose 96 mg/dL (80-110); HEMOLYSIS < 15 (0-50); Potassium 3.7 mmol/L (3.4-5.1); Sodium 136 mmol/L (137-145)
[2020-04-29 06:35] LABS: Carbon Dioxide 39 mmol/L (22-32)
[2020-04-29 08:34] VITALS: BP 94/53; PULSE 87; RESP 15; TEMP 36.9; O2SAT 95
[2020-04-29] MEDS: POTASSIUM CHLORIDE 20 MEQ/15 ML UDC PO (08:50)
[2020-04-29] MEDS: HEPARIN 5,000 UNIT/ML VIAL 5000 UNIT SUBCUT (08:51)
[2020-04-29] MEDS: MEMANTINE HCL 5 MG TABLET PO (08:51)
[2020-04-29] MEDS: TORSEMIDE 10 MG TABLET 40 MG PO (08:52)
[2020-04-29] MEDS: PANTOPRAZOLE 40 MG TABLET PO (08:52)
--- NOTE | 2020-04-29 08:55 | OT.IPNOTE ---
OT attempted to see pt to take a shower prior to going to skilled rehab, pt refused .
--- NOTE | 2020-04-29 09:23 | P.DS_ITS ---
History of Present Illness History of Present Illness Date Patient Seen: 04/23/20 Chief complaint: weakness, swelling in extremities Narrative: Written by Artemio SOLIS: Ms. Margie Walker is an 84-year-old female a history significant for heart failure with preserved ejection fraction and diastolic dysfunction, bilateral lower extremity edema, right breast cancer with metastases into the right axilla (s/p mastectomy 05/2019), chronic atrial fibrillation (not anticoagulated due to multiple falls), hypothyroidism, osteoarthritis and acute onset dementia who presents to the emergency room sent in by her primary care physician Dr. Loja related to worsening congestive heart failure. The patient resides at [facility] since . Due to COVID-19 restrictions family has not been able to visit and on 2 days gonzalo ointment the patient was found to have marked anasarca with associated shortness of breath and weakness. The patient has sustained a 50 lb weight gain over the last 3 months and per family 30 lb in the last month. The patient has had a difficult medical course since her mastectomy. She had multiple falls sustaining a a left lower leg wound and could not progress to chemotherapy. Estrogen inhibitor therapy was not tolerated by the patient. Patient developed acute altered mental status initially believed to be metabolic encephalopathy secondary to UTI however patient underwent extensive evaluation with 2 weeks at [facility], 2 weeks [facility] in 2 weeks back at [facility] with final diagnosis of acute onset of dementia. Patient has baseline disorientation, short-term memory loss and perseveration per the patient's daughter Dr. Walker at bedside. The patient has not reported any complaints of fevers or chills. Headaches or visual changes. She denies chest pain or palpitations and appears unaware of her chronic atrial fibrillation. She she endorses shortness of breath and feels difficulty taking a deep breath. Patient complains of an intertriginous rash under left breast which is painful. She denies heartburn and describes abdominal wall tenderness she relates to her fluid retention. Patient has marked edema the perineum as well as perineal rash including the labia. The patient describes progressive weakness and has been unable to get up out of the chair or off the commode without assistance due to fluid weight gain. Patient has anasarca of onto the left breast and right chest wall. The patient can weakly lift her heels off the foot of the bed but cannot raise her leg. Previously the patient has been able ambulate with a walker. The patient is under further reports that the patient has a chronic low blood pressure between 70s and 90 systolic which is her norm. Upon arrival to the ER the patient is afebrile with temperature 97.9?, heart rate of 72, blood pressure 94/58, respirations of 18, saturation 98% on room air. A chest x-ray is obtained which finds trace right pleural effusion. On laboratory analysis the patient has white count of 4.8, hemoglobin 9.0, hematocrit of 29.3 and platelets of 227. She has an MCV of 60.8 and MCH of 21.2. Her RDW is 22.3. On 10 for chills she has elevated segs at 78% and monocytes at 14.0%. She has a slightly low sodium of 136, potassium is 3.8, magnesium is added on and found to be 2.1. Her BUN is 41 and creatinine is 2.01 her estimated GFR is 23.6 her nonfasting glucose is 143. Her liver functions are all within normal limits. She has some mildly elevated troponin at 0.041 with a troponin of 160,000. Her albumin is 3.5. On urinalysis is specific gravity of 1.015, pH 5.0 with 1+ leukocyte esterase, urine wbc's of 10-30 and renal epithelials cells 1-5 and 1+ mucus the samples reflex to culture. Per the patient's daughter who holds POA indicates the patient is DNR but still would like treatment but no aggressive interventions. The patient is given 60 mg of Lasix IV in the emergency department with modest diuresis. The patient is admitted to the hospital service for treatment of decompensated heart failure, anemia, acute on chronic renal failure and anasarca. PCP: Dr. Loja Discharge Providers Provider Date of admission: 04/23/20 17:37 Discharge Date: 04/29/20 Primary care physician: Dylan Loja MD Consults: 04/23/20 21:50 Consult to Dietitian, Adult Routine Comment: Reason For Exam: Anasarca congestive failure 04/23/20 21:51 Consult to Discharge Planning Routine Comment: Consult to Occupational Therapy Evaluate & Treat Comment: Weakness, anasarca Physician Instructions: Evaluate and treat Consult to Physical Therapy Evaluate & Treat Comment: Weakness, anasarca Physician Instructions: Evaluate and Treat 04/24/20 11:01 Consult to Occupational Therapy Evaluate & Treat Comment: Physician Instructions: Evaluate and treat Consult to Physical Therapy Evaluate & Treat Comment: Physician Instructions: Evaluate and Treat Discharge provider: Rupal Kennedy DO Summary Hospital Course Discharge Diagnosis: 1. Chronic heart failure with preserved EF and cor pulmonale, present on admission. Improved. 2. Acute kidney injury on chronic kidney disease stage 3, present on admission. NADINE resolved. 3. Chronic iron deficiency anemia, present on admission. Stable. 4. Elevated troponin, secondary to hypervolemia, present on admission. Resolved. 5. Chronic atrial fibrillation, present on admission. Stable. 6. Right breast cancer with metastases to the right axillary lymph nodes, chronic, present on admission. Stable. 7. Dementia, chronic, present on admission. Stable. 8. Hypothyroidism, chronic, present on admission. Stable. 9. Acute hypoxemic respiratory failure, not present on admission. Resolved. Hospital Course: Margie Walker is an 84-year-old female with a past medical history significant for heart failure with preserved EF, right breast cancer with metastases to the axilla, chronic atrial fibrillation (not anticoagulated due to multiple falls), hypothyroidism and dementia who was admitted for anasarca. 1. Chronic heart failure with preserved EF and cor pulmonale, present on admission. Improved. -Patient presented with severe anasarca to upper chest. -Echocardiogram on 04/24/2020 unchanged from previous echo in October of this year. Left ventricle cavity is small with EF 60-65%. Right ventricle is severely dilated with bowing of interventricular septum consistent with volume overload. Patient has severe TR and there is small to moderate pleural effusions. -Patient with good urine output once metolazone was added to lasix gtt 20mg/hr. However, she developed a significant contraction alkalosis and was not be able to tolerate continued IV diuresis reflective of end-stage heart failure. Lasix gtt discontinued. -Continued strict I&O and daily weights. Net - 8L. -Continued metolazone 5 mg daily prior to torsemide 40 mg daily and potassium chloride 20 mEq twice daily. -Continued low sodium diet and fluid restriction 1500 mL daily. -Reviewed findings with patient's daughter Enedina, tel # [phone]. Patient and family may wish to pursue hospice services in the near future as her fluid overload will likely be refractory to oral therapy since relatively modest success diuresing her in-hospital with high doses of IV Lasix. 2. Acute kidney injury on chronic kidney disease stage 3, present on admission. NADINE resolved. -Initial creatinine 2.01. Baseline creatinine was 1.17 on 10/07/2019 with an EGFR of 44.2. Creatinine improved to 1.43 with diuresis and likely new baseline. -Avoided nephrotoxic agents and renally dosed medications as indicated. -Continued to monitor renal function daily. 3. Chronic iron deficiency anemia, present on admission. Stable. -Likely secondary to anemia of chronic kidney disease and hypervolemia. GI source not ruled out. -Initial hemoglobin 9.0, hematocrit of 29.3, MCV 68.8 and MCH 21.2. MCV was 91.7 and MCH was 30 on 10/08/2019. Patient with chronic anemia since June of 2019. -Iron profile consistent with iron deficiency with transferrin saturation 8%. Patient reportedly cant tolerate iron due to constipation. -Patient is not on any blood thinners. Continued home pantoprazole 40 mg daily. -Continued to monitor H&H closely and stable. 4. Elevated troponin, secondary to hypervolemia, present on admission. Resolved. -No complaints of chest pain or ACS. -Initial troponin 0.041. Repeat troponin trending down 0.034 with IV diuresis. No need to further trend. 5. Chronic atrial fibrillation, present on admission. Stable. -Patient was previously on Eliquis which was discontinued due to frequency of falls and high risk of bleeding. -Continued to monitor on telemetry and remained in atrial fibrillation with controlled rate. 6. Right breast cancer with metastases to the right axillary lymph nodes, chronic, present on admission. Stable. -Patient underwent mastectomy in May of 2019. -Patient sustained injury with cellulitis to her left lower limb preventing initiation of chemotherapy. -Since starting antihormonal therapy, the patient has had progressive weakness and dizziness and the treatment discontinued. -Patient is follwoed by of oncology in [place] and transitioned to [facility]. 7. Dementia, chronic, present on admission. Stable. -Patient has undergone recent extensive evaluation and found to have acute onset dementia. The patient is oriented to person and place with impaired short-term memory and perseveration. Patient has been residing at [facility] since . -Continued home regimen of Namenda 5 mg twice daily. -Continued physical and occupational therapy evaluation and treatment. Patient is not motivated to get up and ambulate or exercise likely due to dementia. -Continued to reorient and redirect often. 8. Hypothyroidism, chronic, present on admission. Stable. -TSH slightly elevated at 7.46 but normal free T4 at 1.53. -Continued home levothyroxine 100 mcg daily. 9. Acute hypoxemic respiratory failure, not present on admission. Resolved. -Patient developed hypoxemia during hospitalization likely due to atelectasis and lack of movement as patient is not motivated to get up or exercise. -Continued supplemental oxygen as necessary to maintain oxygen saturations 88- 92%. Patient is off oxygen and maintaining oxygen sarurations of 98%. -Continued incentive spirometry. Exam Vital Signs (past 8 hours): - 04/29/20 05:39 04/29/20 08:34 Temperature 97.9 F 98.5 F Pulse Rate 85 87 Respiratory Rate 16 15 Blood Pressure 109/59 L 94/53 L Pulse Oximetry 96 95 Oxygen Delivery Method Room Air Oxygen Flow Rate 0 Narrative Exam Narrative: General: Elderly female lying in bed and in no acute distress, well-developed, well-nourished, demented with perseveration but otherwise appropriately i nteractive. HEENT: Normocephalic, atraumatic. External ears without defect. Pupils equal, round, and reactive to light. Anicteric sclerae, moist conjunctivae, and no lid lag. Oropharynx free of erythema and cobble stoning with moist mucosa. Neck: Supple with full range of motion. No jugular venous distension. No lymphadenopathy or thyromegaly. Cardiovascular: Regular rate and rhythm without murmurs, rubs, or gallops appreciated Pulmonary: Clear to auscultation bilaterally without crackles, wheezes, or rhonchi. Normal respiratory effort with no use of accessory muscles. Abdomen: Soft, obese, bowel sounds present, nontender, nondistended. Extremities: No clubbing or cyanosis. Moderate dependent edema to thighs. Skin: Normal temperature, turgor, and texture; no rash, ulcers, or subcutaneous nodules appreciated. Neurological: Cranial nerves grossly intact. Psychiatric: Depressed mood and affect. Alert and oriented to person, place, and time. Mild to moderate dementia with short term memory recall deficit and perseveration. Objective Labs Result Diagrams: 04/24/20 04:45 04/29/20 05:55 Labs: Laboratory Results - last 24 hr 04/29/20 05:55 Sodium 136 L Potassium 3.7 Chloride 92 L Carbon Dioxide 39 H BUN 44 H Creatinine 1.43 H Estimated GFR 35.0 L BUN/Creatinine Ratio 30.8 H Glucose 96 Calcium 9.9 Discharge Plan Discharge Plan Patient Disposition: SNF Transfer to: [facility] Under care of provider: director orange Discharge orders & Medications Prescriptions: New metolazone 2.5 mg Tablet 5 mg PO 0800 Qty: 30 RF: 0 potassium chloride 20 mEq/15 mL Liquid 20 meq PO BIDWM Qty: 60 RF: 0 acetaminophen 325 mg Tablet 650 mg PO Q6HR PRN (Reason: Fever/Mild Pain (1-3)) Qty: 30 RF: 0 polyethylene glycol 3350 17 gram Powder In Packet 17 gm PO DAILY PRN (Reason: Constipation) Qty: 30 RF: 0 bisacodyl 10 mg Suppository 10 mg FL DAILY PRN (Reason: Constipation) Qty: 10 RF: 0 Continued magnesium oxide 400 mg Capsule 400 mg PO DIRECTED Qty: 0 RF: 0 cholecalciferol (vitamin D3) [Vitamin D3] 5,000 unit Tablet 10,000 unit PO DAILY RF: 0 levothyroxine 100 mcg tablet 100 mcg PO DAILY RF: 0 memantine [Namenda] 5 mg Tablet 5 mg PO BID RF: 0 nystatin 100,000 unit/gram Ointment 1 applic TOPICAL QID RF: 0 pantoprazole 40 mg Tablet,Delayed Release (Dr/Ec) 40 mg PO DAILY RF: 0 docusate sodium 100 mg Capsule 100 mg PO DAILY RF: 0 acetaminophen 325 mg tablet 1,350 mg PO BID RF: 0 Changed torsemide 20 mg Tablet 40 mg PO DAILY Qty: 0 RF: 0 Follow up/Referrals: Dylan Loja MD [Primary Care Provider] - Diet/Activity/Treatments Diet: Diet as Tolerated, Low-fat, Low-sodium and Low-cholesterol Diet comment: low sodium < 2g/day, 1.5 L fluid restriction Activity: Activity as tolerated with forward wheeled walker and physical and occupational therapy Catheter: 2-way Pulido Catheter comment: continue pulido care and change every 3 weeks [facility] Reason for rehabilitation: Recovery r/t decondition Rehab type: Physical therapy and Occupational therapy Visit Report/Discharge Packet Instructions: DI for Heart Failure, How to Prevent Falls Stand Alone Forms: Congestive Heart Failure Visit Report Forms: Stroke Signs & Symptoms Discharge Data Primary Care Provider: Dylan Loja V Discharges patient from system. Discharge Date/Time: 04/29/20 15:02
[2020-04-29 11:12] LABS: COVID19 -Nasal RAPID Negative (Negative)
--- NOTE | 2020-04-29 11:31 | PT.IPTN ---
Current Diagnoses Chronic diastolic (congestive) heart failure (04/23/20) Physical Therapy Treatment Note M2 PT-IP Current Condition Start: 04/24/20 12:39 Freq: NEEDED Status: Active Protocol: Document 04/25/20 10:46 AW (Rec: 04/25/20 13:04 AW [id number]) Physical Therapy Current Condition Current Condition Evaluation Date 04/25/20 Treatment Diagnosis decompensated HF, anasarca, difficulty in walking Onset Date 04/23/20 Precautions Other Precautions R BRCA with mets to axilla; No BP right side M3 PT-IP Subjective Start: 04/24/20 12:39 Freq: NEEDED Status: Active Protocol: Document 04/29/20 11:23 AW (Rec: 04/29/20 11:31 AW [email or web address]) Subjective Physical Therapy Visit Type Type Treatment Note Visit Start Time 09:28 Visit Stop Time 09:52 Total Visit Minutes 24 Notes SURVEY AND MAPPING TECHNICIAN present to assist with bed mobility. Number of WOOD BORING MACHINE OPERATOR Visits 0 Physical Therapy Visit Comments Patient Comments Pt is unmotivated today and states she does not want to return to [facility]. I just can't. Don't make me. Therapy Pain Assessment Pain When Pain Assessed At Rest Pain Present Pain Present Denied Pain M4 PT-IP Mobility and Gait Start: 04/24/20 12:39 Freq: NEEDED Status: Active Protocol: Document 04/29/20 11:23 AW (Rec: 04/29/20 11:31 AW [email or web address]) PT-Bed Mobility Assessment Rolling Type of Rolling Bilateral Level of Assist Maximal Assistance,1 Person Assistance,2 Person Assistance Gait Assessment Comments Gait Comments Pt refused all OOB mobility this date and required max A x 1-2 for bed mobility. M5 PT-IP Objective Assessments Start: 04/24/20 12:39 Freq: NEEDED Status: Active Protocol: Document 04/25/20 10:46 AW (Rec: 04/25/20 13:04 AW [id number]) Orientation Orientation/Cognition Level of Alertness Confusional State Orientation Name,Situation Safety Awareness Decreased Safety Awareness Memory Description Short Term Impaired Comments Pt has acute onset dementia and tends to repeat herself. She is aware of her situation and is able to participate in her care. Gross Range of Motion Lower Extremity ROM Impairments Limited ankle AROM due to BLE swelling Strength Lower Extremity Strength Assessment Bilaterally Impaired Hip 4-/5 Knee 4/5 Ankle 4-/5 Sensation Assessment Sensation Gross Sensation Right LE Impaired,Left LE Impaired Light Touch Impaired Proprioception (Position) Impaired Muscle Tone Muscle Tone WNL Yes M6 PT-IP Treatment Start: 04/24/20 12:39 Freq: NEEDED Status: Active Protocol: Document 04/29/20 11:23 AW (Rec: 04/29/20 11:31 AW [email or web address]) Physical Therapy Treatment Exercises Exercises Ankle Pumps,Gluteal Sets,Quad Sets,Heel Slides,Straight Leg Raises Other Treatments Other Treatment Performed Pt agreed to bed exercise after refusing to get out of bed. 1 set of 10 reps each. SLR is weak and fatigable but pt is able to complete 10. M7 PT-IP Assessment and Plan Start: 04/24/20 12:39 Freq: NEEDED Status: Active Protocol: Document 04/29/20 11:23 AW (Rec: 04/29/20 11:31 AW [email or web address]) PT Summary Assessment and Plan Potential Rehabilitation Potential Fair Status of Condition at Evaluation Stable Summary Impairments ROM,Strength,Balance,Sensation ,Cognition,Bed Mobility, Transfers,Gait,Activity Tolerance Progress Towards Goals Slow Progress due to Activity Tolerance,Slow Progress - Other Assessment Summary Pt refuses all OOB mobility this date in spite of education of risks of continued immobility. She has been requiring max assist for bed mobility with no change today. Transfers and ambulation of up to 10 feet with FWW have been requiring contact guard to min assist. Pt lacks motivation today and appears depressed. Discharge to SNF is scheduled for later today. Goals Transfer Goal Standby Assistance,Four Wheeled Walker Gait Goal Standby Assistance,Four Wheel Walker Gait Distance 75 Days to Meet Goals 5 Frequency of Treatment Frequency Of Treatment Once a Day Treatment Plan Physical Therapy Treatment Plan Bed Mobility Training,Transfer Training,Gait Training, Therapeutic Exercise,Balance Retraining,Discharge Planning, Neuromuscular Re-ed Other Recommendations and Next Treatment transfers; progress gait as Focus tolerated Recommendations To Nursing Amount of Assist Needed 2 Person Assist Discharge Recommendations PT Discharge Recommendations SNF Rehab Transportation Needs at Discharge Wheelchair/Cabulance
--- NOTE | 2020-04-29 11:52 | CM.DPC ---
Addendum entered by Irene Cordoba R.N. 04/29/20 14:51: Modesta from [facility]3] came by, and met with patient. She stated it would be more appropriate for her to get some usp before returning to their facility. She stated that their facility has minimal assist residents. She has been in contact with Nichol, who is on her way here to see her mother. Dr. Kennedy did call Nichol and explained her medical findings. In the conversation she emphasized the advantage of her going to skilled for a short amount of time, and can consider hospice back at [facility]3]. Daughter in agreement that patient can go to [facility]. Spoke to Nichol, and let her know that her mother would be picked up at 1430. Met briefly with her at patient's bedside during visit. Silvina at [facility] was updated. Addendum entered by Irene Cordoba R.N. 04/29/20 12:01: Received negative COVID results. Faxed to [facility]. Original Note: DCP Cont: Plan is for patient to go to [facility] today. Daughter, Sil called back and originally stated that her sister, Nichol BOUCHER) was ok with [facility]. She then called back and stated that her sister wants patient to be assessed to see if she can go back to [facility]3]. Contacted Modesta at [facility]3]. Asked her if she can call her daughter, since it is currently unclear if they will accept her back. Modesta from [facility]3] called back and indicated that she would be here at approximately noon to evaluate her. Updated December at [facility], and asked if she can change pharmacy picking technician time between [phone]. Daughter, Nichol Rowland, then called back. She stated she keeps hearing conflicting statements about her mom's medical condition, and wants to talk to the hospitalist regarding her condition before considering her going to [facility]. She indicated that she wants to be sure that her mom does not need a higher level of care. Asked Dr. Kennedy to give the daughter a call, and gave her the phone number. In the meantime, will expect Modesta to be here to see patient, and will meet with her. Will follow up with Dr. Kennedy regarding conversation. Will keep patient on for [facility] as well. Have already faxed [facility] signed med sheets, PASSR, and DC summary. Awaiting COVID results from today. P: Will continue to work on discharge for today. Irene Cordoba RN/Secondary Art Teacher
[2020-04-29 12:14] VITALS: BP 98/62; PULSE 83; RESP 15; TEMP 36.9; O2SAT 98
--- NOTE | 2020-04-29 15:01 | PC.NURSE ---
Patient discharged to SNF, packet given to carmelita. Report called to RN at [facility].
== END 2020-04-29 15:02 | DRG 291 ==
LOC: ED 15:32 → AC 17:37 → ICU 04-24 11:48 → AC 04-26 14:26 → ICU 04-27 10:37
PROVIDERS: Internal Medicine; Nurse Practitioner Adult Health; Admitting Provider Internal Medicine; Emergency Provider Emergency Medicine; Family Provider Internal Medicine; PCP Internal Medicine; Referring Provider Emergency Medicine; Visit Provider Internal Medicine
DX: I50.33 Acute on chronic diastolic (congestive) heart failure (principal); J96.01 Acute respiratory failure with hypoxia; N17.9 Acute kidney failure, unspecified; I48.20 Chronic atrial fibrillation, unspecified; C77.3 Secondary and unspecified malignant neoplasm of axilla and upper limb lymph nodes; E87.3 Alkalosis; J98.11 Atelectasis; R60.1 Generalized edema; I27.81 Cor pulmonale (chronic); F03.90 Unspecified dementia, unspecified severity, without behavioral disturbance, psychotic disturbance, mood disturbance, and anxiety; C50.919 Malignant neoplasm of unspecified site of unspecified female breast; N18.30 Chronic kidney disease, stage 3 unspecified; I50.84 End stage heart failure; E03.9 Hypothyroidism, unspecified; D50.9 Iron deficiency anemia, unspecified; R29.6 Repeated falls; Z11.59 Encounter for screening for other viral diseases
CPT/HCPCS: 36415; 36591; 36600; 71045; 74018; 76705; 80048; 80053; 81001; 82550; 82805; 83540; 83550; 83735; 83880; 84439; 84443; 84484; 85025; 86850; 86900; 86901; 87086; 87635; 87797; 93005; 93306; 94762; 96374; 97110; 97116; 97162; 97166; 97530; 97535; 99284; J1642; J1644; J1756; J1940

== ENCOUNTER → 2020-05-02 21:47 | Outpatient (ROUT) | payer MEDICARE, OTHER, SELFPAY ==
[2020-04-23 19:40] VITALS: BMI 34.7
[2020-05-02 21:49] LABS: RBC Urine None Seen (0-5/HPF)
[2020-05-02 21:57] LABS: Bilirubin Urine UA NEGATIVE (NEGATIVE); Color Urine UA YELLOW; Glucose Urine UA NEGATIVE (Negative); Ketones Urine UA NEGATIVE (NEGATIVE); Leukocyte Esterase Urine UA 3+ (NEGATIVE); Nitrite Urine UA POSITIVE (Negative); Occult Blood Urine UA 2+ (Negative); Protein Urine UA 1+ (Negative); Specific Gravity Urine UA 1.015 (1.000-1.035); Urobilinogen Urine UA 0.2 E.U./dL (0.2)
[2020-05-02 22:00] LABS: Appearance Urine UA Slightly Cloudy; pH Urine UA 8.5 (4.5-8.0)
[2020-05-02 22:07] LABS: Squamous Epithelial Cell Urine 0-1 /HPF (0-5/HPF); WBC Urine 10-30/HPF (0-5/HPF)
[2020-05-02 22:08] LABS: Bacteria Urine Moderate (10-30)
== END ==
PROVIDERS: Family Provider Internal Medicine; PCP Internal Medicine; Visit Provider Internal Medicine
DX: N39.0 Urinary tract infection, site not specified (principal)
CPT/HCPCS: 81001; 87077; 87086; 87186

== ENCOUNTER → 2020-05-21 22:19 | Outpatient (ROUT) | payer MEDICARE, OTHER, SELFPAY ==
[2020-04-23 19:40] VITALS: BMI 34.7
[2020-05-21 22:26] LABS: Add Manual Diff / Slide Review NO; Basophils Absolute Auto 100 /uL (0-100); Basophils Percent Auto 1.3 % (0-2); Eosinophils Absolute Auto 0 /uL (0-450); Eosinophils Percent Auto 0.7 % (2-4); Hemoglobin 9.2 g/dL (12.0-16.0); Lymphocytes Absolute Auto 400 /uL (1100-4500); Lymphocytes Percent Auto 9.8 % (25-40); Mean Corpuscular HGB Conc 30.8 % (30-36); Mean Corpuscular Hemoglobin 21.4 PG (26-34); Mean Corpuscular Volume 69.4 fL (80-100); Monocytes Absolute Auto 800 /uL (0-900); Monocytes Percent Auto 19.5 % (3-14); Neutrophils Absolute Auto 2700 /uL (1500-7000); Neutrophils Percent Auto 68.7 % (50-75); Platelet Count 165 X10^3/uL (150-400); Red Blood Cell Count 4.32 X10^6/uL (4.0-5.2); White Blood Cell Count 3.9 X10^3/uL (4.5-11.0)
[2020-05-21 22:38] LABS: BUN Creatinine Ratio 20.4 (6-22); Blood Urea Nitrogen 82 mg/dL (7-17); Calcium 9.6 mg/dL (8.4-10.2); Carbon Dioxide 33 mmol/L (22-32); Chloride 86 mmol/L (98-107); Estimated Glomerular Filt Rate 10.6 mL/min (>60); Glucose 83 mg/dL (80-110); HEMOLYSIS 15 (0-50); Potassium 3.9 mmol/L (3.4-5.1); Sodium 130 mmol/L (137-145)
[2020-05-22 01:18] LABS: Anisocytosis 3+
[2020-05-22 01:19] LABS: Microcytosis 1+
[2020-05-22 01:20] LABS: Hypochromasia 2+
[2020-05-22 01:21] LABS: Schistocytes 1+; Target Cells 1+
== END ==
PROVIDERS: Family Provider Internal Medicine; PCP Internal Medicine; Visit Provider Internal Medicine
DX: N18.30 Chronic kidney disease, stage 3 unspecified (principal)
CPT/HCPCS: 80048; 85025